=== PATIENT | female | born 2000 | race Caucasian/White ===

== ENCOUNTER 2022-11-11 10:24 | Outpatient (CLI) | payer OTHER, SELFPAY ==
--- NOTE | ~2022-11-11 | US_ITS ---
Pelvic ultrasound. Clinical History: Pelvic pain Technique: Realtime transabdominal and transvaginal scanning of the pelvis was performed. Color flow Doppler and Doppler spectral analysis were performed. Findings: The uterus is anteverted. The endometrial stripe has a thickness of 2 mm. No focal mass is identified. Small amount of fluid present in the cervical canal. The right ovary measures 2.0 x 1.3 x 1.7 cm. No significant right ovarian or adnexal mass is seen. The left ovary measures 1.8 x 1.1 x 1.1 cm. No significant left ovarian or adnexal mass is seen. Vascular flow present in both ovaries on Doppler spectral analysis. There is no evidence of free fluid in the cul de sac. Impression: No significant abnormality identified. Reviewed, dictated and finalized at [facility]. BLASTER SUPERVISOR Impression: No significant abnormality identified.
== END 2022-11-11 10:25 | disposition home or self-care (01) ==
PROVIDERS: PCP Internal Medicine; Visit Provider Student in an Organized Health Care Education/Training Program
DX: R10.2 Pelvic and perineal pain (principal)
CPT/HCPCS: 76830; 76856

== ENCOUNTER 2022-12-31 09:28 | Outpatient (CLI) | payer OTHER, SELFPAY ==
--- NOTE | 2022-12-31 09:37 | ECG_ITS ---
Measurements Intervals [place] Rate: 75 P: 40 ND: 130 QRS: 69 QRSD: 99 T: 31 QT: 364 QTc: 409 Interpretive Statements SINUS RHYTHM INCOMPLETE RIGHT BUNDLE BRANCH BLOCK BASELINE ARTIFACT- I, II, III, AVR, AVL, AVF, V1-V6 BORDERLINE ECG NO PREVIOUS ECG AVAILABLE FOR COMPARISON Electronically Signed On 12-31-2022 10:10:03 CDT by Lalo Rojas D.O.
== END 2022-12-31 09:29 | disposition home or self-care (01) ==
LOC: ANHSURGERY 09:33
PROVIDERS: PCP Internal Medicine; Visit Provider Obstetrics & Gynecology
DX: R10.2 Pelvic and perineal pain (principal); E78.5 Hyperlipidemia, unspecified; Z01.818 Encounter for other preprocedural examination; I45.10 Unspecified right bundle-branch block
CPT/HCPCS: 36415; 86850; 86900; 86901; 93005

== ENCOUNTER 2023-01-01 02:14 | Day surgery (SDC) | payer OTHER, SELFPAY ==
[2022-12-28 11:59] VITALS: BMI 28.3
--- NOTE | 2022-12-28 12:04 | PC.NURSE ---
Report to the Outpatient Waiting Room, entrance under the green pavilion located off [facility], at time 1:30 on date 01/01/23. Planned Procedure Time: 3:30. Time changes happen often and if your time is changed the preop area will call you the afternoon before. - You and your visitor will be asked to self-screen and do not enter if you have any COVID symptoms. - Only one visitor is requested with a max of two and NO children visitors are allowed at this time. - The patient visitor may be requested to leave or wait in car when not with patient due to distancing restrictions. - A mask is optional within the hospital at this time. Patients may have clear liquids (water, carbonated beverages, clear teas, apple juice) until 3 hours prior to surgery (12:30) with a maximum of 20 ounces. - No food from midnight until time of surgery Take the following medications with a SIP of water the morning of surgery: BUPROPION, PAIN PILL IF NEEDED DO NOT STOP ANY OF YOUR OTHER PRESCRIPTION MEDICATIONS PRIOR TO SURGERY EXCEPT THE FOLLOWING Medications to discontinue per physician: VITAMINS/SUPPLEMENTS Date to take last dose: 12/28/22 Please no make-up, nail ukrainian, hairspray, perfume, deodorant, or body powder the day of surgery. No jewelry (including any body piercings) or valuables the day of surgery, leave them at home. Please take a shower or bath the night before, or the morning of, surgery with an antibacterial soap. Wear comfortable, loose fitting clothing. - Jewelry must be removed prior to entering the operating room. Rings and piercings that are not removed may be cut off. - The hospital will not accept responsibility for valuables. - Please leave all valuables, including medications, at home the day of surgery. If you are going home after surgery, a licensed hazmat tanker driver must drive you home. - NO public transportation without another adult if you receive anesthesia. - We recommend that an adult stay with you for 24 hours following discharge. - We also recommend that you do not drive, make important decision, drink alcoholic beverages, or take any drugs that were not prescribed by your health care provider for at least 24 hours after your discharge time. Follow any additional instructions given to you from your surgeon. If you or anyone in your household have experienced Covid symptoms in the past week, please notify your surgeon or the nurse liaison at the phone number below for possible testing. Telephone instructions given to COLLIN SHAFFER and asked if any additional questions and then verbalized understanding. Patient advised to call surgeon office or pre surgery nurse liaison [phone] if any additional questions.
--- NOTE | 2022-12-30 16:33 | PM.IMHP ---
H&P: HPI History of Present Illness Date/Time: 12/30/22 16:33 Chief Complaint: Pelvic pain and irregular heavy bleeding Narrative: A 22-year-old 0 female complaining of severe pelvic pain dyspareunia and bleeding for more than last 2 months. She has tried control pills patches has had no luck. The pain appears to be worse on the right left. She is monogamous and but had negative and negative STD testing. Light of these findings she will undergo laparoscopy and hysteroscopy. Risks and benefits reviewed exclusive , aspiration pneumonia, bleeding, transfusion perforation injury to bowel, bladder, ureters, or other internal organs with the need for open laparotomy. She received the ACOG handout entitled laparoscopy, hysteroscopy, dilatation curettage respectively. She had all questions answered. 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[employer] Gender identity (if verbalized by the patient): Female Sexual Orientation (if Verbalized by the Patient): Straight or Heterosexual Spiritual care concerns: No Meds Home Medications and Allergies Home Medications Medication Instructions Recorded Confirmed Type ergocalciferol (vitamin D2) 1,250 1,250 mcg PO WEEKLY 01/16/22 12/28/22 History mcg (50,000 unit) capsule esomeprazole magnesium 20 mg 20 mg PO DAILY 01/16/22 12/28/22 History capsule,delayed release ubrogepant 50 mg tablet (Ubrelvy) 50 mg PO ONCE 01/16/22 12/28/22 History bupropion HCl 150 mg 24 hr tablet, 300 mg PO QAM 11/18/22 12/28/22 History extended release buspirone 5 mg tablet 5 mg PO HS 11/18/22 12/28/22 History hydrocodone 5 mg-acetaminophen 325 1 tablet PO Q8H PRN Pain 12/28/22 12/28/22 History mg tablet norgestimate 0.25 mg-ethinyl 1 tablet PO DAILY 12/28/22 12/28/22 History estradiol 35 mcg tablet (Whitney) rosuvastatin 40 mg tablet 80 mg PO DAILY 12/28/22 12/28/22 History viloxazine 100 mg capsule,extended 100 mg PO DAILY 12/28/22 12/28/22 History release 24 hr (Qelbree) Allergies Allergy/AdvReac Type Severity Reaction Status Date / Time adhesive tape Allergy Intermediate Rash Verified 12/28/22 11:54 Exam Const: General: cooperative, healthy appearing, comfortable, well groomed and average body habitus Orientation/consciousness: oriented to person, oriented to place and oriented to time HENMT: Head: normal to inspection Resp: Effort & Inspection: normal respiratory effort Cardio: Rate: regular rate Rhythm: regular rhythm Heart sounds: S1 normal heart sound present and S2 normal heart sound present GI: Inspection: normal to inspection : External Female Exam: normal external appearance Speculum Exam - Vagina: normal appearance of the vagina Speculum Exam - Cervix: normal appearance of the cervix Bimanual exam- vagina & uterus: uterine size normal and Uterine tenderness Bimanual Exam- Adnexa, other: tender bilaterally Assessment and Plan Assessment and plan (1) Pelvic pain: Code(s): R10.2 - Pelvic and perineal pain Status: Acute (2) Irregular menses: Code(s): N92.6 - Irregular menstruation, unspecified Status:
[2023-01-01] VITALS (10 sets, daily range): BP systolic 84–124; BP diastolic 59–79; PULSE 59–118; RESP 12–20; TEMP 36.1–36.3; O2SAT 96–100
--- NOTE | 2023-01-01 05:28 | WPDHPUPDATE1 ---
History and Physical Update Update Date/Time: 01/01/23 05:28 History and Physical has been reviewed, including an updated exam of the patient. There are NO changes in the patient's condition. Risks, benefits, and alternatives have been discussed and questions answered. Patient agrees to proceed with procedure.
[2023-01-01] MEDS: ACETAMINOPHEN 500 MG TABLET 1000 MG PO (14:10)
[2023-01-01] MEDS: LACTATED RINGERS 1,000 ML 30 ML IV CONT (14:20)
[2023-01-01] MEDS: KETOROLAC 15 MG/ML VIAL (*BKC) IV PUSH (14:25)
--- NOTE | 2023-01-01 14:26 | WPDANESEPPF ---
Anes - Initial Pre Proc Eval Procedure: Operation Date: 01/01/23 15:30 Proposed Procedures p Diagnostic Laparoscopy, - Indra Gale MD s Hysteroscopy Dilation and Curettage - Indra Gale MD Date/Time: 01/01/23 14:26 Surgeon: Indra Gale MD Pre Op Diagnosis: pelvic pain, irregular bleeding Patient Data Age: 22 Gender: F Height: 1.55 m Weight: 68.1 kg Allergies Allergy/AdvReac Type Severity Reaction Status Date / Time adhesive tape Allergy Intermediate Rash Verified 01/01/23 13:58 Home Medications Medication Instructions Recorded Confirmed Type ergocalciferol (vitamin D2) 1,250 1,250 mcg PO WEEKLY 01/16/22 01/01/23 History mcg (50,000 unit) capsule esomeprazole magnesium 20 mg 20 mg PO DAILY 01/16/22 01/01/23 History capsule,delayed release ubrogepant 50 mg tablet (Ubrelvy) 50 mg PO ONCE 01/16/22 01/01/23 History bupropion HCl 150 mg 24 hr tablet, 300 mg PO QAM 11/18/22 01/01/23 History extended release buspirone 5 mg tablet 5 mg PO HS 11/18/22 01/01/23 History hydrocodone 5 mg-acetaminophen 325 1 tablet PO Q8H PRN Pain 12/28/22 01/01/23 History mg tablet norgestimate 0.25 mg-ethinyl 1 tablet PO DAILY 12/28/22 01/01/23 History estradiol 35 mcg tablet (Whitney) rosuvastatin 40 mg tablet 80 mg PO DAILY 12/28/22 01/01/23 History viloxazine 100 mg capsule,extended 100 mg PO DAILY 12/28/22 01/01/23 History release 24 hr (Qelbree) hydrocodone 5 mg-acetaminophen 325 1 tablet PO Q4H PRN pain #20 tabs 01/01/23 Rx mg tablet norgestimate 0.25 mg-ethinyl 1 tablet PO DAILY 01/01/23 01/01/23 History estradiol 35 mcg tablet (Whitney) Patient hx anesthesia problems: none Family hx anesthesia problems: none Results Review: All pre-operative results and documents have been reviewed as part of the pre-operative evaluation. 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 Gender identity (if verbalized by the patient): Female Sexual Orientation (if Verbalized by the Patient): Straight or Heterosexual Spiritual care concerns: No Anes - Eval Final PreProcedure Day of Procedure 01/01/23 14:26 Patient weight: overweight Heart: regular rate and rhythm Lungs: clear to auscultation Airway: Mallampati scale class II Neurological: alert and oriented Last oral intake: >/= 8 hours ASA classification: II Emergent: no Anesthetic plan: proceed Anesthesia type and monitoring: general ETT and standard monitoring Results Review: All pre-operative results and documents have been reviewed as part of the pre-operative evaluation. Informed Consent: The patient's anesthetic plan and its attendant risks and benefits were discussed with the patient/family/POA. Questions were solicited and answers provided to the satisfaction of the patient/family/POA.
--- NOTE | 2023-01-01 15:38 | P.OP_ITS ---
Procedure Note - Detailed Date of Procedure 01/01/23 Pre-op Diagnosis pelvic pain, irregular bleeding Post-op Diagnosis Other (Endometriosis) Procedure Performed laparoscopic destruction of endometriosis / hysteroscopy / dilatation curettage Surgeon Indra Gale MD Anesthesia General Indications [age]-year-old female with pelvic pain and bleeding Findings a laparoscopy small amounts of endometriosis were seen along the right and left uterosacral ligament. Normal-appearing ovaries tubes were seen. Normal- appearing uterus seen. Normal-appearing gallbladder and liver edge Description of Procedure patient was prepped draped in the normal sterile fashion placed in dorsal lithotomy position. Under an excellent general trach anesthesia weighted speculum placed posterior fornix vagina. Anterior lip of the cervix grasped with a single-tooth tenaculum. The Lord's cannula inserted the cervix and attached to the single-tooth to be used later for uterine manipulation. After emptying the bladder clear urine weighted speculum was removed. Gloves were changed. An infraumbilical incision made in the Veress needle passed in the abdomen. Abdomen filled with CO2 gas [id number]. The 5mm trocar advanced in the abdomen and the optic scope in no injury seen. Patient placed in Trendelenburg and a suprapubic incision made. The 5mm trocar advanced under direct visualization assuring no injury. A 10cc of serosanguineous fluid was seen in the cul-de-sac and this was suction remove small areas of powder burn endometriosis were seen along the left and right uterosacral ligaments. Photo documentation was undertaken and these were then cauterized at 35 w per 2nd with total desiccation. Irrigation undertaken to clear. The remainder the pelvis appeared within normal limits and photo documentation undertaken. The lower site removed. The gas removed from the abdomen. The upper site removed. The incisions closed with 4 Monocryl and glue. Attention was turned to the hysteroscopic portion. The uterus sounded to 7cm. Serial dilatation with fragmented dilators performed followed by passage of the 5mm via the hysteroscope. Normal saline was used as visualizing medium. Each fallopian tube os could be seen there was an atrophic appearance to the endometrium. Node definitive abnormality seen the low the instruments were withdrawn the uterus was scraped over the entire 360? until good grating sound was heard. The instruments were withdrawn the patient went to recovery in satisfactory condition. All sponge, needle, instrument counts were correct. There were no immediate complications noted Estimated Blood Loss 5 Drains No Packing No Pathology Yes Complications No immediate complications Condition Stable Disposition PACU
[2023-01-01] MEDS: fentaNYL CITRATE INJ (*CRX) 100 MCG/2 ML VIAL 25 MCG IV PUSH ×6 (15:55→16:20)
[2023-01-01] MEDS: ONDANSETRON INJ 4 MG/2 ML VIAL IV PUSH (16:15)
[2023-01-01] MEDS: SCOPOLAMINE 1.5 MG PATCH TRANSDERM (16:19)
[2023-01-01] MEDS: MIDAZOLAM HCL (*CRX) 2 MG/2 ML VIAL 1 MG IV PUSH (16:40)
--- NOTE | 2023-01-01 16:40 | SUR.PHASEI ---
1630: PT ANXIOUS.STATES DIDN'T TAKE MEDS FOR ADHD AND ANXIETY TODAY. BECOMING RESTLESS AND ASKING FOR FAMILY AND A PERSONAL BLANKET AND HAND STONE SHE USES TO MANAGE PANIC ATTACKS. MEDICATED. COMFORTED. FAMILY UPDATED. COMFORT ITEMS AND GLASSES GIVEN TO PT.
[2023-01-01] MEDS: oxyCODONE HCL (*CRX) 5 MG TAB IR PO (17:20)
== END 2023-01-01 18:10 | disposition home or self-care (01) ==
PROVIDERS: PCP Internal Medicine; Visit Provider Obstetrics & Gynecology
PROC: (CPT 49320; principal; 2023-01-01 15:30)
PROC: 0U5B8ZZ Destruction of Endometrium, Via Natural or Artificial Opening Endoscopic (ICD-10-PCS; CPT 58563; 2023-01-01 15:30)
DX: N80.3C3 Endometriosis of bilateral uterosacral ligament(s), unspecified depth (principal); R10.2 Pelvic and perineal pain; N92.6 Irregular menstruation, unspecified; N94.10 Unspecified dyspareunia; E78.5 Hyperlipidemia, unspecified; F41.9 Anxiety disorder, unspecified; F32.A Depression, unspecified; E53.8 Deficiency of other specified B group vitamins; E55.9 Vitamin D deficiency, unspecified
CPT/HCPCS: 58558; 58662; 36415; 86850; 86900; 86901; 88305; 93005; A9270; J1100; J1885; J2250; J2405; J2704; J2710; J3010; J7120

== ENCOUNTER 2023-06-15 04:01 | Emergency (ER) | payer OTHER, SELFPAY ==
[2023-06-15 04:03] VITALS: BP 120/72; PULSE 91; RESP 14; TEMP 36.6; O2SAT 100
== END 2023-06-15 04:05 | disposition left against medical advice (07) ==
LOC: ANHED 05:31
PROVIDERS: PCP Internal Medicine
DX: R13.10 Dysphagia, unspecified (principal)
CPT/HCPCS: 99199

== ENCOUNTER 2023-11-04 09:29 | Emergency (ER) | payer MEDICAID, SELFPAY ==
[2023-11-04 09:40] VITALS: BP 136/70; PULSE 96; RESP 15; TEMP 36.4; O2SAT 98
[2023-11-04 10:29] LABS: Basophils Percent Auto 0.3 % (0.2-1.2); Eosinophils Absolute Auto 0.2 K/mm3 (0-0.3); Eosinophils Percent Auto 1.9 % (0-4.4); Hematocrit 39.1 % (37.0-47.0); Hemoglobin 12.9 g/dL (12.0-15.0); Immature Granulocyte Absolute 0.05 K/mm3 (0.00-0.031); Immature Granulocyte Percent A 0.5 % (0-0.5); Lymphocytes Absolute Auto 1.59 K/mm3 (0.9-3.2); Lymphocytes Percent Auto 17.4 % (18.3-44.2); Mean Corpuscular Hemoglobin 30.1 pg (26-34); Mean Corpuscular Volume 91.4 fl (80-100); Mean Platelet Volume 9.8 fl (7.4-10.4); Monocytes Absolute Auto 0.4 K/mm3 (0.1-0.6); Monocytes Percent Auto 4.4 % (2.6-8.5); Neutrophils Absolute Auto 6.9 K/mm3 (1.3-6.7); Neutrophils Percent Auto 75.5 % (45.5-73.1); Platelet Count Result 314 k/mm3 (150-375); Red Blood Count 4.28 M/mm3 (4.2-5.4); Red Cell Distribution Width 13.8 % (11.5-14.5); White Blood Count 9.1 K/mm3 (4.5-10.0)
[2023-11-04 10:45] VITALS: BP 102/69; PULSE 94; RESP 17; TEMP 36.6; O2SAT 98
[2023-11-04] MEDS: ACETAMINOPHEN 500 MG TABLET 1000 MG PO (10:46)
[2023-11-04] MEDS: LACTATED RINGERS 1,000 ML 999 ML IV CONT (10:51)
[2023-11-04] MEDS: METOCLOPRAMIDE HCL INJ 10 MG/2 ML VIAL IV PUSH (10:52)
[2023-11-04] MEDS: FAMOTIDINE 20 MG/2 ML VIAL IV PUSH (10:52)
[2023-11-04 11:21] LABS: Appearance Urine Clear (Clear); Bilirubin Urine Negative (Negative); Blood Urine Negative (Negative); Color Urine Yellow (Yellow); Glucose Urine UA Negative (Negative); Ketones Urine Negative (Negative); Leukocyte Esterase Ur 1+ LEU/UL (Negative); Nitrate Urine Negative (Negative); Protein Urine Negative (Negative); Urobilinogen Urine 0.2 mg/dL (<2.0)
[2023-11-04 11:22] LABS: Add Urine Microscopic? YES
--- NOTE | 2023-11-04 11:22 | ED.FALL ---
HPI - Fall General Chief Complaint: Fall Stated Complaint: FALL, OB WANTS BLOOD WORK Time Seen by Provider: 11/04/23 09:43 History of Present Illness HPI Narrative: Patient with history of endometriosis and inconsistent. Presents here after she had a positive test at home 2 days ago. Plan was to follow-up with her OBGYN today, however she slipped and fell and landed on her left side/ back, with her backpack on. She caught her OBs office we told her to go to the emergency room. She has no vaginal bleeding, she has some discomfort to the left lower back, but no abdominal pain. Over the last few days she has been having a lot of nausea and vomiting. Related Data Home Medications Medication Instructions Recorded Confirmed ergocalciferol (vitamin D2) 1,250 1,250 mcg PO WEEKLY 01/16/22 01/01/23 mcg (50,000 unit) capsule esomeprazole magnesium 20 mg 20 mg PO DAILY 01/16/22 01/01/23 capsule,delayed release ubrogepant 50 mg tablet (Ubrelvy) 50 mg PO ONCE 01/16/22 01/01/23 bupropion HCl 150 mg 24 hr tablet, 300 mg PO QAM 11/18/22 01/01/23 extended release buspirone 5 mg tablet 5 mg PO HS 11/18/22 01/01/23 hydrocodone 5 mg-acetaminophen 325 1 tablet PO Q8H PRN Pain 12/28/22 01/01/23 mg tablet norgestimate 0.25 mg-ethinyl 1 tablet PO DAILY 12/28/22 01/01/23 estradiol 35 mcg tablet (Whitney) rosuvastatin 40 mg tablet 80 mg PO DAILY 12/28/22 01/01/23 viloxazine 100 mg capsule,extended 100 mg PO DAILY 12/28/22 01/01/23 release 24 hr (Qelbree) norgestimate 0.25 mg-ethinyl 1 tablet PO DAILY 01/01/23 01/01/23 estradiol 35 mcg tablet (Whitney) Allergies Allergy/AdvReac Type Severity Reaction Status Date / Time adhesive tape Allergy Intermediate Rash Verified 11/04/23 09:44 Review of Systems Review of Systems: All systems reviewed & are unremarkable except as noted in HPI and below PMFSH Past Medical History Medical History Anxiety Depression Hyperlipemia Tonsillectomy planned Vaginal discharge Vitamin B12 deficiency Vitamin D deficiency Surgical History Surgical History Hx of tonsillectomy [place] teeth extracted Family History Family History Mother Breast cancer Grandparent Hypertension Social History Social History Smoking status: Never smoker Alcohol intake: current Drinks per week: 5 Substance use: never Substance use type: does not use Living arrangements: with family Occupation/Education: occupation 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 EYES: EOMI, conjunctiva normal ENT: Hearing grossly intact LUNGS: Nonlabored breathing. HEART: [Regular rate and rhythm] ABD: [Soft], [nontender to palpation] EXT: Normal range of motion SKIN: [No rashes or lesions.] NEURO: [Alert and oriented x 3. No gross focal sensory or strength deficits.] PSYCH: Normal affect Course Vital Signs Vital signs: Vital Signs Temperature 97.6 F 11/04/23 09:40 Pulse Rate 96 11/04/23 09:40 Respiratory Rate 15 11/04/23 09:40 Blood Pressure 136/70 11/04/23 09:40 Pulse Oximetry 98 11/04/23 09:40 Oxygen Delivery Room Air 11/04/23 09:40 Temperature 97.6 F 11/04/23 09:40 Pulse Rate 96 11/04/23 09:40 Respiratory Rate 15 11/04/23 09:40 Blood Pressure 136/70 11/04/23 09:40 Pulse Oximetry 98 11/04/23 09:40 Oxygen Delivery Room Air 11/04/23 09:40 VIVIANA Brooks MD
[2023-11-04 11:29] LABS: RBC Urine 0-2 /hpf (0-2)
[2023-11-04 11:30] LABS: Bacteria Urine None Seen /hpf; Squamous Epithelial Cell Urine Rare /hpf (Few)
== END 2023-11-04 11:32 | disposition home or self-care (01) ==
PROVIDERS: Emergency Provider Emergency Medicine; PCP Internal Medicine
DX: O9A.211 Injury, poisoning and certain other consequences of external causes complicating pregnancy, first trimester (principal); S39.92XA Unspecified injury of lower back, initial encounter; O21.9 Vomiting of pregnancy, unspecified; O99.281 Endocrine, nutritional and metabolic diseases complicating pregnancy, first trimester; E78.5 Hyperlipidemia, unspecified; E53.8 Deficiency of other specified B group vitamins; E55.9 Vitamin D deficiency, unspecified; O99.341 Other mental disorders complicating pregnancy, first trimester; F41.9 Anxiety disorder, unspecified; F32.A Depression, unspecified; Z3A.00 Weeks of gestation of pregnancy not specified; W01.0XXA Fall on same level from slipping, tripping and stumbling without subsequent striking against object, initial encounter
CPT/HCPCS: 36415; 81001; 84702; 85025; 85461; 86850; 86900; 86901; 87086; 96361; 96374; 96375; 99284; A9270; J2765; J7120

== ENCOUNTER 2023-12-09 11:53 | Observation (INO) | payer OTHER, SELFPAY ==
--- NOTE | ~2023-12-09 | US_ITS ---
EXAMINATION: US renal BI DATE: 12/09/2023 18:03 INDICATION: Right abdominal pain. Right flank pain. TECHNIQUE: Multiple ultrasound grayscale images of the kidneys were obtained. COMPARISON: CT abdomen and pelvis 09/06/2019 FINDINGS: The right kidney measures 9.7 x 5.9 x 5.7 cm. The left kidney measures 9.0 x 5.4 x 5.0 cm. The kidney s demonstrate normal parenchymal echogenicity. There is mild right hydronephrosis. The bladder is not well distended. Both uterine jets are seen in the bladder. There is an intrauterine gestation in aurelio lauren presentation. IMPRESSION: 1. Mild right hydronephrosis. Reviewed, dictated and finalized at location E. GHT ELEVATOR ERECTOR
--- NOTE | ~2023-12-09 | US_ITS ---
EXAMINATION: US right upper quadrant DATE: 12/09/2023 19:40 INDICATION: Right upper quadrant abdominal pain. TECHNIQUE: Multiple grayscale and Doppler ultrasound images of the abdomen were obtained. COMPARISON: CT abdomen and pelvis 09/06/2019 FINDINGS: The visualized portion of the head of the pancreas is normal. The liver is normal without f ocal lesion. There is normal flow in main portal vein. The gallbladder is contracted. No gallstones. There was a positive sonographic Sykes sign. The common duct is normal and measures 4 mm. There is m ild right hydronephrosis. IMPRESSION: 1. Contracted gallbladder. No etiology for the positive sonographic Sykes sign. 2. Mild right hydronephrosis. Reviewed, dictated and finalized at location E. ITY CONTROL SPECIALIST IMPRESSION: 1. Contracted gallbladder. No etiology for the positive sonographic Sykes sign . 2. Mild right hydronephrosis.
--- NOTE | 2023-12-09 11:53 | OBADM ---
This patient, Liberty Alford, admitted to the OB room OB Post 113 for observation. Patient/family oriented to hospital policies and general routines including ID bracelet, bed and alarms, visiting hours, pain management, procedures, bathroom and other care routines, personal items, smoking policy, room service/diet, and visiting hours. Patient/Family are encouraged to report perceived risks to care and to ask questions if they do not understand what they are told or what they should do.
--- NOTE | 2023-12-09 12:00 | PC.NURSE ---
Orders received prior to admission. Pt coming from office.
--- NOTE | 2023-12-09 12:10 | PM.OBTRLD ---
OB - Triage/Final Diagnosis Visit Information Date of evaluation: 12/09/23 Reason for evaluation: decreased movement and other (Dehydration) Comments/Additional reasons for admission: I have assessed the risk for this patient, Liberty Alford, and determined that she would benefit from observation care.
[2023-12-09 12:22] VITALS: BP 103/56; PULSE 75
[2023-12-09 12:33] LABS: Basophils Percent Auto 0.4 % (0.2-1.2); Eosinophils Absolute Auto 0.2 K/mm3 (0-0.3); Eosinophils Percent Auto 1.9 % (0-4.4); Hematocrit 33.6 % (37.0-47.0); Hemoglobin 10.9 g/dL (12.0-15.0); Immature Granulocyte Absolute 0.07 K/mm3 (0.00-0.031); Immature Granulocyte Percent A 0.7 % (0-0.5); Lymphocytes Absolute Auto 2.24 K/mm3 (0.9-3.2); Lymphocytes Percent Auto 21.3 % (18.3-44.2); Mean Corpuscular HGB Conc 32.4 g/dl (32-36); Mean Corpuscular Hemoglobin 30.6 pg (26-34); Mean Corpuscular Volume 94.4 fl (80-100); Mean Platelet Volume 9.7 fl (7.4-10.4); Monocytes Absolute Auto 0.6 K/mm3 (0.1-0.6); Monocytes Percent Auto 5.9 % (2.6-8.5); Neutrophils Absolute Auto 7.4 K/mm3 (1.3-6.7); Neutrophils Percent Auto 69.8 % (45.5-73.1); Platelet Count Result 308 k/mm3 (150-375); Red Blood Count 3.56 M/mm3 (4.2-5.4); White Blood Count 10.5 K/mm3 (4.5-10.0)
[2023-12-09] MEDS: DEXTROSE 5%/LACTATED RINGERS 1,000 ML 999 ML IV CONT (12:34)
[2023-12-09] MEDS: ONDANSETRON INJ 4 MG/2 ML VIAL IV PUSH ×2 (12:35→14:26)
[2023-12-09 12:37] VITALS: BMI 32.5
[2023-12-09 12:43] LABS: Alanine Aminotransferase 25 U/L (6-35); Albumin Level 3.5 g/dL (3.5-5.1); Alkaline Phosphatase 81 U/L (38-126); Anion Gap 5 mmol/L (8-16); Aspartate Amino Transferase 28 U/L (14-36); Bilirubin,Total 0.3 mg/dL (0.2-1.3); Blood Urea Nitrogen 7 mg/dL (7-17); Calcium 8.7 mg/dL (8.4-10.2); Carbon Dioxide 22 mmol/L (22-30); Chloride 108 mmol/L (98-107); Estimated CRCL calculation 118 ml/min; Estimated Glomerular Filt Rate > 60; Glucose 76 mg/dL (65-110); Potassium 3.8 mmol/L (3.4-5.0); Sodium 135 mmol/L (137-145)
[2023-12-09] MEDS: FAMOTIDINE 20 MG/2 ML VIAL IV PUSH (14:26)
--- NOTE | 2023-12-09 14:30 | PC.NURSE ---
Called Dr. Stephane Gale with pt update. Informed that pt was able to eat dry cereal and drink a sprite without vomiting. Pt states that she has abdominal pain now, and some nausea. Orders received.
[2023-12-09 15:24] LABS: Amylase 104 U/L (30-110); Lipase 55 U/L (23-300)
[2023-12-09] MEDS: PROMETHAZINE HCL 25 MG/ML AMPUL 12.5 MG IV PUSH ×2 (15:26→17:39)
[2023-12-09 15:45] VITALS: TEMP 36.8
[2023-12-09] MEDS: HYDROcodone/acetaminophen (*CRX) 10-325 MG TABLET 1 TAB PO (16:37)
--- NOTE | 2023-12-09 17:25 | PC.NURSE ---
Called Dr. Stephane Gale. Pt now complaining of worsening pain. CVA tenderness noted. Orders received.
[2023-12-09] MEDS: DEXTROSE 5%/LACTATED RINGERS 1,000 ML 150 ML IV CONT (17:39)
[2023-12-09 18:41] LABS: Appearance Urine Clear (Clear); Bacteria Urine None Seen /hpf; Bilirubin Urine Negative (Negative); Blood Urine Negative (Negative); Color Urine Yellow (Yellow); Glucose Urine UA Negative (Negative); Ketones Urine Negative (Negative); Leukocyte Esterase Ur Trace LEU/UL (NEGATIVE); Nitrate Urine Negative (Negative); Non Pathogenic Casts 0-2; Protein Urine Negative (Negative); RBC Urine 0-2 /hpf (0-2); Specific Grav Ur 1.014 (1.001-1.035); Squamous Epithelial Cell Urine Occasional /hpf (Few); Urobilinogen Urine 0.2 mg/dL (<2.0); WBC Urine 0-5 /hpf (0-3)
[2023-12-09 18:44] LABS: Add Urine Microscopic? YES
--- NOTE | 2023-12-09 20:04 | PC.NURSE ---
[address] Stephane Gale at this time. Reported all lab work and reports. orders given to discharge this patient at this time. Patient is able to keep down crackers and peanut butter and a sprite.
== END 2023-12-09 20:44 | disposition home or self-care (01) ==
PROVIDERS: Admitting Provider Obstetrics & Gynecology; PCP Internal Medicine; Visit Provider Obstetrics & Gynecology
DX: O36.8120 Decreased fetal movements, second trimester, not applicable or unspecified (principal); O99.282 Endocrine, nutritional and metabolic diseases complicating pregnancy, second trimester; E86.0 Dehydration; O99.891 Other specified diseases and conditions complicating pregnancy; N13.30 Unspecified hydronephrosis; O99.612 Diseases of the digestive system complicating pregnancy, second trimester; K82.0 Obstruction of gallbladder; Z3A.24 24 weeks gestation of pregnancy
CPT/HCPCS: 36415; 76705; 76775; 80053; 81001; 82150; 83690; 85025; 87086; 87088; 96374; 96375; 96376; A9270; G0378; G0379; J2405; J2550; J7121

== ENCOUNTER 2023-12-10 13:28 | Observation (INO) | payer OTHER, SELFPAY ==
--- NOTE | 2023-12-10 13:28 | OBADM ---
This patient, Liberty Alford, admitted to the OB room OB Post 116 for observation. Patient/family oriented to hospital policies and general routines including ID bracelet, bed and alarms, visiting hours, pain management, procedures, bathroom and other care routines, personal items, smoking policy, room service/diet, and visiting hours. Patient/Family are encouraged to report perceived risks to care and to ask questions if they do not understand what they are told or what they should do.
[2023-12-10 13:46] VITALS: BP 99/55; PULSE 89
[2023-12-10 14:00] VITALS: BP 103/61; PULSE 86
[2023-12-10 14:15] VITALS: BP 103/59; PULSE 78
--- NOTE | 2023-12-10 14:15 | PC.NURSE ---
Called Dr. Stephane Gale with pt admission. Pt complaining of increased abdominal pain since her discharge yesterday. Pt also stating that she is still nauseous and unable to keep anything down, decreased movement, and leaking fluid. Tracing appropriate for gestational age. ROM plus negative. Orders received.
[2023-12-10 14:46] VITALS: BP 100/56; PULSE 78
[2023-12-10] MEDS: PROMETHAZINE HCL 25 MG/ML AMPUL 12.5 MG IV PUSH (14:59)
[2023-12-10] MEDS: DEXTROSE 5%/LACTATED RINGERS 1,000 ML 150 ML IV CONT ×2 (15:00→15:39)
[2023-12-10] MEDS: MEPERIDINE HCL INJ (*CRX) 50 MG/ML AMPUL 25 MG IV PUSH (15:03)
[2023-12-10] MEDS: FAMOTIDINE 20 MG/2 ML VIAL IV PUSH (15:08)
[2023-12-10 16:09] VITALS: BP 111/60; PULSE 94
[2023-12-10 16:20] VITALS: BMI 32.5
--- NOTE | 2023-12-10 18:14 | PC.NURSE ---
Talked to Dr. Stephane Gale at this time. Reported on maternal and status. Patient states that her pain went from a 7 to a 4 and she is still nauseous but it is better then earlier. Discharge orders given at this time
--- NOTE | 2023-12-14 07:10 | PM.OBTRLD ---
OB - Triage/Final Diagnosis Visit Information Reason for evaluation: threatened labor Comments/Additional reasons for admission: I have assessed the risk for this patient, Liberty Alford, and determined that she would benefit from observation care.
== END 2023-12-10 18:29 | disposition home or self-care (01) ==
PROVIDERS: Admitting Provider Obstetrics & Gynecology; PCP Internal Medicine; Visit Provider Obstetrics & Gynecology
DX: O47.02 False labor before 37 completed weeks of gestation, second trimester (principal); Z3A.24 24 weeks gestation of pregnancy
CPT/HCPCS: 59025; 84112; 96361; 96374; 96375; G0378; G0379; J2175; J2550; J7121

== ENCOUNTER 2024-01-01 14:30 | Observation (INO) | payer OTHER, SELFPAY ==
[2024-01-01 15:00] VITALS: BP 102/60; PULSE 104; BMI 32.5
[2024-01-01 15:15] VITALS: BP 108/71; PULSE 94
[2024-01-01 15:27] LABS: Appearance Urine Cloudy (Clear); Bacteria Urine 2+ /hpf; Bilirubin Urine Negative (Negative); Blood Urine 3+ (Negative); Color Urine Yellow (Yellow); Glucose Urine UA Negative (Negative); Ketones Urine Negative (Negative); Leukocyte Esterase Ur 2+ LEU/UL (Negative); Nitrate Urine Negative (Negative); Non Pathogenic Casts 0-2; Protein Urine Trace mg/dL (Negative); Specific Grav Ur 1.022 (1.001-1.035); Squamous Epithelial Cell Urine Moderate /hpf (Few); Urobilinogen Urine 0.2 mg/dL (<2.0); WBC Urine 51-100 /hpf (0-3); pH Urine 5.5 (5.0-9.0)
[2024-01-01 15:28] LABS: Add Urine Microscopic? YES
[2024-01-01 15:30] VITALS: BP 103/66; PULSE 86; TEMP 36.6
[2024-01-01 15:45] VITALS: BP 105/66; PULSE 80
[2024-01-01 16:00] VITALS: BP 105/70; PULSE 74
--- NOTE | 2024-01-07 11:52 | PM.OBTRLD ---
OB - Triage/Final Diagnosis Visit Information Reason for evaluation: other ( vaginal spotting) Comments/Additional reasons for admission: I have assessed the risk for this patient, Liberty Alford, and determined that she would benefit from observation care. Evaluation Laboratory results: Laboratory Tests 01/01/24 15:10 Urine Color Yellow Urine Appearance Cloudy H Urine pH 5.5 Ur Specific [place] 1.022 Urine Protein Trace Urine Glucose (UA) Negative Urine Ketones Negative Ur Blood (Man) 3+ H Urine Nitrate Negative Urine Bilirubin Negative Urine Urobilinogen 0.2 Leukocyte Esterase Rfl 2+ H Urine RBC 3-5 H Urine WBC 51-100 H Ur Squamous Epith Cells Moderate Urine Bacteria 2+ H Urine Casts 0-2
== END 2024-01-01 16:55 | disposition home or self-care (01) ==
PROVIDERS: Admitting Provider Obstetrics & Gynecology Gynecology; PCP Internal Medicine; Visit Provider Obstetrics & Gynecology
DX: O26.853 Spotting complicating pregnancy, third trimester (principal); Z3A.28 28 weeks gestation of pregnancy
CPT/HCPCS: 81001; 87086; G0378; G0379

== ENCOUNTER 2024-02-12 13:46 | Observation (INO) | payer OTHER, SELFPAY ==
[2024-02-12] VITALS (22 sets, daily range): BP systolic 99–123; BP diastolic 53–79; PULSE 81–119; RESP 16; TEMP 36.5; O2SAT 100; BMI 35.9
[2024-02-12] MEDS: CALCIUM CARBONATE (TUMS) 500 MG (200 MG ELEMENTAL) PO (14:20)
--- NOTE | 2024-02-12 14:30 | OBADM ---
This patient, Liberty Alford, admitted to the OB room 116 for observation. Patient/family oriented to hospital policies and general routines including ID bracelet, bed and alarms, visiting hours, pain management, procedures, bathroom and other care routines, personal items, smoking policy, room service/diet, and visiting hours. Patient/Family are encouraged to report perceived risks to care and to ask questions if they do not understand what they are told or what they should do.
[2024-02-12 14:32] LABS: Appearance Urine Cloudy (Clear); Bacteria Urine 2+ /hpf; Bilirubin Urine Negative (Negative); Blood Urine Negative (Negative); Color Urine Yellow (Yellow); Glucose Urine UA Negative (Negative); Ketones Urine Trace mg/dL (Negative); Leukocyte Esterase Ur 1+ LEU/UL (Negative); Need Manual Microscopic Reviewed; Nitrate Urine Negative (Negative); Non Pathogenic Casts 0-2; Protein Urine Negative (Negative); Specific Grav Ur 1.027 (1.001-1.035); Squamous Epithelial Cell Urine Few /hpf (Few); WBC Urine 21-50 /hpf (0-3); pH Urine 5.5 (5.0-9.0)
[2024-02-12 14:33] LABS: Add Urine Microscopic? YES
[2024-02-12] MEDS: SODIUM CHLORIDE 0.9% IV 1,000 ML 999 ML IV CONT (15:19)
[2024-02-12] MEDS: ONDANSETRON INJ 4 MG/2 ML VIAL IV PUSH (15:20)
[2024-02-12] MEDS: FAMOTIDINE 20 MG/2 ML VIAL IV PUSH (15:21)
[2024-02-12] MEDS: TERBUTALINE SULFATE 1 MG/ML VIAL 0.25 MG SUB-Q (16:35)
--- NOTE | 2024-02-12 19:00 | PM.OBTRLD ---
OB - Triage/Final Diagnosis Visit Information Date of evaluation: 02/12/24 Reason for evaluation: threatened labor Comments/Additional reasons for admission: I have assessed the risk for this patient, Liberty Alford, and determined that she would benefit from observation care. Evaluation Laboratory results: Laboratory Tests 02/12/24 14:13 Urine Color Yellow Urine Appearance Cloudy H Urine pH 5.5 Ur Specific [place] 1.027 Urine Protein Negative Urine Glucose (UA) Negative Urine Ketones Trace H Ur Blood (Man) Negative Urine Nitrate Negative Urine Bilirubin Negative Urine Urobilinogen 1.0 Add Ur Microanalysis Reviewed Leukocyte Esterase Rfl 1+ H Urine RBC 6-10 H Urine WBC 21-50 H Ur Squamous Epith Cells Few Urine Bacteria 2+ H Urine Casts 0-2 Vital signs: Vital Signs - 24 hr 02/12/24 14:27 02/12/24 14:14 02/12/24 14:30 Temperature 97.7 F Pulse Rate 110 H 93 Respiratory Rate 16 Blood Pressure 108/72 109/67 Pulse Oximetry Oxygen Delivery Room Air 02/12/24 14:45 02/12/24 15:00 02/12/24 16:00 Temperature Pulse Rate 103 H 91 81 Respiratory Rate Blood Pressure 117/79 108/56 L 105/70 Pulse Oximetry Oxygen Delivery 02/12/24 16:34 02/12/24 17:00 02/12/24 17:24 Temperature Pulse Rate 86 87 Respiratory Rate Blood Pressure 106/67 99/53 L Pulse Oximetry 100 Oxygen Delivery 02/12/24 17:29 02/12/24 17:34 02/12/24 17:39 Temperature Pulse Rate Respiratory Rate Blood Pressure Pulse Oximetry 100 100 100 Oxygen Delivery 02/12/24 17:44 02/12/24 17:49 02/12/24 17:54 Temperature Pulse Rate Respiratory Rate Blood Pressure Pulse Oximetry 100 100 100 Oxygen Delivery 02/12/24 17:59 02/12/24 18:04 02/12/24 18:09 Temperature Pulse Rate Respiratory Rate Blood Pressure Pulse Oximetry 100 100 100 Oxygen Delivery 02/12/24 18:13 02/12/24 18:14 02/12/24 18:19 Temperature Pulse Rate 112 H Respiratory Rate Blood Pressure 123/67 Pulse Oximetry 100 100 Oxygen Delivery 02/12/24 18:24 02/12/24 18:29 02/12/24 18:29 Temperature Pulse Rate Respiratory Rate Blood Pressure Pulse Oximetry 100 100 100 Oxygen Delivery
== END 2024-02-12 18:40 | disposition home or self-care (01) ==
PROVIDERS: Admitting Provider Obstetrics & Gynecology; PCP Internal Medicine; Visit Provider Obstetrics & Gynecology
DX: O47.03 False labor before 37 completed weeks of gestation, third trimester (principal); Z3A.34 34 weeks gestation of pregnancy
CPT/HCPCS: 81001; 87077; 87086; 87088; 87181; 96361; 96365; 96372; 96375; A9270; G0378; G0379; J0696; J2405; J3105; J7030

== ENCOUNTER 2024-02-13 18:51 | Observation (INO) | payer OTHER, SELFPAY ==
[2024-02-13] VITALS (34 sets, daily range): BP systolic 117; BP diastolic 73; PULSE 85–126; O2SAT 97–100; BMI 36.2
[2024-02-13] MEDS: NIFEdipine 10 MG CAPSULE PO (20:34)
== END 2024-02-13 23:05 ==
PROVIDERS: Admitting Provider Obstetrics & Gynecology; PCP Internal Medicine; Visit Provider Obstetrics & Gynecology
DX: O47.03 False labor before 37 completed weeks of gestation, third trimester (principal); Z3A.34 34 weeks gestation of pregnancy
CPT/HCPCS: A9270; G0378; G0379

== ENCOUNTER 2024-02-14 14:21 | Observation (INO) | payer OTHER, SELFPAY ==
[2024-02-14 14:41] VITALS: BP 113/64; PULSE 111
[2024-02-14 14:45] VITALS: BP 99/58; PULSE 119
[2024-02-14 15:00] VITALS: BP 86/59; PULSE 107
[2024-02-14 15:29] VITALS: BP 103/63; PULSE 100
[2024-02-14 16:00] VITALS: BP 91/48; PULSE 84
--- NOTE | 2024-02-14 17:03 | PC.NURSE ---
Lab reported they are unable to locate urine specimen.
--- NOTE | 2024-02-16 06:04 | P.PNOB_ITS ---
OB - Triage/Final Diagnosis Visit Information Reason for evaluation: threatened labor Comments/Additional reasons for admission: I have assessed the risk for this patient, Liberty Alford, and determined that she would benefit from observation care. Evaluation Laboratory results: Laboratory Tests 02/14/24 14:56 Urine Color Cancelled Urine Appearance Cancelled Urine pH Cancelled Ur Specific [place] Cancelled Urine Protein Cancelled Urine Glucose (UA) Cancelled Urine Ketones Cancelled Ur Blood (Man) Cancelled Urine Nitrate Cancelled Urine Bilirubin Cancelled Urine Urobilinogen Cancelled Add Ur Microanalysis Cancelled Leukocyte Esterase Rfl Cancelled Urine RBC Cancelled Urine WBC Cancelled Urine WBC Clumps Cancelled Ur Squamous Epith Cells Cancelled Ur Transition Epith Cell Cancelled Ur Renal Epithelial Cell Cancelled [place] Biurate Crystals Cancelled Calcium Carbonate Cryst Cancelled Calcium Phosphate Cryst Cancelled Calcium Oxalate Crystal Cancelled Leucine Crystals Cancelled Cystine Crystals Cancelled Uric Acid Crystals Cancelled Triple Phos Crystals Cancelled Sulfonamide Crystals Cancelled Cholesterol Crystals Cancelled [place] Crystals Cancelled Tyrosine Crystals Cancelled Hippuric Acid Crystals Cancelled Bilirubin Crystals Cancelled Other Crystals Cancelled Amorphous Sediment Cancelled Other Sediment Cancelled Urine Bacteria Cancelled Urine Casts Cancelled Cellular Casts Cancelled Epithelial Casts Cancelled Fatty Casts Cancelled Hyaline Casts Cancelled Granular Casts Cancelled Waxy Casts Cancelled Broad Casts Cancelled RBC Casts Cancelled WBC Casts Cancelled Urine Starch Cancelled Urine Mucus Cancelled Urine Trichomonas Cancelled Urine Yeast (Budding) Cancelled Ur Oval Fat Bodies Cancelled Sperm Presence Cancelled
== END 2024-02-14 18:16 | disposition home or self-care (01) ==
PROVIDERS: Admitting Provider Obstetrics & Gynecology; PCP Internal Medicine; Visit Provider Obstetrics & Gynecology
DX: O47.03 False labor before 37 completed weeks of gestation, third trimester (principal); Z3A.34 34 weeks gestation of pregnancy
CPT/HCPCS: 96365; G0378; G0379; J0696

== ENCOUNTER 2024-02-18 19:53 | Observation (INO) | payer OTHER, SELFPAY ==
[2024-02-18 20:56] LABS: Appearance Urine Clear (Clear); Bacteria Urine None Seen /hpf; Bilirubin Urine Negative (Negative); Blood Urine Negative (Negative); Color Urine Yellow (Yellow); Glucose Urine UA Negative (Negative); Ketones Urine Trace mg/dL (Negative); Leukocyte Esterase Ur 1+ LEU/UL (Negative); Need Manual Microscopic Reviewed; Nitrate Urine Negative (Negative); Non Pathogenic Casts 0-2; Protein Urine Trace mg/dL (Negative); RBC Urine 0-2 /hpf (0-2); Specific Grav Ur 1.023 (1.001-1.035); Squamous Epithelial Cell Urine Occasional /hpf (Few); pH Urine 6.5 (5.0-9.0)
[2024-02-18 20:57] LABS: Add Urine Microscopic? YES
[2024-02-18 21:01] VITALS: BP 114/58; PULSE 95
[2024-02-18 21:15] VITALS: BP 107/57; PULSE 94
[2024-02-18 21:30] VITALS: BMI 34.0
--- NOTE | 2024-02-18 21:30 | OBADM ---
This patient, Liberty Alford, admitted to the OB room OB Post 115 for observation. Patient/family oriented to hospital policies and general routines including ID bracelet, bed and alarms, visiting hours, pain management, procedures, bathroom and other care routines, personal items, smoking policy, room service/diet, and visiting hours. Patient/Family are encouraged to report perceived risks to care and to ask questions if they do not understand what they are told or what they should do.
--- NOTE | 2024-02-28 11:54 | P.PNOB_ITS ---
OB - Triage/Final Diagnosis Visit Information Comments/Additional reasons for admission: I have assessed the risk for this patient, Liberty Toddubbs, and determined that she would benefit from observation care. Evaluation Laboratory results: Laboratory Tests 02/18/24 20:41 Urine Color Yellow Urine Appearance Clear Urine pH 6.5 Ur Specific [place] 1.023 Urine Protein Trace Urine Glucose (UA) Negative Urine Ketones Trace H Ur Blood (Man) Negative Urine Nitrate Negative Urine Bilirubin Negative Urine Urobilinogen 1.0 Add Ur Microanalysis Reviewed Leukocyte Esterase Rfl 1+ H Urine RBC 0-2 Urine WBC 6-10 H Ur Squamous Epith Cells Occasional Urine Bacteria None seen Urine Casts 0-2 Final Diagnosis (1) Spotting affecting : Code(s): O26.859 - Spotting complicating , unspecified trimester Status: Acute
== END 2024-02-18 21:46 | disposition home or self-care (01) ==
PROVIDERS: Admitting Provider Obstetrics & Gynecology; PCP Internal Medicine; Visit Provider Obstetrics & Gynecology
DX: O26.853 Spotting complicating pregnancy, third trimester (principal); Z3A.34 34 weeks gestation of pregnancy
CPT/HCPCS: 81001; 87086; G0378; G0379

== ENCOUNTER 2024-02-28 14:55 | Observation (INO) | payer OTHER, SELFPAY ==
--- NOTE | 2024-02-28 14:55 | OBADM ---
This patient, Liberty Alford, admitted to the OB room Labor/Delivery/Recovery 107 for observation. Patient/family oriented to hospital policies and general routines including ID bracelet, bed and alarms, visiting hours, pain management, procedures, bathroom and other care routines, personal items, smoking policy, room service/diet, and visiting hours. Patient/Family are encouraged to report perceived risks to care and to ask questions if they do not understand what they are told or what they should do.
[2024-02-28 15:18] VITALS: TEMP 36.4
[2024-02-28 15:20] VITALS: BMI 36.0
[2024-02-28 15:31] VITALS: BP 117/65; PULSE 120
[2024-02-28 15:50] VITALS: BP 128/77; PULSE 111
[2024-02-28 16:00] VITALS: BP 109/62; PULSE 102
[2024-02-28 16:15] VITALS: BP 125/88; PULSE 73
[2024-02-28 16:17] VITALS: BP 115/69; PULSE 98
--- NOTE | 2024-03-21 12:18 | PM.OBTRLD ---
OB - Triage/Final Diagnosis Visit Information Comments/Additional reasons for admission: I have assessed the risk for this patient, Liberty Paez Rocío, and determined that she would benefit from observation care. Final Diagnosis (1) False labor: Code(s): O47.9 - False labor, unspecified Status: Acute
== END 2024-02-28 16:45 ==
PROVIDERS: Admitting Provider Obstetrics & Gynecology; PCP Internal Medicine; Visit Provider Obstetrics & Gynecology
DX: O47.9 False labor, unspecified (principal)
CPT/HCPCS: G0378; G0379

== ENCOUNTER 2024-02-28 20:39 | Observation (INO) | payer OTHER, SELFPAY ==
[2024-02-28] VITALS (7 sets, daily range): BP systolic 125; BP diastolic 60; PULSE 92–118; O2SAT 98–100
--- NOTE | 2024-02-28 21:49 | OBADM ---
This patient, Liberty Alford, admitted to the OB room Labor/Delivery/Recovery 104 for observation. Patient/family oriented to hospital policies and general routines including ID bracelet, bed and alarms, visiting hours, pain management, procedures, bathroom and other care routines, personal items, smoking policy, room service/diet, and visiting hours. Patient/Family are encouraged to report perceived risks to care and to ask questions if they do not understand what they are told or what they should do.
== END 2024-02-28 22:10 | disposition home or self-care (01) ==
PROVIDERS: Admitting Provider Obstetrics & Gynecology; PCP Internal Medicine; Visit Provider Obstetrics & Gynecology
DX: O47.9 False labor, unspecified (principal)
CPT/HCPCS: G0378; G0379

== ENCOUNTER 2024-03-01 04:50 | Observation (INO) | payer OTHER, SELFPAY ==
--- NOTE | 2024-03-01 06:53 | PM.OBTRLD ---
OB - Triage/Final Diagnosis Visit Information Date of evaluation: 03/01/24 Reason for evaluation: threatened labor Comments/Additional reasons for admission: I have assessed the risk for this patient, Liberty Alford, and determined that she would benefit from observation care.
--- NOTE | 2024-03-01 07:08 | PC.NURSE ---
0640- Dr. Stephane Gale on unit, reviewed tracing and update given. Orders received to discharge patient.
== END 2024-03-01 07:08 | disposition home or self-care (01) ==
PROVIDERS: Admitting Provider Obstetrics & Gynecology; PCP Internal Medicine; Visit Provider Obstetrics & Gynecology
DX: O47.03 False labor before 37 completed weeks of gestation, third trimester (principal); Z3A.36 36 weeks gestation of pregnancy
CPT/HCPCS: 84112; G0378; G0379

== ENCOUNTER 2024-03-03 10:40 | Outpatient (CLI) | payer OTHER, SELFPAY ==
--- NOTE | 2024-03-03 11:52 | PC.NURSE ---
Called Dr. Stephane Gale with pt status. Pt admitted with complaints of leaking fluid. ROM plus negative. SVE /. Pt did not want to stay for a recheck. Reactive tracing. Irregular contractions. February D/C home.
--- NOTE | 2024-03-03 12:14 | PM.OBTRLD ---
OB - Triage/Final Diagnosis Visit Information Date of evaluation: 03/03/24 Reason for evaluation: threatened labor Comments/Additional reasons for admission: I have assessed the risk for this patient, Liberty Alford, and determined that she would benefit from observation care.
== END 2024-03-03 12:00 | disposition home or self-care (01) ==
LOC: ANHOBOP 12:00 → ANHLDR 12:01
PROVIDERS: PCP Internal Medicine; Visit Provider Obstetrics & Gynecology
DX: O41.8X90 Other specified disorders of amniotic fluid and membranes, unspecified trimester, not applicable or unspecified (principal); Z3A.00 Weeks of gestation of pregnancy not specified
CPT/HCPCS: 59025; 84112; 99199

== ENCOUNTER 2024-03-05 07:09 | Observation (INO) | payer OTHER, SELFPAY ==
[2024-03-05 08:02] VITALS: TEMP 36.6
--- NOTE | 2024-03-05 08:25 | OBADM ---
This patient, Liberty Alford, admitted to the OB room Labor/Delivery/Recovery 103 for observation. Patient/family oriented to hospital policies and general routines including ID bracelet, bed and alarms, visiting hours, pain management, procedures, bathroom and other care routines, personal items, smoking policy, room service/diet, and visiting hours. Patient/Family are encouraged to report perceived risks to care and to ask questions if they do not understand what they are told or what they should do.
--- NOTE | 2024-03-05 08:54 | PC.NURSE ---
0808--Pt prefers to go home due to no cervical change. Dr. Wooten updated. DC orders given.
== END 2024-03-05 08:36 | disposition home or self-care (01) ==
PROVIDERS: Admitting Provider Obstetrics & Gynecology; PCP Internal Medicine; Visit Provider Obstetrics & Gynecology
DX: O47.1 False labor at or after 37 completed weeks of gestation (principal); Z3A.37 37 weeks gestation of pregnancy
CPT/HCPCS: G0378; G0379

== ENCOUNTER 2024-03-20 05:55 | Inpatient (IN) | payer OTHER, SELFPAY ==
[2024-03-20] VITALS (155 sets, daily range): BP systolic 71–138; BP diastolic 41–98; PULSE 61–179; RESP 18; TEMP 36.1–37.8; O2SAT 68–100; BMI 36.2
--- NOTE | 2024-03-20 06:05 | P.HP_ITS ---
H&P: HPI History of Present Illness Date/Time: 03/20/24 06:05 Chief Complaint: Term Narrative: 23-year-old 1 para 0 last menstrual period gives an EDC of 03/25/2024 presents at 39 weeks gestation for induction of labor. She had a very difficult has been in multiple times. She is treated for chlamydia and a negative test of cure. She has had hyperemesis labor symptoms. 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 Gender identity (if verbalized by the patient): Female Sexual Orientation (if Verbalized by the Patient): Straight or Heterosexual Spiritual care concerns: No Meds Home Medications and Allergies Home Medications Medication Instructions Recorded Confirmed Type PNV 153-FA 400 mcg-om3 35 mg-dha 2 tablet PO DAILY 02/12/24 02/29/24 History 25 mg-epa 5 mg-fish oil chew tablet ( Gummies) calcium carbonate (Tums) 200 mg PO QID 02/12/24 02/29/24 History ferrous sulfate 325 mg (65 mg 325 mg PO DAILY 02/12/24 02/29/24 History iron) tablet ampicillin 500 mg capsule 500 mg PO TID 02/29/24 02/29/24 History Allergies Allergy/AdvReac Type Severity Reaction Status Date / Time adhesive tape Allergy Intermediate Rash Verified 11/04/23 09:44 nifedipine Allergy Rash Verified 02/29/24 14:40 Exam Const: General: cooperative, healthy appearing and comfortable Nutritional Appearance: overweight Orientation/consciousness: oriented to person, oriented to place and oriented to time Resp: Effort & Inspection: normal respiratory effort Cardio: Rate: regular rate Rhythm: regular rhythm Heart sounds: S1 normal heart sound present and S2 normal heart sound present GI: Inspection: normal to inspection ( Uterus soft) : External Female Exam: normal external appearance Speculum Exam - Vagina: normal appearance of the vagina Speculum Exam - Cervix: normal appearance of the cervix ( cervix 2/50/3. heart tones reassuring) Assessment and Plan Assessment and plan (1) Term : Code(s): Z34.90 - Encounter for supervision of normal , unspecified, unspecified trimester Status: Acute Plan medical induction of labor. Spontaneous vaginal inspected she is in the epidural candidate
--- NOTE | 2024-03-20 06:37 | LDADM ---
This patient, Liberty Alford, was admitted to Labor/Delivery/Recovery 107 on 03/20/24 at 05:55. Plans for labor, pain management and were discussed with patient. Patient/family oriented to hospital policies and general routines including ID bracelet, bed and alarms, visiting hours, pain management, procedures, bathroom and other care routines, personal items, smoking policy, room service/diet and guest tray routines, security routines, and visiting hours. Patient/Family are encouraged to report perceived risks to care and to ask questions if they do not understand what they are told or what they should do. See OBIX for further documentation.
[2024-03-20 06:48] LABS: Basophils Absolute Auto 0.1 K/mm3 (0.0-0.1); Basophils Percent Auto 0.4 % (0.2-1.2); Eosinophils Absolute Auto 0.2 K/mm3 (0-0.3); Eosinophils Percent Auto 1.3 % (0-4.4); Hematocrit 30.5 % (37.0-47.0); Hemoglobin 9.8 g/dL (12.0-15.0); Immature Granulocyte Absolute 0.18 K/mm3 (0.00-0.031); Immature Granulocyte Percent A 1.3 % (0-0.5); Lymphocytes Absolute Auto 2.83 K/mm3 (0.9-3.2); Lymphocytes Percent Auto 19.8 % (18.3-44.2); Mean Corpuscular HGB Conc 32.1 g/dl (32-36); Mean Corpuscular Hemoglobin 27.7 pg (26-34); Mean Corpuscular Volume 86.2 fl (80-100); Mean Platelet Volume 10.6 fl (7.4-10.4); Monocytes Absolute Auto 1.1 K/mm3 (0.1-0.6); Monocytes Percent Auto 7.8 % (2.6-8.5); Neutrophils Absolute Auto 9.9 K/mm3 (1.3-6.7); Neutrophils Percent Auto 69.4 % (45.5-73.1); Platelet Count Result 346 k/mm3 (150-375); Red Blood Count 3.54 M/mm3 (4.2-5.4); Red Cell Distribution Width 13.7 % (11.5-14.5); White Blood Count 14.3 K/mm3 (4.5-10.0)
[2024-03-20] MEDS: LACTATED RINGERS 1,000 ML 125 ML IV CONT ×2 (06:53→08:47)
[2024-03-20] MEDS: OXYTOCIN 30 UNITS/NS 500 ML 30 UNITS/500 ML BAG 6 UNITS IV CONT (06:53)
--- NOTE | 2024-03-20 07:18 | WPDANESEPP ---
Anes - Eval Pre Procedure Procedure: labor epidural Date/Time: 03/20/24 07:18 Surgeon: dexter Preop Diagnosis: pain during labor Pre Op Diagnosis: IOL Patient Data Age: 23 Gender: F Height: 1.55 m Weight: 87 kg Last Vital Signs Temp 36.1 C L 03/20/24 06:13 Pulse 99 03/20/24 07:16 BP 105/71 03/20/24 07:16 O2 Del Method Room Air 03/20/24 06:35 Allergies Allergy/AdvReac Type Severity Reaction Status Date / Time adhesive tape Allergy Intermediate Rash Verified 03/20/24 06:33 nifedipine Allergy Rash Verified 03/20/24 06:33 Home Medications Medication Instructions Recorded Confirmed Type PNV 153-FA 400 mcg-om3 35 mg-dha 2 tablet PO DAILY 02/12/24 03/20/24 History 25 mg-epa 5 mg-fish oil chew tablet ( Gummies) calcium carbonate (Tums) 200 mg PO QID 02/12/24 03/20/24 History ferrous sulfate 325 mg (65 mg 325 mg PO DAILY 02/12/24 03/20/24 History iron) tablet Laboratory Tests 03/20/24 06:11 WBC 14.3 H K/mm3 (4.5-10.0) RBC 3.54 L M/mm3 (4.2-5.4) Hgb 9.8 L g/dL (12.0-15.0) Hct 30.5 L % (37.0-47.0) MCV 86.2 fl (80-100) MCH 27.7 pg (26-34) MCHC 32.1 g/dl (32-36) RDW 13.7 % (11.5-14.5) Plt Count 346 k/mm3 (150-375) MPV 10.6 H fl (7.4-10.4) Immature Gran % (Auto) 1.3 H % (0-0.5) Neut % (Auto) 69.4 % (45.5-73.1) Lymph % (Auto) 19.8 % (18.3-44.2) [place] % (Auto) 7.8 % (2.6-8.5) Eos % (Auto) 1.3 % (0-4.4) Baso % (Auto) 0.4 % (0.2-1.2) Lymph # (Auto) 2.83 K/mm3 (0.9-3.2) [place] # (Auto) 1.1 H K/mm3 (0.1-0.6) Eos # (Auto) 0.2 K/mm3 (0-0.3) Baso # (Auto) 0.1 K/mm3 (0.0-0.1) Abs Immat Gran (auto) 0.18 H K/mm3 (0.00-0.031) Absolute Neuts (auto) 9.9 H K/mm3 (1.3-6.7) Absolute Nucleated RBC 0.000 K/mm3 (0.0-0.012) Nucleated RBC % 0.0 % (0.0-0.2) RPR Pending HIV 1&2 Ab/P24 Ag 4thGn Pending Blood Type Pending Antibody Screen Pending Patient hx anesthesia problems: none Family hx anesthesia problems: none Results Review: All pre-operative results and documents have been reviewed as part of the pre-operative evaluation. [facility] Past Medical History Medical History Anxiety Depression Hyperlipemia Tonsillectomy planned Vaginal discharge Vitamin B12 deficiency Vitamin D deficiency Surgical History Surgical History Hx of tonsillectomy [place] teeth extracted Family History Family History Mother Breast cancer Grandparent Hypertension Breast cancer Social History Social History Smoking status: Never smoker Alcohol intake: current Drinks per week: 5 Substance use: never Substance use type: does not use Do You Feel Safe in your Home?: Yes Lack of Transportation: No Lack of Food: Never True Current Housing: I Have Housing Concerned About Future Housing: No Difficulty Paying Gas/Electric Bills: No Difficulty Paying for Meds: No Currently Unemployed: No Education: Trade/Vocational Certificate Difficulty w/ Childcare or Family Care: No Living arrangements: with family Occupation/Education: occupation 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
[2024-03-20 07:39] LABS: HIV 1/2 Ab P24 Ag Result Negative (Negative)
[2024-03-20] MEDS: SODIUM CHLORIDE 0.9% IV 300 ML 600 ML I-UTERINE (10:08)
[2024-03-20] MEDS: LORATADINE 10 MG TABLET PO (10:19)
[2024-03-20] MEDS: SODIUM CHLORIDE 0.9% IV 1,000 ML 150 ML I-UTERINE (10:39)
--- NOTE | 2024-03-20 11:34 | PM.OBPNLAB ---
Pain Control Date/time seen: 03/20/24 11:34 Pain control: tolerating well and epidural Pelvic Exam Dilation (cm): 6 station: -2 Amniotic membrane status: Leaking Comments: amnioinfusion going
--- NOTE | 2024-03-20 13:07 | PM.OBPNLAB ---
Pain Control Date/time seen: 03/20/24 13:07 Pain control: tolerating well and epidural Pelvic Exam Dilation (cm): 10 Effacement (%): 100 station: 0 Amniotic membrane status: Leaking
[2024-03-20] MEDS: AMPICILLIN 2 GM/NS 100 ML 2 GM/100 ML BAG IVPB (13:46)
--- NOTE | 2024-03-20 14:16 | PM.OBPRVD ---
OB - Vaginal Delivery Note Procedure Delivery date: 03/20/24 Events: Elective Induction of Labor Induction method: AROM Delivery monitor: External FHT and Internal Uterine Episiotomy description: None Laceration Description: None Quantitative Blood Loss (ml): 61 Anesthesia type: Epidural Disposition: Floor Baby Date of : 03/20/24 Time of : 14:06 Weeks of gestation at delivery: 39 gender: Male Weight (pounds): 8 Weight (ounces): 8 presentation: vertex position: Right Occiput Anterior Placenta delivery description: Spontaneous Cord Vessel Description: 3 Vessels score one minute: 8 score five minutes: 9
--- NOTE | 2024-03-20 14:18 | PM.DS ---
DS: Admitting Diagnosis Discharge Date 03/21/2024 Admitting Diagnosis Term DS: Discharge Diagnosis Discharge Diagnosis (1) Term : Code(s): Z34.90 - Encounter for supervision of normal , unspecified, unspecified trimester Status: Acute DS: Summary Hospital Course Reason for hospitalization: patient was admitted admitted on 03/20/2024 for induction of labor and underwent spontaneous vaginal delivery over epidural anesthesia. Hospital Course: Paste the hospital course unremarkable. She remained afebrile. She was up, voiding without difficulty, eating regular diet, ambulating, generally without complaints. Time Spent with Patient Time attestation: Total time spent providing and/or coordinating discharge services: Exam Const: General: cooperative, healthy appearing and comfortable Nutritional Appearance: average body habitus Orientation/consciousness: oriented to person, oriented to place and oriented to time HENMT: Head: normal to inspection Resp: Effort & Inspection: normal respiratory effort Cardio: Rate: regular rate Rhythm: regular rhythm Heart sounds: S1 normal heart sound present and S2 normal heart sound present GI: Inspection: normal to inspection DS: Data Data Completed and Pending Labs on day of discharge: Labs from last 24 hours 03/20/24 06:11 WBC 14.3 H RBC 3.54 L Hgb 9.8 L Hct 30.5 L MCV 86.2 MCH 27.7 MCHC 32.1 RDW 13.7 Plt Count 346 MPV 10.6 H Immature Gran % (Auto) 1.3 H Neut % (Auto) 69.4 Lymph % (Auto) 19.8 [place] % (Auto) 7.8 Eos % (Auto) 1.3 Baso % (Auto) 0.4 Lymph # (Auto) 2.83 [place] # (Auto) 1.1 H Eos # (Auto) 0.2 Baso # (Auto) 0.1 Abs Immat Gran (auto) 0.18 H Absolute Neuts (auto) 9.9 H Absolute Nucleated RBC 0.000 Nucleated RBC % 0.0 RPR Pending HIV 1&2 Ab/P24 Ag 4thGn Negative Blood Type B Positive Antibody Screen Negative Discharge Plan Discharge Attending physician on discharge: Indra Brandon Discharging Clinician: Indra Brandon Patient Disposition: Home, Self-Care Activity: may shower and no straining Diet: heart healthy Wound Care Instructions: follow printed instructions Discharge Instructions: Education: Mom and Baby Guide Given to: Mother Follow-Up: Call your delivering provider's office for an appointment to be seen in: 6 Weeks BREAST CARE: * Wear a snug supportive bra. * For engorgement discomfort: Breast Feeding: * Apply warm moist washcloths * Express milk as needed to relieve engorgement * Wear loose clothing Bottle Feeding: * May apply ice packs * For sore nipples: * Identify correct latch-on * Apply warm moist washcloths before and after nursing * Air dry nipples after nursing * May apply Lansinoh cream to nipples EPISIOTOMY/PERINEAL CARE: * Until bleeding stops, use your mariel bottle after urinating * Change your pad frequently throughout the day * You may take sitz baths several times a day (fill your bathtub with warm water and soak for 20 minutes.) Do NOT bathe in the water * No tub baths until seen by your physician - You may shower ACTIVITY: * Rest as much as possible. * Do not exercise or lift anything heavier than your baby (such as laundry or other children.) * Avoid stairs or driving as much as possible. * Do not put anything into the vagina. No douching, tampons, or sexual activity until seen by physician. NOTIFY PHYSICIAN IF YOU HAVE ANY QUESTIONS OR IF ANY OF THE FOLLOWING SYMPTOMS OCCUR: * If your episiotomy or incision becomes red, swollen, or more painful than what you have experienced in the hospital. * If your vaginal bleeding becomes foul smelling. * If your vaginal bleeding becomes more heavy than a period or if your bleeding changes from pink to bright red. However, you may pass an occasional walnut-sized clot once or tw
[2024-03-20 14:42] LABS: Rapid Plasma Reagin Non-Reactive (NonReactive)
[2024-03-20] MEDS: OXYTOCIN 30 UNITS/NS 500 ML 30 UNITS/500 ML BAG 125 UNITS IV CONT (14:48)
[2024-03-20] MEDS: BENZOCAINE 20% AER SPR (*SP) 56 GM CAN 1 SPRAY TOPICAL (16:23)
[2024-03-20] MEDS: WITCH HAZEL 40 PADS 1 PAD TOPICAL (16:23)
--- NOTE | 2024-03-20 17:00 | OBPPTRN ---
Patient transferred to post room #282 via wheelchair. Support person present. Oriented to unit, room, information board, rooming in, admission packet and security measures. Patient verbalizes understanding.
[2024-03-20] MEDS: IBUPROFEN 600 MG TABLET PO (20:40)
[2024-03-21] MEDS: ACETAMINOPHEN 325 MG TABLET 650 MG PO ×2 (00:50→14:02)
[2024-03-21] MEDS: diphenhydrAMINE HCl CAP 25 MG CAPSULE PO (04:50)
[2024-03-21 05:30] VITALS: BP 110/68; PULSE 92; RESP 18; TEMP 36.9; O2SAT 99
--- NOTE | 2024-03-21 06:22 | P.PNOB_ITS ---
OB - PN: Subj Subjective Date/time seen: 03/21/24 06:22 Patient comments: no complaints and pain well controlled baby status: doing well OB - PN: Obj Data Labs 03/20/24 06:11 Labs: Laboratory Results - last 24 hr 03/20/24 06:11 WBC 14.3 H RBC 3.54 L Hgb 9.8 L Hct 30.5 L MCV 86.2 MCH 27.7 MCHC 32.1 RDW 13.7 Plt Count 346 MPV 10.6 H Immature Gran % (Auto) 1.3 H Neut % (Auto) 69.4 Lymph % (Auto) 19.8 [place] % (Auto) 7.8 Eos % (Auto) 1.3 Baso % (Auto) 0.4 Lymph # (Auto) 2.83 [place] # (Auto) 1.1 H Eos # (Auto) 0.2 Baso # (Auto) 0.1 Abs Immat Gran (auto) 0.18 H Absolute Neuts (auto) 9.9 H Absolute Nucleated RBC 0.000 Nucleated RBC % 0.0 RPR Non-reactive HIV 1&2 Ab/P24 Ag 4thGn Negative Blood Type B Positive Antibody Screen Negative OB - PN A/P Plan day: 1 Plan: routine care Comments: will circ son after peds sees son Time Spent With Patient Time: Total time spent is greater than 50% in coordination of care (as documented) at patient's floor/unit and/or counseling patient: Time with patient: less than 15 minutes Exam Const: General: cooperative, healthy appearing and comfortable Nutritional Appearance: average body habitus Orientation/consciousness: oriented to person, oriented to place and oriented to time Resp: Effort & Inspection: normal respiratory effort Cardio: Rate: regular rate Rhythm: regular rhythm Heart sounds: S1 normal heart sound present and S2 normal heart sound present GI: Inspection: normal to inspection (fundus firm)
[2024-03-21 06:33] LABS: Hematocrit 28.5 % (37.0-47.0); Hemoglobin 8.8 g/dL (12.0-15.0)
[2024-03-21] MEDS: IBUPROFEN 600 MG TABLET PO ×2 (08:11→17:25)
[2024-03-21] MEDS: DOCUSATE SODIUM 100 MG CAPSULE PO ×2 (08:11→17:25)
[2024-03-21] MEDS: MULTIVIT/MIN/PREN/FOL AC/IRON TABLET 1 TAB PO (08:11)
[2024-03-21] MEDS: POLYSACCHARIDE IRON COMPLEX 150 MG CAPSULE PO ×2 (08:11→17:25)
[2024-03-21 08:25] VITALS: BP 108/74; PULSE 78; RESP 16; TEMP 37.4; O2SAT 99
[2024-03-21] MEDS: HYDROCORTISONE 2.5% CREAM 30 GM TUBE 1 APPLIC TOPICAL (08:55)
--- NOTE | 2024-03-21 09:06 | WPDANLDPN2 ---
Anes-Prog Note L&D Date/Time: 03/21/24 09:06 Comfortable throughout: labor and delivery Neuraxial method: epidural Epidural/Spinal procedure site: clean & non-tender Neuro status: Neuro function grossly intact. Cardiovascular status: normal Respiratory status: normal Airway patency: baseline Mental status: baseline Post-Op hydration status: normal Vital Signs: Last Vital Signs Temp 37.4 C 03/21/24 08:25 Pulse 78 03/21/24 08:25 Resp 16 03/21/24 08:25 BP 108/74 03/21/24 08:25 Pulse Ox 99 03/21/24 08:25 O2 Del Method Room Air 03/20/24 20:12 Pain score (VAS): 1 I/O: Intake & Output 03/20/24 03/21/24 03/21/24 23:59 07:59 15:59 Output Total 50 Balance -50 Post-procedural complaints: none Patient feedback: Patient satisfied with anesthetic care.
--- NOTE | 2024-03-21 11:27 | PC.NURSE ---
[id number]. Introductions were made, then consulted with patient to assess needs related to . Mother led the conversation with her?plans to feed?her and the?experience so far. Mother explained not having a lot of help with so far in her journey, and especially overnight. RN encouraged mom to call out when she did need assistance or help at any point during her stay. RN encouraged understanding of the benefits of skin to skin (demonstrating unwrapping and placing upright on her chest), stimulating with massage touch, changing positions to encourage wakefulness, how to watch for early feeding cues, responsive feeding, feeding on demand (aiming for 8-12 times in 24 hours, about every 2-3 hours), milk production, building/maintaining a milk supply, duration of feeding, signs of adequate intake/output and how to record on the feeding sheet. Mother works well with her infant with encouragement and education. Reviewed positioning and ear, shoulder, hip alignment, supporting the breast to facilitate a deep latch, asymmetrical latch (off-center), leading with the chin with a big, open, wide gape and body close to mother. Infant latched optimally to the Right breast in cross cradle position. Education given to the mother of how to visualize the suckling (with good rocking jaw motion), swallows (dropping of the lower jaw) and how to listen for drinking at the breast (the ka sound). was able to maintain latch without pain to mother protecting the nipple with optimal positioning and latching. Reviewed comfort measures of healing with a warm, wet washcloth to rinse breast, then leave open to air-dry, good handwashing when or touching the breast/nipples to prevent infection. Mother voiced understanding of skin to skin, stimulating with massage touch, responsive feedings, hand expressed colostrum, talking to to encourage if it has been 2 -2.5 hours since the start of the last , to call if infant does not latch, or if there is discomfort with . Mom asked RN to check her nipple size and help with flange fitting of her breastpump later in the day when her pump arrives. RN told the mom to call her when she had the pump and wa ready for breast pump support. Resources used for education were facilitated with the visual educational handouts & mom and baby guide. Inpatient resources provided with feeding sheet, name written on the communication board, and the mom/baby guide. Parents voiced understanding of information, demonstrated learning and will call if there is a request for assistance. Reported to the Primary RN.
== END 2024-03-21 19:32 | disposition home or self-care (01) | DRG 560 ==
LOC: ANHLDR 14:20 → ANHOB2 17:10
PROVIDERS: Admitting Provider Obstetrics & Gynecology; PCP Internal Medicine; Visit Provider Obstetrics & Gynecology
DX: O98.32 Other infections with a predominantly sexual mode of transmission complicating childbirth (principal); A56.8 Sexually transmitted chlamydial infection of other sites; Z3A.39 39 weeks gestation of pregnancy; Z37.0 Single live birth
CPT/HCPCS: 36415; 85014; 85018; 85025; 86592; 86703; 86850; 86900; 86901; A9270; G0432; J0290; J2590; J2795; J7030; J7120

== ENCOUNTER 2024-07-25 17:46 | Emergency (ER) | payer OTHER, SELFPAY ==
--- NOTE | ~2024-07-25 | XR_ITS ---
HISTORY: FALL TODAY, LATERAL PAIN SWELLING, LIMIT. ROM COMPARISON: None TECHNIQUE: 3 views of left ankle were performed FINDINGS: No acute or subacute fracture, erosion, lytic or sclerotic lesion. The ankle mortise is intact. Joint spaces are preserved and alignment is normal. Soft tissues are unremarkable without foreign body or significant calcification. Normal mineralization. IMPRESSION: Unremarkable radiographic evaluation of the left ankle, as detailed above. Reviewed, dictated and finalized at location A. IMPRESSION: Unremarkable radiographic evaluation of the left ankle, as detaile d above.
[2024-07-25 17:49] VITALS: BP 128/85; PULSE 107; RESP 20; TEMP 36.4; O2SAT 100
[2024-07-25] MEDS: ACETAMINOPHEN 500 MG TABLET 1000 MG PO (18:52)
--- NOTE | 2024-07-25 18:59 | ED.FALL ---
HPI - Fall General Chief Complaint: Fall Stated Complaint: fell down 4 stai[address]. Time Seen by Provider: 07/25/24 17:58 Source: patient Mode of arrival: wheelchair Limitations: no limitations History of Present Illness HPI Narrative: this is a 24-year-old female that presents emergency department after a fall down the steps. Reports twisting the left ankle. Reports swelling and pain in the area. Denies decreased range of motion or numbness. Related Data Home Medications Medication Instructions Recorded Confirmed PNV 153-FA 400 mcg-om3 35 mg-dha 2 tablet PO DAILY 02/12/24 03/20/24 25 mg-epa 5 mg-fish oil chew tablet ( Gummies) calcium carbonate (Tums) 200 mg PO QID 02/12/24 03/20/24 ferrous sulfate 325 mg (65 mg 325 mg PO DAILY 02/12/24 03/20/24 iron) tablet Allergies Allergy/AdvReac Type Severity Reaction Status Date / Time adhesive tape Allergy Intermediate Rash Verified 07/25/24 18:03 nifedipine Allergy Rash Verified 07/25/24 18:03 Review of Systems Review of Systems: CONSTITUTIONAL: Denies fever MUSCULOSKELETAL: Reports joint pain, and myalgia. NEUROLOGIC: Denies numbness, or weakness. All systems reviewed & are unremarkable except as noted in HPI and below PMFSH Past Medical History Medical History Anxiety Depression Hyperlipemia Tonsillectomy planned Vaginal discharge Vitamin B12 deficiency Vitamin D deficiency Surgical History Surgical History Hx of tonsillectomy [place] teeth extracted Family History Family History Mother Breast cancer Grandparent Hypertension Breast cancer Social History Social History Smoking status: Never smoker Alcohol intake: current Drinks per week: 5 Substance use: never Substance use type: does not use Do You Feel Safe in your Home?: Yes Lack of Transportation: No Lack of Food: Never True Current Housing: I Have Housing Concerned About Future Housing: No Difficulty Paying Gas/Electric Bills: No Difficulty Paying for Meds: No Currently Unemployed: No Education: Trade/Vocational Certificate Difficulty w/ Childcare or Family Care: No Living arrangements: with family Occupation/Education: occupation Additional occupation/education comments: [employer] Gender identity (if verbalized by the patient): Female Sexual Orientation (if Verbalized by the Patient): Straight or Heterosexual Spiritual care concerns: No Exam Narrative: GENERAL: Well-appearing, well-nourished, and in no acute distress. HEAD: Normocephalic, atraumatic. EYES: EOMI. EXTREMITIES: No obvious deformity. Mild swelling about the ankle. Normal DP pulse. Normal sensation. Achilles tendon is intact SKIN: Warm, dry, no rash. NEURO: No focal deficits. Alert and oriented x3. PSYCH: Normal mood and affect Course Vital Signs Vital signs: Vital Signs Temperature 97.6 F 07/25/24 17:49 Pulse Rate 107 H 07/25/24 17:49 Respiratory Rate 20 07/25/24 17:49 Blood Pressure 128/85 07/25/24 17:49 Pulse Oximetry 100 07/25/24 17:49 Temperature 97.6 F 07/25/24 17:49 Pulse Rate 107 H 07/25/24 17:49 Respiratory Rate 20 07/25/24 17:49 Blood Pressure 128/85 07/25/24 17:49 Pulse Oximetry 100 07/25/24 17:49 MDM - Fall MDM Narrative Medical decision making narrative: Patient presents to the emergency department after an injury today to the left ankle. Patient is neurovascularly intact. Left ankle x-ray without acute osseous abnormalities. Patient updated on her workup and agrees with plan of care. She is to follow up with primary provider. She was given warnings to return to the ER Differential Diagnosis Differential diagnosis: Likely other ( Ankle fracture, ankle sprain) Imagin
== END 2024-07-25 19:25 | disposition home or self-care (01) ==
PROVIDERS: Emergency Provider Physician Assistant; PCP Internal Medicine
DX: S93.402A Sprain of unspecified ligament of left ankle, initial encounter (principal); E78.5 Hyperlipidemia, unspecified; E53.8 Deficiency of other specified B group vitamins; E55.9 Vitamin D deficiency, unspecified; W10.9XXA Fall (on) (from) unspecified stairs and steps, initial encounter
CPT/HCPCS: 73610; 99283; A9270

== ENCOUNTER 2024-09-27 13:51 | Emergency (ER) | payer OTHER, SELFPAY ==
[2024-09-27 13:57] VITALS: BP 117/69; PULSE 114; RESP 16; TEMP 36.7; O2SAT 99
[2024-09-27 14:02] VITALS: PULSE 94; RESP 14; TEMP 36.7; O2SAT 99
--- NOTE | 2024-09-27 14:10 | ED.GENADULT ---
HPI - General Adult General Chief complaint: Nausea/Vomiting/Diarrhea Stated complaint: 9 wks preg, vomiting Time Seen by Provider: 09/27/24 13:54 History of Present Illness HPI narrative: 24-year-old female that is approximately [address] up with Dr. Reese. Presents to the emergency department complaining 2 days persistent nausea vomiting diarrhea. Patient states this feels more significant than her previous morning sickness. Patient reports that she did have an ultrasound last week confirming an intrauterine . Related Data Home Medications ?Medication ?Instructions ?Recorded ?Confirmed ?Last Taken ?Type PNV 153-FA 400 mcg-om3 35 mg-dha 2 tablet PO DAILY 02/12/24 03/20/24 03/19/24 History 25 mg-epa 5 mg-fish oil chew tablet ( Gummies) calcium carbonate (Tums) 200 mg PO QID 02/12/24 03/20/24 03/19/24 History ferrous sulfate 325 mg (65 mg 325 mg PO DAILY 02/12/24 03/20/24 03/19/24 History iron) tablet Allergies Allergy/AdvReac Type Severity Reaction Status Date / Time adhesive tape Allergy Intermediate Rash Verified 09/27/24 14:08 nifedipine Allergy Rash Verified 09/27/24 14:08 Review of Systems Review of Systems: All systems reviewed & are unremarkable except as noted in HPI and below PMFSH Past Medical History Medical History Anxiety Depression Hyperlipemia Tonsillectomy planned Vaginal discharge Vitamin B12 deficiency Vitamin D deficiency Surgical History Surgical History Hx of tonsillectomy [place] teeth extracted Family History Family History Mother Breast cancer Grandparent Hypertension Breast cancer Social History Social History Smoking status: Never smoker Alcohol intake: current Drinks per week: 5 Substance use: never Substance use type: does not use Do You Feel Safe in your Home?: Yes Lack of Transportation: No Lack of Food: Never True Current Housing: I Have Housing Concerned About Future Housing: No Difficulty Paying Gas/Electric Bills: No Difficulty Paying for Meds: No Currently Unemployed: No Education: Trade/Vocational Certificate Difficulty w/ Childcare or Family Care: No Living arrangements: with family Occupation/Education: occupation 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 HEAD: normocephalic, atraumatic. EYES: PERRLA/EOMI, conjunctivae clear. NOSE: Normal no drainage EARS:TMS clear with good light reflex. THROAT: Pharynx clear, no exudate. NECK: Supple. No adenopathy, no masses. RESPIRATORY: Airway patent, respirations nonlabored. Clear to auscultation bilaterally, no rales, rhonchi, wheezing. CARDIOVASCULAR: Regular rate and rhythm without murmurs rubs or gallops. ABDOMINAL: Suprapubic tenderness to palpation MUSCULOSKELETAL: Moves all extremities. Strength/ROM intact, No edema, No calf tenderness. NEURO: Alert. Cranial nerves II through XII intact. Grossly intact SKIN: Warm, dry. Normal Color Course Vital Signs Vital signs: Vital Signs Temperature 98.1 F 09/27/24 13:57 Pulse Rate 114 H 09/27/24 13:57 Respiratory Rate 16 09/27/24 13:57 Blood Pressure 117/69 09/27/24 13:57 Pulse Oximetry 99 09/27/24 13:57 Temperature 98.5 F 09/27/24 15:48 Pulse Rate 96 09/27/24 15:48 Respiratory Rate 16 09/27/24 15:48 Blood Pressure 112/71 09/27/24 15:48 Pulse Oximetry 100 09/27/24 15:48 Oxygen Delivery Room Air 09/27/24 14:02 Medical Decision Making [facility] Narrative Medical decision making narrative: 24-year-old female that is approximately 9 weeks present to the emergency department for evaluation for persistent nausea and vomiting. Patient's symptoms were controlled with IV fluids and IV Zofran. While patient was no longer having any were emesis she was still having some nausea so she was treated with additional 10 mg IV Reglan. Patient is afebrile with no leukocytosis and hemoglobin of 12.6. Patient has no significant abnormalities on her CMP UA is not concerning for infection. Patient was negative for influenza RSV and for COVID. Patient did feel improved with treatment and patient family updated the results of the workup. They were comfortable the plan to have close follow-up with OB Gyne. Patient is also being provided Zofran for nausea control Differential Diagnosis Differential Diagnosis: COVID, influenza, RSV, gastritis, hyperemesis gravidarum Vital Signs Vital Signs: Vital Signs Temperature 98.1 F 09/27/24 13:57 Pulse Rate 114 H 09/27/24 13:57 Respiratory Rate 16 09/27/24 13:57 Blood Pressure 117/69 09/27/24 13:57 Pulse Oximetry 99 09/27/24 13:57 Temperature 98.5 F 09/27/24 15:48 Pulse Rate 96 09/27/24 15:48 Respiratory Rate 16 09/27/24 15:48 Blood Pressure 112/71 09/27/24 15:48 Pulse Oximetry 100 09/27/24 15:48 Oxygen Delivery Room Air 09/27/24 14:02 Lab Data Lab results reviewed: Yes I reviewed the patient's lab results. 09/27/24 14:19 09/27/24 14:19 Labs: Lab Results 09/27/24 Range/Units 14:19 WBC 7.1 (4.5-10.0) K/mm3 RBC 4.37 (4.2-5.4) M/mm3 Hgb 12.6 D (12.0-15.0) g/dL Hct 37.5 (37.0-47.0) % MCV 85.8 (80-100) fl MCH 28.8 (26-34) pg MCHC 33.6 (32-36) g/dl RDW 14.4 (11.5-14.5) % Plt Count 297 (150-375) k/mm3 MPV 9.8 (7.4-10.4) fl Immature Gran % (Auto) 0.3 (0-0.5) % Neut % (Auto) 80.5 H (45.5-73.1) % Lymph % (Auto) 10.9 L (18.3-44.2) % Turner % (Auto) 7.4 (2.6-8.5) % Eos % (Auto) 0.6 (0-4.4) % Baso % (Auto) 0.3 (0.2-1.2) % Lymph # (Auto) 0.78 L (0.9-3.2) K/mm3 Turner # (Auto) 0.5 (0.1-0.6) K/mm3 Eos # (Auto) 0.0 (0-0.3) K/mm3 Baso # (Auto) 0.0 (0.0-0.1) K/mm3 Abs Immat Gran (auto) 0.02 (0.00-0.031) K/mm3 Absolute Neuts (auto) 5.7 (1.3-6.7) K/mm3 Absolute Nucleated RBC 0.000 (0.0-0.012) K/mm3 Nucleated RBC % 0.0 (0.0-0.2) % Sodium 131 L (137-145) mmol/L Potassium 3.4 (3.4-5.0) mmol/L Chloride 105 (98-107) mmol/L Carbon Dioxide 22 (22-30) mmol/L Anion Gap 4 (4-12) mmol/L BUN 11 (7-17) mg/dL Creatinine 0.70 (0.7-1.0) mg/dL Estim Creat Clear Calc 103 ml/min Estimated GFR > 60 (59 - ) Glucose 90 (65-110) mg/dL Calcium 8.8 (8.4-10.2) mg/dL Total Bilirubin 0.6 (0.2-1.3) mg/dL AST 25 (14-36) U/L ALT 13 (6-35) U/L Alkaline Phosphatase 88 (38-126) U/L Total Protein 7.0 (6.3-8.2) g/dL Albumin 3.9 (3.5-5.1) g/dL Urine Color Dark yellow (Yellow) Urine Appearance Cloudy H (Clear) Urine pH 5.0 (5.0-9.0) Ur Specific [place] 1.034 (1.001-1.035) Urine Protein Trace (Negative) mg/dL Urine Glucose (UA) Negative (Negative) mg/dL Urine Ketones 3+ H (Negative) mg/dL Ur Blood (Man) Negative (Negative) Urine Nitrate Negative (Negative) Urine Bilirubin Negative (Negative) Urine Urobilinogen 1.0 (<2.0) mg/dL Leukocyte Esterase Rfl Negative (Negative) KIA/UL Urine RBC 3-5 H (0-2) /hpf Urine WBC 0-5 (0-3) /hpf Ur Squamous Epith Cells Occasional (Few) /hpf Urine Bacteria None seen /hpf Urine Casts 0-2 Influenza A (RT-PCR) Negative (Negative) Influenza B (RT-PCR) Negative (Negative) RSV (RT-PCR) Negative (Negative) SARS-CoV-2 RNA (RT-PCR) Negative (Negative) Discharge Plan Discharge Clinical Impression: Nausea and vomiting Patient Disposition: Home, Self-Care Condition: Stable Instructions: Antibiotic Form, Clear Liquid Diet (ED), Acute Nausea and Vomiting (ED) Additional Instructions: Clear liquid diet for the next 1-3 days. Zofran as needed for nausea control. Advance to a bland diet as tolerated. Have close follow-up with OB Gyne. If you have any worsening symptoms then please call or return to the emergency department. Patient Language: Chinese Prescriptions: New ondansetron 4 mg tablet,disintegrating 4 mg PO Q8H PRN (Reason: nausea and vomiting) Qty: 20 0RF No Action ferrous sulfate 325 mg (65 mg iron) Tablet 325 mg PO DAILY calcium carbonate [Tums] 200 mg calcium (500 mg) Tablet,Chewable 200 mg PO QID Gummies 400 mcg-35 mg- 25 mg-5 mg Tablet,Chewable 2 tablet PO DAILY Follow-up/Referrals: Anuradha Reese MD [Primary Care Provider] - Stand Alone Forms: Work/School Release IP
[2024-09-27] MEDS: SODIUM CHLORIDE 0.9% IV 1,000 ML 999 ML IV CONT (14:15)
[2024-09-27] MEDS: ONDANSETRON INJ 4 MG/2 ML VIAL IV PUSH (14:16)
[2024-09-27 14:26] LABS: Basophils Percent Auto 0.3 % (0.2-1.2); Eosinophils Percent Auto 0.6 % (0-4.4); Hematocrit 37.5 % (37.0-47.0); Hemoglobin 12.6 g/dL (12.0-15.0); Immature Granulocyte Absolute 0.02 K/mm3 (0.00-0.031); Immature Granulocyte Percent A 0.3 % (0-0.5); Lymphocytes Absolute Auto 0.78 K/mm3 (0.9-3.2); Lymphocytes Percent Auto 10.9 % (18.3-44.2); Mean Corpuscular HGB Conc 33.6 g/dl (32-36); Mean Corpuscular Hemoglobin 28.8 pg (26-34); Mean Corpuscular Volume 85.8 fl (80-100); Mean Platelet Volume 9.8 fl (7.4-10.4); Monocytes Absolute Auto 0.5 K/mm3 (0.1-0.6); Monocytes Percent Auto 7.4 % (2.6-8.5); Neutrophils Absolute Auto 5.7 K/mm3 (1.3-6.7); Neutrophils Percent Auto 80.5 % (45.5-73.1); Platelet Count Result 297 k/mm3 (150-375); Red Blood Count 4.37 M/mm3 (4.2-5.4); Red Cell Distribution Width 14.4 % (11.5-14.5); White Blood Count 7.1 K/mm3 (4.5-10.0)
[2024-09-27 14:33] LABS: Add Urine Microscopic? YES; Appearance Urine Cloudy (Clear); Bacteria Urine None Seen /hpf; Bilirubin Urine Negative (Negative); Blood Urine Negative (Negative); Color Urine Dark Yellow (Yellow); Glucose Urine UA Negative (Negative); Ketones Urine 3+ mg/dL (Negative); Leukocyte Esterase Ur Negative LEU/UL (Negative); Nitrate Urine Negative (Negative); Non Pathogenic Casts 0-2; Protein Urine Trace mg/dL (Negative); Specific Grav Ur 1.034 (1.001-1.035); Squamous Epithelial Cell Urine Occasional /hpf (Few); WBC Urine 0-5 /hpf (0-3)
[2024-09-27 14:37] LABS: Alanine Aminotransferase 13 U/L (6-35); Albumin Level 3.9 g/dL (3.5-5.1); Alkaline Phosphatase 88 U/L (38-126); Anion Gap 4 mmol/L (4-12); Aspartate Amino Transferase 25 U/L (14-36); Bilirubin,Total 0.6 mg/dL (0.2-1.3); Blood Urea Nitrogen 11 mg/dL (7-17); Calcium 8.8 mg/dL (8.4-10.2); Carbon Dioxide 22 mmol/L (22-30); Chloride 105 mmol/L (98-107); Estimated CRCL calculation 103 ml/min; Estimated Glomerular Filt Rate > 60; Glucose 90 mg/dL (65-110); Potassium 3.4 mmol/L (3.4-5.0); Sodium 131 mmol/L (137-145)
[2024-09-27 15:03] LABS: Influenza A QL RT-PCR Negative (Negative); Influenza B QL RT-PCR Negative (Negative); RSV RNA, RT-PCR Negative (Negative); SARS-CoV-2 RNA PCR Negative (Negative)
[2024-09-27] MEDS: METOCLOPRAMIDE HCL INJ 10 MG/2 ML VIAL IV PUSH (15:42)
[2024-09-27 15:48] VITALS: BP 112/71; PULSE 96; RESP 16; TEMP 36.9; O2SAT 100
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
--- OUTSIDE RECORDS SUMMARY | 2024-10-04 10:22 | XMS_ITS | Referral Summary ---
Author Organization [facility] Address [address] [place] [address] Care Team Providers Care Career Services Assistant Name Role Phone Joellen Kemp MD Primary Care Provider [phone] Source Comments [facility],non-owned Affiliates and Associated Physician Practices is amultiple site organization consisting of ambulatory clinics and hospital sitesin [place], [place], [place]. This disclosure is being madepursuant to the Care Everywhere program and may not contain all information available regarding this patient. Last updated 18.[email or web address] Allergies No known active allergies Medications * [...] neurology follow up. REA (obstructive sleep apnea) Social History Tobacco Use Types Packs/Day Years [...] 01/30/2021 5:02 PM CDT Plan of Treatment Not on file Procedures Procedure Name Priority Date/Time Associated Diagnosis [...] GC AMPLIFIED PROBE (05/02/2018 11:55 AM CDT) Pathologist [facility] Chlamydia Amplified Probe Negative Negative 05/03/2018 11:02 AM CDT [facility] GC Amplified Probe Negative Negative 05/03/2018 11:02 AM CDT [facility] Urine URINE / Unknown Collection / Unknown 05/02/2018 11:55 AM CDT 05/02/2018 11:55 AM CDT Narrative [facility] - 05/03/2018 11:02 AM CDT Results based on detection/no detection of ribosomal RNA by amplified method. Anita Madison MD LAB - MICROBIOLOGY O RDERABLES [facility] [address] [place] [address], [facility] [phone] * HIV-1 HIV-2 ANTIBODY + HIV P24 AG PANEL (02/15/2018 10:34 AM CDT) Pathologist [facility] HIV1/2 Ab + P24 Ag Non Reactive Non Reactive 02/15/2018 12:04 PM CDT [facility] Blood BLOOD SPECIMEN / Unknown Lab Venipuncture / Unknown 02/15/2018 10:34 AM CDT 02/15/2018 10:45 AM CDT Narrative [facility] - 02/15/2018 12:04 PM CDT No Laboratory evidence of HIV infection. Yenny Stroud APRN-IT APPLICATION DEVELOPMENT MANAGER LAB - CHEMISTR Y ORDERABLES [facility] [address] [place] [address] * (ABNORMAL) HEPATITIS C ANTIBODY (02/15/2018 10:34 AM CDT) HCV Antibody Screen REACTIVE( A) Non Reactive 02/15/2018 1:35 PM CDT [facility] HCV S/C Ratio 1.58(H) 0.00 - 0.79 02/15/2018 1:35 PM CDT [facility] Blood BLOOD SPECIMEN / Unknown Lab Venipuncture / Unknown 02/15/2018 10:34 AM CDT 02/15/2018 10:45 AM CDT Narrative [facility] - 02/15/2018 1:35 PM CDT S/C ratio: ??A lyjros-xh-rdusow ratio (s/c ratio) of 0.8 - >11.00 may represent false positive results.?? Reflex testing to Hepatitis C Virus RNA Quantitative, Real- Time PCR will be performed.?? See separate report. S/C ratio: ??A evuibw-hb-ptwuka ratio (s/c ratio) of 0.8 - >11.00 may represent false positive results.?? Reflex testing to Hepatitis C Virus RNA Quantitative, Real- Time PCR will be performed.?? See separate report. Yenny SLOAN LAB - CHEMISTR Y ORDERABLES [facility] [address] [place] [address] from Last 3 Months or Most Recently Relevant to Health Maintenance Administered Medications Care Teams Career Services Assistant Relationship Specialty Start Date End Date Joellen Kemp MD [address] [place] [address] PCP - General Pediatrics 12/10/15
--- OUTSIDE RECORDS SUMMARY | 2024-10-04 10:22 | XMS_ITS | Data Portability ---
Author Organization [place] [facility] [employer], Main Office Address [address] [place] [address] Assessment No assessment recorded. Plan of Treatment Reminders Order Date Submit Date Provider Last Modified By Organization Details Last Modified Time Details Appointments None recorded. Lab vitamin D, 25-hydroxy, total, serum [address], [address] [place], [address], 3 12:09:21 lipid panel, serum 2022 023 [facility], [address] [place], [address], 3 14:25:29 CMP, serum or plasma 2022 023 [facility], [address] [place], [address], 3 14:26:10 CBC w/ auto diff 2022 023 [facility], [address] [place], [address], 3 14:16:42 TSH + free T4, serum [address], [address] [place], [address], 3 14:27:40 vitamin D, 25-hydroxy, total, serum [email or web address] [place] [address], [address] [place], [address], 4 09:12:43 C-reactive protein, quantitativ e, serum or plasma 2022 023 [facility] 6 [facility], [address] [place], [address], 4 09:13:01 ESR (erythrocyt e sedimentati on rate), blood [address] [facility], [address] [place], [address], 4 09:10:01 rf (rheumatoid factor) + anti-ccp abs, serum 2022 023 [place] [address] 6 [facility], [address] [place], [address], 4 09:14:51 JANY (antinuclea r antibodies) screen, serum 2022 023 [place] [address] [place] [address], [address] [place], [address], 4 09:14:17 lipid panel, serum [address], [address] [place], [address], 4 09:11:43 CMP, serum or plasma 2022 023 CANDICE [facility], [address] [place], [address], 3 16:58:26 CBC w/ auto diff 2022 023 [facility] [address] [place] [address], [address] [place], [address], 4 09:12:04 TSH + free T4, serum 2022 023 [email or web address] 6 [facility], [address], [place], [address], 4 09:12:22 Referral None recorded. Procedures None recorded. Surgeries None recorded. Imaging None recorded. Medication Orders Medrol (Ez) 4 mg tablets in a dose pack 2022 023 [id number], [address], [place], [place], [id number], 3 15:12:10 Zyrtec 10 mg tablet 2022 023 [facility] #[id number], [address], [place], [place], [id number], 3 15:12:09 Patient TargetsNo targets recorded. Patient InstructionsNo instructions recorded. Reason for Referral None Reported. Results Created Date Observation Date Name Description Value Unit Range Abnormal Flag Note LastModifiedBy Organization Detail LastModifiedTime 11/12/1911/12/2022 urina lysis , dipst ick Leukocytes (reference range: negative malachi/??l) Trace Not Available [facility] [address] [facility], [place], [address], 11/12/2022 15:36:48 11/12/1911/12/2022 urina lysis , dipst ick Nitrite (reference rage: negative mg/dl) negati ve Not Available [facility] [address] [facility], [place], [address], 11/12/2022 15:36:48 11/12/1911/12/2022 urina lysis , dipst ick Urobilinogen (reference range: 0.2-1 mg/dl) 0.2 Not Available [facility] [address] [place], [address], 11/12/2022 15:36:48 11/12/19 23 11/12/2022 urina lysis , dipst ick Protein (reference range: negative mg/dl) Negati ve Not Available [facility] [address] [facility] [address], [place], [address], 11/12/2022 15:36:48 11/12/19 23 11/12/2022 urina lysis , dipst ick pH (reference range: 5-7) 6.0 Not Available [facility] Internal Med [facility] [address] [facility] [address], [place], [address], 11/12/2022 15:36:48 11/12/19 23 11/12/2022 urina lysis , dipst ick Blood (reference range: negative Ricardo/??l) Large Not Available [facility] [address] [facility] [address], [place], [address], 11/12/2022 15:36:48 11/12/19 23 11/12/2022 urina lysis , dipst ick Specific [place] (reference range: 1.005-1.030) 1.030 Not Available [facility] Internal Med [facility] [address] [facility] [address], [place], [address], 11/12/2022 15:36:48 11/12/19 23 11/12/2022 urina lysis , dipst ick Ketone (reference range: negative mg/dl) Negati ve Not Available [facility] [address] [facility] [address], [place], [address], 11/12/2022 15:36:48 11/12/19 23 11/12/2022 urina lysis , dipst ick Bilirubin (reference range: negative mg/dl) Negati ve Not Available [facility] [address], [place], [address], 11/12/2022 15:36:48 11/12/19 23 11/12/2022 urina lysis , dipst ick Glucose (reference range: negative mg/dl) Negati ve Not Available [facility] [address], [place], [address], 11/12/2022 15:36:48 11/12/19 23 11/12/2022 urina lysis , dipst ick Appearance Clear Not Available [facility] Internal Med [facility] [address] [facility] [address], [place], [address], 11/12/2022 15:36:48 11/12/19 23 11/12/2022 urina lysis , dipst ick Color [place] Not Available Z[facility] Internal Med [facility] [address] [facility] [address], [place], [address], 11/12/2022 15:36:48 12/24/19 23 12/23/2022 CBC/C OMPLE TE BLD COUNT W/DIF F white blood cells 7.7 x10'3 /uL 4.2-10 .8 Not Available [facility] (Lab) [address], [place], [address], 12/23/2022 14:16:42 12/24/19 23 12/23/2022 CBC/C OMPLE TE BLD COUNT W/DIF F red blood cells 4.48 x10'6 /uL 3.80-5 .20 Not Available [facility] (Lab) [address], [place], [address], 12/23/2022 14:16:42 12/24/19 23 12/23/2022 CBC/C OMPLE TE BLD COUNT W/DIF F hemoglobin 13.4 g/dL 12.0-1 5.6 Not Available [facility] (Lab) [address] [place], [address], 12/23/2022 14:16:42 12/24/19 23 12/23/2022 CBC/C OMPLE TE BLD COUNT W/DIF F hematocrit 41.3 % 35.7-4 5.7 Not Available [facility] (Lab) [address] [place], [address], 12/23/2022 14:16:42 12/24/19 23 12/23/2022 CBC/C OMPLE TE BLD COUNT W/DIF F mean red cell volume 92.2 fL 82.0-9 9.0 Not Available [facility] (Lab) [address] [place], [address], 12/23/2022 14:16:42 12/24/19 23 12/23/2022 CBC/C OMPLE TE BLD COUNT W/DIF F mean red cell hemoglobin 29.9 pg 27.0-3 3.0 Not Available [facility] (Lab) [address] [place], [address], 12/23/2022 14:16:42 12/24/19 23 12/23/2022 CBC/C OMPLE TE BLD COUNT W/DIF F mean RBC HGB concentratio n 32.4 g/dL 31.0-3 6.0 Not Available [facility] (Lab) [address] [place], [address], 12/23/2022 14:16:42 12/24/19 23 12/23/2022 CBC/C OMPLE TE BLD COUNT W/DIF F red cell distribution width 12.6 % 11.8-1 5.5 Not Available [facility] (Lab) [address] [place], [address], 12/23/2022 14:16:42 12/24/19 23 12/23/2022 CBC/C OMPLE TE BLD COUNT W/DIF F platelets 352 x10'3 /uL 150-40 0 Not Available [facility] (Lab) [address] [place], [address], 12/23/2022 14:16:42 12/24/19 23 12/23/2022 CBC/C OMPLE TE BLD COUNT W/DIF F mean platelet volume 9.9 fL 9.0-12 .4 Not Available [facility] (Lab) [address] [place], [address], 12/23/2022 14:16:42 12/24/19 23 12/23/2022 CBC/C OMPLE TE BLD COUNT W/DIF F neutrophils 48.9 % 39.0-7 2.0 Not Available [facility] (Lab) [address] [place], [address], 12/23/2022 14:16:42 12/24/19 23 12/23/2022 CBC/C OMPLE TE BLD COUNT W/DIF F lymphocytes 40.6 % 16.0-4 7.0 Not Available [facility] (Lab) [address] [place], [address], 12/23/2022 14:16:42 12/24/19 23 12/23/2022 CBC/C OMPLE TE BLD COUNT W/DIF F monocytes 8.1 % 5.0-12 .0 Not Available [facility] (Lab) [address] [place], [address], 12/23/2022 14:16:42 12/24/19 23 12/23/2022 CBC/C OMPLE TE BLD COUNT W/DIF F eosinophils 1.8 % 1.0-7. 0 Not Available [facility] (Lab) [address] [place], [address], 12/23/2022 14:16:42 12/24/19 23 12/23/2022 CBC/C OMPLE TE BLD COUNT W/DIF F basophils 0.5 % 0.0-2. 0 Not Available [facility] (Lab) [address] [place], [address], 12/23/2022 14:16:42 12/24/19 23 12/23/2022 CBC/C OMPLE TE BLD COUNT W/DIF F immature granulocytes 0.1 % 0.00-0 .50 Not Available [facility] (Lab) [address] [place], [address], 12/23/2022 14:16:42 12/24/19 23 12/23/2022 CBC/C OMPLE TE BLD COUNT W/DIF F neutrophils, absolute count 3.75 x10'3 /uL 1.5-8. 0 Not Available [facility] (Lab) [address] [place], [address], 12/23/2022 14:16:42 12/24/19 23 12/23/2022 CBC/C OMPLE TE BLD COUNT W/DIF F lymphocytes, absolute count 3.12 x10'3 /uL 1.07-3 .43 Not Available [facility] (Lab) [address] [place], [address], 12/23/2022 14:16:42 12/24/19 23 12/23/2022 CBC/C OMPLE TE BLD COUNT W/DIF F monocytes, absolute count 0.62 x10'3 /uL 0.29-0 .99 Not Available [facility] (Lab) [address] [place], [address], 12/23/2022 14:16:42 12/24/19 23 12/23/2022 CBC/C OMPLE TE BLD COUNT W/DIF F eosinophils, absolute count 0.14 x10'3 /uL 0.02-0 .53 Not Available [facility] (Lab) [address] [place], [address], 12/23/2022 14:16:42 12/24/19 23 12/23/2022 CBC/C OMPLE TE BLD COUNT W/DIF F basophils, absolute count 0.04 x10'3 /uL 0.01-0 .08 Not Available [facility] (Lab) [address] [place], [address], 12/23/2022 14:16:42 12/24/19 23 12/23/2022 CBC/C OMPLE TE BLD COUNT W/DIF F immature granulocytes ,absolute 0.01 x10'3 /uL 0.00-0 .05 Not Available [facility] (Lab) [address] [place], [address], 12/23/2022 14:16:42 12/24/19 23 12/23/2022 CBC/C OMPLE TE BLD COUNT W/DIF F nucleated red blood cells 0.0 % -0 Not Available [facility] (Lab) [address] [place], [address], 12/23/2022 14:16:42 12/24/19 23 12/23/2022 CBC/C OMPLE TE BLD COUNT W/DIF F NRBC# 0.00 x10'3 /uL Not Available [facility] (Lab) [address] [place], [address], 12/23/2022 14:16:42 12/24/19 23 12/23/2022 LIPID PANEL cholesterol 213 mg/dL 140-19 9 high NIH CYNTHIA NSUS RECOM MENDA TION FOR GALLITO STERO L: ADULT CHILD LOW RISK: <200 <170 BORDE RLINE : <200- 239 ----- HIGH RISK: >240 >200 Not Available [facility] (Lab) [address] [place], [address], 12/23/2022 14:50:18 12/24/19 23 12/23/2022 LIPID PANEL triglyceride s 65 mg/dL 0-150 NIH CYNTHIA NSUS REPOR T RECOM MENDA TION FOR TRIGL YCERI SANDRA: ADULT CHILD LOW RISK: <150 ----- BODER LINE: 150-1 99 ----- HIGH RISK: >200 ----- Not Available [facility] (Lab) [address] [place], [address], 12/23/2022 14:50:18 12/24/19 23 12/23/2022 LIPID PANEL HDL cholesterol 120 mg/dL 40- Not Available [facility] (Lab) [address] [place], [address], 12/23/2022 14:50:18 12/24/19 23 12/23/2022 LIPID PANEL LDL cholesterol, calculated 80 mg/dL 0-130 NIH CYNTHIA NSUS REPOR T RECOM MENDA TIONS FOR LDL: ADULT CHILD LOW RISK <130 <110 (OPTI MAL LDL) <100 ----- DELLA RLINE : 130-1 59 ----- HIGH RISK: >160 >130 A TRIGL YCERI DE RESUL T >400 INVAL IDATE S THE CALCU LATIO N FOR LDL FRACT IONAT ION - THE LDL RESUL T WILL NOT BE REPOR GRAHAM. Not Available [facility] (Lab) [address] [place], [address], 12/23/2022 14:50:18 12/24/19 23 12/23/2022 COMPR EHENS EFRAIN METAB OLIC PANEL sodium 139 mmol/ L 137-14 5 Not Available [facility] (Lab) [address] [place], [address], 12/23/2022 14:26:10 12/24/19 23 12/23/2022 COMPR EHENS EFRAIN METAB OLIC PANEL potassium 4.3 mmol/ L 3.5-5. 1 Not Available [facility] (Lab) [address] [place], [address], 12/23/2022 14:26:10 12/24/19 23 12/23/2022 COMPR EHENS EFRAIN METAB OLIC PANEL chloride 105 mmol/ L 98-107 Not Available [facility] (Lab) [address] [place], [address], 12/23/2022 14:26:10 12/24/19 23 12/23/2022 COMPR EHENS EFRAIN METAB OLIC PANEL carbon dioxide 25 mmol/ L 22-30 Not Available [facility] (Lab) [address] [place], [address], 12/23/2022 14:26:10 12/24/19 23 12/23/2022 COMPR EHENS EFRAIN METAB OLIC PANEL anion gap 13.3 mmol/ L 14-22 low Not Available [facility] (Lab) [address] [place], [address], 12/23/2022 14:26:10 12/24/19 23 12/23/2022 COMPR EHENS EFRAIN METAB OLIC PANEL glucose 97 mg/dL 70-99 Not Available [facility] (Lab) [address] [place], [address], 12/23/2022 14:26:10 12/24/19 23 12/23/2022 COMPR EHENS EFRAIN METAB OLIC PANEL BUN 13 mg/dL 8-19 Not Available [facility] (Lab) [address] [place], [address], 12/23/2022 14:26:10 12/24/19 23 12/23/2022 COMPR EHENS EFRAIN METAB OLIC PANEL creatinine 0.94 mg/dL 0.66-1 .25 Not Available [facility] (Lab) [address] [place], [address], 12/23/2022 14:26:10 12/24/19 23 12/23/2022 COMPR EHENS EFRAIN METAB OLIC PANEL GFR >60 Refer ence Range : [place] ge GFR Healt hy Adult : >60 mL/mi n/1.7 3 m2 Chron ic Kidne y Disea se: 15-60 mL/mi n/1.7 3 m2 Kidne y Failu re: <15/m L/min /1.73 m2 www.n iddk. nih.g ov The MDRD study equat ion has not been valid ated in child fatoumata <18 years of age; pregn ant women ; the elder ly >85 years of age; or in some racia l or ethni c subgr oups, such as Hispa nics. Outsi de the valid ated artur eters , estim ated GFR is less accur ate, requi ring clini bill judgm ent on a case- by-ca se basis . Clini bill inter preta tion for other races and ages must be made by the clini anatoliy. The MDRD study equat ion has not been valid ated for the evalu ation of serum creat inine relat ed to nutri sonia l statu s or medic ation usage . For perso ns <18 years of age, a pedia tric GFR calcu lator is avail able on the [facility] websi te: https ://estuardo w.carlitos bessy.o rg/pr ofess ional s/kdo qi/gf r_cal culat or Not Available [facility] (Lab) [address] [place], [address], 12/23/2022 14:26:10 12/24/19 23 12/23/2022 COMPR EHENS EFRAIN METAB OLIC PANEL alkaline phosphatase 65 U/L 38-126 Not Available [facility] (Lab) [address] [place], [address], 12/23/2022 14:26:10 12/24/19 23 12/23/2022 COMPR EHENS EFRAIN METAB OLIC PANEL alanine aminotransfe rase 22 U/L 0-35 Not Available [facility] (Lab) [address] [place], [address], 12/23/2022 14:26:10 12/24/19 23 12/23/2022 COMPR EHENS EFRAIN METAB OLIC PANEL aspartate aminotransfe rase 26 U/L 15-37 Not Available [facility] (Lab) [address] [place], [address], 12/23/2022 14:26:10 12/24/19 23 12/23/2022 COMPR EHENS EFRAIN METAB OLIC PANEL bilirubin, total 0.30 mg/dL 0.20-1 .30 Not Available [facility] (Lab) [address] [place], [address], 12/23/2022 14:26:10 12/24/19 23 12/23/2022 COMPR EHENS EFRAIN METAB OLIC PANEL calcium 9.6 mg/dL 8.4-10 .2 Not Available [facility] (Lab) [address] [place], [address], 12/23/2022 14:26:10 12/24/19 23 12/23/2022 COMPR EHENS EFRAIN METAB OLIC PANEL total protein 7.5 g/dL 6.3-8. 2 Not Available [facility] (Lab) [address] [place], [address], 12/23/2022 14:26:10 12/24/19 23 12/23/2022 COMPR EHENS EFRAIN METAB OLIC PANEL albumin 4.3 g/dL 3.4-5. 0 Not Available [facility] (Lab) [address] [place], [address], 12/23/2022 14:26:10 12/24/19 23 12/23/2022 COMPR EHENS EFRAIN METAB OLIC PANEL globulin 3.2 g/dL 2.6-4. 2 Not Available [facility] (Lab) [address] [place], [address], 12/23/2022 14:26:10 12/24/19 23 12/23/2022 COMPR EHENS EFRAIN METAB OLIC PANEL A/G ratio 1.3 ratio 1.0-2. 0 Not Available [facility] (Lab) [address] [place], [address], 12/23/2022 14:26:10 12/24/19 23 12/23/2022 T4 FREE free T4 1.20 NG/dL 0.78-2 .19 Not Available [facility] (Lab) [address] [place], [address], 12/23/2022 14:30:55 12/24/19 23 12/23/2022 TSH thyroid-stim ulating hormone 1.820 uIU/m L 0.465- 4.680 Not Available [facility] (Lab) [address] [place], [address], 12/23/2022 14:41:27 12/24/19 23 12/23/2022 VITAM IN D 25-HY DROXY vd25oh 29.2 NG/mL 30-100 low Vitam in D Statu s: Defic ient: <20 ng/mL Insuf ficie nt: 20-29 ng/mL Suffi cient : 30-10 0 ng/mL Not Available [facility] (Lab) [address] [place], [address], 12/23/2022 14:48:15 02/03/20 23 02/02/2023 RAPID STREP A DNA strep A DNA, NICKI NEGATI VE negati ve Not Available [facility] (Lab) [address] [place], [address], 02/02/2023 15:58:20 02/03/20 23 02/02/2023 INFLU KETURAH A/B ANTIG EN RAPID flu A NEGATI VE negati ve Not Available [facility] (Lab) [address] [place], [address], 02/02/2023 15:58:46 02/03/20 23 02/02/2023 INFLU KETURAH A/B ANTIG EN RAPID flu B NEGATI VE negati ve THIS TEST CAN NOT DISTI NGUIS H INFLU KETURAH A VIRUS SUBTY PES. ALSO, PLEAS E NOTE THAT A NEGAT EFRAIN RESUL T DOES NOT EXCLU DE INFLU KETURAH VIRUS INFEC TION. IF MORE CONCL USIVE TESTI NG IS JAVON ED, FOLLO W-UP CONFI RMATO RY TESTI NG WITH RT-PC R IS SUGGE STED. Not Available [facility] (Lab) [address] [place], [address], 02/02/2023 15:58:46 02/03/20 23 02/02/2023 INFLU KETURAH A/B ANTIG EN RAPID valid QC POSITI VE Not Available [facility] (Lab) [address] [place], [address], 02/02/2023 15:58:46 02/03/20 23 02/02/2023 INFLU KETURAH A/B ANTIG EN RAPID lot # [id number] Not Available [facility] (Lab) [address] [place], [address], 02/02/2023 15:58:46 02/03/20 23 02/02/2023 INFLU KETURAH A/B ANTIG EN RAPID source [employer] Not Available [facility] (Lab) [address] [place], [address], 02/02/2023 15:58:46 02/03/20 23 02/02/2023 SARS- COV-2 (COVI D-19) ANTIG EN sars-cov-2 (covid-19) antigen NON-RE ACTIVE non-re active This test has been autho rized by the FDA under an Emerg ency Use Autho rizat ion (EUA) for use by autho rized labor atori es. This test is only for the detec tion of SARS- CoV-2 antig en, not for any other virus es or patho gens. Negat efrain resul ts from patie nts with sympt om onset outsi de of one to six days shoul d be treat ed as presu mptiv e. Negat efrain resul ts do not rule out SARS- CoV-2 infec tion and shoul d not be used as the sole basis of treat ment or patie nt manag ement decis ions, inclu ding infec tion contr ol decis ions. Negat efrain resul ts shoul d be consi dered in the kyleigh xt of a patie nt's recen t expos ures, histo ry and the prese nce of clini bill signs and sympt oms consi stent with COVID -19. The VITRO S Immun odiag nosti cs Produ cts SARS- CoV-2 Antig en Lette r of Autho rizat ion, along with the autho rized Fact Sheet for Healt hcare Provi ders, the autho rized Fact Sheet for Recip ients , and autho rized label ing are avail able on the FDA Websi te: https ://ww w.fda .gov/ medic al-de vices /bravo navir us-di seas -2018 -covi d-19- emerg ency- use-a uthor izati ons-m edica l-dev ices/ vitro -diag nosti cs-eu as# indiv idual -sero logic al Not Available [facility] (Lab) [address] [place], [address], 02/02/2023 17:28:54 02/03/20 23 02/02/2023 SARS- COV-2 (COVI D-19) ANTIG EN signal to cutoff ratio 0.16 0.00-0 .99 Not Available [facility] (Lab) [address] [place], [address], 02/02/2023 17:28:54 01/05/20 23 11/11/2022 US, pelvi s, compl ete No observ ation record ed. [facility] Not Available 2022 18:05:07 12/09/19 24 12/09/2023 US, renal No observ ation record ed. [email or web address] [address], [place], [address], 06/13/2024 14:03:49 03/07/12/09/2023 US, abdom en, limit ed No observ ation record ed. [email or web address], [place], [address], 06/13/2024 14:06:57 07/25/20 24 07/25/2024 imagi ng/di agnos tic resul t No observ ation record ed. [facility] [address], [place], [address], 07/25/2024 19:46:38 09/21/20 24 09/21/2024 imagi ng/di agnos tic resul t No observ ation record ed. [facility] [address] [place], [address], 09/21/2024 14:43:45 Result Notes None recorded. Problems Name Problem SNOMED Code Status Onset Date Resolution Date Notes Provider Name and Address Organization Details Recorded Time Abdominal pain 34462313 Active 2022 Not Available [facility] 3 02:29:46 Hyperlipidemi a 42907324 Active 2021 Not Available [facility] 3 02:29:46 COVID-19 424836402 Active 2021 Not Available [facility] 3 02:29:46 Liver enzymes level above reference range 757809187 Active 2022 Farhana hsieh MD [address], [facility] [address], [place], [address] , [employer] [facility] [employer] 3 13:01:38 Moderate recurrent major depression 21339466 Active 2022 Farhana hsieh MD [address], [facility] [address], [place], [address] , [employer] [facility] [employer] 3 13:02:12 Vitamin D deficiency 46404286 Active 2022 Hailee bradley, [place] [facility] [employer] 3 14:20:50 Migraine 57465851 Active 2022 Farhana hsieh MD [address], [place], [address] , [facility] [employer] [facility] 3 17:19:59 Upper respiratory infection 86879997 Active 2022 Hailee bradley [facility] [employer] [facility] 3 13:36:10 Eruption 062654957 Active 2022 Farhana hsieh MD [address], [facility] [address], [place], [address] , [facility] 3 15:09:44 Problem Notes None recorded. Procedures Surgical History Date Name Laterality Status Provider Name and Address Organization Details Recorded Time tonsillectomy completed Not Available [facility] 12/02/2022 02:27:10 extraction of wisdom tooth completed Not Available [facility] 12/02/2022 02:27:10 Imaging Results Imaging Date Name Status LastModified by Organiz ation Details LastModified Time 11/11/2022 US, pelvis, complete completed [facility] Information not available 01/04/2023 18:05:07 12/09/2023 US, renal completed [address], [address], 06/13/2024 14:03:49 12/09/2023 US, abdomen, limited completed [address], [address], 06/13/2024 14:06:57 07/25/2024 imaging/diagn ostic result active [address], [address], 07/25/2024 19:46:38 09/21/2024 imaging/diagn ostic result active [facility] [address] [place], [address], 09/21/2024 14:43:45 Procedure Notes None recorded. Medical Equipment None Reported. Allergies Allergen ID Allergen Name Allergen Category Reaction Reaction Severity Criticality Documentation Date Start Date Code Code System Note Provider Name and Address Organization Details Recorded Time 3149 adhesive environme nt,medica tion Not available Not available Not available 12/02/2022 Hector id (name brand ) adhes efrain not tape Not Available [facility] 3 02:33:18 Medications Name Sig Start Date Stop Date Status Note LastModified by Organization Details LastModified Time quetiapin e 25 mg tablet TAKE 1 TABLET BY MOUTH EVERY DAY AT BEDTIME active Not Available Not Available No t Available amoxicill in 500 mg capsule Take 1 capsule every 8 hours by oral route for 7 days. active Not Available Not Available No t Available buspirone 5 mg tablet TAKE 1 TABLET BY MOUTH EVERY DAY AT BEDTIME active Not Available Not Available No t Available doxycycli ne hyclate 100 mg capsule TAKE 1 CAPSULE BY MOUTH TWICE DAILY active Not Available Not Available No t Available azithromy martin 250 mg tablet TK 2 TS PO ON DAY 1, THEN TK 1 T PO D FOR 4 DAYS 10/20 completed Not Available Not Available Not Available hydrocodo ne 5 mg-acetam inophen 325 mg tablet TAKE 1 TABLET BY MOUTH EVERY 4 HOURS NEEDED 06/14 completed Not Available Not Available Not Available meloxicam 15 mg tablet Take HALF tab twice daily as needed only Take with food active Not Available Not Available No t Available promethaz ine 12.5 mg tablet TAKE 1 TABLET BY MOUTH EVERY 6 HOURS 1 HOURS PRIOR TO MEALS 06/14 completed Not Available Not Available Not Available ondansetr on HCl 4 mg tablet TAKE 1 TABLET BY MOUTH EVERY 8 HOURS NEEDED 06/14 completed Not Available Not Available Not Available Diflucan 150 mg tablet Take 1 tablet now active Not Available Not Available No t Available Zyrtec 10 mg tablet Take 1 tablet every day by oral route as needed for 90 days. 2022 active Not Available Not Available Not Avai lable metronida zole 500 mg tablet TAKE 1 TABLET BY MOUTH EVERY 8 HOURS FOR 7 DAYS 12/23 completed Not Available Not Available Not Available ciproflox acin 500 mg tablet TAKE 1 TABLET BY MOUTH EVERY 12 HOURS FOR 7 DAYS 12/23 completed Not Available Not Available Not Available sulfameth oxazole 800 mg-trimet hoprim 160 mg tablet 03/19 completed Not Available Not Available Not Available tramadol 50 mg tablet TAKE 1 TABLET BY MOUTH EVERY 6 HOURS NEEDED FOR PAIN 12/23 completed Not Available Not Available Not Available meloxicam 7.5 mg tablet Take 1 tablet twice a day by oral route as needed for 30 days. 03/21 completed Not Available Not Available Not Available amoxicill in 875 mg tablet TK 1 T PO BID. active Not Available Not Available No t Available famotidin e 20 mg tablet active Not Available Not Available Not Available oseltamiv ir 75 mg capsule active Not Available Not Available Not Available ergocalci ferol (vitamin D2) 1,250 mcg (50,000 unit) capsule TAKE 1 CAPSULE BY MOUTH WEEKLY active Not Available Not Available No t Available clobetaso l 0.05 % topical ointment APPLY TOPICALL Y TO THE AFFECTED AREA TWICE DAILY FOR 2 WEEKS active Not Available Not Available No t Available scopolami ne 1 mg over 3 days transderm al patch APPLY NEW PATCH BEHIND EAR EVERY 72 HOURS 06/14 completed Not Available Not Available Not Available methylpre dnisolone 4 mg tablets in a dose pack FOLLOW PACKAGE DIRECTIO NS active Not Available Not Available No t Available norethind wellington (contrace ptive) 0.35 mg tablet TAKE 1 TABLET BY MOUTH DAILY active Not Available Not Available No t Available ondansetr on 4 mg disintegr ating tablet DIS 1 T ON THE TONGUE Q 6 H PRF NAUSEA OR VOM 12/23 completed Not Available Not Available Not Available dicyclomi ne 10 mg capsule TAKE 1 CAPSULE BY MOUTH THREE TIMES DAILY 10/20 completed Not Available Not Available Not Available amoxicill in 875 mg-potass ium clavulana te 125 mg tablet TAKE 1 TABLET BY MOUTH EVERY 12 HOURS FOR 7 DAYS 06/14 completed Not Available Not Available Not Available esomepraz ole magnesium 20 mg capsule,d elayed release TAKE 1 CAPSULE BY MOUTH DAILY NEEDED 06/14 completed Not Available Not Available Not Available atomoxeti ne 25 mg capsule TAKE 1 CAPSULE BY MOUTH EVERY DAY 06/14 completed Not Available Not Available Not Available atomoxeti ne 40 mg capsule TAKE 1 CAPSULE BY MOUTH EVERY DAY active Not Available Not Available No t Available rosuvasta tin 20 mg tablet TAKE 1 TABLET BY MOUTH EVERY DAY 01/19 completed increase d to 40 mg qd Not Available Not Available Not Available rosuvasta tin 40 mg tablet Take 1 tablet(s ) every day by oral route. active Not Available Not Available No t Available bupropion HCl XL 300 mg 24 hr tablet, extended release TAKE 1 TABLET BY MOUTH EVERY DAY active Not Available Not Available No t Available bupropion HCl XL 150 mg 24 hr tablet, extended release TAKE 1 TABLET BY MOUTH EVERY DAY IN THE MORNING 11/12 completed Not Available Not Available Not Available escitalop corey 5 mg tablet TK 1 T PO QD active Not Available Not Available No t Available nitrofura ntoin monohydra te/macroc rystals 100 mg capsule TAKE 1 CAPSULE BY MOUTH EVERY 12 HOURS FOR 5 DAYS 12/23 completed Not Available Not Available Not Available vitamin E 260mg daily 2020 active Not Available Not Available Not Avai lable Xulane 150 mcg-35 mcg/24 hr transderm al patch active Not Available Not Available Not Available June Fe 24 1 mg-20 mcg (24)/75 mg (4) tablet TAKE 1 TABLET BY MOUTH DAILY 06/14 completed Not Available Not Available Not Available Trintelli x 10 mg tablet TAKE 1 TABLET BY MOUTH EVERY DAY active Not Available Not Available No t Available Whtiney 0.25 mg-35 mcg tablet TAKE 1 TABLET BY MOUTH DAILY 06/14 completed Not Available Not Available Not Available Ubrelvy 50 mg tablet active Not Available Not Available Not Available Qelbree 100 mg capsule,e xtended release TAKE 1 CAPSULE BY MOUTH EVERY DAY 06/14 completed Not Available Not Available Not Available Myfembree 40 mg-1 mg-0.5 mg tablet active Not Available Not Available Not Available Paxlovid 300 mg (150 mg x 2)-100 mg tablets in a dose pack Take 1 dose pk by oral route as directed . active Not Available Not Available No t Available Vitals Date Recorded Body mass index (BMI) Body height Oxygen saturation Oxygen saturation in Arterial blood by Pulse oximetry Heart rate Body temperature Body weight Systolic blood pressure Diastolic blood pressure Provider Name and Address Organization Details Last Updated DateTime 2 28.7 kg/m2 154.94 cm 90 % 90 % 60 /min 97.5 [degF] 57297.0 4 g 112 mm[Hg] 82 mm[Hg] Not Available [facility] 3 02:28:31 Date Recorded Body mass index (BMI) Body height Oxygen saturation Oxygen saturation in Arterial blood by Pulse oximetry Heart rate Body temperature Body weight Systolic blood pressure Diastolic blood pressure Provider Name and Address Organization Details Last Updated DateTime 2 28.7 kg/m2 154.94 cm 98 % 98 % 86 /min 96.7 [degF] 77080.0 4 g 110 mm[Hg] 74 mm[Hg] Not Available [facility] 3 02:28:31 Date Recorded Body mass index (BMI) Body height Oxygen saturation Oxygen saturation in Arterial blood by Pulse oximetry Heart rate Body temperature Body weight Systolic blood pressure Diastolic blood pressure Provider Name and Address Organization Details Last Updated DateTime 2 29.1 kg/m2 154.94 cm 97 % 97 % 98 /min 98.3 [degF] 48992.2 2 g 120 mm[Hg] 70 mm[Hg] Not Available [facility] 3 02:28:31 Date Recorded Body mass index (BMI) Body height Heart rate Body temperature Body weight Systolic blood pressure Diastolic blood pressure Provider Name and Address Organization Details Last Updated DateTime 3 29.9 kg/m2 154.94 cm 78 /min 97.7 [degF] 01345.3 9 g 100 mm[Hg] 60 mm[Hg] Not Available [facility] 3 02:28:31 Date Recorded Body height Body mass index (BMI) Body weight Heart rate Oxygen saturation Oxygen saturation in Arterial blood by Pulse oximetry Body temperature Systolic blood pressure Diastolic blood pressure Provider Name and Address Organization Details Last Updated DateTime 3 154.94 cm 29.5 kg/m2 04104.4 1 g 88 /min 99 % 99 % 97.6 [degF] 124 mm[Hg] 70 mm[Hg] Angelina Navarro MA [employer] 3 09:58:38 Date Recorded Body height Body mass index (BMI) Body weight Body temperature Heart rate Systolic blood pressure Diastolic blood pressure Provider Name and Address Organization Details Last Updated DateTime 3 154.94 cm 28.5 kg/m2 74407.4 5 g 97.8 [degF] 90 /min 110 mm[Hg] 64 mm[Hg] TIBURCIO Menchaca [employer] 14:52:52 Social History Question Answer Notes LastModified by Organizat ion Details LastModified Time Tobacco Smoking Status Never Smoker Not Available [facility] 12/02/2022 02:25:15 Do You Have An Advance Directive? No [id number] Information not available 12/02/2022 What Is Your Level Of Alcohol Consumption? None [id number] Information not available 12/02/2022 What Is Your Level Of Caffeine Consumption? Moderate [id number].[id number] Information not available 12/02/2022 How Much Tobacco Do You Chew? None [id number].[id number] Information not available 12/02/2022 In The 14 Days Before Symptom Onset, Have You Had Close Contact With A Laboratory-confir med COVID-19 While That Case Was Ill? Yes Works At [employer] But Did Have PPE [id number].[id number] Information not available 12/02/2022 In The 14 Days Before Symptom Onset, Have You Had Close Contact With A Person Who Is Under Investigation For COVID-19 While That Person Was Ill? No [id number] Information not available 12/02/2022 What Type Of Diet Are You Following? REGULAR [id number].[id number] Information not available 12/02/2022 Which Illicit Or Recreational Drugs Have You Used? None [id number].[id number] Information not available 12/02/2022 Do You Or Have You Ever Used E-cigarettes Or Vape? 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 No MIGRATION.[id number] Information not available 12/02/2022 Do You Have A Medical Power Of Radiologist Diagnostic? No MIGRATION.[id number] Information not available 12/02/2022 What Was The Date Of Your Most Recent Tobacco Screening? 06/14/2023 [email or web address] Information not available 06/14/2023 Do You Or Have You Ever Used Smokeless Tobacco? Never Used Smokeless Tobacco MIGRATION.[id number] Information not available 12/02/2022 How Much Tobacco Do You Smoke? No MIGRATION.04030 [id number] Information not available 12/02/2022 Do You Use Sunscreen Routinely? No MIGRATION.[id number] Information not available 12/02/2022 Has Tobacco Cessation Counseling Been Provided? No N/a MIGRATION.00393 [id number] Information not available 12/02/2022 Have You Recently Traveled Abroad? No MIGRATION.[id number] Information not available 12/02/2022 Do You Or Have You Ever Used Any Other Forms Of Tobacco Or Nicotine? No MIGRATION.[id number] Information not available 12/02/2022 Sex: Unknown Functional Status Question Answer Note LastModified by Organizat ion Details LastModified Time What is your exercise level? Occasional [id number] Information not available 12/02/2022 Mental Status None recorded. Family History Relationship Description Onset Age of this Age Resolved Age Notes LastModified by Organization Details LastModified Time Mother Malignant tumor of breast [id number] Not available 12/02/2022 02:27:13 Maternal Grandfather Hypertensive disorder [id number] Not available 12/02/2022 02:27:13 Maternal Grandmother Hypertensive disorder [id number].[id number] Not available 12/02/2022 02:27:13 Paternal Grandfather Hypertensive disorder [id number].[id number] Not available 12/02/2022 02:27:13 Paternal Grandmother Hypertensive disorder [id number] Not available 12/02/2022 02:27:13 Medical History Condition Response NERVE DISEASE N BLINDNESS N RHEUMATIC FEVER N KIDNEY STONES N BLADDER PROBLEMS N OTHER # 1 N POLIO N LUNG DISEASE/DISORDER N RADIATION / CHEMOTHERAPY N COPD N Other # 2 N BLOOD DISEASES N SURGERY N EAR OR HEARING PROBLEMS N MUMPS N BOWEL PROBLEMS N DEPRESSION (INCLUDING POST ) Y STROKE/TIA N ULCERS N BENIGN PROSTATIC HYPERPLASIA N MEASLES N MYOCARDIAL INFARCTION N OBESITY N GERD/NAUSEA N ANEURYSM N URINARY/BLADDER/KIDNEY PROBLEMS N INPATIENT PSYCH CARE N CORONARY ARTERY DISEASE (CAD) N ADDICTION CONCERNS N Impotence N ENDOMETRIOSIS N USE OF BLOOD THINNERS N SKIN PROBLEMS N GASTROINTESTINAL DISORDER N PERIPHERAL VASCULAR DISEASE N MUSCLE,JOINT OR BONE PROBLEMS N GASTROINTESTINAL BLEEDING N BLOOD CLOTS N ASTHMA N CATARACTS N ERECTILE DYSFUNCTION N VARICOSITIES N GI PROBLEMS N Low Testosterone N INFERTILITY N AIDS/HIV N LIVER DISEASE N MALE HYPOGONADISM N HYPERTENSION N Deficiency Y ANXIETY DISORDER N BLOOD TRANSFUSION N ANEMIA/BLOOD DISORDER N CHRONIC EAR INFECTIONS N BRONCHITIS N TUBERCULOSIS N GLAUCOMA N FOOT PROBLEM N DIVERTICULITIS N SLEEP APNEA N CHICKENPOX N INFECTIOUS DISEASE N PROSTATE N HEART ARRHYTHMIA N INSOMNIA N HIGH CHOLESTEROL / HYPERLIPIDEMIA Y EYE PROBLEMS N HYPERTHYROIDISM N NEUROLOGICAL PROBLEMS N EDEMA N CHRONIC PAIN SYNDROME N HYPOTHYROIDISM N CONSTIPATION N CAROTID BLOCKAGE N BACK / NECK PROBLEMS N ATHEROSCLEROSIS N BREAST PROBLEMS N DIALYSIS N ECZEMA N OSTEOPOROSIS N ARTHRITIS N APPENDICITIS N DIABETES, TYPE N BAD TEETH N ENT N HEARTBURN / REFLUX N AUTISM SPECTRUM DISORDER (ASD) N HEPATITIS / LIVER DISEASE N PULMONARY DISEASE N GOUT N SLEEP DISORDER N ALZHEIMER'S DISEASE N Brain Problems N DEMENTIA N HERPES N SEIZURES/EPILEPSY N HEADACHES/MIGRAINES N VASCULAR DISEASE N PACEMAKER N Blood Disorder N DIZZINESS N HEART DISEASE/HEART PROBLEMS N KIDNEY DISEASE N MULTIPLE SCLEROSIS N CANCER: SPECIFY N CARDIAC ARRHYTHMIA N ANESTHESIA COMPLICATIONS N ATRIAL FIBRILLATION N Gall Stones N PULMONARY EMBOLISM N AUTOIMMUNE DISEASE N Gynecological History Statement/Question Response Menses Monthly N Abnormal Pap N Current Control Method BCPs Age at Menarche 11 Date of LMP 11/08/2020 Breast Problems none Obstetrics History GPAL:G 0 P 0 0 0 0 Immunizations Vaccine Type Date Status Note Provider Nam e and Address Organization Details Recorded Time COVID-19, mRNA, LNP-S, PF, 3 mcg/0.2 mL dose, miller-sucrose 2 completed Not Available [facility] 12/02/2022 02:33:13 Influenza, split virus, trivalent, preservative 1 completed Not Available [facility] 12/02/2022 02:33:13 COVID-19, mRNA, LNP-S, PF, 30 mcg/0.3 mL dose 1 completed Not Available [facility] 12/02/2022 02:33:13 COVID-19, mRNA, LNP-S, PF, 30 mcg/0.3 mL dose 1 completed Not Available [facility] 12/02/2022 02:33:13 Influenza, split virus, quadrivalent, preservative 0 completed Not Available [facility] 12/02/2022 02:33:13 Past Encounters Encounter ID Performer Location Encounter Start Date Encounter Closed Date Diagnosis/Indication Diagnosis SNOMED-CT Code Diagnosis ICD10 Code [id number] [facility] Internal Med [place] [address] [place] [address], [address] [place] [address] 12/13/2020 00:00:00 12/13/2020 20:34:06 [id number] _ATHENA_M IGRATION_ DEFAULT_1 _1 , 12/16/2020 00:00:00 12/16/2020 18:25:22 [id number] [facility] Internal Med [place] [address] [place] [address] 12/23/2020 00:00:00 12/23/2020 14:18:04 [id number] [facility] General Surgery [address], [facility] [address] [place] [address] 12/24/2020 00:00:00 12/24/2020 13:26:33 [id number] [facility] Internal Med [place] [place] [address] 03/19/2021 00:00:00 03/19/2021 17:54:06 [id number] [facility] Internal Med [address] [place] [address] y , [place] [address] 04/21/2021 00:00:00 04/21/2021 17:21:43 [id number] [facility] Internal Med [facility] [address], [facility] [address] [place] [address] 08/01/2021 00:00:00 08/01/2021 11:33:40 [id number] [facility] Internal Med [place] [facility] [address] , [place] [address] 10/20/2021 00:00:00 10/20/2021 18:04:46 [id number] [facility] Internal Med [address] [place] [address] y , [place] [address] 01/19/2022 00:00:00 01/19/2022 15:40:18 [id number] [facility] Internal Med [facility] [address] , [address] [address] 05/12/2022 00:00:00 06/03/2022 11:28:12 [id number] Farhana hsieh MD [facility] Internal [facility] [address] [facility] [address] [place] [address] 12/23/2022 09:43:39 12/23/2022 10:44:00 Screening - NAD 855714638 Z13.9 Liver enzy mes level above reference range 033702954 R74.01 Abdominal pain 07311387 R10.9 Hyperlipidemia 10902353 E78.5 Moderate r ecurrent major depression 87691612 F33.1 Migraine 53294208 G43.90 9 Vitamin D deficiency 347 49878 E55.9 [id number] Farhana hsieh MD [facility] Internal [facility] [address] [place] [address] [address] 06/14/2023 14:41:32 06/14/2023 15:16:25 Screening - NAD 611201902 Z13.9 Liver enzy mes level above reference range 019694144 R74.01 Hyperlipidemia 16632151 E78.5 Moderate r ecurrent major depression 69930679 F33.1 Migraine 41964706 G43.90 9 Vitamin D deficiency 347 83938 E55.9 Eruption 950938560 R21 Health Concerns Section Related Observation LastModified by Organization Detai ls LastModified Time None Recorded Concern Status LastModified by Organization Details LastModified Time None Recorded Advance Directives Directive N: Payers Encounter Date Sequence Insurance Name Policy Number Policy Salmeron Covered Member ID Salmeron Member ID Guarantor Name 12/23/2022 1 [facility] [id number] Kumar Alford [id number] Lbierty Alford 06/14/2023 1 [employer] [id number] Kumar Alford [id number] Liberty Alford Notes Date Note Type Note Provider Name and Address Organization Details Recorded Time 12/23/2022 text/html OV 09/02/2020:He re to establish careReferred by her psychiatrist Dr De La Cruz as he had done labs and it was noted that her LFTs were elevatedPast Hx:Depression/Anxi etyReviewed social family and surgical historyShe has seen Dr De La Cruz and was given vibryd but she has had nausea with it and he was concerned about her LFTs so was referred hereHer prior PCP was her casting room helper Dr Durham denies any symptoms nowNo N/V or diarrhea, no blood in urine or stoolNo fevers or chillsNo rashesNo joint painShe is not suicidal or homicidal no ideation or attemptsHere with her mother OV 09/23/2020:Here with her mother for her one month follow upShe feels well todayEloise did do the labs and is now on chol med and vit d weekly OV 12/23/2020:Here for her routine aptShe feels Homero did do the labsShandrew was seen in the ER in the recent past for abdominal painStill has some crampy R LQ abd pain but iuus much improved and very intermittent now, associated with some nauseaNo vomitingNo blood in stool or urineNo fevers or chills, she does take the zofran as needed OV 03/19/2021:ACV:Her e with crampy lower abdominal painThis is intermittent, none at this timeShe denies any fevers or chills, some nausea no vomitingNo blood in urine or stoolNormal appetite OV 04/21/2021:Here for her routine aptShe feels Homero did do the labs OV 10/20/2021:Here for her routine aptShe c/o URI/sinus infectionNo exposure to COVID 19No fevers or chills, no SOB, no chest painNo loss of sense of smell or tasteNo abd pain OV 01/19/2022:Here for her routine aptShe is doing Homero did do the labs OV 05/12/2022:Here for her routine f/uShe feels well, she states that she did see her OB Dr Burrell, she has done the labs OV 12/23/2022:Here for her f/u apt, she is doing well today, she does now have an appt with Dr Wooten, OB, she has not yet done her labs, she states that her abd pain is better Farhana Alicia MD [address], [place], [address], [place] [facility] [employer] 12/23/2022 12:36:28 06/14/2023 text/html OV 09/02/2020:He re to establish careReferred by her psychiatrist Dr De La Cruz as he had done labs and it was noted that her LFTs were elevatedPast Hx:Depression/Anxi etyReviewed social family and surgical historyShe has seen Dr De La Cruz and was given vibryd but she has had nausea with it and he was concerned about her LFTs so was referred hereHer prior PCP was her casting room helper Dr Durham denies any symptoms nowNo N/V or diarrhea, no blood in urine or stoolNo fevers or chillsNo rashesNo joint painShe is not suicidal or homicidal no ideation or attemptsHere with her mother OV 09/23/2020:Here with her mother for her one month follow upShe feels well todayShe did do the labs and is now on chol med and vit d weeklyOV 12/23/2020:Here for her routine aptShe feels Homero did do the labsShe was seen in the ER in the recent past for abdominal painStill has some crampy R LQ abd pain but iuus much improved and very intermittent now, associated with some nauseaNo vomitingNo blood in stool or urineNo fevers or chills, she does take the zofran as neededOV 03/19/2021:ACV:Her e with crampy lower abdominal painThis is intermittent, none at this timeShe denies any fevers or chills, some nausea no vomitingNo blood in urine or stoolNormal appetiteOV 04/21/2021:Here for her routine aptShe feels Homero did do the labs OV 10/20/2021:Here for her routine aptShe c/o URI/sinus infectionNo exposure to COVID 19No fevers or chills, no SOB, no chest painNo loss of sense of smell or tasteNo abd painOV 01/19/2022:Here for her routine aptShe is doing Homero did do the labs OV 05/12/2022:Here for her routine f/uShe feels well, she states that she did see her OB Dr Burrell, she has done the labs OV 12/23/2022:Here for her f/u apt, she is doing well today, she does now have an appt with Dr Wooten, OB, she has not yet done her labs, she states that her abd pain is better OV 06/14/2023: Here for her f/u apt, she is doing well, but since last Wednesday has noted a rash, this is very itchy and located mainly on the bilateral arms and the upper leg, did have some shortness of breath but this is now resolved, she was given kenalog in the UC and this did not help much, 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 09/06/2023 12:58:44 OBGyn Episode No OBEpisode recorded.
--- OUTSIDE RECORDS SUMMARY | 2024-10-04 10:23 | XMS_ITS | Encounter Summary ---
Author Organization [facility] Address [address] [facility] [place] [address] Care Team Providers Care Travel Counselor Name Role Phone Joellen Kemp MD Primary Care Provider [phone] Reason for Visit * Reason Comments PPD SKIN TEST READ Encounter Details Date Type Department Care Team (Latest Contact Info) Description 04/04/2021 3:40 PM CDT Clinical Support [facility] AT [address] [address] Screening for tuberculosis Social History Tobacco Use Types Packs/Day Years Used Date Smoking Tobacco: Never Smokeless Tobacco: Never Alcohol Use Standard Drinks/Week Comments No 0 (1 standard drink = 0.6 oz pur e alcohol) Sex and Gender Information Value Date Recorded Sex Assigned at Not on file Gender Identity Female 02/15/2018 8:16 AM CDT Sexual Orientation Not on file COVID-19 Exposure Response Date Recorded In the last month, have you been in contact with someone who was confirmed or suspected to have Coronavirus / COVID-19? No / Unsure 04/04/2021 3:31 PM CDT documented as of this encounter Progress Notes * Cuate Luciano, BEL-SCREW MACHINE ADJUSTER AUTOMATIC - 04/04/2021 3:49 PM CDT PPD Reading Note PPD read and results entered in [employer]. Result: 0 mm induration. Interpretation: neg If test not read within 48-72 hours of initial placement, patient advised to repeat in other arm. Allergic reaction: no documented in this encounter Plan of Treatment Not on file documented as of this encounter Visit Diagnoses Diagnosis Screening for tuberculosis- Primary Screening examination for pulmonary tuberculosis documented in this encounter Care Teams Travel Counselor Relationship Specialty Start Date End Date Joellen Kemp MD [address] [facility] 2 [place] [address] PCP - General Pediatrics 12/10/15 documented as of this encounter
--- OUTSIDE RECORDS SUMMARY | 2024-10-04 10:23 | XMS_ITS | Encounter Summary ---
Author Organization [facility] Address [address] [place] [address] Care Team Providers Care Engineering Manager Electronics Name Role Phone Joellen Kemp MD Primary Care Provider [phone] Reason for Visit * Reason Onset Date Comments Question 01/12/2018 Encounter Details Date Type Department Care Team (Late st Contact Info) Description 01/12/2018 Telephone [facility] [address] [place] [address] Markell Graham Question Social History Tobacco Use Types Packs/Day Years Used Date Smoking Tobacco: Never Smokeless Tobacco: Never Alcohol Use Standard Drinks/Week Comments No 0 (1 standard drink = 0.6 oz pur e alcohol) Sex and Gender Information Value Date Recorded Sex Assigned at Not on file Gender Identity Female 02/15/2018 8:16 AM CDT Sexual Orientation Not on file documented as of this encounter Miscellaneous Notes * Telephone Encounter - Valentina Leung - 01/14/2018 8:42 AM CDT RTC to pt for scheduling as directed, pt accepts US appt in 6 weeks and denies further needs. * Telephone Encounter - Valentina Leung - 01/13/2018 8:15 AM CDT Contacted pt for scheduling as directed, lft msg for pt to contact me for scheduling. * Telephone Encounter - Anita Madison MD - 01/12/2018 2:43 PM CDT Pt has seen me at [facility]. Does need child guidance counselor ultrasound Here at [facility] in about 6 weeks. Please call mom to schedule. Anita Madison MD * Telephone Encounter - Markell Graham - 01/12/2018 2:21 PM CDT PT'S MOM CALLED IN STATING SHE WOULD LIKE TO SCHEDULE A US APPOINTMENT IN 6 WEEKS. CALLBACK# [phone] documented in this encounter Plan of Treatment Not on file documented as of this encounter Visit Diagnoses Diagnosis Right ovarian cyst- Primary Other and unspecified ovarian cyst documented in this encounter Care Teams Engineering Manager Electronics Relationship Specialty Start Date End Date Joellen Kemp MD [address] [place] [address] PCP - General Pediatrics 12/10/15 documented as of this encounter
--- OUTSIDE RECORDS SUMMARY | 2024-10-04 10:23 | XMS_ITS | Encounter Summary ---
Author Organization [facility] Address [address] [facility] [place] [address] Care Team Providers Care Registration Specialist Name Role Phone Joellen Kemp MD Primary Care Provider [phone] Reason for Visit * Radiology Services (Routine) - Closed Specialty Diagnoses / Procedures Referred By Brinda marcos Referred To Contact Obstetrics and Gynecology Diagnoses Right ovarian cyst Procedures US PELVIS W DOPPLER OVARIES US PELVIS COMPLETE Anita Madison MD [address] [place] [address] [facility] [address] [place] [address] Referral ID Status Reason Start Date Expiration Date Visits Re quested Visits Authorized [id number] Closed 01/12/2018 07/11/2018 1 1 Encounter Details Date Type Department Care Team (Latest Contact Info) Description 02/25/2018 12:37 PM CDT - 02/25/2018 11:59 PM CDT Hospital Encounter [facility] - Ultrasound [address] [place] [place] [address] Ainta Madison MD [address] [place] [address] Discharge Disposition: Home or Self Care Social History Tobacco Use Types Packs/Day Years Used Date Smoking Tobacco: Never Smokeless Tobacco: Never Alcohol Use Standard Drinks/Week Comments No 0 (1 standard drink = 0.6 oz pur e alcohol) Sex and Gender Information Value Date Recorded Sex Assigned at Not on file Gender Identity Female 02/15/2018 8:16 AM CDT Sexual Orientation Not on file documented as of this encounter Medications at Time of Discharge Medication Sig Dispensed Refills Start Date End Date lidocaine (LIDODERM) 5 % patchIndications:Abdomi nal pain, RLQ (right lower quadrant),Trigger point of abdomen Apply 1 patch to skin once daily After removing prior patch 10 patch 1 01/10/2018 08/15/2018 naproxen (NAPROSYN) 500 MG tablet Take 1 tablet by mouth 2 times daily 30 tablet 01/18/2018 05/02/2018 documented as of this encounter Plan of Treatment Not on file documented as of this encounter Procedures Procedure Name Priority Date/Time Associated Diagnosis Comments US PELVIS W DOPPLER OVARIES Routine 02/25/2018 1:01 PM CDT Right ovarian cyst documented in this encounter Results * US PELVIS W DOPPLER OVARIES (02/25/2018 1:01 PM CDT) Anatomical Region Laterality Modality Ultrasound 02/25/2018 2:20 PM CDT Impressions 02/25/2018 2:42 PM CDT 1. Normal left ovary and uterus. 2. Persistent dominant follicle within the right ovary which is anechoic and unchanged. Reading Radiologist: Leo Moise MD on 02/25/2018 at 2:42 PM Narrative 02/25/2018 2:42 PM CDT Ultrasound pelvis with Doppler of the ovaries February 25, 2018 HISTORY: Right ovarian cyst Right ovary: 3.2 x 1.99 x 2.7 cm Right ovary volume: 8.9 cc Left ovary: 2.1 x 1.4 x 2.1 cm Left ovary volume: 3.25 cc The left ovary is normal in acoustic appearance. There is no adnexal mass. A cyst is identified within the right ovary. This cyst measures 1.7 x 1.6 x 1.94 cm. Previously a pelvic ultrasound demonstrated a cyst measuring 2.2 x 1.4 x 1.5 cm . Color-flow and duplex spectral waveform analysis of both right and left ovaries demonstrates normal low-resistance arterial waveform. There is no ascites. An adult midline uterus is present. It is unremarkable in appearance. Procedure Note Leo Moise MD - 02/25/2018 Ultrasound pelvis with Doppler of the ovaries February 25, 2018 HISTORY: Right ovarian cyst Right ovary: 3.2 x 1.99 x 2.7 cm Right ovary volume: 8.9 cc Left ovary: 2.1 x 1.4 x 2.1 cm Left ovary volume: 3.25 cc The left ovary is normal in acoustic appearance. There is no adnexal mass. A cyst is identified within the right ovary. This cyst measures 1.7 x 1.6 x 1.94 cm. Previously a pelvic ultrasound demonstrated a cyst measuring 2.2 x 1.4 x 1.5 cm . Color-flow and duplex spectral waveform analysis of both right and left ovaries demonstrates normal low-resistance arterial waveform. There is no ascites. An adult midline uterus is present. It is unremarkable in appearance. IMPRESSION 1. Normal left ovary and uterus. 2. Persistent dominant follicle within the right ovary which is anechoic and unchanged. Reading Radiologist: Leo Moise MD on 02/25/2018 at 2:42 PM Anita Madison MD US ORDERABLES documented in this encounter Visit Diagnoses Diagnosis Right ovarian cyst Other and unspecified ovarian cyst documented in this encounter Care Teams Registration Specialist Relationship Specialty Start Date End Date Joellen Kemp MD [address] [address] PCP - General Pediatrics 12/10/15 documented as of this encounter
--- OUTSIDE RECORDS SUMMARY | 2024-10-04 10:23 | XMS_ITS | Encounter Summary ---
Author Organization [facility] Address [address] [facility] [place] [address] Care Team Providers Care As400 Operator Name Role Phone Joellen Kemp MD Primary Care Provider [phone] Reason for Visit * Reason Comments Refill Request Encounter Details Date Type Department Care Team (Late st Contact Info) Description 08/13/2019 Refill [facility] Pediatrics - supervisor [place] [address] [facility] [place] [address] Anita Madison MD [address] [facility] 400 [place] [address] Refill Request Social History Tobacco Use Types Packs/Day Years Used Date Smoking Tobacco: Never Smokeless Tobacco: Never Alcohol Use Standard Drinks/Week Comments No 0 (1 standard drink = 0.6 oz pur e alcohol) Sex and Gender Information Value Date Recorded Sex Assigned at Not on file Gender Identity Female 02/15/2018 8:16 AM CDT Sexual Orientation Not on file documented as of this encounter Plan of Treatment Not on file documented as of this encounter Visit Diagnoses Diagnosis Excessive, frequent and irregular menstruation Excessive or frequent menstruation Surveillance of contraceptive pill Surveillance of previously prescribed contraceptive pill Migraine without aura and without status migrainosus, not intractable Migraine without aura, without mention of intractable migraine without mention of status migrainosus Dysmenorrhea documented in this encounter Care Teams As400 Operator Relationship Specialty Start Date End Date Joellen Kemp MD [address] [facility] [address] [place] [address] PCP - General Pediatrics 12/10/15 documented as of this encounter
--- OUTSIDE RECORDS SUMMARY | 2024-10-04 10:23 | XMS_ITS | Encounter Summary ---
Author Organization [facility] Address [address] [facility] [place] [address] Care Team Providers Care Area Field Manager Name Role Phone Joellen Kemp MD Primary Care Provider [phone] Reason for Visit * Reason Comments Establish Care yearly check up Encounter Details Date Type Department Care Team (Late st Contact Info) Description 08/26/2020 1:00 PM QUALITY ASSURANCE ASSOCIATE Office Visit [facility] [address] [place] [address] Anita Madison MD [address] [facility] [address] [place] [phone] Surveillance of contraceptive pill (Primary Dx) Social History Tobacco Use Types Packs/Day Years Used Date Smoking Tobacco: Never Smokeless Tobacco: Never Alcohol Use Standard Drinks/Week Comments No 0 (1 standard drink = 0.6 oz pur e alcohol) Sex and Gender Information Value Date Recorded Sex Assigned at Not on file Gender Identity Female 02/15/2018 8:16 AM CDT Sexual Orientation Not on file documented as of this encounter Last Filed Vital Signs Vital Sign Reading Time Taken Comments Blood Pressure 120/76 08/26/2020 1:03 PM QUALITY ASSURANCE ASSOCIATE Pulse - - Temperature - - Respiratory Rate - - Oxygen Saturation - - Inhaled Oxygen Concentration - - Weight 73.1 kg (161 lb 3.2 oz) 08/26/2020 1:03 P M QUALITY ASSURANCE ASSOCIATE Height 154.9 cm (5' 1 ) 08/26/2020 1:03 PM QUALITY ASSURANCE ASSOCIATE Body Mass Index 30.46 08/26/2020 1:03 PM QUALITY ASSURANCE ASSOCIATE documented in this encounter Patient Instructions * Patient Instructions* Anita Madison MD - 08/26/2020 1:22 PM QUALITY ASSURANCE ASSOCIATE chest painting and sealing supervisor patches and place first one anytime. Then change the same day each week. Take pills until you place the first patch. Pap smears start after age 21. ITY ASSURANCE ASSOCIATE documented in this encounter Progress Notes * Anita Madison MD - 08/26/2020 1:14 PM CST 20 year old here for yearly med check. tranfer care from my [facility] perinatal coordinator clinic. Last visit there 08/14/19. Doing well on blisovi 24 for bilateral pelvic crampsing and irreg menses. Weight up 12 lbs since last year. Inquires about alternative to daily med. Interested in patch trial. Some compliance issues. Not SA since last visit. Declines STI testing today. Patient's last menstrual period was 07/24/2020. Outpatient Medications Marked as Taking for the 08/26/20 encounter (Office Visit) with Nahid Madison MD Medication Sig ??? DRYSOL 20 % solution 1 ML APPLY ON SKIN DIRECTED ??? norelgestromin-ethinyl estradiol (XULANE) 150-35 MCG/24HR patch Change patch every 7 days for 3patches, then 7 days patch-free, repeat No Known Allergies Past Medical History: Diagnosis Date ??? Migraines ??? Ovarian cyst Past Surgical History: Procedure Laterality Date ??? Tonsillectomy and Adenoidectomy age 5yrs Family History Problem Relation Name Age of Onset ??? Diabetes - Type 1 Maternal Grandmother ??? Cancer - Breast Maternal Grandmother ??? Hypertension Maternal Grandfather ??? Hypertension Paternal Grandmother ??? Cancer - Other Paternal Grandfather ??? Cancer - Breast Other great aunt ??? Cancer - Breast Maternal Aunt ??? Cancer - Breast Other 2nd cousin mom's first cousin Social History Tobacco Use ??? Smoking status: Never Smoker ??? Smokeless tobacco: Never Used Substance Use Topics ??? Alcohol use: No Alcohol/week: 0.0 standard drinks ??? Drug use: No Social History Substance and Sexual Activity Sexual Activity Not Currently ??? Partners: Male ??? 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 Allergic/Immunologic: Positive for environmental allergies. Neurological: Positive for headaches. Psychiatric/Behavioral: Positive for dysphoric mood and sleep disturbance. The patient is nervous/anxious. All other systems reviewed and are negative. O: BP 120/76 Ht 5' 1 Wt 161 lb 3.2 oz BMI 30.46 kg/m2 WDWN overweight white female in NAD Skin: No rashes or abn lesions HEENT: WNL Neck: No tmg, nodules, lad Nodes: Negative cerv, SCL, inguinal Abd: Soft, nt, nd, no masses or organomegaly Ext: No c/c/e Neuro: Grossly nonfocal Psych: Normal affect and behavior A/P: ICD-10-CM 1. Surveillance of contraceptive pill Z30.41 Discussed non-daily alternatives and pros/cons of each, patch, injection, implant, IUD, monthly or yearly vaginal ring. Patient prefers patch trial. Reviewed usage, risks, SE. Pap age 21+ Declines STI tseting today. Reports has had flu shot for school program. F/u prn or1 year. Anita Madison MD ITY ASSURANCE ASSOCIATE documented in this encounter Plan of Treatment Not on file documented as of this encounter Visit Diagnoses Diagnosis Surveillance of contraceptive pill- Primary Surveillance of previously prescribed contraceptive pill documented in this encounter Care Teams Area Field Manager Relationship Specialty Start Date End Date Joellen Kemp MD [address] [facility] [address] [place] [address] PCP - General Pediatrics 12/10/15 documented as of this encounter
--- OUTSIDE RECORDS SUMMARY | 2024-10-04 10:23 | XMS_ITS | Encounter Summary ---
Author Organization [facility] Address [address] [place] [address] Care Team Providers Care Pre K Teacher Name Role Phone Joellen Kemp MD Primary Care Provider [phone] Encounter Details Date Type Department Care Team (Latest Contact Info) Description 01/10/2018 12:12 PM CDT - 01/10/2018 11:59 PM CDT Hospital Encounter [facility] Pediatrics - Lab [address] [place] [address] [place] [address] [address] [facility] [address] [place] [address] Anita Madison MD [address] [facility] [address] [place] [address] Discharge Disposition: Home or Self [...] Sig Dispensed Refills Start Date End Date fluticasone propionate (FLONASE) 50 MCG/ACT nasal spray [place] 1 [place] into each nostril once daily 1 Bottle 1 03/06/2016 02/15/2018 lidocaine (LIDODERM) 5 % patchIndications:Abdomi nal pain, RLQ (right lower quadrant),Trigger point of abdomen Apply 1 patch to skin once daily After removing prior patch 10 patch 1 01/10/2018 08/15/2018 meloxicam (MOBIC) 15 MG tabletIndications:Abdom inal pain, RLQ (right lower quadrant),Trigger point of abdomen,Bursitis of right hip, unspecified bursa Take 1 tablet by mouth once daily 30 tablet 1 01/10/2018 02/15/2018 documented as of this encounter Plan of Treatment Not on file documented as of this encounter Procedures Procedure Name Priority Date/Time Associated Diagnosis Comments CELIAC DISEASE ANTIBODY COMBO Routine 01/10/2018 12:12 PM CDT Abdominal pain, RLQ (right lower quadrant) Adnexal cyst Trigger point of abdomen Bursitis of right hip, unspecified bursa C-REACTIVE PROTEIN Routine 01/10/2018 12 :12 PM CDT Abdominal pain, RLQ (right lower quadrant) Adnexal cyst Trigger point of abdomen Bursitis of right hip, unspecified bursa CBC W AUTO DIFFERENTIAL Routine 01/10/2018 12:12 PM CDT Abdominal pain, RLQ (right lower quadrant) Adnexal cyst Trigger point of abdomen Bursitis of right hip, unspecified bursa HCG BETA BLOOD QUANTITATIVE Routine 01/10/2018 12:12 PM CDT Abdominal pain, RLQ (right lower quadrant) Adnexal cyst documented in this encounter Results * HCG BETA BLOOD QUANTITATIVE (01/10/2018 12:12 PM CDT) hCG Quantitative <1 mIU/mL 01/11/20 18 3:[address] [facility] Blood BLOOD SPECIMEN / Unknown Lab Venipuncture / Unknown 01/10/2018 12:12 PM CDT 01/10/2018 12:[address] [facility] - 01/10/2018 3:20 PM CDT ? hCG Reference Range, mIU/mL: ? Males ? 0-2.0 ? Non Females ? 0-6.0 ? Perimenopausal Females ages 41-55* ?0-7.7 ? Postmenopausal Females age >55* ? 0-14 ? Females, Weeks after Last Menstrual Period ?0.2-1 week ? 5-50 ?1 - 2 weeks ?50-500 ?2 - 3 weeks ?100-5000 ?3 - 4 weeks ?500-10,000 ?4 - 5 weeks ?1000-50,000 ?5 - 6 weeks ?10,000-100,000 ?6 - 8 weeks ?15,000-200,000 ?2 - 3 months ? 10,000-100,000 ?Trophoblastic Disease ?>100,000 *In higher than expected hCG in females > age 40, a serum FSH >20 IU/L makes unlikely. Anita Madison MD LAB - [facility] [address] [place] [address] * CELIAC DISEASE ANTIBODY COMBO (01/10/2018 12:12 PM CDT) [facility] TTG/DGP Screen Negative Negative 01/12/2018 1:11 PM CDT [facility] ([facility]) Comment: For detection of IgA and IgG antibodies to deaminated gliadin-derived peptides (DGP) and human tissue transglutaminase (h-tTG) in human serum. ??The presence of these antibodies can be used in conjunction with clinical findings and other laboratory tests to aid in the diagnosis of IgA sufficient and IgA deficient celiac disease. Blood BLOOD SPECIMEN / Unknown Lab Venipuncture / Unknown 01/10/2018 12:12 PM CDT 01/10/2018 12:35 PM CDT Narrative [facility] ([facility]) - 01/12/2018 1:11 PM CDT Performed at: ??01 - [facility] [address] ??[id number] [address] Radio Installer: Leroy Lew MD, Phone: ??[phone] Anita Madison MD LAB - SEROLOGY ORDER STEPHANIE [facility] ([facility]) [address] [place] [address] * (ABNORMAL) CBC W DIFFERENTIAL (01/10/2018 12:12 PM CDT) [facility] WBC 9.5 4.5 - 14.5 x10E9/L 01/10/2018 12:51 PM CDT [facility] WBC Corrected x10E9/L 01/10/2018 12:51 PM CDT [facility] RBC 4.48 4.10 - 5.10 x10E12/L 01/10/2018 12:51 PM CDT [facility] Hemoglobin 13.3 12.0 - 16.0 gm/dL 01/10/2018 12:51 PM CDT [facility] Hematocrit 40.1 36.0 - 47.0 % 01/10/2018 12:51 PM CDT [facility] MCV 89.5 78.0 - 98.0 fl 01/10/2018 12:51 PM [facility] MCH 29.7 25.0 - 35.0 pg 01/10/2018 12:51 PM [facility] MCHC 33.2 31.0 - 37.0 gm/dL 01/10/2018 12:51 PM [facility] Platelet Count 372 100 - 400 x10E9/L 01/10/2018 12:51 PM [facility] RDW-CV 12.2 11.5 - 14.0 % 01/10/2018 12:51 PM [facility] MPV 10.1(H) 6.0 - 9.5 fl 01/10/2018 12:51 PM [facility] Neutrophils % 56.6 24.0 - 66.0 % 01/10/2018 12:51 PM [facility] Lymphocytes % 36.8 22.0 - 61.0 % 01/10/2018 12:51 PM [facility] Monocytes % 5.3 3.0 - 15.0 % 01/10/2018 12:51 PM [facility] Eosinophils % 0.5 0.0 - 10.0 % 01/10/2018 12:51 PM [facility] Basophils % 0.4 % 01/10/2018 12:51 PM [facility] Immature Granulocytes 0.4 % 01/10/2018 12:51 PM [facility] Neutrophil Absolute 5.36 x10E9/L 01/10/2018 12:51 PM [facility] Lymphocytes Absolute 3.49 x10E9/L 01/10/2018 12:51 PM [facility] Monocytes Absolute 0.50 x10E9/L 01/10/2018 12:51 PM [facility] Eosinophils Absolute 0.05 x10E9/L 01/10/2018 12:51 PM [facility] Basophils Absolute 0.04 x10E9/L 01/10/2018 12:51 PM [facility] Immature Granulocytes Absolute 0.04 x10E9/L 01/10/2018 12:51 PM [facility] nRBC Auto 0 /100 WBC 01/10/2018 12:51 PM [facility] Blood BLOOD SPECIMEN / Unknown Lab Venipuncture / Unknown 01/10/2018 12:12 PM CDT 01/10/2018 12:35 PM CDT Anita Madison MD LAB - HEMATOLOGY ORD ERABLES Performing Organization Address City/[facility]/ZIP Co de Phone Number [facility] [address] [place] [address] * CRP (INFLAMMATORY) (01/10/2018 12:12 PM CDT) C-Reactive Protein 0.20 <=0.50 mg/dL 01/10/2018 1:19 PM CDT [facility] Blood BLOOD SPECIMEN / Unknown Lab Venipuncture / Unknown 01/10/2018 12:12 PM CDT 01/10/2018 12:35 PM CDT Anita Madison MD LAB - CHEMISTRY CHRISTINE ARENAS Performing Organization Address City/[facility]/ZIP Co de Phone Number [facility] [address] [place] [phone] documented in this encounter Visit Diagnoses Diagnosis Abdominal pain, RLQ (right lower quadrant) Abdominal pain, right lower quadrant Adnexal cyst Other specified symptom associated with female genital organs Trigger point of abdomen Bursitis of right hip, unspecified bursa documented in this encounter Care Teams Pre K Teacher Relationship Specialty Start Date End Date Joellen Kemp MD [address] [address] PCP - General Pediatrics 12/10/15 documented as of this encounter
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
--- OUTSIDE RECORDS SUMMARY | 2024-10-04 10:23 | XMS_ITS | Encounter Summary ---
Author Organization [facility] Address [address] [facility] [place] [address] Care Team Providers Care Die Press Operator Name Role Phone Joellen Kemp MD Primary Care Provider [phone] Reason for Visit * Reason Onset Date Comments Update 08/14/2019 Encounter Details Date Type Department Care Team (Late st Contact Info) Description 08/14/2019 Telephone [facility] Pediatrics - skid road worker [address] [facility] [place] [address] Marlyn Puga RN Update Social History Tobacco Use Types Packs/Day Years [...] encounter Miscellaneous Notes * Telephone Encounter - Marlyn Puga RN - 08/14/2019 1:17 PM CST Called mom and advised regarding today's scale discrepancy. Advised that, per Liberty's growth chart,her weight is clustered with her previous weights. Advised to check home scale if Liberty has weight concerns. Mom very appreciative of call and follow up. Has made appt for continued care w/Dr. Madison at [facility] documented in this encounter Plan of Treatment Not on file documented as of this encounter Visit Diagnoses Not on filedocumented in this encounter Care Teams Die Press Operator Relationship Specialty Start Date End Date Joellen Kemp MD [address] [place] [address] PCP - General Pediatrics 12/10/15 documented as of this encounter
--- OUTSIDE RECORDS SUMMARY | 2024-10-04 10:23 | XMS_ITS | Encounter Summary ---
Author Organization [facility] Address [address] [place] [address] Care Team Providers Care Language Instructor Name Role Phone Joellen Kemp MD Primary Care Provider [phone] Encounter Details Date Type Department Care Team (Latest Contact Info) Description 05/02/2018 11:23 AM CDT - 05/02/2018 11:59 PM CDT Hospital Encounter [facility] Pediatrics - Lab [address] [place] [address] Anita Madison MD [address] [facility] [address] [place] [address] Discharge Disposition: Home or Self [...] Sig Dispensed Refills Start Date End Date Mhgo-Dkhkjjjrg-Pom-Met hyl Chadd (QDMB-WEUOJ-JIPUCIZDU EX) 4 % by Apply externally route every 24 hours 08/15/2018 lidocaine (LIDODERM) 5 % patchIndications:Abdom inal pain, RLQ (right lower quadrant),Trigger point of abdomen Apply 1 patch to skin once daily After removing prior patch 10 patch 1 01/10/2018 08/15/2018 naproxen sodium (ALEVE) 220 MG tablet Take 220 mg by mouth 2 times daily 08/15/2018 documented as of this encounter Plan of Treatment Not on file documented as of this encounter Procedures Procedure Name Priority Date/Time Associated Diagnosis Comments TSH REFLEX FREE T4 Routine 05/02/2018 11 :26 AM CDT Irregular menses Chronic daily headache C-REACTIVE PROTEIN Routine 05/02/2018 11 :26 AM CDT Irregular menses Chronic daily headache documented in this encounter Results * C-REACTIVE PROTEIN (05/02/2018 11:26 AM CDT) C-Reactive Protein 0.20 <=0.50 mg/dL 05/02/2018 12:24 PM CDT [facility] Blood BLOOD SPECIMEN / Unknown Lab Venipuncture / Unknown 05/02/2018 11:26 AM CDT 05/02/2018 11:53 AM CDT Anita Madison MD LAB - CHEMISTRY [place]INE ARENAS Performing Organization Address City/[facility]/ZIP Co de Phone Number [facility] [address] [place] [phone] * TSH REFLEX FREE T4 (05/02/2018 11:26 AM CDT) TSH 1.29 0.358 - 3.740 ulU/mL 05/02/2018 3:38 PM CDT [facility] Blood BLOOD SPECIMEN / Unknown Lab Venipuncture / Unknown 05/02/2018 11:26 AM CDT 05/02/2018 11:53 AM CDT Anita Madison MD LAB - CHEMISTRY [place] ARENAS [facility] [address] [place] [address] documented in this encounter Visit Diagnoses Diagnosis Irregular menses- Primary Irregular menstrual cycle Chronic daily headache Headache documented in this encounter Care Teams Language Instructor Relationship Specialty Start Date End Date Joellen Kemp MD [address] [facility] [address] [place] [id number] PCP - General Pediatrics 12/10/15 documented as of this encounter
--- OUTSIDE RECORDS SUMMARY | 2024-10-04 10:23 | XMS_ITS | Encounter Summary ---
Author Organization [facility] Address [address] [place] [address] Care Team Providers Care Semiconductor Testing Group Leader Name Role Phone Joellen Kemp MD Primary Care Provider [phone] Reason for Visit * Reason Comments PPD Skin Test Placement Encounter Details Date Type Department Care Team (Late st Contact Info) Description 04/02/2021 3:40 PM CDT Office Visit [facility] AT [address] [address] Provider, Miguel Lopez [place] PPD screening test (Primary Dx) Social History Tobacco Use Types [...] have Coronavirus / COVID-19? No / Unsure 04/02/2021 3:22 PM CDT documented as of this encounter Progress Notes * Casi Tariq, BEL-HAND MITER OPERATOR - 04/02/2021 3:33 PM CDT PPD Placement note Liberty Ivy [facility] for [facility] of a Tb screening (PPD) test Reason for PPD test: work She taken PPD test before: yes Verified in allergy area and with patient that they are not allergic to the products PPD is made of? Yes The TB screening questionnaire reviewed with patient has been signed and has been scanned into the medical record. The patient is alert and oriented in no acute distress. PPD placed on L FOREARM using Mantoux TB test technique Patient advised to return for reading within 48-72 hours, failure to do so will result in an invalid test. NATHALIA Barragan 04/02/2021 3:33 PM documented in this encounter Plan of Treatment Not on file documented as of this encounter Procedures Procedure Name Priority Date/Time Associated Diagnosis Comments SKIN TEST PPD - POINT OF CARE Routine 04/02/2021 3:35 PM CDT PPD screening test documented in this encounter Results * SKIN TEST PPD - POINT OF CARE (04/02/2021 3:35 PM CDT) PPD 0 [facility] Other MISCELLANEOUS SAMPLE S / Unknown 04/02/2021 3:35 PM CDT [facility] - POINT OF CARE ORDERABLES Performing Organization Address City/State/[facility] Co de Phone Number [facility] [phone] documented in this encounter Visit Diagnoses Diagnosis PPD screening test- Primary Screening examination for pulmonary tuberculosis documented in this encounter Administered Medications Administered Medications Medication Order MAR Action Action Date Dose Rate Site PPD Subdermal Given 04/02/2021 0.1 mL Left Forearm documented in this encounter Care Teams Semiconductor Testing Group Leader Relationship Specialty Start Date End Date Joellen Kemp MD [address] [place] [address] PCP - General Pediatrics 12/10/15 documented as of this encounter
--- OUTSIDE RECORDS SUMMARY | 2024-10-04 10:23 | XMS_ITS | Encounter Summary ---
Author Organization [facility] Address [address] [facility] [place] [address] Care Team Providers Care Regional Company Truck Driver Name Role Phone Joellen Kemp MD Primary Care Provider [phone] Reason for Referral * Radiology Services (Routine) - Closed Specialty Diagnoses / Procedures Referred By Contac t Referred To Contact Obstetrics and Gynecology Diagnoses Lower abdominal pain Procedures US PELVIS W DOPPLER OVARIES US PELVIS COMPLETE Anita Madison MD [address] [place] [address] Acc Gyne [address] [place] [address] Referral ID Status Reason Start Date Expiration Date Visits Re quested Visits Authorized [id number] Closed 12/24/2017 06/22/2018 1 1 Reason for Visit * Radiology Services (Routine) - Closed Specialty Diagnoses / Procedures Referred By Contac t Referred To Contact Obstetrics and Gynecology Diagnoses Lower abdominal pain Procedures US PELVIS W DOPPLER OVARIES US PELVIS COMPLETE Anita Madison MD [address] [place] [address] [address] [place] [address] Referral ID Status Reason Start Date Expiration Date Visits Re quested Visits Authorized [id number] Closed 12/24/2017 06/22/2018 1 1 Encounter Details Date Type Department Care Team (Latest Contact Info) Description 01/10/2018 8:26 AM CDT - 01/10/2018 8:51 AM CDT Hospital Encounter [facility] - Ultrasound [address] [facility] [place] [address] Anita Madison MD [address] [facility] [address] [place] [phone] Discharge Disposition: Home or Self Care Social [...] fluticasone propionate (FLONASE) 50 MCG/ACT nasal spray [place] 1 [place] into each nostril once daily 1 Bottle 1 03/06/2016 02/15/2018 documented as of this encounter Plan of Treatment Not on file documented as of this encounter Procedures Procedure Name Priority Date/Time Associated Diagnosis Comments US PELVIS W DOPPLER OVARIES Routine 01/10/2018 8:42 AM CDT Lower abdominal pain documented in this encounter Results * US PELVIS W DOPPLER OVARIES (01/10/2018 8:42 AM CDT) Anatomical Region Laterality Modality Ultrasound 01/10/2018 8:43 AM CDT Impressions 01/10/2018 9:35 AM CDT Right ovarian dominant follicle. Otherwise, normal examination of the pelvis without evidence of ovarian torsion. Dictated by Pierre Ortiz MD (medical transcription radiology). I, Irma Gomes, have personally reviewed the images and I agree with this report. Narrative 01/10/2018 9:35 AM CDT EXAMINATION: Pelvic sonogram with Doppler HISTORY: Right lower abdominal pain COMPARISON: No prior study is available for comparison. FINDINGS: Longitudinal and transverse ultrasound images were obtained transabdominally. Simultaneous real-time, pulse, and color flow Doppler images were utilized to assess the blood supply to the ovaries. The uterus measures 7.3 x 2.9 x 4.3 cm with a 6 mm endometrial stripe. The right ovary measures 3.1 x 2.3 x 2.4 cm with a volume of 9.0 mL. The left ovary measures 2.2 x 1.3 x 1.8 cm with a volume of 2.7 mL. The uterus is normal in size and appearance. Both ovaries are normal in appearance containing small follicles. ??The right ovary has an anechoic dominant follicle measuring 2.2 x 1.4 x 1.5 cm. No adnexal mass is seen. No free fluid is seen in the cul-de-sac. The urinary bladder is mildly distended. Color Doppler and spectral analysis demonstrate arterial and venous flow in each ovary. Procedure Note Irma Gomes MD - 01/10/2018 EXAMINATION: Pelvic sonogram with Doppler HISTORY: Right lower abdominal pain COMPARISON: No prior study is available for comparison. FINDINGS: Longitudinal and transverse ultrasound images were obtained transabdominally. Simultaneous real-time, pulse, and color flow Doppler images were utilized to assess the blood supply to the ovaries. The uterus measures 7.3 x 2.9 x 4.3 cm with a 6 mm endometrial stripe. The right ovary measures 3.1 x 2.3 x 2.4 cm with a volume of 9.0 mL. The left ovary measures 2.2 x 1.3 x 1.8 cm with a volume of 2.7 mL. The uterus is normal in size and appearance. Both ovaries are normal in appearance containing small follicles. The right ovary has an anechoic dominant follicle measuring 2.2 x 1.4 x 1.5 cm. No adnexal mass is seen. No free fluid is seen in the cul-de-sac. The urinary bladder is mildly distended. Color Doppler and spectral analysis demonstrate arterial and venous flow in each ovary. IMPRESSION Right ovarian dominant follicle. Otherwise, normal examination of the pelvis without evidence of ovarian torsion. Dictated by Pierre Ortiz MD (medical transcription radiology). I, Irma Gomes, have personally reviewed the images and I agree with this report. Anita Madison MD ORDERABLES documented in this encounter Visit Diagnoses Diagnosis Lower abdominal pain Abdominal pain, other specified site documented in this encounter Care Teams Regional Company Truck Driver Relationship Specialty Start Date End Date Joellen Kemp MD [address] [facility] [address] [place] [address] PCP - General Pediatrics 12/10/15 documented as of this encounter
--- OUTSIDE RECORDS SUMMARY | 2024-10-04 10:23 | XMS_ITS | Encounter Summary ---
Author Organization [facility] Address [address] [facility] [place] [address] Care Team Providers Care Drafting Supervisor Name Role Phone Joellen Kemp MD Primary Care Provider [phone] Encounter Details Date Type Department Care Team (Latest Contact Info) Description 04/02/2021 Travel Social History Tobacco Use Types Packs/Day Years [...] PM CDT documented as of this encounter Plan of Treatment Not on file documented as of this encounter Visit Diagnoses Not on filedocumented in this encounter Care Teams Drafting Supervisor Relationship Specialty Start Date End Date Joellen Kemp MD [address] [place] [address] PCP - General Pediatrics 12/10/15 documented as of this encounter
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
--- OUTSIDE RECORDS SUMMARY | 2024-10-04 10:23 | XMS_ITS | Encounter Summary ---
Author Organization [facility] Address [address] [place] [address] Care Team Providers Care Mine Motor Engineer Name Role Phone Joellen Kemp MD Primary Care Provider [phone] Reason for Visit * Reason Comments Establish Care pain on the right si de of the hip Encounter Details Date Type Department Care Team (Latest Contact Info) Description 01/18/2018 3:14 PM CDT - 01/18/2018 3:52 PM CDT Hospital Encounter [facility] Pediatrics - Orthopedics [address] [place] [address] Emmanuel Matos, DO [address] [facility] [address] [place] [address] Discharge Disposition: Home or Self Care Social [...] - Inhaled Oxygen Concentration - - Weight 65.5 kg (144 lb 6.4 oz) 01/18/2018 5:13 P M CDT Height 154.1 cm (5' 0.67 ) 01/18/2018 5:13 PM CD T Body Mass Index 27.58 01/18/2018 5:13 PM CDT Body Mass Index Percentile 92.56% 01/18/2018 5:1 3 PM CDT Growth Chart: [facility] (Girls, 2- 20 Years) documented in this encounter Discharge Instructions * Patient Instructions* Emmanuel Matos DO - 01/18/2018 3:46 PM CDT Please do not hesitate to contact me with questions. Our [facility] office can be reached at , option #2. 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 - Where & how was it treated: [facility] scan at [facility] about a moth ago and Ultrasound about a week ago at [facility]. - Pain level 6 out of 10 * Emmanuel Matos DO - 01/18/2018 3:46 PM CDT Liberty Ivy is a 17 y.o. female is here today for : Chief Complaint Patient presents with ??? Establish Care pain on the right side of the hip HPI: (OPQRSTA - 4) Accompanied by mom Liberty Ivy RRQ / hip pain x 1 mo. Plays softball. Catcher, was not wearing equipment other thanhelmet. Another player slid into her, cleat into RLQ. Was taken to ER, negative for appendicitis, but incidental cysts on ovaries. F/u [facility], Dr. Madison, last week, u/s confirmed cysts, but referred here to r/o MSK issue. meloxicam has not helped much, and still waiting for approval for lidoderm patch, given by Dr. Madison. Also in multiple dance classes, PE. Review of Systems (10 bullets): Constitutional: No fever / chills Cardiovascular: No swelling. Neurological: No numbness. No tingling. Skin: No overlying wound / rash. Current Outpatient Prescriptions Medication ??? naproxen (NAPROSYN) 500 MG tablet ??? meloxicam (MOBIC) 15 MG tablet ??? lidocaine (LIDODERM) 5 % patch ??? fluticasone propionate (FLONASE) 50 MCG/ACT nasal spray No current facility-administered medications for this encounter. Patient Active Problem List Diagnosis ??? Migraine without aura and without status migrainosus, not intractable ??? Chronic daily headache ??? REA (obstructive sleep apnea) Patient's medical history and medications reviewed and updated. OBJECTIVE (extended exam 5-7 systems): Vitals: 01/18/18 1713 Weight: 144 lb 6.4 oz (63512 g) Estimated body mass index is 27.58 kg/(m^2) as calculated from the following: Height as of this encounter: 5' 0.67 (154.1 cm). Weight as of this encounter: 144 lb 6.4 oz (20917 g). BP Readings from Last 3 Encounters: 01/10/18 106/72 01/26/16 (!) 132/88 01/14/16 100/62 Wt Readings from Last 3 Encounters: 01/18/18 144 lb 6.4 oz (06556 g) (83 %, Z= 0.95)* 01/10/18 143 lb 11.8 oz (79587 g) (82 %, Z= 0.93)* 01/26/16 153 lb 3.5 oz (97606 g) (92 %, Z= 1.41)* * Growth percentiles are based on [facility] 2-20 Years data. GENERAL: well appearing PSYCH: patient alert & oriented, mood normal, and in no acute distress. MUSCULOSKELETAL: Gait is normal. There was a negative straight leg raise bilaterally. Evaluation of the uninjured left hip noted no skin lesions and the leg is neurovascularly intact. There is no tenderness/swelling/deformity. Ligamentously stable. Painless hip range of motion. No snapping. Negative for impingement. The right lower extremity is neurovascularly intact with no active skin lesions. There is no anterior hip pain with logroll, but (+) pain RLQ and right iliac crest. There is no swelling of the iliac crest and inguinal region. There is tenderness along the iliac crest and RLQ abdominal rectus, with persistent pain wiht half-situp, which additionally is difficult to do due to pain.. Hip internal rotation is Normal but painful. Hip external rotation is Normal but painful. Anterior impingement testis negative. SKIN: warm and dry, no rashes / active skin lesions in area of concern. XRAYS: (-) separation of iliac crest growth plate. ASSESSMENT/PLAN: ICD-10-CM 1. Right hip pain M25.551 XR HIP 2+ VW RIGHT 2. Strain of abdominal muscle, initial encounter S39.011A vs contusion. (+/-) iliac crest bone contusion. switch mobic -> naproxen BID. rest. expectant management Followup: Return in about 3 weeks (around 02/08/2018) for f/u abdominal contusion. Patient Instructions Please do not hesitate to contact me with questions. Our [facility] office can be reached at , option #2. documented in this encounter Plan of Treatment Not on file documented as of this encounter Results * XR HIP 2+ VW RIGHT (01/18/2018 5:30 PM CDT) Anatomical Region Laterality Modality Pelvis, [facility] Extremity [facility] 01/19/2018 7:45 AM CDT Impressions 01/19/2018 7:46 AM CDT Normal exam. Narrative 01/19/2018 7:46 AM CDT INDICATION: Pain in right hip EXAMINATION: AP pelvis and frog-leg lateral view(s) of the right hip 01/18/2018. COMPARISON: None FINDINGS: The visualized bones, joints and soft tissues are normal for the patient's age without fracture or subluxation. No evidence of joint effusion. Procedure Note Leroy Irizarry MD - 01/19/2018 INDICATION: Pain in right hip EXAMINATION: AP pelvis and frog-leg lateral view(s) of the right hip 01/18/2018. COMPARISON: None FINDINGS: The visualized bones, joints and soft tissues are normal for the patient's age without fracture or subluxation. No evidence of joint effusion. IMPRESSION Normal exam. Benitez M Matos DO DIAGNOSTIC IMAGING O RDERABLES documented in this encounter Visit Diagnoses Diagnosis Right hip pain- Primary Pain in joint, pelvic region and thigh Strain of abdominal muscle, initial encounter Right hip pain Pain in joint, pelvic region and thigh documented in this encounter Care Teams Mine Motor Engineer Relationship Specialty Start Date End Date Joellen Kemp MD [address] [facility] [address] [place] [address] PCP - General Pediatrics 12/10/15 documented as of this encounter
--- OUTSIDE RECORDS SUMMARY | 2024-10-04 10:23 | XMS_ITS | Encounter Summary ---
Author Organization [facility] Address [address] [place] [address] Care Team Providers Care Cosmetic Consultant Name Role Phone Joellen Kemp MD Primary Care Provider [phone] Reason for Visit * Reason Comments Follow-up Annual medication ch charly, no complaints Encounter Details Date Type Department Care Team (Latest Contact Info) Description 08/14/2019 9:04 AM HAND STONER - 08/14/2019 11:59 PM HAND STONER Hospital Encounter [facility] Pediatrics - screw driver operator [address] [place] [address] Anita Madison MD [address] [facility] [address] [place] [address] Discharge Disposition: Home or Self [...] Sign Reading Time Taken Comments Blood Pressure 96/70 08/14/2019 9:24 AM HAND STONER Pulse - - Temperature - - Respiratory Rate - - Oxygen Saturation - - Inhaled Oxygen Concentration - - Weight 67.8 kg (149 lb 7.6 oz) 08/14/2019 9:24 A M HAND STONER Height 156.2 cm (5' 1.5 ) 08/14/2019 9:24 AM HAND STONER Body Mass Index 27.79 08/14/2019 9:24 AM HAND STONER Body Mass Index Percentile 91.17% 08/14/2019 9:2 4 AM HAND STONER Growth Chart: [facility] (Girls, 2- 20 Years) documented in this encounter Discharge Instructions * Patient Instructions* Anita Madison MD - 08/11/2019 10:[address] Madison's after hours exchange number is [phone] in case of emergency that cannot wait until the office opens. The calls are returned by Dr. Madison or her colleagues. If you are prescribed a medication today and your pharmacy has any issue filling the prescription, please call Cynthia at [phone], option 2. She will begin the process of approval through your insurance. Please call Cynthia even if your pharmacy tells you they will call. Dr. Madison has another office with hours on Wednesday afternoons and Tuesdays. Here is the contact information: [address], [address] [place] [address] For more information or an appointment, call [phone]. Jabari your calendar to call in May/june once you have your [facility] nursing fall schedule. Let them know you have seen me at [facility] previously so that they will schedule you. STONER documented in this encounter Medications at Time of Discharge Medication Sig Dispensed Refills Start Date End Date DRYSOL 20 % solution 1 ML APPLY ON SKIN DIRECTED 1 06/09/2019 fluticasone propionate (FLONASE) 50 MCG/ACT nasal spray ONE SPRAY IN EACH NOSTRIL ONCE DAILY 12 05/20/2019 24 1-20 MG-MCG(24) tabletIndications:Excess lizzette, frequent and irregular menstruation,Surveillanc e of contraceptive pill,Migraine without aura and without status migrainosus, not intractable,Dysmenorrhea TAKE 1 TABLET BY MOUTH EVERY DAY 28 tablet 12 08/14/2019 08/26/2020 documented as of this encounter Progress Notes * Anita Madison MD - 08/14/2019 10:14 AM CST 19 year old Here with mom for Chief Complaint Patient presents with ??? Follow-up Annual medication check, no complaints Younger BF x 3 months. Not planning SA. Doing well on [place]isovi 24. Good compliance, reg menses, no adverse SE. Headaches less frequent, few times/week instead of daily. Seem stress-related. No teeth grinding. No worse with upward gaze that she is aware of. No new med/surg/family history. O: BP 96/70 Ht 1.562 m (5' 1.5 ) Wt 67.8 kg (149 lb 7.6 oz) BMI 27.79 kg/m2 Overweight pleasant WF, nad Skin: Min acne. No hirsutism. Neck: No tmg, nodules, lad Nodes: Submand, SCL, Inguinal neg Abd: Soft, nt, nd, no masses or organomegaly Ext: No c/c/e Psych: Pleasant, normal affect speech, behavior. PV: Deferred A/P: ICD-10-CM 1. Surveillance of contraceptive pill Z30.41 No orders of the defined types were placed in this encounter. 18+ now- will transition to [facility] Visits Nurse [place] office. Declines STI testing today. Instructions/Counseling: Dr. Madison's after hours exchange number is [phone] in case of emergency that cannot wait until the office opens. The calls are returned by Dr. Madison or her colleagues. If you are prescribed a medication today and your pharmacy has any issue filling the prescription, please call Cynthia at [phone], option 2. She will begin the process of approval through your insurance. Please call Cynthia even if your pharmacy tells you they will call. Dr. Madison has another office with hours on Wednesday afternoons and Tuesdays. Here is the contact information: [address] [place] [address] For more information or an appointment, call [phone]. Jabari your calendar to call in May/june once you have your [facility] nursing fall schedule. Let them know you have seen me at [facility] previously so that they will schedule you. Anita Madison MD STONER documented in this encounter Plan of Treatment Not on file documented as of this encounter Visit Diagnoses Diagnosis Surveillance of contraceptive pill- Primary Surveillance of previously prescribed contraceptive pill documented in this encounter Care Teams Cosmetic Consultant Relationship Specialty Start Date End Date Joellen Kemp MD [address] [address] PCP - General Pediatrics 12/10/15 documented as of this encounter
--- OUTSIDE RECORDS SUMMARY | 2024-10-04 10:23 | XMS_ITS | Encounter Summary ---
Author Organization [facility] Address [address] [place] [address] Care Team Providers Care Business Development Recruiter Name Role Phone Joellen Kemp MD Primary Care Provider [phone] Reason for Visit * Reason Comments Follow-up right hip, knee, and stomach Encounter Details Date Type Department Care Team (Latest Contact Info) Description 06/14/2018 3:39 PM CDT - 06/14/2018 11:59 PM CDT Hospital Encounter [facility] Pediatrics - Orthopedics [address] [place] [address] Emmanuel Matos, DO [address] [facility] [address] [place] [address] Discharge Disposition: Home or Self Care Social [...] - Inhaled Oxygen Concentration - - Weight 66 kg (145 lb 8.1 oz) 06/14/2018 3:44 PM CDT Height 155.4 cm (5' 1.18 ) 06/14/2018 3:44 PM CD T Body Mass Index 27.33 06/14/2018 3:44 PM CDT Body Mass Index Percentile 91.58% 06/14/2018 3:4 4 PM CDT Growth Chart: [facility] (Girls, 2- 20 Years) documented in this encounter Discharge Instructions * Patient Instructions* Emmanuel Matos DO - 06/14/2018 3:59 PM CDT Please do not hesitate to contact me with questions. [facility] office can be reached at , option #2. documented in this encounter Medications at Time of Discharge Medication Sig Dispensed Refills Start Date End Date amoxicillin-clavulanat e (AUGMENTIN) 875-125 MG tablet Take 125 mg by mouth 2 times daily 06/01/2018 08/15/2018 Cabt-Tgozvctjj-Jwi-Met hyl Chadd (XVGM-BARGO-WUXZECAJO EX) 4 % by Apply externally route every 24 hours 08/15/2018 lidocaine (LIDODERM) 5 % patchIndications:Abdom inal pain, RLQ (right lower quadrant),Trigger point of abdomen Apply 1 patch to skin once daily After removing prior patch 10 patch 1 01/10/2018 08/15/2018 naproxen (NAPROSYN) 500 MG tablet Take 1 tablet by mouth 2 times daily 30 tablet 05/03/2018 02/06/2019 naproxen sodium (ALEVE) 220 MG tablet Take 220 mg by mouth 2 times daily 08/15/2018 norethindone-ethinyl estradiol-FE (BLISOVI 24 FE) 1-20 MG-MCG(24) tabletIndications:Dysm enorrhea Take 1 tablet by mouth once daily for 90 days Reasons: Pain During Periods 1 packet 3 05/05/2018 08/03/2018 documented as of this encounter Progress Notes * Emmanuel Matos DO - 06/14/2018 3:59 PM CDT Liberty Ivy is a 17 y.o. female is here today for : Chief Complaint Patient presents with ??? Follow-up right hip, knee, and stomach HPI: (OPQRSTA - 4) Liberty Ivy is accompanied by her mom. Liberty Ivy is here for f/u of right abdominal wall and hip flexor strain from cleat to RLQ while playing catcher in softball 12/2017. She improved with PT since last visit, but feels she has plateaued, her pain was 4-5/10, until yesterday, when she tried dance class again for first time - [employer]. Pain is now 6-7/10. She is frustrated this is taking so long. Review of Systems (10 bullets): Constitutional: No fever / chills Cardiovascular: No swelling. Neurological: No numbness. No tingling. Skin: No overlying wound / rash. Current Outpatient Prescriptions Medication ??? amoxicillin-clavulanate (AUGMENTIN) 875-125 MG tablet ??? norethindone-ethinyl estradiol-FE (BLISOVI 24 FE) 1-20 MG-MCG(24) tablet ??? naproxen (NAPROSYN) 500 MG tablet ??? Ycqs-Axspdiyfp-Aun-Methyl Chadd (OPNK-IFYQH-BVAQZPQCZ EX) ??? naproxen sodium (ALEVE) 220 MG tablet [...] updated. OBJECTIVE (extended exam 5-7 systems): Vitals: 06/14/18 1544 Weight: 145 lb 8.1 oz (95353 g) Estimated body mass index is 27.33 kg/(m^2) as calculated from the following: Height as of this encounter: 5' 1.18 (155.4 cm). Weight as of this encounter: 145 lb 8.1 oz (76508 g). BP Readings from Last 3 Encounters: 05/02/18 98/60 01/10/18 106/72 01/26/16 (!) 132/88 Wt Readings from Last 3 Encounters: 06/14/18 145 lb 8.1 oz (63890 g) (83 %, Z= 0.95)* 05/02/18 139 lb 15.9 oz (02493 g) (78 %, Z= 0.78)* 03/29/18 143 lb 4.8 oz (95933 g) (82 %, Z= 0.90)* * Growth percentiles are based on [facility] 2-20 Years data. GENERAL: well appearing PSYCH: patient alert & oriented, mood normal, and in no acute distress. MUSCULOSKELETAL: Minimal TTP of RLQ abdominal wall, glute tendons insertions, and trochanter. SKIN: warm and dry, no rashes / active skin lesions in area of concern. ASSESSMENT/PLAN: ICD-10-CM 1. Strain of muscle, fascia and tendon of abdomen, subsequent encounter S39.011D 2. Strain of flexor muscle of right hip, subsequent encounter S76.011D 3. Tendinopathy of gluteal region M67.959 4. Trochanteric bursitis of right hip M70.61 Discussed based on my exams she is much much better than when I first saw her. We discussed discontinuing PT since plateaued, with some cross training on running/ biking to build stamina as she restarts dance. We also discussed that yoga may also be helpful. Followup: Return if symptoms worsen or fail to improve. Patient Instructions Please do not hesitate to contact me with questions. Our [facility] office can be reached at , option #2. * Varsha Angeles RN - 06/14/2018 3:51 PM CDT - How has the pt tolerated tx: does not feel relieved by physical therapy - Any new concerns: not feeling any better - Pain level 3 out of 10. documented in this encounter Plan of Treatment Not on file documented as of this encounter Visit Diagnoses Diagnosis Strain of muscle, fascia and tendon of abdomen, subsequent encounter- Primary Strain of flexor muscle of right hip, subsequent encounter Tendinopathy of gluteal region Enthesopathy of hip region Trochanteric bursitis of right hip Enthesopathy of hip region documented in this encounter Care Teams Business Development Recruiter Relationship Specialty Start Date End Date Joellen Kemp MD [address] [facility] [address] [place] [address] PCP - General Pediatrics 12/10/15 documented as of this encounter
--- OUTSIDE RECORDS SUMMARY | 2024-10-04 10:23 | XMS_ITS | Encounter Summary ---
Author Organization [facility] Address [address] [facility] [place] [address] Care Team Providers Care Mobile Practice Lead Name Role Phone Joellen Kemp MD Primary Care Provider [phone] Encounter Details Date Type Department Care Team (Latest Contact Info) Description 04/04/2021 Travel Social History Tobacco Use Types Packs/Day [...] on filedocumented in this encounter Care Teams Mobile Practice Lead Relationship Specialty Start Date End Date Joellen Kemp MD [address] [facility] [address] [place] [address] PCP - General Pediatrics 12/10/15 documented as of this encounter
--- OUTSIDE RECORDS SUMMARY | 2024-10-04 10:23 | XMS_ITS | Encounter Summary ---
Author Organization [facility] Address [address] [place] [address] Care Team Providers Care Lithopone Mill Worker Name Role Phone Joellen Kemp MD Primary Care Provider [phone] Reason for Visit * Reason Comments Medication Check Here for eval of med ication, migraines are helped w/meds. Periods are regulated, abd pain persists but is tolerated Encounter Details Date Type Department Care Team (Latest Contact Info) Description 08/15/2018 10:38 AM FIBERGLASS AUTOBODY REPAIRER - 08/15/2018 11:59 PM FIBERGLASS AUTOBODY REPAIRER Hospital Encounter [facility] Pediatrics - tennis net maker [address] [place] [place] [address] Anita Madison MD [address] [facility] [address] [place] [address] Discharge Disposition: Home or Self [...] Sign Reading Time Taken Comments Blood Pressure 100/66 08/15/2018 11:00 AM FIBERGLASS AUTOBODY REPAIRER Pulse - - Temperature - - Respiratory Rate - - Oxygen Saturation - - Inhaled Oxygen Concentration - - Weight 64.9 kg (143 lb 1.3 oz) 08/15/20 18 11:00 AM FIBERGLASS AUTOBODY REPAIRER Height 154.9 cm (5' 1 ) 08/15/2018 11:0 0 AM FIBERGLASS AUTOBODY REPAIRER Body Mass Index 27.03 08/15/2018 11:00 AM FIBERGLASS AUTOBODY REPAIRER Body Mass Index Percentile 90.69% 08/15 11:00 AM FIBERGLASS AUTOBODY REPAIRER Growth Chart: [facility] (Girls, 2- 20 Years) documented in this encounter Discharge Instructions * Patient Instructions* Anita Madison MD - 08/15/2018 11:27 AM FIBERGLASS AUTOBODY REPAIRER Continue same pill. I've refilled for one year. Call if issues or problems. Next visit due 1 year. RGLASS AUTOBODY REPAIRER documented in this encounter Medications at Time of Discharge Medication Sig Dispensed Refills Start Date End Date naproxen (NAPROSYN) 500 MG tablet Take 1 tablet by mouth 2 times daily 30 tablet 05/03/2018 02/06/2019 norethindone-ethinyl estradiol-FE (BLISOVI 24 FE) 1-20 MG-MCG(24) tabletIndications:Excessi ve, frequent and irregular menstruation,Surveillance of contraceptive pill,Migraine without aura and without status migrainosus, not intractable,Dysmenorrhea Take 1 tablet by mouth once daily 28 tablet 12 08/15/2018 08/13/2019 documented as of this encounter Progress Notes * Anita Madison MD - 08/15/2018 11:20 AM CST 18 y.o. 1 m.o. here for 3 month pill check. Started blisovi fe .03/02 here by phone early May for irreg menses, bilateral lower abd/pelvic pain. Good compliance. No adverse SE. Menses regular. Menstrual cramps improved, migraines may be improved some too. Current Outpatient Prescriptions Medication Sig ??? norethindrone-ethinyl estradiol (LOESTRIN .03/02) 1.5-30 MG-MCG tablet Take 1 tablet by mouth once daily ??? naproxen (NAPROSYN) 500 MG tablet Take 1 tablet by mouth 2 times daily No current facility-administered medications for this encounter. O: BP 100/66 Ht 1.549 m (5' 1 ) Wt 64.9 kg (143 lb 1.3 oz) BMI 27.03 kg/m2 Well-appearing WF, nad. Skin: clear Abd: Soft, nt, nd AP: ICD-10-CM 1. Excessive, frequent and irregular menstruation N92.1 2. Surveillance of contraceptive pill Z30.41 3. Migraine without aura and without status migrainosus, not intractable G43.009 4. Dysmenorrhea N94.6 Orders Placed This Encounter ??? norethindone-ethinyl estradiol-FE (BLISOVI 24 FE) 1-20 MG-MCG(24) tablet Sig: Take 1 tablet by mouth once daily Dispense: 28 tablet Refill: 12 Instructions/Counseling: Continue same pill. I've refilled for one year. Call if issues or problems. Next visit due 1 year. Anita Madison MD RGLASS AUTOBODY REPAIRER documented in this encounter Plan of Treatment Not on file documented as of this encounter Visit Diagnoses Diagnosis Excessive, frequent and irregular menstruation- Primary Excessive or frequent menstruation Surveillance of contraceptive pill Surveillance of previously prescribed contraceptive pill Migraine without aura and without status migrainosus, not intractable Migraine without aura, without mention of intractable migraine without mention of status migrainosus Dysmenorrhea documented in this encounter Care Teams Lithopone Mill Worker Relationship Specialty Start Date End Date Joellen Kemp MD [address] [address] PCP - General Pediatrics 12/10/15 documented as of this encounter
--- OUTSIDE RECORDS SUMMARY | 2024-10-04 10:23 | XMS_ITS | Encounter Summary ---
Author Organization [facility] Address [address] [place] [address] Care Team Providers Care Architecture Department Chair Name Role Phone Joellen Kemp MD Primary Care Provider [phone] Reason for Visit * Reason Comments Follow-up Encounter Details Date Type Department Care Team (Latest Contact Info) Description 05/03/2018 3:21 PM CDT - 05/03/2018 11:59 PM CDT Hospital Encounter [facility] Pediatrics - Orthopedics [address] [place] [place] [address] Emmanuel Matos DO [address] [facility] [address] [place] [address] Discharge Disposition: Home or Self Care Social [...] on file documented as of this encounter Discharge Instructions * Patient Instructions* Emmanuel Matos DO - 05/03/2018 4:28 PM CDT Please do not hesitate to contact me with questions. Our [facility] office can be reached at , option #2. documented in this encounter Medications at Time of Discharge Medication Sig Dispensed Refills Start Date End Date Ufav-Ybdaupqqy-Wli-Met hyl Chadd (LIKE-UZKPC-WUNAABVDC EX) 4 % by Apply externally route [...] Progress Notes * Emmanuel Matos DO - 05/03/2018 4:33 PM CDT Liberty Ivy is a 17 y.o. female is here today for : Chief Complaint Patient presents with ??? Follow-up HPI: (OPQRSTA - 4) Liberty Ivy is accompanied by her mom. She is here for f/u of right abdominal wall and hip flexor strain from cleat to RLQ while playing catcher in softball 12/2017. She is about 60% improved with PT, and continues to make improvements. Needs another script for PT. She has been having some right sided Low back/ gluteal and right hip pain as well. Her mom thinks in some relation to compensation from abdominal strain. She is doing a lot of strengthening exercises as well. 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 Review of Systems (10 bullets): Constitutional: No fever / chills Cardiovascular: No swelling. Neurological: No numbness. No tingling. Skin: No overlying wound / rash. Current Outpatient Prescriptions Medication ??? naproxen (NAPROSYN) 500 MG tablet ??? Lgeo-Nzlyiecdn-Vnl-Methyl Chadd (BCKN-DOIQZ-VUKVOTOGK EX) ??? naproxen sodium (ALEVE) 220 MG [...] and updated. OBJECTIVE (extended exam 5-7 systems): There were no vitals filed for this visit. Estimated body mass index is 26.02 kg/(m^2) as calculated from the following: Height as of 05/02/18: 5' 1.5 (156.2 cm). Weight as of 05/02/18: 139 lb 15.9 oz (44574 g). BP Readings from Last 3 Encounters: 05/02/18 98/60 01/10/18 106/72 01/26/16 (!) 132/88 Wt Readings from Last 3 Encounters: 05/02/18 139 lb 15.9 oz (27879 g) (78 %, Z= 0.78)* 03/29/18 143 lb 4.8 oz (06678 g) (82 %, Z= 0.90)* 02/22/18 141 lb 8.6 oz (56951 g) (80 %, Z= 0.85)* * Growth percentiles are based on [facility] 2-20 Years data. GENERAL: well appearing PSYCH: patient alert & oriented, mood normal, and in no acute distress. MUSCULOSKELETAL: The right lower extremity is neurovascularly intact with no active skin lesions. There is decreasedTTP of abdominal rectus/ Obliques into iliac crest / ASIS. (+) TTP of glute medius origin iliac crest and glute medius insertion trochanter, with pain on resisted external rotation. (+) trochanter TTP. DAVIDA's negative. SKIN: warm and dry, no rashes / active skin lesions in area of concern. ASSESSMENT/PLAN: ICD-10-CM 1. Strain of muscle, fascia and tendon of abdomen, subsequent encounter S39.011D AMB REFERRAL TO PHYSICAL THERAPY 2. Strain of flexor muscle of right hip, subsequent encounter S76.011D AMB REFERRAL TO PHYSICAL THERAPY 3. Tendinopathy of gluteal region M67.959 AMB REFERRAL TO PHYSICAL THERAPY 4. Trochanteric bursitis of right hip M70.61 AMB REFERRAL TO PHYSICAL THERAPY Repeat NSAID burst x 2 weeks. Continue PT for abdominal strain. Add PT for glute tendonopathy likely due to overuse due to compensation. Followup: Return in about 6 weeks (around 06/14/2018) for f/u abdominal strain. Patient Instructions Please [...] region documented in this encounter Care Teams Architecture Department Chair Relationship Specialty Start Date End Date Joellen Kemp MD [address] [address] PCP - General Pediatrics 12/10/15 documented as of this encounter
--- OUTSIDE RECORDS SUMMARY | 2024-10-04 10:23 | XMS_ITS | Encounter Summary ---
Author Organization [facility] Address [address] [facility] [place] [address] Care Team Providers Care Sheet Metal Work Furnace Installer Name Role Phone Joellen Kemp MD Primary Care Provider Reason for Visit * Reason Comments PPD Skin Test Placement Encounter Details Date Type Department Care Team (Late st Contact Info) Description 07/03/2019 6:00 PM CDT Office Visit [facility] AT [address] [address] Provider, [facility] PPD screening test (Primary Dx) Social History [...] on file documented as of this encounter Progress Notes * Gisella Boyd - 07/06/2019 2:45 PM CDT Negative ppd read * Lauren Pierce APRN-CNP - 07/03/2019 5:57 PM CDT PPD Placement note Liberty Ivy, 18 year old female is here today for placement of PPD test Reason for PPD test: school Pt taken PPD test before: yes Verified in allergy area and with patient that they are not allergic to the products PPD is made of(Phenol or Tween). Yes Is patient taking any oral or IV steroid medication now or have they taken it in the last month? no Has the patient ever received the BCG vaccine?: no Has the patient been in recent contact with anyone known or suspected of having active TB disease?:no Date of exposure (if applicable): na Name of person they were exposed to (if applicable): na Patient's Country of origin?: [place] O: Alert and oriented in NAD. P: PPD placed on 07/03/2019. Patient advised to return for reading within 48-72 hours. documented in this encounter Plan of Treatment Not on file documented as of this encounter Procedures Procedure Name Priority Date/Time Associated Diagnosis Comments SKIN TEST PPD - POINT OF CARE Routine 07/06/2019 PPD screening test documented in this encounter Results * (ABNORMAL) SKIN TEST PPD - POINT OF CARE (07/06/2019) PPD 0mm(Negati ve) Comment:negative ppd read Other MISCELLANEOUS SAMPLE S / Unknown 07/06/2019 [facility] - POINT OF PR RE ORDERABLES documented in this encounter Visit Diagnoses Diagnosis PPD screening test- Primary Screening examination for pulmonary tuberculosis documented in this encounter Administered Medications Administered Medications Medication Order MAR Action Action Date Dose Rate Site PPD Intradermal Given 07/03/2019 0.1 mL Left Forearm documented in this encounter Care Teams Sheet Metal Work Furnace Installer Relationship Specialty Start Date End Date Joellen Kemp MD [address] [facility] [address] [place] [address] PCP - General Pediatrics 12/10/15 documented as of this encounter
--- OUTSIDE RECORDS SUMMARY | 2024-10-04 10:23 | XMS_ITS | Encounter Summary ---
Author Organization [facility] Address [address] [place] [address] Care Team Providers Care Visual Manager Name Role Phone Joellen Kemp MD Primary Care Provider [phone] Encounter Details Date Type Department Care Team (Latest Contact Info) Description 01/18/2018 5:27 PM CDT - 01/18/2018 11:59 PM CDT Hospital Encounter [facility] Pediatrics - Radiology [address] [place] [address] Discharge Disposition: Home or Self Care Social [...] fluticasone propionate (FLONASE) 50 MCG/ACT nasal spray Aledo 1 Aledo into each nostril once daily 1 Bottle [...] once daily 30 tablet 1 01/10/2018 02/15/2018 naproxen (NAPROSYN) 500 MG tablet Take 1 tablet by mouth 2 times daily 30 tablet 01/18/2018 05/02/2018 documented as of this encounter Plan of Treatment Not on file documented as of this encounter Procedures Procedure Name Priority Date/Time Associated Diagnosis Comments XR HIP RIGHT 2VW OR MORE Routine 01/18/2018 5:30 PM CDT Right hip pain documented in this encounter Results * XR HIP 2+ VW RIGHT (01/18/2018 5:30 PM CDT) Anatomical Region Laterality Modality Pelvis, Lower Extremity Radiogra phic Imaging 01/19/2018 7:45 AM CDT Impressions 01/19/2018 [...] this encounter Visit Diagnoses Diagnosis Right hip pain Pain in joint, pelvic region and thigh documented in this encounter Care Teams Visual Manager Relationship Specialty Start Date End Date Joellen Kemp MD [address] [place] [address] PCP - General Pediatrics 12/10/15 documented as of this encounter
--- OUTSIDE RECORDS SUMMARY | 2024-10-04 10:23 | XMS_ITS | Encounter Summary ---
Author Organization [facility] Address [address] [facility] [place] [address] Care Team Providers Care Science Interpreter Name Role Phone Joellen Kemp MD Primary Care Provider [phone] Reason for Visit * Reason Comments Refill Request Encounter Details Date Type Department Care Team (Late st Contact Info) Description 02/05/2019 Refill [facility] Pediatrics - data control assistant [address] [facility] [place] [address] Anita Madison MD [address] [facility] [address] [place] [address] Refill Request Social History Tobacco [...] Telephone Encounter - Marlyn Puga RN - 02/06/2019 2:51 PM CDT Called mom due to receipt of refill request for Mobic. Mom reports Liberty has not needed mobic or naproxyn for some time and she recently requested refill for ocp but no other meds. Liberty is doing well without pain. RN notified pharmacy of same * Telephone Encounter - Anita Madison MD - 02/06/2019 12:40 PM CDT Mobic ordered by me 01/2018. Seen 08/2018 and pills refilled. Currently med list has naprosyn listed. Should not take mobic and naprosyn both as both NSAIDS. Call patient to find out if she is taking naprosyn or not. If she wants Mobic filled should not take naprosyn on those days. Let me know- Anita Madison MD * Telephone Encounter - Keily Jacobs RN - 02/06/2019 9:10 AM CDT Refill request for Meloxicam. [place] [facility] Pending OV: none Pt sees Dr. Madison @ . Will fw to provider to approve/deny. documented in this encounter Plan of Treatment Not on file documented as of this encounter Visit Diagnoses Not on filedocumented in this encounter Care Teams Science Interpreter Relationship Specialty Start Date End Date Joellen Kemp MD [address] [place] [address] PCP - General Pediatrics 12/10/15 documented as of this encounter
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
--- OUTSIDE RECORDS SUMMARY | 2024-10-04 10:23 | XMS_ITS | Patient Health Summary ---
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 1.005 - 1.030 01/10/2018 11:42 AM [facility] Blood UA Negative Negative 01/10/2018 11:42 AM [facility] pH UA 5.0 5.0 - 8.0 pH 01/10/2018 11:42 AM [facility] Protein UA Negative Negative 01/10/2018 11:42 AM [facility] Urobilinogen UA Negative Negative mg/dL 01/10/2018 11:42 AM [facility] Nitrite UA Negative Negative 01/10/2018 11:42 AM [facility] Leukocyte UA Negative Negative 01/10/2018 11:42 AM [facility] RBC UA None Seen 0-5, None Seen # /hpf 01/10/2018 11:42 AM [facility] WBC UA 0-5 0-5, None Seen # /hpf 01/10/2018 11:42 AM CDT [facility] Bacteria UA None Seen None Seen 01/10/2018 11:42 AM CDT [facility] Squamous Epithelial Cells 0-2 None Seen, 0-2, 3-5 /hpf 01/10/2018 11:42 AM CDT [facility] Reflex Status Culture not indicated 01/10/2018 11:42 AM CDT [facility] Urine URINE SPECIMEN OBTAINED BY CLEAN CATCH PROCEDURE / Unknown Collection / Unknown 01/10/2018 11:03 AM CDT 01/10/2018 11:19 AM CDT Narrative [facility] - 01/10/2018 11:42 AM CDT Anita Madison MD LAB - URINALYSIS ORD ERABLES Performing Organization Address City/State/[facility] Co de Phone Number [facility] [address] [place] [address] * MRI BRAIN NON CONTRAST (03/20/2016 10:54 AM CDT) Anatomical Region Laterality Modality Head Magnetic Resonan ce 03/20/2016 11:1 2 AM CDT Impressions 03/20/2016 11:55 AM CDT 1. Normal examination of the brain and [place] without findings to explain the patient's symptoms. Dictated by KENJI BARRIENTOS on 03/20/2016 11:40 AM I, Lea Enamorado, have personally reviewed the images and I agree with this report. Narrative 03/20/2016 11:55 AM CDT EXAMINATION: 1. Magnetic resonance imaging (MRI) of the brain without contrast 2. Magnetic resonance angiography (MRA) of the head without contrast HISTORY: Chronic headaches with new left-sided facial numbness and blurry vision. TECHNIQUE: MRI of the brain was performed without contrast according to standard protocol. MRA of the winyas-uh-Dkhybo was performed using a vipg-yg-wibhgc technique without contrast. The sequences are distorted by magnetic susceptibility from the patient's braces, but are diagnostic. FINDINGS: No prior study is available for comparison. Brain: No evidence of acute or chronic hemorrhage is identified. No evidence of acute cerebral infarction is seen. The ventricles are of normal size, shape, and morphology. No mass effect or midline shift is seen. The corpus callosum and sella appear normal. The posterior fossa, brainstem, and craniocervical junction appear normal. The visualized portions of the orbits and paranasal sinuses are obscured. The mastoids appear normal. Normal flow voids are demonstrated in the carotid arteries and basilar artery. The calvarium and visualized cervical spine appear normal. Angiographic findings: The clinoid segments of the distal internal carotid arteries are obscured by magnetic susceptibility. The distal internal carotid arteries otherwise appear normal. The anterior and middle cerebral arteries appear normal. The distal vertebral arteries appear normal. The basilar artery and posterior cerebral arteries appear normal. No aneurysms or intracranial stenoses are identified. Procedure Note Lea Enamorado MD - 03/20/2016 EXAMINATION: 1. Magnetic resonance imaging (MRI) of the brain without contrast 2. Magnetic resonance angiography (MRA) of the head without contrast HISTORY: Chronic headaches with new left-sided facial numbness and blurry vision. TECHNIQUE: MRI of the brain was performed without contrast according to standard protocol. MRA of the qrgbbx-ti-Rmnpfi was performed using a anwg-tu-bxgsct technique without contrast. The sequences are distorted by magnetic susceptibility from the patient's braces, but are diagnostic. FINDINGS: No prior study is available for comparison. Brain: No evidence of acute or chronic hemorrhage is identified. No evidence of acute cerebral infarction is seen. The ventricles are of normal size, shape, and morphology. No mass effect or midline shift is seen. The corpus callosum and sella appear normal. The posterior fossa, brainstem, and craniocervical junction appear normal. The visualized portions of the orbits and paranasal sinuses are obscured. The mastoids appear normal. Normal flow voids are demonstrated in the carotid arteries and basilar artery. The calvarium and visualized cervical spine appear normal. Angiographic findings: The clinoid segments of the distal internal carotid arteries are obscured by magnetic susceptibility. The distal internal carotid arteries otherwise appear normal. The anterior and middle cerebral arteries appear normal. The distal vertebral arteries appear normal. The basilar artery and posterior cerebral arteries appear normal. No aneurysms or intracranial stenoses are identified. IMPRESSION 1. Normal examination of the brain and [place] without findings to explain the patient's symptoms. Dictated by KENJI BARRIENTOS on 03/20/2016 11:40 AM Lea Macedo, have personally reviewed the images and I agree with this report. Ritesh Thakkar MD MR ORDERABLES * MRA ANGIO HEAD NON CONTRAST (03/20/2016 10:54 AM CDT) Anatomical Region Laterality Modality Head Magnetic Resonan ce 03/20/2016 11:1 2 AM CDT Impressions 03/20/2016 11:55 AM CDT 1. Normal examination of the brain and [place] without findings to explain the patient's symptoms. Dictated by KENJI BARRIENTOS on 03/20/2016 11:40 AM Lea Macedo, have personally reviewed the images and I agree with this report. Narrative 03/20/2016 11:55 AM CDT EXAMINATION: 1. Magnetic resonance imaging (MRI) of the brain without contrast 2. Magnetic resonance angiography (MRA) of the head without contrast HISTORY: Chronic headaches with new left-sided facial numbness and blurry vision. TECHNIQUE: MRI of the brain was performed without contrast according to standard protocol. MRA of the efmzxh-zr-Xaoxxs was performed using a llud-mw-crcxlk technique without contrast. The sequences are distorted by magnetic susceptibility from the patient's braces, but are diagnostic. FINDINGS: No prior study is available for comparison. Brain: No evidence of acute or chronic hemorrhage is identified. No evidence of acute cerebral infarction is seen. The ventricles are of normal size, shape, and morphology. No mass effect or midline shift is seen. The corpus callosum and sella appear normal. The posterior fossa, brainstem, and craniocervical junction appear normal. The visualized portions of the orbits and paranasal sinuses are obscured. The mastoids appear normal. Normal flow voids are demonstrated in the carotid arteries and basilar artery. The calvarium and visualized cervical spine appear normal. Angiographic findings: The clinoid segments of the distal internal carotid arteries are obscured by magnetic susceptibility. The distal internal carotid arteries otherwise appear normal. The anterior and middle cerebral arteries appear normal. The distal vertebral arteries appear normal. The basilar artery and posterior cerebral arteries appear normal. No aneurysms or intracranial stenoses are identified. Procedure Note Lea Enamorado MD - 03/20/2016 EXAMINATION: 1. Magnetic resonance imaging (MRI) of the brain without contrast 2. Magnetic resonance angiography (MRA) of the head without contrast HISTORY: Chronic headaches with new left-sided facial numbness and blurry vision. TECHNIQUE: MRI of the brain was performed without contrast according to standard protocol. MRA of the ioztcz-ad-Jswyds was performed using a vkgr-bt-hmpkfy technique without contrast. The sequences are distorted by magnetic susceptibility from the patient's braces, but are diagnostic. FINDINGS: No prior study is available for comparison. Brain: No evidence of acute or chronic hemorrhage is identified. No evidence of acute cerebral infarction is seen. The ventricles are of normal size, shape, and morphology. No mass effect or midline shift is seen. The corpus callosum and sella appear normal. The posterior fossa, brainstem, and craniocervical junction appear normal. The visualized portions of the orbits and paranasal sinuses are obscured. The mastoids appear normal. Normal flow voids are demonstrated in the carotid arteries and basilar artery. The calvarium and visualized cervical spine appear normal. Angiographic findings: The clinoid segments of the distal internal carotid arteries are obscured by magnetic susceptibility. The distal internal carotid arteries otherwise appear normal. The anterior and middle cerebral arteries appear normal. The distal vertebral arteries appear normal. The basilar artery and posterior cerebral arteries appear normal. No aneurysms or intracranial stenoses are identified. IMPRESSION 1. Normal examination of the brain and [place] without findings to explain the patient's symptoms. Dictated by KENJI BARRIENTOS on 03/20/2016 11:40 AM I, Lea Enamorado, have personally reviewed the images and I agree with this report. Ritesh Thakkar MD MR ORDERABLES * PEDIATRIC DIAGNOSTIC POLYSOMNOGRAM (02/11/2016) Linked Results See Linked Results [facility] 02/11/2016 Musa Cabezas MD SLEEP CENTER ORDER [facility] * CT HEAD NON CONTRAST (12/16/2015 3:18 PM CDT) Anatomical Region Laterality Modality Head Computed Tomogra phy 12/16/2015 3:25 PM CDT Impressions 12/16/2015 4:19 PM CDT [address] No CT findings to explain the patient's symptoms. Dictated by Titi Lyon on 12/16/2015 3:45 PM I, Sourav Cheung, have personally reviewed the images and I agree with this report. Narrative 12/16/2015 4:19 PM CDT EXAMINATION: Computed tomography (CT) of the head without contrast HISTORY: New onset of headaches. TECHNIQUE: CT of the head was performed without contrast according to standard protocol. DOSE: CTDIvol: 35.20 mGy, DLP: 602.74 mGy-cm The reported CTDIvol (mGy) and DLP (mGy-cm) values are generated from scan acquisition factors based on a 32 cm body phantom or 16 cm head phantom and may underestimate or overestimate the actual patient dose based on patient size and other factors. FINDINGS: No prior study is available for comparison. No acute intra- or extra-axial fluid collections are identified. The ventricles are of normal size, shape, and morphology. The basilar cisterns are patent. No mass effect or midline shift is seen. The osorio-white matter differentiation is normal. The visualized portions of the orbits, paranasal sinuses, and mastoids appear normal. No acute fracture is identified. Closure of the sagittal suture is incidentally noted. Procedure Note Sourav Cheung MD - 12/16/2015 EXAMINATION: Computed tomography (CT) of the head without contrast HISTORY: New onset of headaches. TECHNIQUE: CT of the head was performed without contrast according to standard protocol. DOSE: CTDIvol: 35.20 mGy, DLP: 602.74 mGy-cm The reported CTDIvol (mGy) and DLP (mGy-cm) values are generated from scan acquisition factors based on a 32 cm body phantom or 16 cm head phantom and may underestimate or overestimate the actual patient dose based on patient size and other factors. FINDINGS: No prior study is available for comparison. No acute intra- or extra-axial fluid collections are identified. The ventricles are of normal size, shape, and morphology. The basilar cisterns are patent. No mass effect or midline shift is seen. The osorio-white matter differentiation is normal. The visualized portions of the orbits, paranasal sinuses, and mastoids appear normal. No acute fracture is identified. Closure of the sagittal suture is incidentally noted. IMPRESSION 1. No CT findings to explain the patient's symptoms. Dictated by Titi Lyon on 12/16/2015 3:45 PM I, Sourav Cheung, have personally reviewed the images and I agree with this report. Joellen Kemp MD CT ORDERABLES * GROSS EXAM PATHOLOGY (06/22/2005 9:20 AM CDT) Result CASE NUMBER [id number] [facility] PATH REPORT Comment: ORDERING PHYSICIAN ??CESILIA GRAJEDA SPECIMEN TYPE ?Tonsils CLINICAL HISTORY ? The patient is a 4-year-old girl with chronic tonsillitis. GROSS DESCRIPTION ? The specimen, labeled with the patient's name and tonsils, is received fresh for gross examination only and consists of two egg-shaped, pink- hairston tonsils measuring 2.3 x 1.2 x 1.2 cm and 2.4 x 1.5 x 0.8 cm, weighing approximately 7 grams combined. ??On cut surface the tonsils have a cerebriform, yellow-hairston appearance. ??No sections are taken. (CC/pg) GROSS DIAGNOSIS ? GROSS DIAGNOSIS ??TONSILS. This case has been personally reviewed and interpreted by the attending (teaching) pathologist. Lip And Gate Builder ? KHUSHBU COOPER PATHOLOGIST ?Siva Wood M.D. ELECTRONICALLY ROGER Siva Wood MISCELLANEOUS SAMPLES / Unknown 06/22/2005 9:20 AM CDT 06/22/2005 10:55 AM CDT Historical Provider LAB - PATHOLOGY/C YTOLOGY ORDERABLES [facility] PATH REPORT Care Teams Crm Functional Analyst Relationship Specialty Start Date End Date Joellen Kemp MD [address] [facility] [address] [place] [id number] PCP - General Pediatrics 12/10/15
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
--- OUTSIDE RECORDS SUMMARY | 2024-10-04 10:23 | XMS_ITS | Encounter Summary ---
Author Organization [facility] Health Address [address] [place] [address] Care Team Providers Care Manager Unit Name Role Phone Joellen Kemp MD Primary Care Provider [phone] Reason for Visit * Reason Comments Pain Abdominal Pt presents to the E D with c/o n/v/d x1 month, pt was seen at [facility] x1 month ago and was discharged with tramadol, vitamin D, dicylcomine, ondansetron, pt states she has tried these medications and is still vomiting Encounter Details Date Type Department Care Team (Late st Contact Info) Description 01/30/2021 11:11 PM CDT - 01/31/2021 3:44 AM CDT Emergency [facility] EMERGENCY DEPARTMENT [address] [place] [id number] Flank pain Discharge Disposition: Home or Self Care Social [...] Mass Index 30.23 01/30/2021 5:02 PM CDT documented in this encounter Discharge Instructions * Discharge Instructions* Gwen Heath PA-C - 01/31/2021 2:58 AM CDT Your labs today suggest a complicated UTI. You were given fluids and pain medication and you're being discharged with a prescription for Bactrim. Take this for 10 days and follow up with your family doctor. Continue taking the Zofran and tramadol. Return to the ER if you have worsening pain, trouble urinating, worsening or uncontrolled vomiting, or fever not controlled with over the counter medication. * Attachments The following attachments cannot be sent through Care Everywhere. * Urinary Tract Infection in Women (Discharge Care) (Kazakh) documented in this encounter Medications at Time of Discharge Medication Sig Dispensed Refills Start Date End Date DRYSOL 20 % solution 1 ML APPLY ON SKIN DIRECTED 1 06/09/2019 fluticasone propionate (FLONASE) 50 MCG/ACT nasal spray ONE SPRAY IN EACH NOSTRIL ONCE DAILY 12 05/20/2019 norelgestromin-ethinyl estradiol (XULANE) 150-35 MCG/24HR patch Change patch every 7 days for 3 patches, then 7 days patch-free, repeat 3 patch 12 08/26/2020 sulfamethoxazole-trimet hoprim (BACTRIM DS; SEPTRA DS) 800-160 MG tablet Take 1 (one) tablet by mouth 2 times daily for 10 days 20 tablet 01/31/2021 02/10/2021 documented as of this encounter ED Notes * Gwen Heath PA-C - 01/31/2021 1:39 AM CDT Liberty Ivy [id number] [facility] EMERGENCY DEPARTMENT History Chief Complaint Patient presents with ??? Pain Abdominal Pt presents to the ED with c/o n/v/d x1 month, pt was seen at [facility] x1 month ago and was discharged with tramadol, vitamin D, dicylcomine, ondansetron, pt states she has tried these medications and is still vomiting Liberty Ivy is a 20 yo female PMH PCOS, hyperlipidemia, and chronic migraines presenting with urinary frequency and worsening abdominal pain for the past 2-3 days. The abdominal pain is primarily inthe right flank with some radiation to the right groin. Has a history of abdominal pain for which she's been seen by broadband installer and GI, and has had several CT scans and ultrasounds. GI said she has a fatty liver and broadband installer said she could have had a ruptured cyst. Endorses subjective fever with nausea and several episodes of NBNB vomiting. Was prescribed Zofran, dicyclomine, tramadol, and omeprazole with minimal relief. Presents today because [facility] has more specialists. Denies recent illness, headache, chest pain, SOB or difficulty breathing, numbness or tingling. Past Medical History: Diagnosis Date ??? Migraines [...] 2nd cousin mom's first cousin Social History Socioeconomic History ??? Marital status: Single Spouse name: Not on file ??? Number of children: Not on file ??? Years of education: Not on file ??? Highest education level: Not on file Occupational History ??? Not on file Tobacco Use ??? Smoking status: Never Smoker ??? Smokeless tobacco: Never Used Substance and Sexual Activity ??? Alcohol use: No Alcohol/week: 0.0 standard drinks ??? Drug use: No ??? Sexual activity: Not Currently Partners: Male control/protection: Condom Other Topics Concern ??? 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 Difficulty of Paying Living Expenses: Food Insecurity: ??? Worried About Running Out of Food in the Last Year: ??? Ran Out of Food in the Last Year: Transportation Needs: ??? Lack of Transportation (Medical): ??? Lack of Transportation (Non-Medical): Physical Activity: ??? Days of Exercise per Week: ??? Minutes of Exercise per Session: Stress: ??? Feeling of Stress : Social Connections: ??? Frequency of Communication with Friends and Family: ??? Frequency of Social Gatherings with Friends and Family: ??? Attends Confucianism Services: ??? Active Member of Clubs or Organizations: ??? Attends Club or Organization Meetings: ??? Marital Status: Intimate Partner Violence: ??? Fear of Current or Ex-Partner: ??? Emotionally Abused: ??? Physically Abused: ??? Sexually Abused: Review of Systems Review of Systems Constitutional: Negative. HENT: Negative. Eyes: Negative. Respiratory: Negative. Cardiovascular: Negative. Gastrointestinal: Positive for abdominal pain, nausea and vomiting. Negative for blood in stool, constipation and diarrhea. Genitourinary: Positive for flank pain and frequency. Negative for dysuria and hematuria. Musculoskeletal: Positive for back pain. Skin: Negative. Neurological: Positive for headaches. Negative for seizures and loss of consciousness. Endo/Heme/Allergies: Negative. Psychiatric/Behavioral: Negative. All other systems reviewed and are negative. Physical Exam BP 122/78 Pulse 91 Temp 99.9 ??F (37.7 ??C) Resp 20 Ht 1.549 m (5' 1 ) Wt 72.6 kg (160 lb) LMP 12/26/2020 SpO2 99% BMI 30.23 kg/m?? Physical Exam Vitals and nursing note reviewed. Constitutional: General: She is awake. She is not in acute distress. Appearance: Normal appearance. She is well-developed, well-groomed and normal weight. She is ill-appearing. She is not toxic-appearing or diaphoretic. HENT: Head: Normocephalic and atraumatic. Right Ear: External ear normal. Left Ear: External ear normal. Nose: Nose normal. Mouth/Throat: Mouth: Mucous membranes are moist. Pharynx: Oropharynx is clear. Eyes: Extraocular Movements: Extraocular movements intact. Conjunctiva/sclera: Conjunctivae normal. Cardiovascular: Rate and Rhythm: Normal rate and regular rhythm. Pulses: Normal pulses. Heart sounds: Normal heart sounds. Pulmonary: Effort: Pulmonary effort is normal. No respiratory distress. Breath sounds: Normal breath sounds. No wheezing. Chest: Chest wall: No tenderness. Abdominal: General: Abdomen is flat. Bowel sounds are normal. Palpations: Abdomen is soft. Tenderness: There is abdominal tenderness in the right upper quadrant and right lower quadrant. There is right CVA tenderness and left CVA tenderness. There is no guarding. Positive signs include Sykes's sign. Negative signs include Rovsing's sign and McBurney's sign. Musculoskeletal: General: No swelling or tenderness. Normal range of motion. Cervical back: Normal range of motion and neck supple. No tenderness. Right lower leg: No edema. Left lower leg: No edema. Skin: General: Skin is warm and dry. Capillary Refill: Capillary refill takes less than 2 seconds. Neurological: Mental Status: She is alert and oriented to person, place, and time. Psychiatric: Mood and Affect: Mood normal. Mood is not anxious or depressed. Behavior: Behavior normal. Behavior is cooperative. Medications Current Outpatient Medications Medication Sig Dispense Refill ??? DRYSOL 20 % solution 1 ML APPLY ON SKIN DIRECTED 1 ??? fluticasone propionate (FLONASE) 50 MCG/ACT nasal spray ONE SPRAY IN EACH NOSTRIL ONCE DAILY 12 ??? norelgestromin-ethinyl estradiol (XULANE) 150-35 MCG/24HR patch Change patch every 7 days for 3patches, then 7 days patch-free, repeat 3 patch 12 Procedures Procedures Lab/SPO2 Interpretation Hospital Encounter on 01/30/21 CBC W AUTO DIFFERENTIAL Result Value Ref Range WBC 10.9 (H) 3.5 - 10.5 10??3/uL RBC 4.74 3.90 - 5.00 10??6/uL Hemoglobin 13.6 12.0 - 15.5 g/dL Hematocrit 42.1 35.0 - 45.0 % MCV 88.8 81.0 - 97.0 fL MCH 28.7 28.0 - 34.0 pg MCHC 32.3 32.0 - 36.0 g/dL Platelet Count 320 150 - 400 10??3/uL RDW-SD 43.3 36.0 - 50.0 fL RDW-CV 13.2 11.2 - 14.8 % MPV 9.7 9.3 - 12.8 fL nRBC Absolute 0.00 0 10??3/uL nRBC Auto 0.0 0 /100 WBC Neutrophils % 63.5 35.0 - 70.0 % Lymphocytes % 26.6 19.7 - 55.1 % Monocytes % 8.7 3.0 - 15.0 % Eosinophils % 0.6 0.0 - 6.0 % Basophil % 0.4 0.0 - 1.5 % Neutrophils Absolute 6.9 1.6 - 7.0 10??3/uL Lymphocyte Absolute 2.9 0.8 - 2.9 10??3/uL Monocytes Absolute 0.95 (H) 0.14 - 0.66 10??3/uL Eosinophils Absolute 0.06 0.00 - 0.45 10??3/uL Basophils Absolute 0.04 0.00 - 0.06 10??3/uL Immature Granulocytes % 0.2 0.0 - 1.0 % COMPREHENSIVE METABOLIC PANEL Result Value Ref Range BUN 9 7 - 26 mg/dL Creatinine 0.9 0.6 - 1.2 mg/dL Sodium 143 136 - 145 mmol/L Potassium 3.8 3.5 - 4.5 mmol/L Chloride 107 98 - 107 mmol/L CO2 23 22 - 29 mmol/L Glucose 98 70 - 115 mg/dL Calcium 9.1 8.4 - 10.2 mg/dL Protein Total 7.9 6.0 - 8.3 g/dL Albumin 3.9 3.4 - 5.0 g/dL Bilirubin Total 0.5 0.2 - 1.2 mg/dL Alkaline Phosphatase 63 40 - 150 Units/L ALT 22 0 - 55 Units/L AST 19 5 - 34 Units/L Anion Gap 17 8 - 18 BUN/Creatinine Ratio 10 7 - 23 Osmolality Calculated 295 270 - 300 mOsm/kg Albumin/Globulin Ratio 1.0 (L) 1.1 - 2.3 eGFR >60 >60 mL/min/1.73 m2 HCG URINE QUALITATIVE Result Value Ref Range Test Urine Negative Negative LIPASE BLOOD Result Value Ref Range Lipase 17 8 - 78 Units/L URINALYSIS W/MICROSCOPIC NO CULTURE Specimen: Urine Clean Catch Result Value Ref Range Color UA Yellow Straw, Yellow, Colorless Clarity UA Cloudy (Abnormal) Clear, Slt Cloudy Specific [place] UA 1.012 1.005 - 1.030 pH UA 5.0 5.0 - 8.0 pH Protein UA 2+ (Abnormal) Negative mg/dL Glucose UA Negative Negative mg/dL Ketone UA Negative Negative mg/dL Bilirubin UA Negative Negative mg/dL Blood UA 2+ (Abnormal) Negative Nitrite UA Positive (Abnormal) Negative Leukocyte Esterase 3+ (Abnormal) Negative Urobilinogen UA Negative Negative mg/dL RBC UA 51-100 (Abnormal) None Seen, 0-2, 3-5 /HPF WBC UA >100 (Abnormal) None Seen, 0-5 /HPF WBC Clumps Few (Abnormal) None /HPF Bacteria UA 2+ (Abnormal) None, Trace /HPF Squamous Epithelial Cells UA 3-5 (Abnormal) None Seen, 0-2 /HPF Mucus UA 1+ None, 1+ /LPF CT ABDOMEN PELVIS W CONTRAST (Results Pending) Progress Notes DDx: Kidney stone vs. UTI vs. Ovarian cyst vs. Cholecystitis vs. Appendicitis vs. Muscle strain vs.Other 2345: Pt examined and able to ask questions about treatment course at this time. -Will get labs. -IV fluids and droperidol. -Reassess. 0120: Notable labs: WBC 10.9 UA cloudy Protein UA 2+ Blood UA 2+ Nitrite UA POSITIVE Leuk esterase 3+ RBC UA 51-100 WBC UA >100 -CT abdomen pelvis w contrast. -Reassess. 0225: CT abdomen pelvis: Circumferential thickening of the bladder wall with bilateral urothelial enhancement in the ureters, right greater than left. There is no evidence of hydronephrosis. This may represent an ascending urinary tract infection, please correlate clinically with urinalysis. -Morphine for pain. -Reassess. 0245: Pt states she feels better and wants to go home. Endorses some nausea but pain has improved. -Will discharge home and encourage to continue taking Zofran and tramadol. -Will Rx Bactrim. Patient is medically stable for discharge at this time. ?? I have given the patient instructions regarding his diagnosis, expectations, follow up, and return precautions. I explained to the patient that emergent conditions may arise and to return to the ER for new, worsening, or any persistent conditions. I've explained the importance of following up with PCP as instructed. The patient verbalized understanding of the discharge instructions. ED Course Clinical Impressions as of Feb 01 248 Flank pain Medical Decision Making I have reviewed the: Previous Chart, Nursing Notes, Vitals. I have interpreted the following results: Labs, CT Scans. Orders Placed This Encounter ??? CT ABDOMEN PELVIS W CONTRAST ??? CBC W AUTO DIFFERENTIAL ??? COMPREHENSIVE METABOLIC PANEL ??? HCG URINE QUALITATIVE ??? LIPASE BLOOD ??? URINALYSIS W/MICROSCOPIC NO CULTURE ??? AND Linked Order Group ??? 0.9% NaCl injection 3 mL ??? 0.9% NaCl injection 1-10 mL ??? 0.9% NaCl IV Bolus ??? droperidol (Inapsine) injection 0.625 mg ??? iopamidol (Isovue 370) 76 % contrast ??? morphine injection 2 mg * Jazlyn Alvarado MD - 01/31/2021 12:04 AM CDT ED Attending Note Interval History: Liberty Ivy is a 20 year old female with a PMHx of migraines and PCOS is presenting to the ED c/o abdominal pain and vomiting for the past couple months. Reports worsening right flank pain that radiates to the front in the last couple days. Endorses diarrhea and weakness from dehydration. Notes she had one episode of hematemesis while in the waiting room. Endorses increased frequency but denies dysuria. States she has been had multiple ED visits for the pain with imaging done. She notes imaging has been mostly unremarkable but was told she had a fatty liver. Reports she has a hx of heavy menstrual periods. No other complaints or modifying factors at this time. Past Medical History: Diagnosis Date Migraines Ovarian cyst Past Surgical History: Procedure Laterality Date Tonsillectomy and Adenoidectomy age 5yrs Social History Socioeconomic History Marital status: Single Spouse name: Not on file Number of children: Not on file Years of education: Not on file Highest education level: Not on file Occupational History Not on file Tobacco Use Smoking status: Never Smoker Smokeless tobacco: Never Used Substance and Sexual Activity Alcohol use: No Alcohol/week: 0.0 standard drinks Drug use: No Sexual activity: Not Currently Partners: Male control/protection: Condom Other Topics Concern Special Diet Not Asked Social History Narrative 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, [employer], 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, not SA Social Determinants of Health Financial Resource Strain: Difficulty of Paying Living Expenses: Food Insecurity: Worried About Running Out of Food in the Last Year: Ran Out of Food in the Last Year: Transportation Needs: Lack of Transportation (Medical): Lack of Transportation (Non-Medical): Physical Activity: Days of Exercise per Week: Minutes of Exercise per Session: Stress: Feeling of Stress : Social Connections: Frequency of Communication with Friends and Family: Frequency of Social Gatherings with Friends and Family: Attends Confucianism Services: Active Member of Clubs or Organizations: Attends Club or Organization Meetings: Marital Status: Intimate Partner Violence: Fear of Current or Ex-Partner: Emotionally Abused: Physically Abused: Sexually Abused: Review of Systems: (+) positive All systems negative except as marked. Constitutional: Negative for fever HENT: Negative for sore throat. Eyes: Negative for visual changes Respiratory: Negative for SOB, cough Cardiovascular: Negative for chest pain, palpitations Gastrointestinal: +abdominal pain, +diarrhea, +nausea, +vomiting +hematemesis Genitourinary: Negative for difficulty urinating, hematuria, dysuria. +increased frequency Musculoskeletal: Negative for neck pain, back pain, myalgia Skin: Negative for rash, itching Neurological: Negative for CONTRERAS, dizziness, numbness, tingling. +weakness Psychiatric: Negative for SI, hallucinations, anxiety Vitals: 01/30/21 1702 01/30/21 1951 01/31/21 0109 BP: 117/74 122/78 Pulse: 104 91 Resp: 20 20 Temp: 97.5 ??F (36.4 ??C) 98.6 ??F (37 ??C) 99.9 ??F (37.7 ??C) SpO2: 97% 99% Weight: 72.6 kg (160 lb) Height: 1.549 m (5' 1 ) Exam: Constitutional: well developed, well nourished, moderate distress, appears uncomfortable, tearful HENT: normocephalic, atraumatic, moist oral mucosa, conjunctiva normal Eyes: PERRL, no drainage Neck: supple, normal ROM Cardiovascular: regular rate and rhythm, no murmur Respiratory: clear to auscultation bilaterally, no wheezes, no respiratory distress Abdomen: soft, non-distended, positive sykes, negative Mcburney's, bilateral CVA tenderness Musculoskeletal: no edema or deformities Skin: warm, dry, no lesions Neurological: awake, alert&Ox4, moving all extremities, no focal motor/sensation deficits. Psychiatric: mood and affect normal MDM: Problem List: 1) Abdominal pain 2) Vomiting Differential diagnosis to evaluate in the emergent setting: cholecystitis vs UTI vs torsion vs ovarian cyst vs gastritis vs appendicitis vs pyelonephritis vs other Workup: See lab testing and radiography ordered Treatment plan: Symptom control Workup with labs, UA and lipase CT abd/pelvis IV fluids Reassess Results: Labs Reviewed CBC W AUTO DIFFERENTIAL - Abnormal; Notable for the following components: Result Value WBC 10.9 (*) Monocytes Absolute 0.95 (*) All other components within normal limits COMPREHENSIVE METABOLIC PANEL - Abnormal; Notable for the following components: Albumin/Globulin Ratio 1.0 (*) All other components within normal limits URINALYSIS W/MICROSCOPIC NO CULTURE - Abnormal; Notable for the following components: Clarity UA Cloudy (*) Protein UA 2+ (*) Blood UA 2+ (*) Nitrite UA Positive (*) Leukocyte Esterase 3+ (*) RBC UA 51-100 (*) WBC UA >100 (*) WBC Clumps Few (*) Bacteria UA 2+ (*) Squamous Epithelial Cells UA 3-5 (*) All other components within normal limits Narrative: HCG URINE QUALITATIVE - Normal LIPASE BLOOD - Normal CT ABDOMEN PELVIS W CONTRAST (Results Pending) ED course: The patient's Oxygen Saturation Monitor was interpreted by me. The reading was 99%. The patient wason RA at the time of the reading. This is interpreted as normal. 2:00 AM: CT abd/pelvis shows circumferential thickening of the bladder wall with bilateral urothelial enhancement in the ureters, right greater than left. There is no evidence of hydronephrosis. Thismay represent an ascending urinary tract infection. 3:03 AM: Upon reassessment, patient states she is feeling better and would like to go home. Will discharge with Bactrim for 10 days and encourage her to continue taking Tramadol and Zofran. Will instruct her to follow up with PCP in 3 days. 3:10 AM: I have reviewed her diagnostic findings and she has had an opportunity to ask me any questions she has about care, diagnosis and discharge plan. Patient is comfortable with the discharge plan. She will follow up as directed and will return to the ER if her condition worsens or she developsother urgent concerns. Consult No Procedure done at this time No Ultrasound done at this time No CRITICAL CARE IN THE ED No Orders and Medicine administered during this encounter: Orders Placed This Encounter CT ABDOMEN PELVIS W CONTRAST CBC W AUTO DIFFERENTIAL COMPREHENSIVE METABOLIC PANEL HCG URINE QUALITATIVE LIPASE BLOOD URINALYSIS W/MICROSCOPIC NO CULTURE AND Linked Order Group 0.9% NaCl injection 3 mL 0.9% NaCl injection 1-10 mL 0.9% NaCl IV Bolus droperidol (Inapsine) injection 0.625 mg iopamidol (Isovue 370) 76 % contrast morphine injection 2 mg sulfamethoxazole-trimethoprim (BACTRIM DS; SEPTRA DS) 800-160 MG tablet Medications 0.9% NaCl injection 3 mL (has no administration in time range) And 0.9% NaCl injection 1-10 mL (has no administration in time range) iopamidol (Isovue 370) 76 % contrast (100 mL Intravenous $ Given - Contrast 01/31/21 0143) 0.9% NaCl IV Bolus (1,000 mL Intravenous $ New Bag 01/31/21 0103) droperidol (Inapsine) injection 0.625 mg (0.625 mg Intravenous $ Given 01/31/21 0108) morphine injection 2 mg (2 mg Intravenous $ Given 01/31/21 0232) Clinical Impression: 1. Flank pain Scripts: Disposition: Discharge Follow-up: Follow-up Information Joellen Kemp MD In 3 days. Specialty: Pediatrics Why: If symptoms worsen Contact information: [address] [facility] [address] By signing my name below, I, Valentino Forman, attest that this documentation has been prepared under the direction and in the presence of Dr. Alvarado. Signed: Linda Ragsdale. I, Dr. Alvarado, personally performed the services described in this documentation. All medical record entries made by the scribe were at my direction and in my presence. I have reviewed the chart and agree that the record reflects my personal performance and is accurate and complete. Signed: Dr. Alvarado. 02/01/2021. 7:37 AM. documented in this encounter Plan of Treatment Not on file documented as of this encounter Procedures Procedure Name Priority Date/Time Associated Diagnosis Comments CT ABDOMEN PELVIS W CONTRAST STAT 01/31/2021 1:51 AM CDT Flank pain CBC W AUTO DIFFERENTIAL STAT 01/31/2021 12:59 AM CDT COMPREHENSIVE METABOLIC PANEL STAT 01/31/2021 12:59 AM CDT LIPASE BLOOD STAT 01/31/2021 12:59 AM CDT URINALYSIS W/MICROSCOPIC NO CULTURE STAT 01/31/2021 12:45 AM CDT HCG URINE QUALITATIVE STAT 01/31/2021 12:45 AM CDT documented in this encounter Results * CT ABDOMEN PELVIS W CONTRAST (01/31/2021 [...] . Gwen Heath PA-C CT ORDERABLES * LIPASE BLOOD (01/31/2021 12:59 AM CDT) Lipase 17 8 - 78 Units/L 01/31/2021 1:26 AM [facility] Blood BLOOD SPECIMEN / Unknown Venipuncture / Unknown 01/31/2021 12:59 AM CDT 01/31/2021 1:05 AM CDT Gwen Heath PA-C LAB - CHEMISTRY OR DERABLES Performing Organization Address [facility] Co de Phone Number [address] [address], [facility] [phone] * (ABNORMAL) COMPREHENSIVE METABOLIC PANEL (01/31/2021 12:59 AM CDT) Pathologist [facility] BUN 9 7 - 26 mg/dL 01/31/2021 1:30 AM [facility] Creatinine 0.9 0.6 - 1.2 mg/dL 01/31/2021 1:30 AM [facility] Sodium 143 136 - 145 mmol/L 01/31/2021 1:30 AM [facility] Potassium 3.8 3.5 - 4.5 mmol/L 01/31/2021 1:30 AM [facility] Chloride 107 98 - 107 mmol/L 01/31/2021 1:30 AM [facility] CO2 23 22 - 29 mmol/L 01/31/2021 1:30 AM [facility] Glucose 98 70 - 115 mg/dL 01/31/2021 1:30 AM [facility] Calcium 9.1 8.4 - 10.2 mg/dL 01/31/2021 1:30 AM [facility] Protein Total 7.9 6.0 - 8.3 g/dL 01/31/2021 1:30 AM [facility] Albumin 3.9 3.4 - 5.0 g/dL 01/31/2021 1:30 AM [facility] Bilirubin Total 0.5 0.2 - 1.2 mg/dL 01/31/2021 1:30 AM [facility] Alkaline Phosphatase 63 40 - 150 Units/L 01/31/2021 1:30 AM [facility] ALT 22 0 - 55 Units/L 01/31/2021 1:30 AM [facility] AST 19 5 - 34 Units/L 01/31/2021 1:30 AM [facility] Anion Gap 17 8 - 18 01/31/2021 1:30 AM [facility] BUN/Creatinine Ratio 10 7 - 23 01/31/2021 1:30 AM [facility] Osmolality Calculated 295 270 - 300 mOsm/kg 01/31/2021 1:30 AM [facility] Albumin/Globulin Ratio 1.0(L) 1.1 - 2.3 01/31/2021 1:30 AM [facility] eGFR >60 >60 mL/min/1.7 3 m2 01/31/2021 1:30 AM [facility] Blood BLOOD SPECIMEN / Unknown Venipuncture / Unknown 01/31/2021 12:59 AM CDT 01/31/2021 1:05 AM T Garrett Paulino MD LAB - CHEMISTRY [facility] Organization Address City/State/[facility] Co de Phone Number [facility] [address] [place] [phone], [facility] [phone] * (ABNORMAL) CBC W AUTO DIFFERENTIAL (01/31/2021 12:59 AM CDT) WBC 10.9(H) 3.5 - 10.5 10? 3 /uL 01/31/2021 1:11 AM [facility] RBC 4.74 3.90 - 5.00 10? 6 /uL 01/31/2021 1:11 AM [facility] Hemoglobin 13.6 12.0 - 15.5 g/dL 01/31/2021 1:11 AM [facility] Hematocrit 42.1 35.0 - 45.0 % 01/31/2021 1:11 AM [facility] MCV 88.8 81.0 - 97.0 fL 01/31/2021 1:11 AM [facility] MCH 28.7 28.0 - 34.0 pg 01/31/2021 1:11 AM [facility] MCHC 32.3 32.0 - 36.0 g/dL 01/31/2021 1:11 AM [facility] Platelet Count 320 150 - 400 10? 3 /uL 01/31/2021 1:11 AM [facility] RDW-SD 43.3 36.0 - 50.0 fL 01/31/2021 1:11 AM [facility] RDW-CV 13.2 11.2 - 14.8 % 01/31/2021 1:11 AM [facility] MPV 9.7 9.3 - 12.8 fL 01/31/2021 1:11 AM [facility] nRBC Absolute 0.00 0 10? 3 /uL 01/31/2021 1:11 AM [facility] nRBC Auto 0.0 0 /100 WBC 01/31/2021 1:11 AM [facility] Neutrophils % 63.5 35.0 - 70.0 % 01/31/2021 1:11 AM [facility] Lymphocytes % 26.6 19.7 - 55.1 % 01/31/2021 1:11 AM [facility] Monocytes % 8.7 3.0 - 15.0 % 01/31/2021 1:11 AM [facility] Eosinophils % 0.6 0.0 - 6.0 % 01/31/2021 1:11 AM [facility] Basophil % 0.4 0.0 - 1.5 % 01/31/2021 1:11 AM [facility] Neutrophils Absolute 6.9 1.6 - 7.0 10? 3 /uL 01/31/2021 1:11 AM [facility] Lymphocyte Absolute 2.9 0.8 - 2.9 10? 3 /uL 01/31/2021 1:11 AM [facility] Monocytes Absolute 0.95(H) 0.14 - 0.66 10? 3 /uL 01/31/2021 1:11 AM T [facility] Eosinophils Absolute 0.06 0.00 - 0.45 10? 3 /uL 01/31/2021 1:11 AM [facility] Basophils Absolute 0.04 0.00 - 0.06 10? 3 /uL 01/31/2021 1:11 AM [facility] Immature Granulocytes % 0.2 0.0 - 1.0 % 01/31/2021 1:11 AM [facility] Blood BLOOD SPECIMEN / Unknown Venipuncture / Unknown 01/31/2021 12:59 AM CDT 01/31/2021 1:05 AM T Garrett Paulino MD LAB - HEMATOLOGY ORD ERABLES [facility] [address] [place] [address], [facility] [phone] * (ABNORMAL) URINALYSIS W/MICROSCOPIC NO CULTURE (01/31/2021 12:45 AM CDT) Color UA Yellow Straw, Yellow, Colorless 01/31/2021 1:07 AM [facility] Clarity UA Cloudy(A) Clear, Slt Cloudy 01/31/2021 1:07 AM [facility] Specific [place] UA 1.012 1.005 - 1.030 01/31/2021 1:07 AM [facility] pH UA 5.0 5.0 - 8.0 pH 01/31/2021 1:07 AM [facility] Protein UA 2+(A) Negative mg/dL 01/31/2021 1:07 AM [facility] Glucose UA Negative Negative mg/dL 01/31/2021 1:07 AM [facility] Ketone UA Negative Negative mg/dL 01/31/2021 1:07 AM [facility] Bilirubin UA Negative Negative mg/dL 01/31/2021 1:07 AM [facility] Blood UA 2+(A) Negative 01/31/2021 1:07 AM [facility] Nitrite UA Positive(A) Negative 01/31/2021 1:07 AM [facility] Leukocyte Esterase 3+(A) Negative 01/31/2021 1:07 AM T [facility] Urobilinogen UA Negative Negative mg/dL 01/31/2021 1:07 AM [facility] RBC UA 51-100(A) None Seen, 0-2, 3-5 /HPF 01/31/2021 1:07 AM T [facility] WBC UA >100(A) None Seen, 0-5 /HPF 01/31/2021 1:07 AM [facility] WBC Clumps Few(A) None /HPF 01/31/2021 1:07 AM T [facility] Bacteria UA 2+(A) None, Trace /HPF 01/31/2021 1:07 AM [facility] Squamous Epithelial Cells UA 3-5(A) None Seen, 0-2 /HPF 01/31/2021 1:07 AM [facility] Mucus UA 1+ None, 1+ /LPF 01/31/2021 1:07 AM [facility] Urine URINE SPECIMEN OBTAINED BY CLEAN CATCH PROCEDURE / Unknown Collection / Unknown 01/31/2021 12:45 AM CDT 01/31/2021 12:48 AM CDT Narrative [facility] - 01/31/2021 1:07 AM CDT Gwen Heath PA-C LAB - URINALYSIS O RDERABLES Performing Organization Address City/[facility]/ZIP Co de Phone Number [address] [address], [facility] [phone] * HCG URINE QUALITATIVE (01/31/2021 12:45 AM CDT) Test Urine Negative Negative 01/31/2021 1:01 AM CDT [facility] Urine URINE / Unknown Collection / Unknown 01/31/2021 12:45 AM CDT 01/31/2021 12:48 AM CDT Garrett Paulino MD LAB - URINALYSIS ORD ERABLES [address] [place] [address], [facility] [phone] documented in this encounter Visit Diagnoses Diagnosis Flank pain Abdominal pain, unspecified site documented in this encounter Administered Medications Inactive Administered Medications - up to 3 most recent administrations Medication Order MAR Action Action Date Dose Rate Site 0.9% NaCl injection 1-10 mL 1-10 mL, Intracatheter, PRN, Other, peripheral line flush, Starting on Wed01/30/21 at 1737, Until Wed01/31/21 at 0445, Flush peripheral IV catheter with 1-10 mL of normal saline before and after medications and prn to clear blood from the line or to verify patency. 0.9% NaCl injection 3 mL 3 mL, Intracatheter, EVERY 8 HOURS, First dose on Wed01/30/21 at 2200, Until Discontinued, Flush peripheral IV catheter with 3 mL of normal saline every 8 hours. 0.9% NaCl IV Bolus 1,000 mL, at 1,935.48 mL/hr, Administer over 31 Minutes, NOW, 1 dose, On Wed01/31/21 at 0015 $ New Bag/Syringe 01/31/2021 1:03 AM CDT 1,000 mL 1935.48 mL/hr droperidol (Inapsine) injection 0.625 mg 0.625 mg, Intravenous, NOW, 1 dose, On Wed01/31/21 at 0015 $ Given 01/31/2021 1:08 AM CDT 0.625 mg iopamidol (Isovue 370) 76 % contrast Intravenous, CONTRAST ONCE, Starting on Wed01/31/21 at 0142, Until Wed01/31/21 at 0445 $ Given - Contrast 01/31/2021 1:43 AM CDT 100 mL morphine injection 2 mg 2 mg, Intravenous, ONCE, 1 dose, On Wed01/31/21 at 0230 $ Given 01/31/2021 2:32 AM CDT 2 mg documented in this encounter Active and Recently Administered Medications Times are shown in CDT. Scheduled Medication Order 01/29/2021 01/30/2021 01/31/2021 0.9% NaCl injection 3 mL(Linked Group 1) 3 mL, Intracatheter, EVERY 8 HOURS, First dose on Wed01/30/21 at 2200, Until Discontinued, Flush peripheral IV catheter with 3 mL of normal saline every 8 hours. 2200 (Due) 0.9% NaCl IV Bolus (COMPLETED) 1,000 mL, at 1,935.48 mL/hr, Administer over 31 Minutes, NOW, 1 dose, On Wed01/31/21 at 0015 0103 ($ New Bag/Syri nge - Provider: Reji Sheffield RN)0134 (Due: Stopped - Provider: Reji Sheffield RN) droperidol (Inapsine) injection 0.625 mg (COMPLETED) 0.625 mg, Intravenous, NOW, 1 dose, On Wed01/31/21 at 0015 0108 ($ Given - Prov ider: Reji Sheffield RN) iopamidol (Isovue 370) 76 % contrast Intravenous, CONTRAST ONCE, Starting on Wed01/31/21 at 0142, Until Wed01/31/21 at 0445 0143 ($ Given - Cont rast - Provider: Jazlyn Amador, RT(R)CT) morphine injection 2 mg (COMPLETED) 2 mg, Intravenous, ONCE, 1 dose, On Wed01/31/21 at 0230 0232 ($ Given - Prov ider: Reji Sheffield RN) PRN Medication Order 01/29/2021 01/30/2021 01/31/2021 0.9% NaCl injection 1-10 mL(Linked Group 1) 1-10 mL, Intracatheter, PRN, Other, peripheral line flush, Starting on Wed01/30/21 at 1737, Until Wed01/31/21 at 0445, Flush peripheral IV catheter with 1-10 mL of normal saline before and after medications and prn to clear blood from the line or to verify patency. Linked Groups Order Group 1: SALINE LOCK, INSERT AND MAINTAIN (CANCELED) Routine, CONTINUOUS, Starting on Wed01/30/21 at 1745, Until Specified, New collection And 0.9% NaCl injection 3 mLJump to med 3 mL, Intracatheter, EVERY 8 HOURS, First dose on Wed01/30/21 at 2200, Until Discontinued, Flush peripheral IV catheter with 3 mL of normal saline every 8 hours. And 0.9% NaCl injection 1-10 mLJump to med 1-10 mL, Intracatheter, PRN, Other, peripheral line flush, Starting on 01/30/21 at 1737, Until Wed01/31/21 at 0445, Flush peripheral IV catheter with 1-10 mL of normal saline before and after medications and prn to clear blood from the line or to verify patency. documented in this encounter Care Teams Manager Unit Relationship Specialty Start Date End Date Joellen Kemp MD [id number] [facility] [address] [place] [address] PCP - General Pediatrics 12/10/15 documented as of this encounter
--- OUTSIDE RECORDS SUMMARY | 2024-10-04 10:24 | XMS_ITS | Encounter Summary ---
Author Organization [facility] Address [address] [facility] [facility] [place] [address] Care Team Providers Care Felt Cutting Machine Operator Name Role Phone Joellen Kemp MD Primary Care Provider [phone] Reason for Visit * Reason Onset Date Comments Pain Abdominal 12/21/2017 Encounter Details Date Type Department Care Team (Late st Contact Info) Description 12/21/2017 Telephone [facility] Pediatrics - poultry veterinarian [address] [facility] [place] [address] Marlyn Puga, RN Pain Abdominal Social History Tobacco Use Types Packs/Day Years Used Date Smoking Tobacco: Never Alcohol Use Standard Drinks/Week Comments No 0 (1 standard drink = 0.6 oz pur e alcohol) Sex and Gender Information Value Date Recorded Sex Assigned at Not on file Gender Identity Female 02/15/2018 8:16 AM CDT Sexual Orientation Not on file documented as of this encounter Miscellaneous Notes * Telephone Encounter - Marlyn Puga RN - 12/21/2017 12:08 PM CDT Call received from Cynthia Ivy, child's mother on advice of Dr. Suazo's office. Child began w/RLQ pain onset 12/19/17 and was seen at [facility] for possible appendicitis. CT w/contrast was performed and was advised to contact PMD. Called office and advised to make appt w/pediatric gynecology as problem might be ovarian cyst or other concerns. No u/s or additional labs noted. NKDA, meds up to date in chart. No previous hx of abd pain or cramping w/period. LMP 2 weeks ago. Small amt of spotting on Wednesday. Received treatment info from 12/19 visit at [facility] visit. CT report impression was no acute abdominal abnormality but did see a 2cm left corpus luteal cyst and a 1.9cm right ovarian cyst with a small amount of free fluid in the pelvis and a small mesenteric lymph node in the right mid abdomen measuring 1.2 cm at the greatest dimension, likely reactive. WBC 11.6 Hgb 12.0 Hct 36.5 Platelet 352 Sodium 145 Potassium 3.7 Chlorides 105 Bicarb 22 BUN 10 Creatinine 0.8 Glucose 96 Called mom and advised RN will check w/Dr. Madison regarding need for u/s on day of appointment or any additional laboratory studies. Mom very appreciative of information and will call w/questions or concerns. Appt made for 01/10/18 documented in this encounter Plan of Treatment Not on file documented as of this encounter Visit Diagnoses Not on filedocumented in this encounter Care Teams Felt Cutting Machine Operator Relationship Specialty Start Date End Date Joellen Kemp MD [id number] [address] PCP - General Pediatrics 12/10/15 documented as of this encounter
--- OUTSIDE RECORDS SUMMARY | 2024-10-04 10:24 | XMS_ITS | Encounter Summary ---
Author Organization [facility] Address [address] [facility] [place] [place] [address] Care Team Providers Care Solar Energy Systems Engineer Name Role Phone Joellen Kemp MD Primary Care Provider [phone] Reason for Visit * Reason Comments Ovarian Cyst Here for evaluation of ovarian cyst, U/s of pelvis complete before appt. RLQ pain consistent Encounter Details Date Type Department Care Team (Latest Contact Info) Description 01/10/2018 8:52 AM CDT - 01/10/2018 12:11 PM CDT Hospital Encounter [facility] Pediatrics - dinkey operator [address] [facility] [place] [address] [place] [address] [facility] [address] [place] [address] Anita Madison MD [address] [facility] [address] [place] [address] Discharge Disposition: Home or Self [...] Sign Reading Time Taken Comments Blood Pressure 106/72 01/10/2018 9:47 AM CDT Pulse - - Temperature - - Respiratory Rate - - Oxygen Saturation - - Inhaled Oxygen Concentration - - Weight 65.2 kg (143 lb 11.8 oz) 01/10/2018 9:47 AM CDT Height 155.6 cm (5' 1.25 ) 01/10/2018 9:47 AM CD T Body Mass Index 26.94 01/10/2018 9:47 AM CDT Body Mass Index Percentile 91.29% 01/10/2018 9:4 7 AM CDT Growth Chart: [facility] (Girls, 2- 20 Years) documented in this encounter Discharge Instructions * Patient Instructions* Anita Madison MD - 01/10/2018 10:32 AM CDT We will contact you with the lab results and schedule you for a follow up ultrasound in 6 weeks at the [facility] Hot Metal Mixer Operator Helper office you were seen at in 2013 [phone]) [address], [address] I've ordered the lidocaine patches to try (likely won't be covered on insurance so you'll have to pay out of pocket) and we will try Mobic15 mg tab once daily instead of the Motrin. OK to apply heating pad and/or ice if helpful. Avoid any sports or dance until after seen and evaluated by orthopedics about possible hip bursitisvs hip abductor tendonitis or other ortho issue. You do have a trigger point of the abdominal wall in the right lower quadrant. You do have an cyst that is consistent with an ovulation-related follicle of the right ovary. We will be following this up with the additional ultrasound to confirm. documented in this encounter Medications at Time of Discharge Medication Sig Dispensed Refills Start Date End Date fluticasone propionate (FLONASE) 50 MCG/ACT nasal spray [employer] 1 [employer] into each nostril once daily 1 Bottle [...] Progress Notes * Anita Madison MD - 01/10/2018 9:58 AM CDT 17 y.o. 6 m.o. here with mother Cynthia Ivy for Chief Complaint Patient presents with ??? Ovarian Cyst Here for evaluation of ovarian cyst, U/s of pelvis complete before appt. RLQ pain consistent Previously seen by me at [facility] office 2013 for dysmenorrhea and lower abdominal cramping. U/Sin office that day with normal uterus and left ovary, right ovary with irregularly shaped simple cyst 4.3 x 2.4 x 2.2 cm Child began w/RLQ pain onset 12/17/17 and was seen 12/19/17 at [facility] for possible appendicitis. 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 Also reported mild nausea and some VB and some stress. No urinary symptoms or vomiting, constipation, diarrhea. Pain worse with movement. LMP 2 weeks prior. Not SA. CT w/contrast was performed and was advised to contact PMD. Called office and advised to make appt w/pediatric gynecology as problem might be ovarian cyst or other concerns. No u/s or additional labs noted. Reviewed ER records 12/19/17 [facility] ?? Received treatment info from 12/19 visit at [facility] visit. CT report impression was no acute abdominal abnormality but did see a 2cm left corpus luteal cyst and a 1.9cm right ovarian cyst with a small amount of free fluid in the pelvis and a small mesenteric lymph node in the right mid abdomen measuring 1.2 cm at the greatest dimension, likely reactive. ?? WBC 11.6 Hgb 12.0 Hct 36.5 Platelet 352 ?? Sodium 145 Potassium 3.7 Chlorides 105 Bicarb 22 BUN 10 Creatinine 0.8 Glucose 96 Alb 4.1 AST 16 ALT 24 Alk phos 63 Lipase 71 UA neg except tr leuk esterase Since ER pain waxes and wanes. 5 some days. Today 7. Worst was 9 our of 10. Heat helps some. Ice no. Taking alternating Motrin and Tylenol. 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 Attending school. Confirmed never SA. Kelsey U/S today 01/10/18: Results for orders placed during the hospital encounter of 01/10/18 US PELVIS W DOPPLER OVARIES Narrative EXAMINATION: Pelvic sonogram with Doppler HISTORY: Right [...] arterial and venous flow in each ovary. Impression Right ovarian dominant follicle. Otherwise, normal examination of the pelvis without evidence of ovarian torsion. Dictated by Pierre Ortiz MD (cardiac cath lab radiology technologist). I, Irma Gomes, have personally reviewed the images and I agree with this report. WDWN well-appearing WF, nad. Ambulates normally. Does use elbows and grab behind thighs to sit fromsupine position on table after exam. No CVAT. Mildly tender right SI joint. Moderate right hip bursa tenderness. Left fine. Abd: Nondistended, generally nontender. Trigger point palpable RLQ just above inguinal canal in mid-axillary line. Reproduces pain. +Carnett test. No inguinal lad. No skin changes, ecchymoses or hernia noted. A/P: Abdominal pain, RLQ (right lower quadrant) - Plan: CRP (INFLAMMATORY), CBC W DIFFERENTIAL, CELIAC DISEASE ANTIBODY COMBO, HCG BETA BLOOD QUANTITATIVE, meloxicam (MOBIC) 15 MG tablet, lidocaine (LIDODERM) 5 % patch, CHLAMYDIA + GC AMPLIFIED PROBE, URINALYSIS W/MICROSCOPIC REFLEX TO CULTURE, CHLAMYDIA + GC AMPLIFIED PROBE, URINALYSIS W/MICROSCOPIC REFLEX TO CULTURE, CANCELED: URINALYSIS W/MICROSCOPIC REFLEX TO CULTURE, CANCELED: CHLAMYDIA + GC AMPLIFIED PROBE, CANCELED: CHLAMYDIA + GC AMPLIFIED PROBE, CANCELED: CHLAMYDIA + GC AMPLIFIED PROBE, CANCELED: URINALYSIS W/MICROSCOPIC REFLEX TO CULTURE, CANCELED: URINALYSIS W/MICROSCOPIC REFLEX TO CULTURE Adnexal cyst - Plan: CRP (INFLAMMATORY), CBC W DIFFERENTIAL, CELIAC DISEASE ANTIBODY COMBO, HCG BETA BLOOD QUANTITATIVE, CHLAMYDIA + GC AMPLIFIED PROBE, URINALYSIS W/MICROSCOPIC REFLEX TO CULTURE, CHLAMYDIA + GC AMPLIFIED PROBE, URINALYSIS W/MICROSCOPIC REFLEX TO CULTURE, CANCELED: URINALYSIS W/MICROSCOPIC REFLEX TO CULTURE, CANCELED: CHLAMYDIA + GC AMPLIFIED PROBE, CANCELED: CHLAMYDIA + GC AMPLIFIED PROBE, CANCELED: CHLAMYDIA + GC AMPLIFIED PROBE, CANCELED: URINALYSIS W/MICROSCOPIC REFLEX TO CULTURE, CANCELED: URINALYSIS W/MICROSCOPIC REFLEX TO CULTURE Trigger point of abdomen - Plan: CRP (INFLAMMATORY), CBC W DIFFERENTIAL, CELIAC DISEASE ANTIBODY COMBO, meloxicam (MOBIC) 15 MG tablet, lidocaine (LIDODERM) 5 % patch Bursitis of right hip, unspecified bursa - Plan: CRP (INFLAMMATORY), CBC W DIFFERENTIAL, CELIAC DISEASE ANTIBODY COMBO, meloxicam (MOBIC) 15 MG tablet Instructions: We will contact you with the lab results and schedule you for a follow up ultrasound in 6 weeks at the [facility] Hot Metal Mixer Operator Helper office you were seen at in 2013 [phone]) [address] [facility] [address] I've ordered the lidocaine patches to try (likely won't be covered on insurance so you'll have to pay out of pocket) and we will try Mobic15 mg tab once daily instead of the Motrin. OK to apply heating pad and/or ice if helpful. Avoid any sports or dance until after seen and evaluated by orthopedics about possible hip bursitisvs hip abductor tendonitis or other ortho issue. You do have a trigger point of the abdominal wall in the right lower quadrant. You do have an cyst that is consistent with an ovulation-related follicle of the right ovary. We will be following this up with the additional ultrasound to confirm. Anita Madison MD documented in this encounter Plan of Treatment Not on file documented as of this encounter Procedures Procedure Name Priority Date/Time Associated Diagnosis Comments LAB RESULTS ORDER 01/11/2018 4:5 9 PM CDT URINALYSIS W/MICROSCOPIC REFLEX TO CULTURE Routine 01/10/2018 11:03 AM CDT Abdominal pain, RLQ (right lower quadrant) Adnexal cyst CHLAMYDIA + GC AMPLIFIED PROBE Routine 01/10/2018 11:03 AM CDT Abdominal pain, RLQ (right lower quadrant) Adnexal cyst documented in this encounter Results * LAB RESULTS ORDER (01/11/2018 4:59 PM CDT) Narrative 01/11/2018 4:59 PM CDT Ordered by an unspecified provider. Scanned Document LAB - THERAPEUTIC DR [place]INA MONITORING ORDERABLES * HCG BETA BLOOD QUANTITATIVE (01/10/2018 12:12 PM CDT) hCG Quantitative <1 mIU/mL 01/11/20 18 3:20 PM CDT [facility] Blood BLOOD SPECIMEN / Unknown Lab Venipuncture / Unknown 01/10/2018 12:12 PM CDT 01/10/2018 12:35 PM CDT Narrative [facility] - 01/10/2018 3:20 PM CDT ? [...] Madison MD LAB - CHEMISTRY [place] [employer] [facility] [address] [place] [address] * CELIAC DISEASE ANTIBODY COMBO (01/10/2018 12:12 PM CDT) TTG/DGP Screen Negative Negative 01/12/2018 1:11 PM CDT [facility] ([facility]) Comment: For detection of IgA and IgG [...] CDT 01/10/2018 12:35 PM CDT Narrative [facility] ([facility]) - 01/12/2018 1:11 PM CDT Performed at: ??01 - [facility] ??[id number] Java Websphere Developer: Leroy Lew MD, Phone: ??[phone] Anita Madison MD LAB - SEROLOGY ORDER STEPHANIE [facility] ([facility]) [address] [place] [address] * (ABNORMAL) CBC W DIFFERENTIAL (01/10/2018 12:12 PM CDT) WBC 9.5 4.5 - 14.5 x10E9/L 01/10/2018 12:51 PM CDT [facility] WBC Corrected x10E9/L 01/10/2018 12:51 PM CDT [facility] RBC 4.48 4.10 - 5.10 x10E12/L 01/10/2018 12:51 PM CDT [facility] Hemoglobin 13.3 12.0 - 16.0 gm/dL 01/10/2018 12:51 PM CDT [facility] Hematocrit 40.1 36.0 - 47.0 % 01/10/2018 12:51 PM CDT [facility] MCV 89.5 78.0 - 98.0 fl 01/10/2018 12:51 PM CDT [facility] MCH 29.7 25.0 - 35.0 pg 01/10/2018 12:51 PM CDT [facility] MCHC 33.2 31.0 - 37.0 gm/dL 01/10/2018 12:51 PM CDT [facility] Platelet Count 372 100 - 400 x10E9/L 01/10/2018 12:51 PM CDT [facility] RDW-CV 12.2 11.5 - 14.0 % 01/10/2018 12:51 PM CDT [facility] MPV 10.1(H) 6.0 - 9.5 fl 01/10/2018 12:51 PM CDT [facility] Neutrophils % 56.6 24.0 - 66.0 % 01/10/2018 12:51 PM CDT [facility] Lymphocytes % 36.8 22.0 - 61.0 % 01/10/2018 12:51 PM CDT [facility] Monocytes % 5.3 3.0 - 15.0 % 01/10/2018 12:51 PM CDT [facility] Eosinophils % 0.5 0.0 - 10.0 % 01/10/2018 12:51 PM CDT [facility] Basophils % 0.4 % 01/10/2018 12:51 PM CDT [facility] Immature Granulocytes 0.4 % 01/10/2018 12:51 PM CDT [facility] Neutrophil Absolute 5.36 x10E9/L 01/10/2018 12:51 PM CDT [facility] Lymphocytes Absolute 3.49 x10E9/L 01/10/2018 12:51 PM CDT [facility] Monocytes Absolute 0.50 x10E9/L 01/10/2018 12:51 PM CDT [facility] Eosinophils Absolute 0.05 x10E9/L 01/10/2018 12:51 PM CDT [facility] Basophils Absolute 0.04 x10E9/L 01/10/2018 12:51 PM CDT [facility] Immature Granulocytes Absolute 0.04 x10E9/L 01/10/2018 12:51 PM CDT [facility] nRBC Auto 0 /100 WBC 01/10/2018 12:51 PM CDT [facility] Blood BLOOD SPECIMEN / Unknown Lab Venipuncture / Unknown 01/10/2018 12:12 PM CDT 01/10/2018 12:35 PM CDT Anita Madison MD LAB - HEMATOLOGY ORD ERABLES [facility] [address] [place] [address] * CRP (INFLAMMATORY) (01/10/2018 12:12 PM CDT) C-Reactive Protein 0.20 <=0.50 mg/dL 01/10/2018 1:19 PM [facility] Blood BLOOD SPECIMEN / Unknown Lab Venipuncture / Unknown 01/10/2018 12:12 PM CDT 01/10/2018 12:35 PM T Anita Madison MD LAB - CHEMISTRY [place] [facility] Organization Address City/State/[facility] Co de Phone Number [facility] [place] [address] * URINALYSIS W/MICROSCOPIC REFLEX TO CULTURE (01/10/2018 11:03 AM CDT) Color UA Straw Straw, Yellow 01/10/2018 11:42 AM [facility] Clarity UA Clear Clear 01/10/2018 11:42 AM [facility] Glucose UA Negative Negative 01/10/2018 11:42 AM [facility] Bilirubin UA Negative Negative 01/10/2018 11:42 AM [facility] Ketone UA Negative Negative 01/10/2018 11:42 AM [facility] Specific [place] UA 1.008 1.005 - 1.030 01/10/2018 11:42 AM [facility] Blood UA Negative Negative 01/10/2018 11:42 AM [facility] pH UA 5.0 5.0 - 8.0 pH 01/10/2018 11:42 AM [facility] Protein UA Negative Negative 01/10/2018 11:42 AM [facility] Urobilinogen UA Negative Negative mg/dL 01/10/2018 11:42 AM [facility] Nitrite UA Negative Negative 01/10/2018 11:42 AM [facility] Leukocyte UA Negative Negative 01/10/2018 11:42 AM [facility] RBC UA None Seen 0-5, None Seen # /hpf 01/10/2018 11:42 AM [facility] WBC UA 0-5 0-5, None Seen # /hpf 01/10/2018 11:42 AM [facility] Bacteria UA None Seen None Seen 01/10/2018 11:42 AM [facility] Squamous Epithelial Cells 0-2 None Seen, 0-2, 3-5 /hpf 01/10/2018 11:42 AM [facility] Reflex Status Culture not indicated 01/10/2018 11:42 AM CDT [facility] Urine URINE SPECIMEN OBTAINED BY CLEAN CATCH PROCEDURE / Unknown Collection / Unknown 01/10/2018 11:03 AM CDT 01/10/2018 11:19 AM CDT Narrative [facility] - 01/10/2018 11:42 AM CDT Anita Madison MD LAB - URINALYSIS ORD ERABLES Performing Organization Address City/[facility]/ZIP Co de Phone Number [facility] [address] [place] [address] * CHLAMYDIA + GC AMPLIFIED PROBE (01/10/2018 11:03 AM CDT) Chlamydia Amplified Probe Negative Negative 01/11/2018 7:54 AM CDT [facility] GC Amplified Probe Negative Negative 01/11/2018 7:54 AM CDT [facility] Urine URINE / Unknown Collection / Unknown 01/10/2018 11:03 AM CDT 01/10/2018 11:20 AM CDT Narrative [facility] - 01/11/2018 7:54 AM CDT This test was developed and its performance characteristics determined by the [facility], [facility]. Female urine specimens tested by the [facility] have not been cleared or approved by [...] - MICROBIOLOGY O RDERABLES Performing Organization Address City/[facility]/ZIP Co de Phone Number [facility] [address] [place] [address], [facility] [phone] documented in this encounter Visit Diagnoses Diagnosis Abdominal pain, RLQ (right lower quadrant)- Primary Abdominal pain, right lower quadrant Adnexal cyst Other specified symptom associated with female genital organs Trigger point of abdomen Bursitis of right hip, unspecified bursa documented in this encounter Care Teams Solar Energy Systems Engineer Relationship Specialty Start Date End Date Joellen Kemp MD [address] [facility] [place] [address] PCP - General Pediatrics 12/10/15 documented as of this encounter
--- OUTSIDE RECORDS SUMMARY | 2024-10-04 10:24 | XMS_ITS | Encounter Summary ---
Author Organization [facility] Address [address] [place] [address] Care Team Providers Care V Belt Finisher Name Role Phone Unavailable Primary Care Provider Unavailabl e Encounter Details Date Type Department Care Team (Late st Contact Info) Description 06/22/2005 Orders Only [facility] - Laboratory [address] [facility] [place] [address] ProviderTi MD Social History Tobacco Use Types Packs/Day Years Used Date Smoking Tobacco: Never Assessed Sex and Gender Information Value Date Recorded Sex Assigned at Not on file Gender Identity Female 02/15/2018 8:16 AM CDT Sexual Orientation Not on file documented as of this encounter Plan of Treatment Not on file documented as of this encounter Procedures Procedure Name Priority Date/Time Associated Diagnosis Comments GROSS EXAM PATHOLOGY ARMANDO 06/22/2005 9:20 AM CDT documented in this encounter Results * GROSS EXAM PATHOLOGY (06/22/2005 9:20 AM CDT) Result CASE NUMBER [id number] [facility] PATH REPORT Comment: ORDERING PHYSICIAN ??CESILIA [...] and interpreted by the attending (teaching) pathologist. Entry Level Staff Accountant ? KHUSHBU COOPER PATHOLOGIST ?Siva Wood M.D. ELECTRONICALLY ROGER Siva Wood MISCELLANEOUS SAMPLES / Unknown 06/22/2005 9:20 AM CDT 06/22/2005 10:55 AM CDT Historical Provider LAB - PATHOLOGY/C YTOLOGY ORDERABLES [facility] LAB PATH REPORT documented in this encounter Visit Diagnoses Not on filedocumented in this encounter
--- OUTSIDE RECORDS SUMMARY | 2024-10-04 10:24 | XMS_ITS | Encounter Summary ---
Author Organization [facility] Address [address] [facility] [address] Care Team Providers Care Lard Mixer Name Role Phone Joellen Kemp MD Primary Care Provider [phone] Reason for Referral * Radiology Services (Routine) - Closed Specialty Diagnoses / Procedures Referred By Brinda marcos Referred To Contact Diagnoses Cluster headache, not intractable, unspecified chronicity pattern Facial numbness Procedures MRI BRAIN NON CONTRAST Ritesh Thakkar MD [address] [place] [phone] [address] Referral ID Status Reason Start Date Expiration Date Visits Re quested Visits Authorized [id number] Closed 03/18/2016 05/17/2016 1 1 Reason for Visit * Radiology Services (Routine) - Closed Specialty Diagnoses / Procedures Referred By Brinda marcos Referred To Contact Diagnoses Cluster headache, not intractable, unspecified chronicity pattern Facial numbness Procedures MRI BRAIN NON CONTRAST Ritesh Thakkar MD [address] [place] [phone] [address] Referral ID Status Reason Start Date Expiration Date Visits Re quested Visits Authorized [id number] Closed 03/18/2016 05/17/2016 1 1 Encounter Details Date Type Department Care Team (Latest Contact Info) Description 03/20/2016 9:35 AM CDT - 03/20/2016 11:59 PM CDT Hospital Encounter [facility] Sandra Cole - MRI [address] [facility] [place] [address] Ritesh Thakkar MD [address] [place] [phone] Discharge Disposition: Home or Self Care Social [...] fluticasone propionate (FLONASE) 50 MCG/ACT nasal spray [place] 1 [place] into each nostril once daily 1 Bottle 1 03/06/2016 02/15/2018 ibuprofen (MOTRIN) 600 MG tablet Take 600 mg by mouth 01/29/2014 018 ibuprofen (MOTRIN) 800 MG tablet Take 800 mg by mouth every 6 hours as needed for Pain 01/10/2018 topiramate (TOPAMAX) 25 MG tabletIndications:Migra ine Take 2 Tabs by mouth at bedtime Reasons: Migraine Headache 60 Tab 2 03/17/2016 01/10/2018 ZOLMitriptan (ZOMIG) 2.5 MG tablet Take 1 Tab by mouth once as needed for Migraine (Max 2 tablets per 24 hours, 4 tablets per week.) 6 Tab 0 03/27/2016 01/10/2018 documented as of this encounter Plan of Treatment Not on file documented as of this encounter Procedures Procedure Name Priority Date/Time Associated Diagnosis Comments MRI BRAIN WO CONTRAST Routine 03/20/2016 10:54 AM CDT Cluster headache, not intractable, unspecified chronicity pattern Facial numbness documented in this encounter Results * MRI BRAIN NON CONTRAST (03/20/2016 10:54 AM CDT) Anatomical Region Laterality Modality Head Magnetic Resonan ce 03/20/2016 11:1 2 AM CDT Impressions 03/20/2016 11:55 AM CDT 1. Normal examination of the brain and [place] without findings to explain the [...] according to standard protocol. MRA of the dvsobh-ef-Fngfgo was performed using a gios-tk-eclryd technique without contrast. The sequences are distorted [...] according to standard protocol. MRA of the ubaqdu-va-Aqwaal was performed using a cmyi-id-uyaoau technique without contrast. The sequences are distorted [...] 1. Normal examination of the brain and [place] without findings to explain the patient's symptoms. Dictated by KENJI BARRIENTOS on 03/20/2016 11:40 AM I, Lea Enamorado, have personally reviewed the images and I agree with this report. Ritesh Thakkar MD MR ORDERABLES documented in this encounter Visit Diagnoses Diagnosis Cluster headache, not intractable, unspecified chronicity pattern Facial numbness Disturbance of skin sensation documented in this encounter Care Teams Lard Mixer Relationship Specialty Start Date End Date Joellen Kemp MD [address] [facility] [address] [place] [address] PCP - General Pediatrics 12/10/15 documented as of this encounter
--- OUTSIDE RECORDS SUMMARY | 2024-10-04 10:24 | XMS_ITS | Encounter Summary ---
Author Organization [facility] Address [address] [place] [address] Care Team Providers Care Quality Control Inspector Heading Name Role Phone Joellen Kemp MD Primary Care Provider [phone] Reason for Referral * Sleep (Routine) - Closed Specialty Diagnoses / Procedures Referred By Brinda marcos Referred To Contact Sleep Center Diagnoses Restlessness Procedures PEDIATRIC DIAGNOSTIC POLYSOMNOGRAM [id number] Musa Cabezas MD [address] [place] [address] Dept [id number] [place] [address] Referral ID Status Reason Start Date Expiration Date Visits Re quested Visits Authorized [id number] Closed 02/11/2016 05/10/2016 1 1 Reason for Visit * Reason Onset Date Comments Medication Issue 01/17/2016 Headache 01/17/2016 Encounter Details Date Type Department Care Team (Late st Contact Info) Description 01/17/2016 Telephone [facility] Pediatrics - Neurology [address] [place] [address] Musa Cabezas MD [address] [place] [address] Dept [id number] [place] [id number] Medication Issue; Headache Social History Tobacco Use Types Packs/Day Years Used Date Smoking Tobacco: Never Alcohol Use Standard Drinks/Week Comments Not Asked 0 (1 standard drink = 0.6 oz pur e alcohol) Sex and Gender Information Value Date Recorded Sex Assigned at Not on file Gender Identity Female 02/15/2018 8:16 AM CDT Sexual Orientation Not on file documented as of this encounter Miscellaneous Notes * Telephone Encounter - Kenya Russo RN - 02/05/2016 2:43 PM CDT Follow up with sleep results and no other recommendations at this time. Continue Topamax. * Telephone Encounter - Kenya Russo RN - 01/27/2016 9:35 AM CDT I called mother to obtain update and she states that headaches have worsened and she was brought tot ER yesterday for pain level 9. Migraine cocktail was given and it helped a great deal, but the headache returned today. She is rating her headache today as a 7. Mother will resume Topamax as directed. She will give 1/2 tablet nightly for 5 days, then increase to full tablet. Mom uses Melatonin already, she iniated a week ago. She is using 1mg nightly. Mom will check the bottle and give 3mg. Mom states she is very restless and agrees that sleep study may be helpful. Transferred to sleep to schedule. * Telephone Encounter - Kenya Russo RN - 01/24/2016 11:31 AM CDT I will re-forward to Dr. Cabezas. * Telephone Encounter - Gabriela Romo - 01/24/2016 10:36 AM CDT Mom states that Liberty's headaches arent any better and are lasting all day now. She isnt sleeping well at night d/t the headaches. She is complaining of being sound sensitive as well as light sensitive . Mom states she is also having some dizziness. * Telephone Encounter - eKnya Russo RN - 01/21/2016 1:36 PM CDT I called mother to obtain a follow up. She states she stopped the medication on Wednesday. She is still having headache, only slight improvement. She does not feel that it is getting any worse, but not better. She wonders if she could have a sinus infection because she is slightly congested. Using Ibuprofen as needed, but not effective. Having difficulty sleeping. + photosensitivity, + phonosensitivity and migraine is predominately left sided. Should she resume Topamax? Mom is getting appointment with PMD scheduled today. * Telephone Encounter - Kenya Russo RN - 01/17/2016 2:18 PM CDT I called mother and advised that Dr. Cabez[place] and his note is not available to me. She was prescribed Topamax for chronic headaches. She feels that the headaches have worsened since starting the Topamax. She is using Ibuprofen during the day, but is not effective. Mom would liketo know if she can stop the medication since it is obviously is not getting better. Mom states she was on a medication prior to this, but it was not causing additional pain. Discussed with Dr Roland and suggested she hold the dose thought the weekend. I have suggested that if headache continues or worsenes, she needs to take Liberty to the ER for an evaluation. We will follow up on Wednesday or Wednesday of next week for an update. No other medication at this time. Wt Readings from Last 3 Encounters: 01/14/16 68.6 kg (151 lb 3.8 oz) (91 %*, Z = 1.36) * Growth percentiles are based on [facility] 2-20 Years data. * Telephone Encounter - Tad Ferrara - 01/17/2016 1:08 PM CDT I spoke with mom advised that Liberty is experiencing waking up more frequently, the pain level is way worse than it was before she started taking the Topomax, started 01/14/16. Mom would like to know if medicine can be changed and what should she do for relief. documented in this encounter Plan of Treatment Not on file documented as of this encounter Results * PEDIATRIC DIAGNOSTIC POLYSOMNOGRAM (02/11/2016) Linked Results See Linked Results SLEEP CENTER 02/11/2016 Musa Cabezas MD SLEEP CENTER ORDER [facility] documented in this encounter Visit Diagnoses Diagnosis Restlessness- Primary Other signs and symptoms involving emotional state documented in this encounter Care Teams Quality Control Inspector Heading Relationship Specialty Start Date End Date Joellen Kemp MD [address] [facility] [address] [place] [address] PCP - General Pediatrics 12/10/15 documented as of this encounter
--- OUTSIDE RECORDS SUMMARY | 2024-10-04 10:24 | XMS_ITS | Encounter Summary ---
Author Organization [facility] Address [address] [place] [address] Care Team Providers Care Tail Ripper Name Role Phone Joellen Kemp MD Primary Care Provider [phone] Reason for Visit * Reason Comments Pain Head TO ER for headaches [address] negative[address] Followed by Dr[address] Cabezas. Dizzy today. No emesis. Light sensitivity. Encounter Details Date Type Department Care Team (Late st Contact Info) Description 01/26/2016 4:03 PM CDT - 01/26/2016 8:15 PM CDT Emergency ER at [address] [address] Patel Workman MD [address] [place] [phone] Migraine without aura and with status migrainosus, not intractable Discharge Disposition: Home or Self Care Social [...] Sign Reading Time Taken Comments Blood Pressure 132/88 01/26/2016 4:08 PM CDT Pulse 84 01/26/2016 8:09 PM CDT Temperature 36.1 ??C (97 ??F) 01/26/2016 8:09 PM CDT Respiratory Rate 16 01/26/2016 8:09 PM CDT Oxygen Saturation - - Inhaled Oxygen Concentration - - Weight 69.5 kg (153 lb 3.5 oz) 01/26/2016 4:08 P M CDT Height - - Body Mass Index - - documented in this encounter Discharge Instructions * Discharge Instructions* Patel Workman MD - 01/26/2016 7:57 PM CDT Images from the original note were not included. Migraine Headache WHAT YOU SHOULD KNOW: A migraine is a severe headache. The pain can be so severe that it interferes with your daily activities. A migraine can last a few hours up to several days. The exact cause of migraines is not known. It may be caused by changes in your body chemicals and extra sensitive nerves in your brain. INSTRUCTIONS: Medicines: Take medicine as soon as you feel a migraine begin. ?? Pain medicine: You may need medicine to take away or decrease pain. You may need a doctor's order for this medicine. Do not wait until the pain is severe before you take your medicine. ?? Migraine medicines: These are used to help prevent a migraine or stop it once it starts. ?? Antinausea medicine: This medicine may be given to calm your stomach and to help prevent vomiting. They can also help relieve pain. ?? Take your medicine as directed. Call your healthcare provider if you think your medicine is not helping or if you have side effects. Tell him if you are allergic to any medicine. Keep a list of the medicines, vitamins, and herbs you take. Include the amounts, and when and why you take them. Bring the list or the pill bottles to follow-up visits. Carry your medicine list with you in case of an emergency. Manage your symptoms: ?? Rest: Rest in a dark, quiet room. This will help decrease your pain. ?? Ice: Ice helps decrease pain. Use an ice pack or put crushed ice in a plastic bag. Cover the icepack with a towel and place it on your head where it hurts for 15 to 20 minutes every hour. ?? Heat: Heat helps decrease pain and muscle spasms. Use a small towel dampened with warm water or a heating pad, or sit in a warm bath. Apply heat on the area for 20 to 30 minutes every 2 hours. Youmay alternate heat and ice. Keep a headache diary: Write down when your migraines start and stop. Include your symptoms and what you were doing when a migraine began. Record what you ate or drank for 24 hours before the migraine started. Describe the pain and where it hurts. Keep track of what you did to treat your migraine and whether it worked. Follow up with your primary healthcare provider or neurologist as directed: Bring your headache diary with you when you see your primary healthcare provider. Write down your questions so you rememberto ask them during your visits. Prevent another migraine: ?? Do not smoke: If you smoke, it is never too late to quit. Tobacco smoke can trigger a migraine. It can also cause heart disease, lung disease, cancer, and other health problems. Quitting smoking will improve your health and the health of those around you. If you smoke, ask for information about how to stop. ?? Do not drink alcohol: Alcohol can trigger a migraine. It can also interfere with the medicines used to treat your migraine. ?? Get regular exercise: Exercise may help prevent migraines. Talk to your primary healthcare provider about the best exercise plan for you. ?? Manage stress: Stress may trigger a migraine. Learn new ways to relax, such as deep breathing. ?? Stick to a sleep schedule: Go to bed and get up at the same time each day. ?? Eat regular meals: Include healthy foods such as include fruit, vegetables, whole-grain breads, low-fat dairy products, beans, lean meat, and fish. Avoid trigger foods like chocolate, hard cheese,and red wine. Foods that contain gluten, nitrates, MSG, or artificial sweeteners may also trigger migraines. Caffeine, which is often used to treat migraines, can also trigger them. Contact your primary healthcare provider or neurologist if: ?? You have a fever. ?? Your migraines interfere with your daily activities. ?? Your medicines or treatments stop working. ?? You have questions about your condition or care. Return to the emergency department if: ?? You have a headache that seems different or much worse than your usual migraine headache. ?? You have a severe headache with a fever or a stiff neck. ?? You have new problems with speech, vision, balance, or movement. ?? You feel like you are going to faint, you become confused, or you have a seizure. ?? 2015 [employer]. Information is for End User's use only and may not be sold, redistributed or otherwise used for commercial purposes. All illustrations and images included in CareNotes?? are the copyrighted property of [employer]. or [employer]. The above information is an day care aide only. It is not intended as medical advice for individual conditions or treatments. Talk to your doctor, nurse or pharmacist before following any medical regimen to see if it is safe and effective for you. Migraine Headache A migraine headache is an intense, throbbing pain on one or both sides of your head. A migraine canlast for 30 minutes to several hours. CAUSES The exact cause of a migraine headache is not always known. However, a migraine may be caused when nerves in the brain become irritated and release chemicals that cause inflammation. This causes pain. SYMPTOMS ?? Pain on one or both sides of your head. ?? Pulsating or throbbing pain. ?? Severe pain that prevents daily activities. ?? Pain that is aggravated by any physical activity. ?? Nausea, vomiting, or both. ?? Dizziness. ?? Pain with exposure to bright lights, loud noises, or activity. ?? General sensitivity to bright lights, loud noises, or smells. Before you get a migraine, you may get warning signs that a migraine is coming (aura). An aura may include: ?? Seeing flashing lights. ?? Seeing bright spots, halos, or zig-zag lines. ?? Having tunnel vision or blurred vision. ?? Having feelings of numbness or tingling. ?? Having trouble talking. ?? Having muscle weakness. MIGRAINE TRIGGERS ?? Alcohol. ?? Smoking. ?? Stress. ?? Menstruation. ?? Aged cheeses. ?? Foods or drinks that contain nitrates, glutamate, aspartame, or tyramine. ?? Lack of sleep. ?? Chocolate. ?? Caffeine. ?? Hunger. ?? Physical exertion. ?? Fatigue. ?? Medicines used to treat chest pain (nitroglycerine), control pills, estrogen, and some blood pressure medicines. DIAGNOSIS A migraine headache is often diagnosed based on: ?? Symptoms. ?? Physical examination. ?? A CT scan or MRI of your head. TREATMENT Medicines may be given for pain and nausea. Medicines can also be given to help prevent recurrent migraines. HOME CARE INSTRUCTIONS ?? Only take pfze-gmz-mrwrtck or prescription medicines for pain or discomfort as directed by your caregiver. The use of long-term narcotics is not recommended. ?? Lie down in a dark, quiet room when you have a migraine. ?? Keep a journal to find out what may trigger your migraine headaches. For example, write down: ?? What you eat and drink. ?? How much sleep you get. ?? Any change to your diet or medicines. ?? Limit alcohol consumption. ?? Quit smoking if you smoke. ?? Get 7 to 9 hours of sleep, or as recommended by your caregiver. ?? Limit stress. ?? Keep lights dim if bright lights bother you and make your migraines worse. SEEK IMMEDIATE MEDICAL CARE IF: ?? Your migraine becomes severe. ?? You have a fever. ?? You have a stiff neck. ?? You have vision loss. ?? You have muscular weakness or loss of muscle control. ?? You start losing your balance or have trouble walking. ?? You feel faint or pass out. ?? You have severe symptoms that are different from your first symptoms. MAKE SURE YOU: ?? Understand these instructions. ?? Will watch your condition. ?? Will get help right away if you are not doing well or get worse. Document Released: 09/20/2006 Document Revised: 12/12/2012 Document Reviewed: 09/09/2012 ExitCare?? Patient Information ??2013 [employer]. documented in this encounter Medications at Time of Discharge Medication Sig Dispensed Refills Start Date End Date ibuprofen (MOTRIN) 600 MG tablet Take 600 mg by mouth 01/29/2014 018 ibuprofen (MOTRIN) 800 MG tablet Take 800 mg by mouth every 6 hours as needed for Pain 01/10/2018 topiramate (TOPAMAX) 25 MG tabletIndications:Migrai ne 1 tab by mouth at bedtime Reasons: Migraine Headache 30 Tab 4 01/14/2016 03/17/2016 documented as of this encounter ED Notes * Kirk Garcia RN - 01/26/2016 8:12 PM CDT Discharge instructions reviewed with mom. Reviewed reasons to seek follow up care and reasons to return to the ER. Opportunity for questions. Mom verbalized understanding of discharge plan. Pt awake and alert with NAD. Pt ambulated out of ED with mom at side. * Kirk Garcia RN - 01/26/2016 5:07 PM CDT Report received from BRENDA Henriquez. Resumed care of pt. * Patel Workman MD - 01/26/2016 4:49 PM CDT EMERGENCY DEPARTMENT 01/26/2016 Dear Doctor, We had the pleasure of caring for your patient, Liberty Ivy in our emergency department on 01/26/2016. A note from the provider(s) who cared for your patient is attached. Should you wish to access any laboratory results, please call . Should you wish to access any radiology results, please call , option 3. In addition, you can access patient information 24 hours a day, from any computer, through [employer], the online version of our electronic medical record. If you would like to use this service, please call Angeline Blackwood, Connectivity Coordinator, at . We appreciate the opportunity to care for your patients. If you would like additional information, please call the emergency department directly at . Sincerely, Patel Workman MD Division of Emergency Medicine [facility], [place] [facility] [place] DESIGNATED EMERGENCY DEPARTMENT Provider contact with the patient: 01/26/2016 16:49 Liberty Ivy [id number] [facility] EMERGENCY DEPARTMENT History Chief Complaint Patient presents with ??? Pain Head TO ER for headaches [address] negative[address] Followed by Dr[address] Cabezas. Dizzy today. No emesis. Light sensitivity. HPI 15 yo female with intermitant CONTRERAS's for about 5 months, recently getting worse was seen by Neurology/Dr Cabezas (01/17) and started on topamax but it seem like the CONTRERAS's were getting worse now here for evaluation. No fever or cough. CT scan of her head was also performed and read as normal No trauma orfalls [facility] neg for migraines No past medical history on file. No past surgical history on file. History Social History ??? Marital Status: Single Spouse Name: N/A Number of Children: N/A ??? Years of Education: N/A Occupational History ??? Not on file. Social History Main Topics ??? Smoking status: Never Smoker ??? Smokeless tobacco: Not on file ??? Alcohol Use: No ??? Drug Use: No ??? Sexual Activity: Not on file Other Topics Concern ??? Not on file Social History Narrative Medications Current Outpatient Prescriptions Medication Sig Dispense Refill ??? ibuprofen (MOTRIN) 800 MG tablet Take 800 mg by mouth every 6 hours as needed for Pain ??? topiramate (TOPAMAX) 25 MG tablet 1 tab by mouth at bedtime Reasons: Migraine Headache 30 Tab 4 Review of Systems Review of Systems Eyes: Positive for photophobia. Respiratory: Negative for cough. Cardiovascular: Negative for chest pain. Gastrointestinal: Positive for nausea. Negative for vomiting and constipation. Neurological: Positive for dizziness, light-headedness and headaches. Negative for tremors, seizures, syncope, speech difficulty, weakness and numbness. All other systems reviewed and are negative. BP 132/88 mmHg Pulse 82 Temp(Src) 98.2 ??F Resp 16 Wt 69.5 kg (153 lb 3.5 oz) Physical Exam Gen: Awake, alert, in no acute distress CV: Regular rate and rhythm, no murmurs appreciated, cap refill < 2 sec, 2+ radial pulse Chest: Clear to auscultation bilaterally, good aeration, no rales, rhonchi, wheezes, or retractions Abd: soft, non-tender, non-distended, normoactive bowel sounds Physical Exam IV NS bolus IV benadryl, compazine and toradol per migraine CPG @1820 PS=6 will repeat compazine per migraine CPG - PS=1 Procedures Procedures ECG Interpretation ECG Interpretation Lab/SPO2 Interpretation Progress Notes VSS Alert awake Taking po well Reassessment - improved PS after 2 rounds of migraine cpg ED Course Home on aleve Regular sleep, awake Stay hydrated, regular meals F/u Neurology prn Medical Decision Making Clinical Impression Migraine headaches w/exacerbation Final diagnoses: None * Florence Holley RN - 01/26/2016 4:25 PM CDT Introduced self to patient and mother. Pt awake/alert, quiet on stretcher. Awaiting MD assessment. documented in this encounter Plan of Treatment Not on file documented as of this encounter Visit Diagnoses Diagnosis Migraine without aura and with status migrainosus, not intractable Migraine without aura, without mention of intractable migraine with status migrainosus documented in this encounter Administered Medications Inactive Administered Medications - up to 3 most recent administrations Medication Order MAR Action Action Date Dose Rate Site 0.9 % nacl IV BOLUS 800 mL 800 mL, Intravenous, ONCE, 1 dose, On 01/26/16 at 1715 $ Given 01/26/2016 5:30 PM CDT 800 mL diphenhydrAMINE (BENADRYL) injection 25 mg 25 mg, Intravenous, NOW, 1 dose, On 01/26/16 at 1700, Max intravenous rate = 25 mg/min $ Given 01/26/2016 5:30 PM CDT 25 mg ketorolac (TORADOL) injection 15 mg 15 mg, Intravenous, NOW, 1 dose, On 01/26/16 at 1700 $ Given 01/26/2016 5:34 PM CDT 15 mg prochlorperazine (COMPAZINE) injection 10 mg 10 mg, Intravenous, NOW, 1 dose, On 01/26/16 at 1700, Max intravenous rate = 5 mg/min $ Given 01/26/2016 5:37 PM CDT 10 mg prochlorperazine (COMPAZINE) injection 10 mg 10 mg, Intravenous, NOW, 1 dose, On 01/26/16 at 1830, Max intravenous rate = 5 mg/min $ Given 01/26/2016 7:13 PM CDT 10 mg documented in this encounter Active and Recently Administered Medications Times are shown in CDT. Scheduled Medication Order 01/24/2016 01/25/2016 01/26/2016 0.9 % nacl IV BOLUS 800 mL (COMPLETED) 800 mL, Intravenous, ONCE, 1 dose, On 01/26/16 at 1715 1730 ($ Given - Prov ider: Kirk Garcia RN) diphenhydrAMINE (BENADRYL) injection 25 mg (COMPLETED) 25 mg, Intravenous, NOW, 1 dose, On 01/26/16 at 1700, Max intravenous rate = 25 mg/min 1730 ($ Given - Prov ider: Kirk Garcia RN) ketorolac (TORADOL) injection 15 mg (COMPLETED) 15 mg, Intravenous, NOW, 1 dose, On 01/26/16 at 1700 1734 ($ Given - Prov ider: Kirk Garcia RN) prochlorperazine (COMPAZINE) injection 10 mg (COMPLETED) 10 mg, Intravenous, NOW, 1 dose, On 01/26/16 at 1700, Max intravenous rate = 5 mg/min 1737 ($ Given - Prov ider: Kirk Garcia RN)1739 (Rx Stopped - Provider: Kirk Garcia RN) prochlorperazine (COMPAZINE) injection 10 mg (COMPLETED) 10 mg, Intravenous, NOW, 1 dose, On 01/26/16 at 1830, Max intravenous rate = 5 mg/min 1913 ($ Given - Prov ider: Kirk Garcia RN)1915 (Due: Rx Stopped - Provider: Kirk Garcia RN) documented in this encounter Care Teams Tail Ripper Relationship Specialty Start Date End Date Joellen Kemp MD [address] [facility] [address] [place] [address] PCP - General Pediatrics 12/10/15 documented as of this encounter
--- OUTSIDE RECORDS SUMMARY | 2024-10-04 10:24 | XMS_ITS | Encounter Summary ---
Author Organization [facility] Address [address] [facility] [place] [address] Care Team Providers Care Gospel Worker Name Role Phone Joellen Kemp MD Primary Care Provider [phone] Reason for Referral * Radiology Services (Routine) - Closed Specialty Diagnoses / Procedures Referred By Brinda marcos Referred To Contact Diagnoses Cluster headache, not intractable, unspecified chronicity pattern Facial numbness Procedures MRA ANGIO HEAD NON CONTRAST Ritesh Thakkar MD [address] [place] [id number] [address] Referral ID Status Reason Start Date Expiration Date Visits Re quested Visits Authorized [id number] Closed 03/18/2016 05/17/2016 1 1 Reason for Visit * Radiology Services (Routine) - Closed Specialty Diagnoses / Procedures Referred By Brinda marcos Referred To Contact Diagnoses Cluster headache, not intractable, unspecified chronicity pattern Facial numbness Procedures MRA ANGIO HEAD NON CONTRAST Ritesh Thakkar MD [address] [place] [phone] [address] Referral ID Status Reason Start Date Expiration Date Visits Re quested Visits Authorized [id number] Closed 03/18/2016 05/17/2016 1 1 Encounter Details Date Type Department Care Team (Latest Contact Info) Description 03/20/2016 9:35 AM CDT - 03/20/2016 11:59 PM CDT Hospital Encounter [facility] Cole - MRI [address] [facility], [place] [address] Ritesh Thakkar MD [address] [place] [phone] Discharge Disposition: Home or Self Care [...] fluticasone propionate (FLONASE) 50 MCG/ACT nasal spray [place] 1 [place] into each nostril once daily 1 Bottle [...] Name Priority Date/Time Associated Diagnosis Comments MRI ANGIO BRAIN ARTERIAL WO CONT Routine 03/20/2016 10:54 AM CDT Cluster headache, not intractable, unspecified chronicity pattern Facial numbness documented in this encounter Results * MRA ANGIO HEAD NON CONTRAST (03/20/2016 10:54 AM CDT) Anatomical Region Laterality Modality Head Magnetic Resonan ce 03/20/2016 11:1 2 AM CDT Impressions 03/20/2016 11:55 AM CDT 1. Normal examination of the brain and united [place] without findings to explain the [...] according to standard protocol. MRA of the cwiciq-vx-Bvfotb was performed using a rsxp-be-exxyvb technique without contrast. The sequences are distorted [...] according to standard protocol. MRA of the kzpynh-yj-Ereyvf was performed using a ibbf-zz-hyqndo technique without contrast. The sequences are distorted [...] 1. Normal examination of the brain and united [place] without findings to explain the patient's symptoms. Dictated by KENJI BARRIENTOS on 03/20/2016 11:40 AM I, Lea Enamorado, have personally reviewed the images and I agree with this report. Ritesh Thakkar MD MR ORDERABLES documented in this encounter Visit Diagnoses Diagnosis Cluster headache, not intractable, unspecified chronicity pattern Facial numbness Disturbance of skin sensation documented in this encounter Care Teams Gospel Worker Relationship Specialty Start Date End Date Joellen Kemp MD [address] [address] PCP - General Pediatrics 12/10/15 documented as of this encounter
--- OUTSIDE RECORDS SUMMARY | 2024-10-04 10:24 | XMS_ITS | Encounter Summary ---
Author Organization [facility] Address [address] [place] [address] Care Team Providers Care Front Line Leader Name Role Phone Joellen Kemp MD Primary Care Provider [phone] Reason for Referral * Radiology Services (Routine) - Closed Specialty Diagnoses / Procedures Referred By Brinda marcos Referred To Contact Diagnoses New onset of headaches Procedures CT HEAD NON CONTRAST Joellen Kemp MD [address] [place] [address] Referral ID Status Reason Start Date Expiration Date Visits Re quested Visits Authorized [id number] Closed 12/16/2015 06/13/2016 1 1 Reason for Visit * Radiology Services (Routine) - Closed Specialty Diagnoses / Procedures Referred By Brinda marcos Referred To Contact CT Scan Procedures NV CT SCAN,HEAD/BRAIN,W/O CONTRAST Joellen Schaefer MD [address] [place] [address] Scan [address] [place] [address]. [place] [address] Referral ID Status Reason Start Date Expiration Date Visits Re quested Visits Authorized [id number] Closed 12/06/2015 02/04/2016 1 1 Encounter Details Date Type Department Care Team (Latest Contact Info) Description 12/16/2015 3:03 PM CDT - 12/16/2015 11:59 PM CDT Hospital Encounter [facility] - CT Scan [address] [place] [address] Discharge Disposition: Home or Self Care Social [...] Take 600 mg by mouth 01/29/2014 018 documented as of this encounter Plan of Treatment Not on file documented as of this encounter Procedures Procedure Name Priority Date/Time Associated Diagnosis Comments CT HEAD WO CONTRAST Routine 12/16/2015 3 :18 PM CDT New onset of headaches documented in this encounter Results * CT HEAD NON CONTRAST (12/16/2015 3:18 [...] this report. Joellen Kemp MD CT ORDERABLES documented in this encounter Visit Diagnoses Diagnosis New onset of headaches Headache documented in this encounter Care Teams Front Line Leader Relationship Specialty Start Date End Date Joellen Kemp MD [address] [place] [address] PCP - General Pediatrics 12/10/15 documented as of this encounter
--- OUTSIDE RECORDS SUMMARY | 2024-10-04 10:24 | XMS_ITS | Encounter Summary ---
Author Organization [facility] Address [address] [facility] [place] [address] Care Team Providers Care Electronic Device Repairer Name Role Phone Joellen Kemp MD Primary Care Provider [phone] Reason for Referral * Sleep (Routine) - Closed Specialty Diagnoses / Procedures Referred By Brinda marcos Referred To Contact Sleep Center Diagnoses Restlessness Procedures PEDIATRIC DIAGNOSTIC POLYSOMNOGRAM [address] Musa Cabezas MD [address] [place], [place] [id number] [place] [address] Referral ID Status Reason Start Date Expiration Date Visits Re quested Visits Authorized [id number] Closed 02/11/2016 05/10/2016 1 1 Reason for Visit * Sleep (Routine) - Closed Specialty Diagnoses / Procedures Referred By Brinda marcos Referred To Contact Sleep Center Diagnoses Restlessness Procedures PEDIATRIC DIAGNOSTIC POLYSOMNOGRAM [address] Musa Cabezas MD [address] [place] [address] Dept [id number] [place] [address] Referral ID Status Reason Start Date Expiration Date Visits Re quested Visits Authorized [id number] Closed 02/11/2016 05/10/2016 1 1 Encounter Details Date Type Department Care Team (Latest Contact Info) Description 02/11/2016 8:00 PM CDT - 02/11/2016 11:59 PM CDT Hospital Encounter [facility] Pediatrics - Sleep Services [address] [place] [address] Musa Cabezas MD [address] [place] [address] Dept [id number] [place] [address] Discharge Disposition: Home or Self Care Social [...] 01/14/2016 03/17/2016 documented as of this encounter Plan of Treatment Not on file documented as of this encounter Procedures Procedure Name Priority Date/Time Associated Diagnosis Comments PEDIATRIC DIAGNOSTIC POLYSOMNOGRAM Routine 02/11/2016 Restlessness documented in this encounter Results * PEDIATRIC DIAGNOSTIC POLYSOMNOGRAM (02/11/2016) Linked Results See Linked Results SLEEP CENTER 02/11/2016 Musa Cabezas MD SLEEP CENTER ORDER [facility] documented in this encounter Visit Diagnoses Diagnosis REA (obstructive sleep apnea)- Primary Obstructive sleep apnea (adult) (pediatric) Restlessness Other signs and symptoms involving emotional state documented in this encounter Care Teams Electronic Device Repairer Relationship Specialty Start Date End Date Joellen Kemp MD [address] [place] [address] PCP - General Pediatrics 12/10/15 documented as of this encounter
--- OUTSIDE RECORDS SUMMARY | 2024-10-04 10:24 | XMS_ITS | Encounter Summary ---
Author Organization [facility] Address [address] [facility] [place] [address] Care Team Providers Care Guide Excursion Name Role Phone Joellen Kemp MD Primary Care Provider [phone] Reason for Visit * Reason Comments Headache headahces started 4- 5 months ago, c/o headaches almost everyday Encounter Details Date Type Department Care Team (Latest Contact Info) Description 01/14/2016 2:45 PM CDT - 01/14/2016 11:59 PM CDT Hospital Encounter [facility] Pediatrics - Neurology [address] [facility] [place] [address] Musa Duggan MD [address] [place] [address] Dept [id number] [place] [address] Discharge Disposition: Home or Self Care Social [...] Sign Reading Time Taken Comments Blood Pressure 100/62 01/14/2016 2:53 PM CDT Pulse - - Temperature - - Respiratory Rate - - Oxygen Saturation - - Inhaled Oxygen Concentration - - Weight 68.6 kg (151 lb 3.8 oz) 01/14/2016 2:53 P M CDT Height 155.8 cm (5' 1.34 ) 01/14/2016 2:53 PM CD T Body Mass Index 28.26 01/14/2016 2:53 PM CDT Body Mass Index Percentile 95.39% 01/14/2016 2:5 3 PM CDT Growth Chart: [facility] (Girls, 2- 20 Years) documented in this encounter Medications at Time [...] 01/14/2016 03/17/2016 documented as of this encounter Progress Notes * Musa Duggan MD - 01/26/2016 11:34 PM CDT [address] [address] DEPARTMENT OF NEUROLOGY NAME: LIBERTY IVY : 2000 UNIT #: [id number] CSN #: [id number] DATE SEEN: 01/14/[address] Kemp: I saw Liberty Ivy in consultation in Neurology Clinic at the [facility] on January 13. She is a 15-year-old young lady with a history of headaches that began about 5 months ago and now have converted to a daily headache. Initially, they were more left-sided headache and they would occur intermittently few times a week.They changed to a daily headache about 2 months ago and they intensified in character. They are nowbilateral and they may occur upon awakening or within an hour of getting up from bed in the morning. They are typically between 5 and 8 in intensity and described as a pounding headache with sensitivity to light. She is not typically sensitive to sound and has only rarely had vomiting. She does complain of some dizziness and unsteadiness with the headache but does not describe true vertigo. She does have difficulty concentrating and has missed a few days of school once or twice according to the family since 2 months ago. She finds it hard even to play softball when she enjoys this activity in the afternoons and evenings. Typically, the headache will last several hours and it often returns later in the day if she getsany improvement. She does not have any visual scotomata or specific warning. Characteristically, she takes ibuprofen 600 mg q.8 hours but does not use the medicine regularly or excessively. Liberty has not had this kind of headache before 5 months ago. She is generally described as a high achieving student and is in the 8th grade at [employer] where she has straight A record. The patient's family history is negative for migraine or significant headache disorder. There is nohistory of disturbances of consciousness or seizures in the family either. The patient did have some laboratory investigations routinely obtained. However, urinalysis or electrolytes were not available to me at today's visit. Her review of systems is remarkable for a feeling of the dry sensation and thirstiness frequently, so I obtained those studies. The patient has had a previous CT brain scan [facility], which[facility] unremarkable. There was no contrast administered during this study but no specific concerns were identified. The patient does have some difficulty on review of systems with sleep. She tends to have problems falling asleep at night sometimes, snores during sleep and then during the daytime she feels drowsy. She says her head hurts at night, so it is hard for her to fall asleep and her mother feels this hasresulted in irritability. Very frequently she comes home from school and takes a nap at this time. The patient has had a previous tonsillectomy. She has had no recent infections or significant illnesses. I reviewed her developmental history which was quite benign. She generally is a very social young lady and does not have any known psychiatric disturbance. As you know, you attempted to treat her with 10 mg of amitriptyline at nighttime for 1 week but it did not help and at that point she stopped the medicine spontaneously. The patient had braces placed on her teeth a year and a half ago but it does not seem to impact theoccurrence of these headaches. Psychologically, the patient does see a counselor as she had a friend from the family, whom she wasclose to, who committed suicide in the last year. The patient's blood pressure was age appropriate at 100/62 and cardiac exam revealed a regular sinus rhythm with normal heart tones. No murmurs and no bruits in the neck. Her weight is at about the 91st percentile and her height at about the 25th percentile. She did not appear grossly obese and herbody mass index was at 28.26 at the 95th percentile, indicating only mild overweight status. The patient had a thumb injury recently when she avulsed her nail traumatically. She was in a wrap old for her thumb at the time of our visit. Otherwise, she had no deformities or asymmetries in the limbs. No organomegaly and appears Aubrey stage IV. On mental status exam, Liberty was alert, oriented, and fluent in speech and did not appear significantly depressed. She was oriented x3. Patient's cranial nerves demonstrated full eye movements, normal pupillary responses to light and accommodation. Full visual wallace to confrontation. Normal ocular motility without nystagmus. Normal facial symmetry. Normal tongue and palate movements. She did not have enlarged tonsils. The patient's motor power and tone were normal without drift. Deep tendon reflexes were equal throughout and her gait and tandem walk were normal. IMPRESSION: Chronic daily headache transformed from migraine without aura. RECOMMENDATIONS: I began a trial of topiramate as the patient is modestly overweight in an attempt to control her pain. We suggested using naproxen sodium on a p.r.n. basis judiciously to avoid any withdrawal type headaches. I also obtained laboratory studies of UA and electrolytes to assure that she does not have any signs of diabetes mellitus or insipidus. I suggested a return visit here in the [facility] neurologically in about 5 months' time. I also suggested use of melatonin at bedtime and emphasized the importance of regular sleep hygiene with a regular bedtime hour and not letting the patient excessively sleep late on weekends. Further questions can be directed to me at the Department of Neurolog y, [facility]. Dictated By: MUSA DUGGAN MD FRANCINE/Hammad JOB ID: [id number] cc: Joellen Kemp M.D. DEPARTMENT OF NEUROLOGY * Musa Duggan MD - 01/14/2016 3:36 PM CDT Images from the original note were not included. See dictated note to PMD. tjg documented in this encounter Plan of Treatment Not on file documented as of this encounter Visit Diagnoses Diagnosis Migraine without aura and without status migrainosus, not intractable- Primary Migraine without aura, without mention of intractable migraine without mention of status migrainosus Chronic daily headache Headache documented in this encounter Care Teams Guide Excursion Relationship Specialty Start Date End Date Joellen Kemp MD [address] [address] PCP - General Pediatrics 12/10/15 documented as of this encounter
--- OUTSIDE RECORDS SUMMARY | 2024-10-04 10:24 | XMS_ITS | Encounter Summary ---
Author Organization [facility] Address [address] [facility] [place] [address] Care Team Providers Care Picked Edge Sewing Machine Operator Name Role Phone Joellen Kemp MD Primary Care Provider [phone] Reason for Visit * Reason Onset Date Comments Results 03/05/2016 Encounter Details Date Type Department Care Team (Late st Contact Info) Description 03/05/2016 Refill [facility] Pediatrics - Neurology [address] [place] [address] Musa Cabezas MD [address] [place] [address] Dept [id number] [place] [address] Results Social History Tobacco Use Types Packs/Day Years [...] encounter Miscellaneous Notes * Telephone Encounter - Awilda Barahona RN - 03/06/2016 9:02 AM CDT Spoke with mother and discussed 's recommendations. Mother states that Liberty always seems to have come congestion in her nose and face, sleeps poorly and then migraines. I explained to mother that likely they can all be related and the poor sleep can definitely be related to the mild sleepapnea. Discussed that wants to start her on flonase 1 spray to each nostril. Mother verbalized an understanding. Verified the pharmacy with mother. Mother states she has no further questions at this time. Mother will call in a few weeks to give an update on how she is doing on the flonase. * Telephone Encounter - Kenya Russo RN - 03/05/2016 5:[address] Cabezas has reviewed the sleep study results and mild sleep apnea is noted. If she is symptomatic, can try Flonase. Tried to call mother to obtain update. Rx pended for Flonase, 1 spray to each nostril daily, per verbal order Dr. Cabezas. documented in this encounter Plan of Treatment Not on file documented as of this encounter Visit Diagnoses Not on filedocumented in this encounter Care Teams Picked Edge Sewing Machine Operator Relationship Specialty Start Date End Date Joellen Kemp MD [facility] [place] [address] PCP - General Pediatrics 12/10/15 documented as of this encounter
--- OUTSIDE RECORDS SUMMARY | 2024-10-04 10:24 | XMS_ITS | Encounter Summary ---
Author Organization [facility] Address [address] [place] [address] Care Team Providers Care Pearl Peller Name Role Phone Joellen Kemp MD Primary Care Provider Reason for Referral * Radiology Services (Routine) - Closed Specialty Diagnoses / Procedures Referred By Brinda marcos Referred To Contact Diagnoses Cluster headache, not intractable, unspecified chronicity pattern Facial numbness Procedures MRI BRAIN NON CONTRAST Ritesh Thakkar MD [address] [place] [phone] [address] Referral ID Status Reason Start Date Expiration Date Visits Re quested Visits Authorized [id number] Closed 03/18/2016 05/17/2016 1 1 * Radiology Services (Routine) - Closed Specialty Diagnoses / Procedures Referred By Brinda marcos Referred To Contact Diagnoses Cluster headache, not intractable, unspecified chronicity pattern Facial numbness Procedures MRA ANGIO HEAD NON CONTRAST Ritesh Thakkar MD [address] [place] [phone] [address] Referral ID Status Reason Start Date Expiration Date Visits Re quested Visits Authorized [id number] Closed 03/18/2016 05/17/2016 1 1 Reason for Visit * Reason Onset Date Comments Concerns 03/13/2016 Results 03/13/2016 Encounter Details Date Type Department Care Team (Late st Contact Info) Description 03/13/2016 Refill [facility] Pediatrics - Neurology [address] [place] [address] Musa Cabezas MD [address] [place] [address] Dept [id number] [place] [phone] Concerns; Results Social History Tobacco Use Types Packs/Day [...] Telephone Encounter - Kenya Russo RN - 03/27/2016 5:32 PM CDT Discussed plan with mother and she is agreeable. Verbalizes understanding and able to return demonstrate. She will call back to update in 2 weeks. * Telephone Encounter - Kenya Russo RN - 03/27/2016 10:31 AM CDT Discussed with Dr. Cabezas and he recommends that we try using Zomig 2.5mg tablet as needed. Max 2 tablets/24 hours and max 4 tabs/week. Rx to [email or web address]. * Telephone Encounter - Kenya Russo RN - 03/27/2016 9:35 AM CDT I spoke with mother and the pain is more unilateral, on the left side. But, not in the same location as her facial pain. One area is in the back of the head, left side and the other area is more frontal. * Telephone Encounter - Kenya Russo RN - 03/26/2016 12:42 PM CDT I called mother and since increasing to Topamax 2 tabs per night (a week ago) she is still having the migraine pretty badly. Mom is giving Excedrin Migraine in the AM and it does help, but it is very brief in nature. Uses Aleve on occasion, but not helpful. Anything else indicated for acute pain. Rates as 8-9 on scale of 1-10 daily. Sometimes it goes to 4or 5, but very rarely. Mom is agreeable to continue Topamax for a few more week to see if any improvement. Anything for acute pain. * Telephone Encounter - Oksana Lamas RN - 03/20/2016 4:04 PM CDT topamax receipt confirmed by mother. * Telephone Encounter - Awilda Barahona RN - 03/20/2016 2:41 PM CDT Attempted to contact mother. Left a voicemail. Awaiting a return phone call. * Telephone Encounter - Ritesh Thakkar MD - 03/20/2016 1:32 PM CDT MRi brain normal. Topiramate 50 mg qhs * Telephone Encounter - Awilda Barahona RN - 03/20/2016 1:30 PM CDT MRI/MRA completed. Will forward results to . IMPRESSION ? 1. Normal examination of the brain and iqugmiut of [place] without findings to explain the patient's symptoms. * Telephone Encounter - Kenya Russo RN - 03/17/2016 2:57 PM CDT MRI/MRA scheduled for 03/20/16. Can call Wednesday for results. * Telephone Encounter - Kenya Russo RN - 03/17/2016 1:58 PM CDT Updated Rx re-forwarded to Dr. Thakkar. * Telephone Encounter - Kenya Russo RN - 03/17/2016 12:15 PM CDT I called and spoke with mother. She is agreeable to plan. Orders placed for MRI and MRA brain. Rx to pharmacy for increased Topamax dose. Mother verbalizes understating and no other questions atthis time. Transferred to imaging to schedule. Rx pended. * Telephone Encounter - Ritesh Thakkar MD - 03/17/2016 12:02 PM CDT Her symptoms of left sided face numbness and blurry vision are more consistent with a migraine aura. Will need MRi brain and MRA brain still since they are new and never reported before. Will increase the dose of topiramate to 50 mg qhs And can then be seen in clinic to discuss results * Telephone Encounter - Kenya Russo RN - 03/13/2016 3:34 PM CDT Mother called and left message that she is having some tingling on the left side of her face and causes blurry vision in the left eye. Per mother, it lasts about 5 minutes and happens several times aday over the past week. She just mentioned to mother today. Mom states she continues to have daily migraines and continues the Topamax and Flonase. Per mother, her sleep schedule has not improved. She is not using the melatonin because Liberty feelsthat it triggers the migraine. She noticed that her head hurt more once she took that. Topamax 25mg nighty. She seems to be tolerating well, but no change in the pain. Mom would like to know if an MRI is indicated or if she needs to be seen back in clinic. documented in this encounter Plan of Treatment Not on file documented as of this encounter Results * MRI BRAIN NON CONTRAST (03/20/2016 10:54 AM CDT) Anatomical Region Laterality Modality Head Magnetic Resonan ce 03/20/2016 11:1 2 AM CDT Impressions 03/20/2016 11:55 AM CDT 1. Normal examination of the brain and iqugmiut of Abbott without findings to explain the [...] according to standard protocol. MRA of the cygurq-wy-Puvozw was performed using a sjde-cg-ybxjzn technique without contrast. The sequences are distorted [...] according to standard protocol. MRA of the isyxxp-cy-Wvdzfd was performed using a uzpi-rh-isxfzl technique without contrast. The sequences are distorted [...] 1. Normal examination of the brain and iqugmiut of Abbott without findings to explain the [...] 1. Normal examination of the brain and iqugmiut of Abbott without findings to explain the [...] according to standard protocol. MRA of the foxtfs-gv-Ztcdhz was performed using a epzy-fv-lxemat technique without contrast. The sequences are distorted [...] according to standard protocol. MRA of the yedavc-ib-Mbhmcg was performed using a rhzi-om-tpnhxm technique without contrast. The sequences are distorted [...] 1. Normal examination of the brain and iqugmiut of Abbott without findings to explain the patient's symptoms. Dictated by KENJI BARRIENTOS on 03/20/2016 11:40 AM I, Lea Enamorado, have personally reviewed the images and I agree with this report. Ritesh Thakkar MD MR ORDERABLES documented in this encounter Visit Diagnoses Diagnosis Cluster headache, not intractable, unspecified chronicity pattern- Primary Facial numbness Disturbance of skin sensation Cluster headache, not intractable, unspecified chronicity pattern Facial numbness Disturbance of skin sensation Cluster headache, not intractable, unspecified chronicity pattern Facial numbness Disturbance of skin sensation documented in this encounter Care Teams Pearl Peller Relationship Specialty Start Date End Date Joellen Kemp MD [id number] [address] PCP - General Pediatrics 12/10/15 documented as of this encounter
--- OUTSIDE RECORDS SUMMARY | 2024-10-04 10:25 | XMS_ITS | Clinical Summary ---
Author Organization [facility] Address [facility] [facility] [place] [address] [place] [address] Care Team Providers Care Rig Site Engineer Name Role Phone Farhana Alicia MD Primary Care Provider Allergies Active Allergy Reactions Criticality Noted Date Comments Tape Rash Low 12/16/2020 Medications traMADol (ULTRAM) 50 MG tabletIndication s:Acute Pain < 3 Day Supply Take 1 tablet (50 mg total) by mouth every 6 (six) hours as needed for Pain. Indications : Acute Pain < 3 Day Supply 12 tablet 12/16/2020 Active traMADol (ULTRAM) 50 MG tabletIndication s:Acute Pain < 3 Day Supply Take 1 tablet (50 mg total) by mouth every 6 (six) hours as needed for Pain. Indications : Acute Pain < 3 Day Supply 12 tablet 11/11/2022 Active Social History Tobacco Use Types Packs/Day Years Used Date Smoking Tobacco: Never Smokeless Tobacco: Never Tobacco Cessation:Counseling Given: Not Answered Alcohol Use Standard Drinks/Week Comments Yes 8.3 (1 standard drink = 0.6 oz p ure alcohol) AUDIT-C Answer Date Recorded Q1: How often do you have a drink containing alc ohol? Never 12/16/2020 Average Number of Drinks Not on file 021 Frequency of Binge Drinking Not on file 12/02 Comments No Sex and Gender Information Value Date Recorded Sex Assigned at Not on file Legal Sex Female 6:49 PM CDT Gender Identity Not on file Sexual Orientation Not on file Last Filed Vital Signs Vital Sign Reading Time Taken Comments Blood Pressure 127/76 11/11/2022 7:28 PM [employer]ES [employer]MENT [employer]AD Pulse 64 11/11/2022 7:28 PM [employer]AD Temperature 36.6 ??C (97.8 ??F) 11/11/2022 7:28 PM CS T Respiratory Rate 18 11/11/2022 7:28 PM [employer]ES [employer]NABLEMENT LEAD Oxygen Saturation 100% 11/11/2022 7:28 PM SALES [employer]NABLEMENT LEAD Inhaled Oxygen Concentration - - Weight 73.5 kg (162 lb) 11/11/2022 7:30 PM SALES [employer]NABLEMENT LEAD Height 154.9 cm (5' 1 ) 11/11/2022 7:30 PM SALES ENABLEMENT LEAD Body Mass Index 30.61 11/11/2022 7:30 PM SALES [employer]NABLEMENT LEAD Plan of Treatment Health Maintenance Due Date Last Done Comments Cervical Cancer Screening Pap Smear (Age 21 to 29) Every 3 Years 2001 Cervical Cancer Screening 2001 Annual Physical 2004 DTaP, Tdap and Td Vaccines (6 - Tdap) 2012 01/14/2007, 01/11/2003, 01/20/2002, Additional history exists Hepatitis C 2019 Hepatitis B Vaccines (1 of 3 - 19+ 3-dose series) 2020 COVID-19 Vaccine ( season) 2024 Influenza Adult (#1) 2024 08/02/2020 HPV Vaccines Completed 09/14/2013, 05/04, 03/03/2013 Meningococcal Vaccine Aged Out No surjit john paul eligible based on patient's age to complete this topic Pneumococcal Vaccine: Pediatrics (0 to 5 Years) and At-Risk Patients (6 to 64 Years) Aged Out No longer eligible based on patient's age to complete this topic RSV Immunizations Under 20 Months Aged Out No longer eligible based on patient's age to complete this topic Insurance [facility] Care Teams Rig Site Engineer Relationship Specialty Start Date End Date Farhana Alicia MD [facility] [place] [id number] PCP - General INTERNAL MEDICINE 12/16/20
--- OUTSIDE RECORDS SUMMARY | 2024-10-04 10:25 | XMS_ITS | Encounter Summary ---
Author Organization [facility] Address [facility] [facility]. [place], [place] [id number] [place] [address] Care Team Providers Care Squeezer Operator Name Role Phone Farhana Alicia MD Primary Care Provider Encounter Details Date Type Department Care Team (Latest Contact Info) Description 11/11/2022 Travel Social History Tobacco Use Types Packs/Day Years Used Date Smoking Tobacco: Never Smokeless Tobacco: Never Alcohol Use Standard Drinks/Week Comments Yes 8.3 [...] on file Sexual Orientation Not on file COVID-19 Exposure Response Date Recorded In the last 10 days, have yo u been in contact with someone who was confirmed or suspected to have Coronavirus/COVID-19? No / Unsure 11/11/2022 7:21 PM RN TRANSPLANT documented as of this encounter Plan of Treatment Not on file documented as of this encounter Visit Diagnoses Not on filedocumented in this encounter Care Teams Squeezer Operator Relationship Specialty Start Date End Date Farhana Alicia MD [address] [place] [address] [place] [phone] PCP - General INTERNAL MEDICINE 12/16/20 documented as of this encounter
--- OUTSIDE RECORDS SUMMARY | 2024-10-04 10:25 | XMS_ITS | Encounter Summary ---
Author Organization [facility] Address [facility] [place] [address] [place] [address] Care Team Providers Care As400 Consultant Name Role Phone Farhana Morales MD Primary Care Provider Reason for Referral * Imaging (Emergency) - Closed Specialty Diagnoses / Procedures Referred By Contac t Referred To Contact RADIOLOGY Procedures CT ABD+PEL W CON Anai Funez PA [address] [place] [address] Phone: tel: fax: Referral ID Status Reason Start Date Expiration Date Visits Re quested Visits Authorized [id number] Closed 12/16/2020 01/16/2022 1 1 Reason for Visit * Reason Comments Abdominal Pain Encounter Details Date Type Department Care Team (Late st Contact Info) Description 12/16/2020 7:38 PM CDT - 12/17/2020 12:16 AM CDT Emergency [facility] Emergency Room [place], [place] [id number] Anai Funez PA [address] [place], [place] [id number] Abdominal Pain Discharge Disposition: Home or Self Care (Routine Discharge) Social History Tobacco Use Types Packs/Day Years Used Date Smoking Tobacco: Never Smokeless Tobacco: Never Alcohol Use Standard Drinks/Week Comments Never 0 (1 standard drink = 0.6 oz pur e alcohol) AUDIT-C Answer Date Recorded Q1: How [...] have Coronavirus / COVID-19? No / Unsure 12/16/2020 7:08 PM CDT documented as of this encounter Last Filed Vital Signs Vital Sign Reading Time Taken Comments Blood Pressure 111/64 12/17/2020 12:00 AM CDT Pulse 75 12/17/2020 12:00 AM CDT Temperature 36.6 ??C (97.9 ??F) 12/16/2020 7:11 PM CD T Respiratory Rate 18 12/17/2020 12:00 AM CDT Oxygen Saturation 99% 12/17/2020 12:00 AM CDT Inhaled Oxygen Concentration - - Weight 75.4 kg (166 lb 3.6 oz) 12/16/2020 7:11 P M CDT Height 154.9 cm (5' 1 ) 12/16/2020 7:11 PM CDT Body Mass Index 31.41 12/16/2020 7:11 PM CDT documented in this encounter Discharge Instructions * Discharge Instructions* ENDER Jackson - 12/16/2020 11:53 PM CDT Take pain medicine as needed Do not drink alcohol or drive with medication. Return to the ER if symptoms worsen. Follow up with doctor if symptoms persist. * Attachments The following attachments cannot be sent through Care Everywhere. * Severe Abdominal Pain Discharge Instructions, Adult (Azerbaijani) documented in this encounter Medications at Time of Discharge traMADol (ULTRAM) 50 MG tabletIndications :Acute Pain < 3 Day Supply Take 1 tablet (50 mg total) by mouth every 6 (six) hours as needed for Pain. Indications: Acute Pain < 3 Day Supply 12 tablet 12/16/2020 documented as of this encounter ED Notes * ENDER Jackson - 12/16/2020 11:39 PM CDT [place], [place] EMERGENCY DEPARTMENT ENCOUNTER HISTORICAL INFORMATION Primary Care Doctor: FARHANA MORALES MD Patient information was obtained primarily from the patient, nursing notes History/Exam limitations: None Provider at Bedside Date/Time Event User Comments 12/16/201947 Provider at Bedside Assessing Patient ANAI FUNEZ CHIEF COMPLAINT Abdominal Pain HPI Liberty Ivy is a 20-year-old female who presents RLQ ab pain. Pt states she developed right flank and RLQ ab pain late last week and was seen at another facility and had CT and was told she had ruptured ovarian cyst. Pt states pain continues and she saw her director mission today who diagreed with dx and was concerned pt has appendicitis. Pt denies fever. No abnormal vaginal discharge (had normal pelvic exam with gyne today). +nausea, no vomiting. PAST MEDICAL HISTORY Past Medical History: Diagnosis Date ??? PCOS (polycystic ovarian syndrome) Negative unless otherwise noted SURGICAL HISTORY History reviewed. No pertinent surgical history. Negative unless otherwise noted CURRENT MEDICATIONS Current Facility-Administered Medications: ??? ketorolac (TORADOL) injection 15 mg, 15 mg, Intravenous, Once, ENDER Jackson No current outpatient medications on file. ALLERGIES Allergies Allergen Reactions ??? Adhesive [Tape] Rash FAMILY HISTORY No family history on file. Negative unless otherwise noted SOCIAL HISTORY Social History Socioeconomic History ??? Marital status: Single Spouse name: Not on file ??? Number of children: Not on file ??? Years of education: Not on file ??? Highest education level: Not on file Occupational History ??? Not on file Social Needs ??? Financial resource strain: Not on file ??? Food insecurity Worry: Not on file Inability: Not on file ??? Transportation needs Medical: Not on file Non-medical: Not on file Tobacco Use ??? Smoking status: Never Smoker ??? Smokeless tobacco: Never Used Substance and Sexual Activity ??? Alcohol use: Never Frequency: Never ??? Drug use: Never ??? Sexual activity: Not on file Lifestyle ??? Physical activity Days per week: Not on file Minutes per session: Not on file ??? Stress: Not on file Relationships ??? Social connections Talks on phone: Not on file Gets together: Not on file Attends catholic service: Not on file Active member of club or organization: Not on file Attends meetings of clubs or organizations: Not on file Relationship status: Not on file ??? Intimate partner violence Fear of current or ex partner: Not on file Emotionally abused: Not on file Physically abused: Not on file Forced sexual activity: Not on file Other Topics Concern ??? Not on file Social History Narrative ??? Not on file Negative unless otherwise noted REVIEW OF SYSTEMS Review of Systems Constitutional: Negative for fever. Respiratory: Negative for shortness of breath. Gastrointestinal: Positive for abdominal pain and nausea. Negative for vomiting. Genitourinary: Negative for vaginal bleeding. All other systems reviewed and negative PHYSICAL EXAM VITAL SIGNS: Filed Vitals: 12/16/20 1911 12/16/20 2227 BP: 136/75 120/78 Pulse: 100 86 Resp: 16 18 Temp: 97.9 ??F (36.6 ??C) TempSrc: Temporal SpO2: 99% 100% Weight: 75.4 kg (166 lb 3.6 oz) Height: 5' 1 (1.549 m) Constitutional: Well developed, Well nourished, No acute distress, Non-toxic appearance. HENT: Normocephalic, Atraumatic, Bilateral external ears normal, Oropharynx moist, No oral exudates, Nose normal. Eyes: PERRL, EOMI, Conjunctiva normal, No discharge. Neck- Normal range of motion, No tenderness, Supple, No stridor. Respiratory: Normal breath sounds, No respiratory distress. Cardiovascular: Normal heart rate, Normal rhythm, no chest wall tenderness GI: Bowel sounds normal, Soft, moderate RLQ ttp, No masses, No pulsatile masses. Musculoskeletal: Intact distal pulses, No edema, No tenderness, No cyanosis, No clubbing. Good range of motion in all major joints. No tenderness to palpation or major deformities noted. Back- No tenderness. Integument: Warm, Dry, No erythema, No rash. Lymphatic: No lymphadenopathy noted. Neurologic: Alert & oriented x 3, Normal motor function, Normal sensory function, No focal deficits noted. Psychiatric: Affect normal, Judgment normal, Mood normal. Pulse Oximetry Interpretation Saturation: 99% Oxygen Delivery: room air Interpretation: normal Pertinent Labs: Results for orders placed or performed during the hospital encounter of 12/16/20 CBC W/DIFF AUTOMATED Result Value Ref Range WBC 6.4 4.5 - 13.0 x10'3/uL RBC 4.23 4.20 - 5.40 x10'6/uL HGB 12.4 12.0 - 16.0 G/DL HCT 37.7 (L) 38.0 - 48.0 % MCV 89.1 80.0 - 94.0 FL MCH 29.3 27.0 - 31.0 PG MCHC 32.9 32.0 - 36.0 G/DL RDW 13.3 11.5 - 14.5 % PLT 231 130 - 400 x10'3/uL MPV 9.6 9.3 - 12.2 FL DIFFERENTIAL TYPE MANUAL DIFFERENTIAL SEG NEUTROPHILS 33 % LYMPHOCYTES 59 % MONOCYTES 7 % BASOPHILS 1 % ABS. NEUTROPHIL COUNT 2.11 1.80 - 8.00 x10'3/uL ABS.LYMPHOCYTES CALCULATED 3.78 1.20 - 5.20 x10'3/uL ABS. MONOCYTES CALCULATED 0.45 0.24 - 0.86 x10'3/uL ABS. BASOPHIL CALCULATED 0.06 0.01 - 0.08 x10'3/uL RBC MORPHOLOGY RBC MORPHOLOGY APPEARS NORMAL. SLIDE REVIEWED. PLT EST. ADEQUATE PATHOLOGIST COMMENT PATHOLOGIST REVIEW TO FOLLOW. COMPREHENSIVE METABOLIC PANEL Result Value Ref Range GLUCOSE 106 (H) 70 - 99 MG/DL BUN 11 7 - 18 MG/DL CREATININE S/P/B 0.80 0.55 - 1.02 MG/DL SODIUM 139 136 - 145 MMOL/L POTASSIUM 3.6 3.5 - 5.1 MMOL/L CHLORIDE S/P/B 108 100 - 108 MMOL/L CO2 26.8 21 - 32 MMOL/L CALCIUM 8.7 8.5 - 10.1 MG/DL BILIRUBIN TOTAL S/P/B 0.2 0.2 - 1.1 MG/DL TOTAL PROTEIN S/P/B 7.2 6.4 - 8.2 G/DL ALBUMIN S/P/B 3.2 (L) 3.4 - 5.0 G/DL AST 31 15 - 37 U/L ALT 56 (H) 14 - 55 U/L ALKALINE PHOSPHATASE S/P/B 66 50 - 136 U/L ANION GAP 4.2 (L) 5 - 15 MMOL/L BUN CREATININE RATIO 13.7 6 - 26 A/G RATIO 0.8 (L) 1.0 - 2.0 RATIO eGFR Non-Afr. Amer. >90 >90 ML/MIN/1.73 M2 eGFR Afr. Amer. >90 >90 ML/MIN/1.73 M2 URINALYSIS WI REFLEX TO CULTURE Specimen: URINE, CLEAN CATCH Result Value Ref Range Specimen Type URINE CLEAN CATCH COLOR (U) LIGHT YELLOW TRANSPARENCY CLEAR Specific Meacham (U) 1.025 1.001 - 1.030 U PH 5.5 5.0 - 9.0 LEUKOCYTE ESTERASE 25 (A) NEGATIVE NITRITES NEGATIVE NEGATIVE PROTEIN (U) NEGATIVE <30 MG/DL URINE GLUCOSE NORMAL NORMAL MG/DL U KETONES NEGATIVE NEGATIVE MG/DL UROBILINOGEN NORMAL NORMAL MG/DL BILIRUBIN (U) NEGATIVE NEGATIVE MG/DL BLOOD NEGATIVE NEGATIVE CULTURE & SENSITIVITY INDICATED? SPECIMEN SETUP FOR CULTURE MUCUS RARE /LPF WBC/HPF 1 <6 /HPF RBC/HPF 1 <6 /HPF SQUAMOUS EPITHELIALS RARE /HPF POCT urine Result Value Ref Range URINE HCG TEST NEGATIVE NEGATIVE Internal Control performed as Expected? VALID VALID RADIOLOGY CT ABD+PEL W CON Final Result by User, [email or web address] (12/16 2141) Examination: CT ABD+PEL W CON Clinical history: Right lower quadrant pain Comparison: None DATE/TIME: 12/16/2020 9:10 PM Technique: Multiplanar images of the abdomen and pelvis were obtained following the uneventful intravenous administration of 100 mL Isovue 370. A dose lowering technique was used for this procedure, which may include, but is not limited to, dose reduction technique, automated exposure control, the use of iterative reconstruction, and ALARA (As Low As Reasonably Achievable) / Image Gently techniques. Findings: Liver is negative. Spleen is negative. Gallbladder is negative. Bile ducts are negative. Pancreas is negative. Adrenal glands are negative. Kidneys are negative. No hydronephrosis. Bladder is unremarkable. Tiny right ovarian cyst or follicle measuring 1.4 cm. Ovaries and uterus otherwise unremarkable. Abdominal aorta is normal caliber. No intra-abdominal lymphadenopathy. No free intraperitoneal air. There is a trace amount free pelvic fluid, nonspecific and possibly physiologic. Appendix not clearly visualized but there is no evidence of appendicitis. No focal intra-abdominal inflammatory change. No intra-abdominal fluid collection/abscess. No bowel obstruction or bowel wall thickening. Stomach and duodenum appear unremarkable. No acute osseous abnormality. IMPRESSION: 1. No acute abnormality identified to explain the patient's acute symptoms. 2. Trace free pelvic fluid. Referred By: Interpreted By: Edmund Blackman MD, 12/16/2020 9:35 PM MEDS GIVEN IN ER: Medications ketorolac (TORADOL) injection 15 mg (has no administration in time range) iopamidol (ISOVUE-370) 76 % injection 100 mL (100 mLs Intravenous Given 12/16/202128) ED COURSE & MEDICAL DECISION MAKING Pertinent Labs & Imaging studies reviewed. (See chart for details) NOTE: Pt was cared for in the middle of an unusual surge in the emergency department census directly related to the SARS/COVID19 pandemic. As such time indices may be inaccurate. Pt presents with continued RLQ ab pain with moderate ttp on palpation, otherwise resting comfortably. bloodwork is wnl with no leukocytosis and CT of ab does not show anything acute other than small ovarian cyst and mild free fluid. Appendix is not visualized but evidence of appendicitis but with now two neg CTs and no fever or leukocytosis after 3+ days of symptoms my suspicion is low. ? Disposition Discussion: I have discussed today's findings with the patient and provided information regarding the likely diagnosis. The patient has been given information regarding their treatment, follow up and concerning symptoms for which they should seek urgent or emergent attention. I have expressed the the importance of seeking attention should there be any new, or worsening symptoms or persistence of their condition. The patient is stable at discharge and has verbalized understanding of these instructions. DATE: 12/16/2020 11:39 PM PATIENT: Liberty Ivy Discharge Clinical Impressions: Abdominal pain Discharge Condition: stable Discharge Disposition: Patient discharge to home with ultram I spent time answering the patient's questions. Discharge instructions using teach back, understanding assessed and validated. Please refer to the exit designer/writer discharge instructions for details surrounding the discharge plan. I did reiterate with the patient that if an urgent need for immediate follow up comes up, not to hesitate to return to the ED. 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 States she got a CT scan on Wednesday and was told that she had a cyst burst . States her OB told her today she should come to the ED because she did not see a cyst and was concerned with her appendix. documented in this encounter Plan of Treatment Not on file documented as of this encounter Procedures Procedure Name Priority Date/Time Associated Diagnosis Comments CT ABD+PEL W CON STAT 12/16/2020 9:29 PM CDT PATHOLOGY SLIDE CONSULT STAT 12/16/2020 8:24 PM CDT COMPREHENSIVE METABOLIC PANEL STAT 12/16/2020 8:24 PM CDT CBC W/DIFF AUTOMATED STAT 12/16/2020 8:24 PM CDT POCT URINE (BACK OFFICE) STAT 12/16/2020 8:07 PM CDT URINE BACTERIA CULTURE Routine 8:00 PM CDT URINALYSIS WI REFLEX TO CULTURE STAT 12/16/2020 7:54 PM CDT documented in this encounter Results * CT ABD+PEL W CON (12/16/2020 9:29 PM CDT) Anatomical Region Laterality Modality Abdomen Computed Tomogra phy 12/16/2020 9:35 PM CDT Impressions 12/16/2020 9:41 PM CDT IMPRESSION: 1. ??No acute abnormality identified to explain the patient's acute symptoms. 2. ??Trace free pelvic fluid. Referred By: ?? Interpreted By: Edmund Blackman MD, 12/16/2020 9:35 PM Narrative 12/16/2020 9:41 PM CDT Examination: CT ABD+PEL W CON Clinical history: Right lower quadrant pain Comparison: None DATE/TIME: 12/16/2020 9:10 PM Technique: Multiplanar images of the abdomen and pelvis were obtained following the uneventful intravenous administration of 100 mL Isovue 370. A dose lowering technique was used for this procedure, which may include, but is not limited to, dose reduction technique, automated exposure control, the use of iterative reconstruction, and ALARA (As Low As Reasonably Achievable) / Image Gently techniques. Findings: Liver is negative. ??Spleen is negative. ??Gallbladder is negative. ??Bile ducts are negative. ??Pancreas is negative. Adrenal glands are negative. ??Kidneys are negative. ??No hydronephrosis. ??Bladder is unremarkable. ??Tiny right ovarian cyst or follicle measuring 1.4 cm. ??Ovaries and uterus otherwise unremarkable. ??Abdominal aorta is normal caliber. No intra-abdominal lymphadenopathy. ??No free intraperitoneal air. ??There is a trace amount free pelvic fluid, nonspecific and possibly physiologic. ??Appendix not clearly visualized but there is no evidence of appendicitis. ??No focal intra-abdominal inflammatory change. ??No intra-abdominal fluid collection/abscess. ??No bowel obstruction or bowel wall thickening. ??Stomach and duodenum appear unremarkable. ??No acute osseous abnormality. Procedure Note Edmund Blackman MD - 12/16/2020 Examination: CT ABD+PEL W CON Clinical history: Right lower quadrant pain Comparison: None DATE/TIME: 12/16/2020 9:10 PM Technique: Multiplanar images of the abdomen and pelvis were obtainedfollowing the uneventful intravenous administration of 100 mL Isovue 370.A dose lowering technique was used for this procedure, which may include,but is not limited to, dose reduction technique, automated exposurecontrol, the use of iterative reconstruction, and ALARA (As Low AsReasonably Achievable) / Image Gently techniques. Findings: Liver is negative. Spleen is negative. Gallbladder isnegative. Bile ducts are negative. Pancreas is negative. Adrenal glands are negative. Kidneys are negative. No hydronephrosis.Bladder is unremarkable. Tiny right ovarian cyst or follicle measuring1.4 cm. Ovaries and uterus otherwise unremarkable. Abdominal aorta isnormal caliber. No intra-abdominal lymphadenopathy. No free intraperitoneal air. Thereis a trace amount free pelvic fluid, nonspecific and possibly physiologic.Appendix not clearly visualized but there is no evidence of appendicitis.No focal intra-abdominal inflammatory change. No intra-abdominal fluidcollection/abscess. No bowel obstruction or bowel wall thickening.Stomach and duodenum appear unremarkable. No acute osseous abnormality. IMPRESSION: 1. No acute abnormality identified to explain the patient's acutesymptoms. 2. Trace free pelvic fluid. Referred By: Interpreted By: Edmund Blackman MD, 12/16/2020 9:[address] Final Resu lt * PATHOLOGY SLIDE CONSULT (12/16/2020 8:24 PM CDT) CBC PATHOLOGIST COMMENT PATHOLOGIST REVIEW ADDED TO REPORT 12/17/2020 3:16 PM CDT [facility] Comment: [id number] [id number] ATYPICAL LYMPHOCYTES, FAVOR REACTIVE REVIEWED BY PAM AZAR M.D., PATHOLOGIST. 12/16/2020 8:24 PM CDT Anai HANDLEY PATHOLOGY/CYTOLOGY ORDERAB LES Final Result [facility] [address] [place] [address], [place] [phone] * (ABNORMAL) COMPREHENSIVE METABOLIC PANEL (12/16/2020 8:24 PM CDT) [facility] GLUCOSE 106(H) 70 - 99 MG/DL 12/16/2020 8:57 PM CDT [facility] BUN 11 7 - 18 MG/DL 12/16/2020 8:57 PM CDT [facility] CREATININE S/P/B 0.80 0.55 - 1.02 MG/DL 12/16/2020 8:57 PM CDT [facility] SODIUM S/P/B 139 136 - 145 MMOL/L 12/16/2020 8:57 PM CDT [facility] POTASSIUM S/P/B 3.6 3.5 - 5.1 MMOL/L 12/16/2020 8:57 PM CDT [facility] CHLORIDE S/P/B 108 100 - 108 MMOL/L 12/16/2020 8:57 PM CDT [facility] CO2 26.8 21 - 32 MMOL/L 12/16/2020 8:57 PM CDT [facility] CALCIUM S/P/B 8.7 8.5 - 10.1 MG/DL 12/16/2020 8:57 PM CDT [facility] BILIRUBIN TOTAL S/P/B 0.2 0.2 - 1.1 MG/DL 12/16/2020 8:57 PM CDT [facility] Comment: THIS ASSAY IS NOT RECOMMENDED FOR PATIENTS UNDERGOING TREATMENT WITH ELTROMBOPAG DUE TO THE POTENTIAL FOR FALSELY ELEVATED RESULTS. TOTAL PROTEIN S/P/B 7.2 6.4 - 8.2 G/DL 12/16/2020 8:57 PM CDT [facility] ALBUMIN S/P/B 3.2(L) 3.4 - 5.0 G/DL 12/16/2020 8:57 PM CDT [facility] AST 31 15 - 37 U/L 12/16/2020 8:57 PM CDT [facility] ALT 56(H) 14 - 55 U/L 12/16/2020 8:57 PM CDT [facility] ALKALINE PHOSPHATASE S/P/B 66 50 - 136 U/L 12/16/2020 8:57 PM CDT [facility] ANION GAP 4.2(L) 5 - 15 MMOL/L 12/16/2020 8:57 PM CDT [facility] BUN CREATININE RATIO 13.7 6 - 26 12/16/2020 8:57 PM CDT [facility] A/G RATIO 0.8(L) 1.0 - 2.0 RATIO 12/16/2020 8:57 PM CDT [facility] EGFR NON-AFR. AMER. >90 >90 ML/MIN/1.7 3 M2 12/16/2020 8:57 PM CDT [facility] EGFR AFR. AMER. >90 >90 ML/MIN/1.7 3 M2 12/16/2020 8:57 PM CDT [facility] Comment: NOTE: eGFR is not calculated for patients <18 years of age. This is an estimated GFR (CKD EPI) and should not be used for calculating drug doses. 12/16/2020 8:24 PM CDT us Anai HANDLEY [facility] Final Resu lt [facility] [address] [place] [address], [place] [phone] * (ABNORMAL) CBC W/DIFF AUTOMATED (12/16/2020 8:24 PM CDT) WBC 6.4 4.5 - 13.0 x10'3/uL 12/16/2020 8:37 PM CDT [facility] RBC 4.23 4.20 - 5.40 x10'6/uL 12/16/2020 8:37 PM CDT [facility] HGB 12.4 12.0 - 16.0 G/DL 12/16/2020 8:37 PM CDT [facility] HCT 37.7(L) 38.0 - 48.0 % 12/16/2020 8:37 PM CDT [facility] MCV 89.1 80.0 - 94.0 FL 12/16/2020 8:37 PM CDT [facility] MCH 29.3 27.0 - 31.0 PG 12/16/2020 8:37 PM CDT [facility] MCHC 32.9 32.0 - 36.0 G/DL 12/16/2020 8:37 PM CDT [facility] RDW 13.3 11.5 - 14.5 % 12/16/2020 8:37 PM CDT [facility] PLT 231 130 - 400 x10'3/uL 12/16/2020 8:37 PM CDT [facility] MPV 9.6 9.3 - 12.2 FL 12/16/2020 8:37 PM CDT [facility] DIFFERENTIAL TYPE MANUAL DIFFERENTIAL 12/16/2020 9:07 PM CDT [facility] SEG NEUTROPHILS 33 % 9:07 PM CDT [facility] LYMPHOCYTES 59 % 12/16/2020 9:07 PM CDT [facility] MONOCYTES 7 % 12/16/2020 9:07 PM CDT [facility] BASOPHILS 1 % 12/16/2020 9:07 PM CDT [facility] ABS. NEUTROPHILS CALCULATED 2.11 1.80 - 8.00 x10'3/uL 12/16/2020 9:07 PM CDT [facility] ABS.LYMPHOCYTES CALCULATED 3.78 1.20 - 5.20 x10'3/uL 12/16/2020 9:07 PM CDT [facility] ABS. MONOCYTES CALCULATED 0.45 0.24 - 0.86 x10'3/uL 12/16/2020 9:07 PM CDT [facility] ABS. BASOPHIL CALCULATED 0.06 0.01 - 0.08 x10'3/uL 12/16/2020 9:07 PM CDT [facility] RBC MORPHOLOGY RBC MORPHOLOGY APPEARS NORMAL. SLIDE REVIEWED. 12/16/2020 9:07 PM CDT [facility] PLT EST. ADEQUATE 12/16/2020 9:07 PM CDT [facility] PATHOLOGIST COMMENT PATHOLOGIST REVIEW TO FOLLOW. 12/16/2020 9:07 PM CDT [facility] 12/16/2020 8:24 PM CDT [facility] Final Resu lt [facility] [address] [place] [id number], * POCT urine (12/16/2020 8:07 PM CDT) URINE HCG TEST NEGATIVE NEGATIVE Internal Control performed as Expected? VALID VALID Anai HANDLEY POINT OF CARE TEST ORDERAB LES Final Result * CULTURE URINE (12/16/2020 8:00 PM CDT) SPEC DESCRIPTION URINE CLEAN CATCH 12/16/2020 8:21 PM CDT [facility] SPECIAL REQUESTS NO SPECIAL REQUEST 12/16/2020 8:21 PM CDT [facility] CULTURE RESULT POLYMICROBIAL GROWTH CONSISTENT WITH NORMAL GENITAL MARILOU. ?? SUSCEPTIBILITIES NOT ROUTINELY PERFORMED. 12/18/2020 8:16 AM CDT [facility] URINE SPECIMEN OBTAINED BY CLEAN CATCH PROCEDURE / Unknown 12/16/2020 8:00 PM CDT 12/16/2020 8:20 PM CDT us Anai HANDLEY MICROBIOLOGY - GENERAL ORD ERABLES Final Result [facility] [address] [place] [address], * (ABNORMAL) URINALYSIS WI REFLEX TO CULTURE (12/16/2020 7:54 PM CDT) SPECIMEN TYPE URINE CLEAN CATCH 12/16/2020 7:54 PM CDT [facility] COLOR (U) LIGHT YELLOW 12/16/2020 8:20 PM CDT [facility] TRANSPARENCY CLEAR 12/16/2020 8:20 PM CDT [facility] SPECIFIC GRAVITY (U) 1.025 1.001 - 1.030 12/16/2020 8:20 PM CDT [facility] U PH 5.5 5.0 - 9.0 12/16/2020 8:20 PM CDT [facility] LEUKOCYTES (U) 25(A) NEGATIVE 12/16/2020 8:20 PM CDT [facility] NITRITES NEGATIVE NEGATIVE 12/16/2020 8:20 PM CDT [facility] PROTEIN (U) NEGATIVE <30 MG/DL 12/16/2020 8:20 PM CDT [facility] URINE GLUCOSE NORMAL NORMAL MG/DL 12/16/2020 8:20 PM CDT [facility] KETONES MG/DL (U) NEGATIVE NEGATIVE MG/DL 12/16/2020 8:20 PM CDT [facility] UROBILINOGEN NORMAL NORMAL MG/DL 12/16/2020 8:20 PM CDT [facility] BILIRUBIN (U) NEGATIVE NEGATIVE MG/DL 12/16/2020 8:20 PM CDT [facility] BLOOD (U) NEGATIVE NEGATIVE 12/16/2020 8:20 PM CDT [facility] CULTURE & SENSITIVITY INDICATED? SPECIMEN SETUP FOR CULTURE 12/16/2020 8:20 PM CDT [facility] MUCUS RARE /LPF 12/16/2020 8:20 PM CDT [facility] WBC/HPF 1 <6 /HPF 12/16/2020 8:20 PM CDT [facility] RBC/HPF 1 <6 /HPF 12/16/2020 8:20 PM CDT [facility] SQUAMOUS EPITHELIALS RARE /HPF 12/16/2020 8:20 PM CDT [facility] URINE SPECIMEN OBTAINED BY CLEAN CATCH PROCEDURE / Unknown 12/16/2020 7:54 PM CDT us Anai HANDLEY URINE ORDERABLES Final Res ult [facility] [address] [place] [address], [place] [phone] documented in this encounter Visit Diagnoses Diagnosis Abdominal pain- Primary Abdominal pain, unspecified site documented in this encounter Administered Medications Inactive Administered Medications - up to 3 most recent administrations Medication Order MAR Action Action Date Dose Rate Site iopamidol (ISOVUE-370) 76 % injection 100 mL 100 mL, Intravenous, IMG once as needed, Contrast, 1 dose, Starting on Wed12/16/20 at 2128, Until Wed12/16/20 at 2128 Given 12/16/2020 9:29 PM CDT 100 mLs Ri ght Arm ketorolac (TORADOL) injection 15 mg 15 mg, Intravenous, Once, 1 dose, On Wed12/16/20 at 2345, For IV administration, give over 15 seconds. Given 12/16/2020 11:44 PM CDT 15 mg documented in this encounter Active and Recently Administered Medications Due to Daylight Saving Time, this section may contain times in both SKIP LOCATOR and CDT. Scheduled Medication Order 12/15/2020 12/16/2020 12/17/2020 ketorolac (TORADOL) injection 15 mg (COMPLETED) 15 mg, Intravenous, Once, 1 dose, On Wed12/16/20 at 2345, For IV administration, give over 15 seconds. 2344 (Given - Provider: Angel Arguello RN) PRN Medication Order 12/15/2020 12/16/2020 12/17/2020 iopamidol (ISOVUE-370) 76 % injection 100 mL (COMPLETED) 100 mL, Intravenous, IMG once as needed, Contrast, 1 dose, Starting on Wed12/16/20 at 2128, Until Wed12/16/20 at 2128 2128 (Given - Provider: Nader Durbin RTR) documented in this encounter Care Teams As400 Consultant Relationship Specialty Start Date End Date Farhana Morales MD [address] [place] [id number] PCP - General INTERNAL MEDICINE 12/16/20 documented as of this encounter
--- OUTSIDE RECORDS SUMMARY | 2024-10-04 10:25 | XMS_ITS | Encounter Summary ---
Author Organization [facility] - [facility] Address [facility]. [place], [place] [id number] [place] [id number] Care Team Providers Care Bridge Construction Inspector Name Role Phone Farhana Alicia MD Primary Care Provider Encounter Details Date Type Department Care Team (Latest Contact Info) Description 12/16/2020 Travel Social History Tobacco Use Types Packs/Day [...] on filedocumented in this encounter Care Teams Bridge Construction Inspector Relationship Specialty Start Date End Date Farhana Alicia MD [facility] [place] [phone] PCP - General INTERNAL MEDICINE 12/16/20 documented as of this encounter
--- OUTSIDE RECORDS SUMMARY | 2024-10-04 10:25 | XMS_ITS | Encounter Summary ---
Author Organization [facility] Address [facility] [place] [address] [place] [address] Care Team Providers Care Dental Tech Name Role Phone Farhana Alicia MD Primary Care Provider Reason for Referral * Imaging (Emergency) - Closed Specialty Diagnoses / Procedures Referred By Contac t Referred To Contact RADIOLOGY Procedures CT ABD+PEL W IV CON ONLY Carl Shirley PA [address] [place] [address] Phone: tel: fax: Referral ID Status Reason Start Date Expiration Date Visits Re quested Visits Authorized [id number] Closed 11/11/2022 11/11/2023 1 1 NISTRATIVE OFFICE CLERK Reason for Visit * Reason Comments Abdominal Pain Encounter Details Date Type Department Care Team (Late st Contact Info) Description 11/11/2022 8:24 PM ADMINISTRATIVE OFFICE CLERK - 11/11/2022 11:51 PM ADMINISTRATIVE OFFICE CLERK Emergency [facility] [place] [address] Debbie Oliver PA [address] [address] Abdominal Pain Discharge Disposition: Home or Self [...] Coronavirus/COVID-19? No / Unsure 11/11/2022 7:21 PM ADMINISTRATIVE OFFICE CLERK documented as of this encounter Last Filed Vital Signs Vital Sign Reading Time Taken Comments Blood Pressure 127/76 11/11/2022 7:28 PM ADMINISTRATIVE OFFICE CLERK Pulse 64 11/11/2022 7:28 PM ADMINISTRATIVE OFFICE CLERK Temperature 36.6 ??C (97.8 ??F) 11/11/2022 7:28 PM CS T Respiratory Rate 18 11/11/2022 7:28 PM ADMINISTRATIVE OFFICE CLERK Oxygen Saturation 100% 11/11/2022 7:28 PM ADMINISTRATIVE OFFICE CLERK Inhaled Oxygen Concentration - - Weight 73.5 kg (162 lb) 11/11/2022 7:30 PM ADMINISTRATIVE OFFICE CLERK Height 154.9 cm (5' 1 ) 11/11/2022 7:30 PM ADMINISTRATIVE OFFICE CLERK Body Mass Index 30.61 11/11/2022 7:30 PM ADMINISTRATIVE OFFICE CLERK documented in this encounter Discharge Instructions * Discharge Instructions* ENDER Smith - 11/11/2022 11:43 PM ADMINISTRATIVE OFFICE CLERK Thank you for giving us the opportunity to care for you today. If at any point you are becoming more ill, please call your doctor or return here. You are always welcome back. Our practice is committed to providing you the very best in healthcare. We want to hear from you! Please fill out the survey you get from us. Your feedback is anonymous & helps us improve the patient experience for you and others in the community we serve. - BI Scott, CATHIE - Emergency Medicine Provider ADDITIONAL DISCHARGE INSTRUCTIONS: --Emergency Departments (ED) provide medical screening exams and initial stabilizing treatment of emergency medical conditions. Medicine is an inexact science and many conditions cannot be diagnosed or completely treated during a single ED visit. Your treating healthcare provider(s) today feel yourcondition has been stabilized so further care as an outpatient is reasonable. Emergency care does not substitute for complete, ongoing, or follow-up care by your primary care physician or apartment leasing consultant.Please mention to your follow-up physician that you were in the emergency department and request that they review your labs and/or imaging to ensure all findings are followed up on. --Your medication list was reviewed prior to treatment, and at discharge, by the treating provider for the purpose of this outpatient visit only. Please review this entire medication list with your pharmacist, primary care physician, and specialist(s). It is your responsibility to share any new medication instructions you received this visit with your doctor(s). Although no medicine is without risk, your healthcare provider today feels reasonable decisions were made concerning starting new medications and stopping or changing the dosages of your usual medications until you receive follow-up care. Take medications only as directed. Many medications can cause drowsiness, especially those for pain, anxiety, muscle spasms, nausea, and allergies. DO NOT drive, drink alcohol, operate power machinery, or participate in potentially dangerous activities if taking medicines that make you tired. Chronic pain is best managed by pain specialists or primary care physicians, so narcotic refills are not routinely dispensed in the ED. DO NOT take multiple medications containing acetaminophen (Tylenol), such as many narcotic drug combinations and rdnq-myg-ohegyey cold medicines. NISTRATIVE OFFICE CLERK * Attachments The following attachments cannot be sent through Care Everywhere. * Mesenteric Lymphadenitis Discharge Instructions (Spanish) * Heavy Periods (Spanish) documented in this encounter Medications at Time of Discharge traMADol (ULTRAM) 50 MG tabletIndications:Ac tangirnaq Pain < 3 Day Supply Take 1 tablet (50 mg total) by mouth every 6 (six) hours as needed for Pain. Indications: Acute Pain < 3 Day Supply 12 tablet 11/11/2022 traMADol (ULTRAM) 50 MG tabletIndications:Ac tangirnaq Pain < 3 Day Supply Take 1 tablet (50 mg total) by mouth every 6 (six) hours as needed for Pain. Indications: Acute Pain < 3 Day Supply 12 tablet 12/16/2020 ondansetron (ZOFRAN-ODT) 4 MG disintegrating tablet Take 1 tablet (4 mg total) by mouth every 8 (eight) hours as needed. 20 tablet 11/11/2022 3 documented as of this encounter ED Notes * ENDER Smith - 11/11/2022 9:37 PM CST [place], [place] EMERGENCY DEPARTMENT ENCOUNTER HISTORICAL INFORMATION Primary Care Doctor: FARHANA ALICIA MD Patient information was obtained primarily from the patient, nursing notes. History/Exam limitations: None Provider at Bedside Date/Time Event User Comments 11/11/221927 Provider at Bedside Assessing Patient CARL SHIRLEY -- CHIEF COMPLAINT Abdominal Pain Chief Complaint Patient presents with ??? Abdominal Pain HPI Liberty Alford is a 22-year-old female who presents with right sided lower abdominal pain as well as vaginal bleeding for the past 2-3 weeks. Patient states that she went to her SURGICAL NURSE PRACTITIONER office in [place] today and had an ultrasound completed which was reportedly normal. She states that they hadput in an order for labs to evaluate why she was having the persistent bleeding. She was advised tocome to the emergency department for further evaluation of her symptoms. She notes some nausea but no vomiting. States that the pain that she has been having comes and goes. Denies any urinary symptoms. Denies any prior abdominal surgery PAST MEDICAL HISTORY Past Medical History: Diagnosis Date ??? PCOS (polycystic ovarian syndrome) SURGICAL HISTORY History reviewed. No pertinent surgical history. CURRENT MEDICATIONS No current facility-administered medications for this encounter. Current Outpatient Medications: ??? ondansetron (ZOFRAN-ODT) 4 MG disintegrating tablet, Take 1 tablet (4 mg total) by mouth every 8 (eight) hours as needed., Disp: 20 tablet, Rfl: 0 ??? traMADol (ULTRAM) 50 MG tablet, Take 1 tablet (50 mg total) by mouth every 6 (six) hours as needed for Pain. Indications: Acute Pain < 3 Day Supply, Disp: 12 tablet, Rfl: 0 ??? traMADol (ULTRAM) 50 MG tablet, Take 1 tablet (50 mg total) by mouth every 6 (six) hours as needed for Pain. Indications: Acute Pain < 3 Day Supply, Disp: 12 tablet, Rfl: 0 ALLERGIES Allergies Allergen Reactions ??? Adhesive [Tape] Rash FAMILY HISTORY No family history on file. SOCIAL HISTORY Social History Socioeconomic History ??? Marital status: Single Tobacco Use ??? Smoking status: Never ??? Smokeless tobacco: Never Vaping Use ??? Vaping Use: Never used Substance and Sexual Activity ??? Alcohol use: Yes Alcohol/week: 8.3 standard drinks Types: 5 Shots of liquor per week ??? Drug use: Never REVIEW OF SYSTEMS Constitutional: Denies fever, chills, weight loss or weakness. Skin: Denies rash. HEENT: Denies sore throat or ear pain. Respiratory: Denies cough or shortness of breath. Cardiovascular: Denies chest pain, palpitations or swelling. GI: +Abdominal pain. Denies vomiting, or diarrhea. : +Vaginal bleeding. Denies dysuria, urinary frequency. Musculoskeletal: Denies back pain. Neurologic: Denies headache, focal weakness or sensory changes. Psychiatric: Denies depression, suicidal ideation or homicidal ideation. See HPI for further details. All systems negative except as marked. Physical Exam VITAL SIGNS: Filed Vitals: 11/11/22 1928 11/11/22 1930 BP: 127/76 Pulse: 64 Resp: 18 Temp: 97.8 ??F (36.6 ??C) TempSrc: Temporal SpO2: 100% Weight: 72.9 kg (160 lb 11.5 oz) 73.5 kg (162 lb) Height: 5' 1 (1.549 m) 5' 1 (1.549 m) Constitutional: Well developed, No acute distress, Non-toxic appearance. Integument: Warm, Dry, No erythema, No rash. HEENT: Normocephalic, Atraumatic, Conjunctiva normal Neck/Back- Normal range of motion, No gross abnormality Respiratory: Normal breath sounds, No respiratory distress. Cardiovascular: Normal heart rate, Normal rhythm GI: Soft, RLQ tenderness to palpation without guarding or rebound. Musculoskeletal: Good ROM, no deformities noted Neurologic: Alert & oriented x 3, No focal deficits noted. Psychiatric: Affect normal, Judgment normal, Mood normal. EKG (interpreted by ED provider) No results found for this visit on 11/11/22. LABORATORY Results for orders placed or performed during the hospital encounter of 11/11/22 CBC W/DIFF AUTOMATED Result Value Ref Range WBC 8.4 4.5 - 11.0 x10'3/uL RBC 4.65 4.20 - 5.40 x10'6/uL HGB 13.9 12.0 - 16.0 G/DL HCT 43.0 38.0 - 48.0 % MCV 92.5 81.0 - 99.0 FL MCH 29.9 27.0 - 31.0 PG MCHC 32.3 32.0 - 36.0 G/DL RDW 12.5 11.5 - 14.5 % PLT 327 130 - 400 x10'3/uL MPV 9.7 9.3 - 12.2 FL DIFFERENTIAL TYPE AUTOMATED DIFFERENTIAL NEUTROPHILS 46.6 % LYMPHOCYTES 44.1 % MONOCYTES 5.7 % EOSINOPHILS 2.9 % BASOPHILS 0.5 % IMMATURE GRANS 0.2 % ABS. NEUTROPHILS TOTAL 3.92 1.80 - 7.70 x10'3/uL ABS. LYMPHOCYTES 3.71 1.00 - 4.80 x10'3/uL ABS. MONOCYTES 0.48 0.24 - 0.86 x10'3/uL ABS. EOSINOPHILS 0.24 0.04 - 0.36 x10'3/uL ABS. BASOPHILS 0.04 0.01 - 0.08 x10'3/uL ABS. IMMATURE GRANULOCYTES 0.02 0.00 - 0.49 x10'3/uL COMPREHENSIVE METABOLIC PANEL Result Value Ref Range GLUCOSE 100 (H) 70 - 99 MG/DL BUN 16 7 - 18 MG/DL CREATININE S/P/B 0.96 0.55 - 1.02 MG/DL SODIUM 139 136 - 145 MMOL/L POTASSIUM 3.8 3.5 - 5.1 MMOL/L CHLORIDE S/P/B 108 100 - 108 MMOL/L CO2 27.7 21 - 32 MMOL/L CALCIUM 9.4 8.5 - 10.1 MG/DL BILIRUBIN TOTAL S/P/B 0.2 0.2 - 1.2 MG/DL TOTAL PROTEIN S/P/B 7.3 6.4 - 8.2 G/DL ALBUMIN S/P/B 3.5 3.4 - 5.0 G/DL AST 15 15 - 37 U/L ALT 25 14 - 55 U/L ALKALINE PHOSPHATASE S/P/B 65 50 - 136 U/L ANION GAP 3.3 (L) 5 - 15 MMOL/L BUN CREATININE RATIO 16.8 6 - 26 A/G RATIO 0.9 (L) 1.0 - 2.0 RATIO GFR ESTIMATE 86 (L) >90 ML/MIN/1.73 M2 LIPASE Result Value Ref Range LIPASE 126 73 - 393 UNITS/L URINALYSIS Result Value Ref Range Specimen Type URINE CLEAN CATCH COLOR (U) LIGHT YELLOW TRANSPARENCY CLEAR SPECIFIC GRAVITY (U) 1.023 1.001 - 1.030 U PH 5.5 5.0 - 9.0 LEUKOCYTES (U) 250 (A) NEGATIVE NITRITES NEGATIVE NEGATIVE PROTEIN (U) NEGATIVE <30 MG/DL URINE GLUCOSE NORMAL NORMAL MG/DL KETONES (U) NEGATIVE NEGATIVE MG/DL UROBILINOGEN NORMAL NORMAL MG/DL BILIRUBIN (U) NEGATIVE NEGATIVE MG/DL BLOOD 2+ (A) NEGATIVE CULTURE & SENSITIVITY INDICATED? SPECIMEN SETUP FOR CULTURE MUCUS RARE /LPF WBC/HPF 5 <6 /HPF RBC/HPF 4 <6 /HPF SQUAMOUS EPITHELIALS RARE /HPF POCT urine Result Value Ref Range URINE HCG TEST NEGATIVE NEGATIVE Internal Control: VALID VALID RADIOLOGY CT ABD+PEL W IV CON ONLY Final Result by User, [id number] (11/11 2316) INDICATION: Right lower quadrant abdominal pain COMPARISON: CT, 16 Dec 2020 TECHNIQUE: CT images of the abdomen and pelvis were obtained following the administration of IV contrast. A dose lowering technique was used for this procedure, which may include, but is not limited to, dose reduction technique, automated exposure control, the use of iterative reconstruction, and ALARA (As Low As Reasonably Achievable) / Image Gently techniques. FINDINGS: Limited visualization of the lower thorax reveals no acute abnormality. Normal size liver. No focal hepatic lesion. Gallbladder is decompressed postprandial state. Main portal vein, splenic vein, SMV, SMA enhance. No retroperitoneal lymphadenopathy. No evidence of bowel obstruction or inflammation. Appendix is not well visualized. No pericecal inflammation. No abnormal fluid collection in the abdomen. A few prominent pericecal mesenteric lymph nodes. Normal size spleen. Adrenal glands within normal limits. Pancreas within normal limits. Kidneys enhance symmetrically. No hydronephrosis or hydroureter. Bladder wall is unremarkable for degree of distention. Uterus within normal limits. Dominant follicle in right ovary. No acute osseous abnormality. IMPRESSION: 1. Nonvisualization of the appendix. No pericecal inflammation or abnormal fluid collection to suggest acute appendicitis. 2. A few prominent pericecal mesenteric lymph nodes are nonspecific and could be physiologic, though can also be seen in processes such as mesenteric adenitis. 3. Dominant follicle right ovary. Referred By: Interpreted By: Casper Fragoso MD, 11/11/2022 11:01 PM PROCEDURES Procedures MDM ED Course as of 11/11/22 [id number] 11, [id number] CT: IMPRESSION: 1. Nonvisualization of the appendix. No pericecal inflammation or abnormal fluid collection to suggest acute appendicitis. 2. A few prominent pericecal mesenteric lymph nodes are nonspecific and could be physiologic, though can also be seen in processes such as mesenteric adenitis. 3. Dominant follicle right ovary. [HS] 2341 Advised pt of findings of CT scan which suggest possible mesenteric adenitis which could be causing pts RLQ pain. Advised on likely viral origin and symptomatic treatment. Will dc home with zofran and medication for pain. Advised to keep follow up with AIRCRAFT MAINTENANCE MANAGER for further evaluation of prolonged vaginal bleeding. H&H stable. [HS] ED Course User Index [HS] ENDER Smith I have discussed today's findings with the [...] and has verbalized understanding of these instructions. Impression/Disposition SNOMED CT(R) 1. Mesenteric adenitis MESENTERIC LYMPHADENITIS 2. Menorrhagia MENORRHAGIA Disposition: Discharge Medications iopamidol (ISOVUE-370) 76 % injection 100 mL (100 mLs Intravenous Given 11/11/22 0576) Current Discharge Medication List START taking these medications Details ondansetron (ZOFRAN-ODT) 4 MG disintegrating tablet Take 1 tablet (4 mg total) by mouth every 8 (eight) hours as needed. Qty: 20 tablet, Refills: 0 Class: Eprescribe Pharmacy: [id number] - [place], [place] - [address] AT [facility] (Ph #: [phone]) !! traMADol (ULTRAM) 50 MG tablet Take 1 tablet (50 mg total) by mouth every 6 (six) hours as needed for Pain. Indications: Acute Pain < 3 Day Supply Qty: 12 tablet, Refills: 0 Class: Eprescribe Pharmacy: [facility] #[id number] [address] AT [facility] (Ph #: [phone]) Associated Diagnoses: Mesenteric adenitis; Menorrhagia !! - Potential duplicate medications found. Please discuss with provider. ENDER SMITH PA 11/11/22 2344 Cosigned by Narendra Khan MD,PHD at 11/12/2022 1:42 AM ADMINISTRATIVE OFFICE CLERK NISTRATIVE OFFICE CLERK NISTRATIVE OFFICE CLERK * ENDER Medeiros - 11/11/2022 7:34 PM CST [place], [place] EMERGENCY DEPARTMENT ENCOUNTER Medical Screening Examination 11/11/22 7:34 PM Chief Complaint : Abdominal Pain HPI : Liberty Alford is a 22-year-old female who presents for evaluation of worsening abdominal pain over the past day. Reports vaginal bleeding for 2 weeks. Associated with nausea. Vital Signs: Filed Vitals: 11/11/22 1928 11/11/22 1930 BP: 127/76 Pulse: 64 Resp: 18 Temp: 97.8 ??F (36.6 ??C) TempSrc: Temporal SpO2: 100% Weight: 72.9 kg (160 lb 11.5 oz) 73.5 kg (162 lb) Height: 5' 1 (1.549 m) 5' 1 (1.549 m) Physical exam: A brief physical exam was completed to facilitate/expedite patient care. Edmondson findings include: No acute distress noted. Plan: Labs & Imaging was ordered to facilitate patient care. ENDER Medeiros 11/11/221933 Cosigned by Perez Collins MD at 11/11/2022 8:29 PM ADMINISTRATIVE OFFICE CLERK NISTRATIVE OFFICE CLERK NISTRATIVE OFFICE CLERK * Anahi Hastings RN - 11/11/2022 7:28 PM CST Patient to ED. Patient c/o abd pain, vaginal bleeding x3 weeks. States she saw her OB, had an US done and OB said US was normal. Also c/o dizziness, states she had a fever last night 99.8, and nausea. States she called her PCP and was told to come to ED to look for bowel obstruction or appendicitis. NISTRATIVE OFFICE CLERK documented in this encounter Plan of Treatment Not on file documented as of this encounter Procedures Procedure Name Priority Date/Time Associated Diagnosis Comments CT ABD+PEL W CON STAT 11/11/2022 10:4 4 PM ADMINISTRATIVE OFFICE CLERK POCT URINE (BACK OFFICE) STAT 11/11/2022 9:42 PM ADMINISTRATIVE OFFICE CLERK HC URINALYSIS AUTO W/O MICRO STAT 11/11/2022 8:37 PM ADMINISTRATIVE OFFICE CLERK URINE BACTERIA CULTURE Routine 8:36 PM ADMINISTRATIVE OFFICE CLERK COMPREHENSIVE METABOLIC PANEL STAT 11/11/2022 8:36 PM ADMINISTRATIVE OFFICE CLERK CBC W/DIFF AUTOMATED STAT 11/11/2022 8:36 PM ADMINISTRATIVE OFFICE CLERK LIPASE STAT 11/11/2022 8:36 PM ADMINISTRATIVE OFFICE CLERK documented in this encounter Results * CT ABD+PEL W IV CON ONLY (11/11/2022 10:44 PM ADMINISTRATIVE OFFICE CLERK) Anatomical Region Laterality Modality Abdomen Computed Tomogra phy 11/11/2022 11:0 1 PM ADMINISTRATIVE OFFICE CLERK Impressions 11/11/2022 11:16 PM ADMINISTRATIVE OFFICE CLERK IMPRESSION: 1. ??Nonvisualization of the appendix. No pericecal inflammation or abnormal fluid collection to suggest acute appendicitis. 2. ??A few prominent pericecal mesenteric lymph nodes are nonspecific and could be physiologic, though can also be seen in processes such as mesenteric adenitis. 3. ??Dominant follicle right ovary. Referred By: ?? Interpreted By: Casper Fragoso MD, 11/11/2022 11:01 PM Narrative 11/11/2022 11:16 PM ADMINISTRATIVE OFFICE CLERK INDICATION: Right lower quadrant abdominal pain COMPARISON: CT, 16 Dec 2020 TECHNIQUE: CT images of the abdomen and pelvis were obtained following the administration of IV contrast. A dose lowering technique was used for this procedure, which may include, but is not limited to, dose reduction technique, automated exposure control, the use of iterative reconstruction, and ALARA (As Low As Reasonably Achievable) / Image Gently techniques. FINDINGS: Limited visualization of the lower thorax reveals no acute abnormality. Normal size liver. No focal hepatic lesion. Gallbladder is decompressed postprandial state. Main portal vein, splenic vein, SMV, SMA enhance. No retroperitoneal lymphadenopathy. No evidence of bowel obstruction or inflammation. Appendix is not well visualized. No pericecal inflammation. No abnormal fluid collection in the abdomen. A few prominent pericecal mesenteric lymph nodes. Normal size spleen. Adrenal glands within normal limits. Pancreas within normal limits. Kidneys enhance symmetrically. No hydronephrosis or hydroureter. Bladder wall is unremarkable for degree of distention. Uterus within normal limits. Dominant follicle in right ovary. No acute osseous abnormality. Procedure Note Casper Fragoso MD - 11/11/2022 INDICATION: Right lower quadrant abdominal pain COMPARISON: CT, 16 Dec 2020 TECHNIQUE: CT images of the abdomen and pelvis were obtained following theadministration of IV contrast. A dose lowering technique was used for thisprocedure, which may include, but is not limited to, dose reductiontechnique, automated exposure control, the use of iterativereconstruction, and ALARA (As Low As Reasonably Achievable) / Image Gentlytechniques. FINDINGS: Limited visualization of the lower thorax reveals no acute abnormality. Normal size liver. No focal hepatic lesion. Gallbladder is decompressedpostprandial state. Main portal vein, splenic vein, SMV, SMA enhance. Noretroperitoneal lymphadenopathy. No evidence of bowel obstruction or inflammation. Appendix is not wellvisualized. No pericecal inflammation. No abnormal fluid collection in theabdomen. A few prominent pericecal mesenteric lymph nodes. Normal size spleen. Adrenal glands within normal limits. Pancreas withinnormal limits. Kidneys enhance symmetrically. No hydronephrosis or hydroureter. Bladder wall is unremarkable for degree of distention. Uterus withinnormal limits. Dominant follicle in right ovary. No acute osseous abnormality. IMPRESSION: 1. Nonvisualization of the appendix. No pericecal inflammation orabnormal fluid collection to suggest acute appendicitis. 2. A few prominent pericecal mesenteric lymph nodes are nonspecific andcould be physiologic, though can also be seen in processes such asmesenteric adenitis. 3. Dominant follicle right ovary. Referred By: Interpreted By: Casper Fragoso MD, 11/11/2022 11:[address] Final Resul t * POCT urine (11/11/2022 9:42 PM ADMINISTRATIVE OFFICE CLERK) URINE HCG TEST NEGATIVE NEGATIVE Internal Control: VALID VALID Carl HANDLEY POINT OF CARE TEST ORDERABL ES Final Result * (ABNORMAL) URINALYSIS (11/11/2022 8:37 PM ADMINISTRATIVE OFFICE CLERK) SPECIMEN TYPE URINE CLEAN CATCH 11/11/2022 8:38 PM ADMINISTRATIVE OFFICE CLERK [facility] COLOR (U) LIGHT YELLOW 11/11/2022 8:52 PM ADMINISTRATIVE OFFICE CLERK [facility] TRANSPARENCY CLEAR 11/11/2022 8:52 PM ADMINISTRATIVE OFFICE CLERK [facility] SPECIFIC GRAVITY (U) 1.023 1.001 - 1.030 11/11/2022 8:[address] [facility] U PH 5.5 5.0 - 9.0 11/11/2022 8:[address] [facility] LEUKOCYTES (U) 250(A) NEGATIVE 11/11/2022 8:[address] [facility] NITRITES NEGATIVE NEGATIVE 11/11/2022 8:[address] [facility] PROTEIN (U) NEGATIVE <30 MG/DL 11/11/2022 8:[address] [facility] URINE GLUCOSE NORMAL NORMAL MG/DL 11/11/2022 8:[address] [facility] KETONES MG/DL (U) NEGATIVE NEGATIVE MG/DL 11/11/2022 8:[address] [facility] UROBILINOGEN NORMAL NORMAL MG/DL 11/11/2022 8:[address] [facility] BILIRUBIN (U) NEGATIVE NEGATIVE MG/DL 11/11/2022 8:[address] [facility] BLOOD (U) 2+(A) NEGATIVE 11/11/2022 8:[address] [facility] CULTURE & SENSITIVITY INDICATED? SPECIMEN SETUP FOR CULTURE 11/11/2022 8:[address] [facility] MUCUS RARE /LPF 11/11/2022 8:[address] [facility] WBC/HPF 5 <6 /HPF 11/11/2022 8:[address] [facility] RBC/HPF 4 <6 /HPF 11/11/2022 8:[address] [facility] SQUAMOUS EPITHELIALS RARE /HPF 11/11/2022 8:[address] [facility] URINE SPECIMEN OBTAINED BY CLEAN CATCH PROCEDURE / Unknown 11/11/2022 8:37 PM ADMINISTRATIVE OFFICE CLERK us Carl HANDLEY URINE ORDERABLES Final Resu lt [facility] [address] [place] [address], [place] [phone] * CULTURE URINE (11/11/2022 8:36 PM ADMINISTRATIVE OFFICE CLERK) SPEC DESCRIPTION URINE CLEAN CATCH 11/11/2022 8:53 PM ADMINISTRATIVE OFFICE CLERK [facility] SPECIAL REQUESTS NO SPECIAL REQUEST 11/11/2022 8:53 PM ADMINISTRATIVE OFFICE CLERK [facility] CULTURE RESULT POLYMICROBIAL GROWTH CONSISTENT WITH NORMAL GENITAL MARILOU. ?? SUSCEPTIBILITIES NOT ROUTINELY PERFORMED. 11/13/2022 8:29 AM ADMINISTRATIVE OFFICE CLERK [facility] URINE SPECIMEN OBTAINED BY CLEAN CATCH PROCEDURE / Unknown 11/11/2022 8:36 PM ADMINISTRATIVE OFFICE CLERK 11/11/2022 8:52 PM ADMINISTRATIVE OFFICE CLERK us Carl HANDLEY MICROBIOLOGY - GENERAL ORDE RABLES Final Result Performing Organization Address [facility] Co de Phone Number [facility] [address] [place] [address], [place] [phone] * LIPASE (11/11/2022 8:36 PM ADMINISTRATIVE OFFICE CLERK) LIPASE 126 73 - 393 UNITS/L 11/11/2022 9:29 PM ADMINISTRATIVE OFFICE CLERK [facility] 11/11/2022 8:36 PM ADMINISTRATIVE OFFICE CLERK us [facility] Final Resul t Performing Organization Address City/[facility]/ZIP Co de Phone Number [facility] [address] [place] [id number], [place] [phone] * (ABNORMAL) COMPREHENSIVE METABOLIC PANEL (11/11/2022 8:36 PM ADMINISTRATIVE OFFICE CLERK) [facility] GLUCOSE 100(H) 70 - 99 MG/DL 11/11/2022 9:[address] [facility] BUN 16 7 - 18 MG/DL 11/11/2022 9:[address] [facility] CREATININE S/P/B 0.96 0.55 - 1.02 MG/DL 11/11/2022 9:[address] [facility] SODIUM S/P/B 139 136 - 145 MMOL/L 11/11/2022 9:[address] [facility] POTASSIUM S/P/B 3.8 3.5 - 5.1 MMOL/L 11/11/2022 9:[address] [facility] CHLORIDE S/P/B 108 100 - 108 MMOL/L 11/11/2022 9:[address] [facility] CO2 27.7 21 - 32 MMOL/L 11/11/2022 9:[address] [facility] CALCIUM S/P/B 9.4 8.5 - 10.1 MG/DL 11/11/2022 9:[address] [facility] BILIRUBIN TOTAL S/P/B 0.2 0.2 - 1.2 MG/DL 11/11/2022 9:[address] [facility] Comment: THIS ASSAY IS NOT RECOMMENDED FOR PATIENTS UNDERGOING TREATMENT WITH ELTROMBOPAG DUE TO THE POTENTIAL FOR FALSELY ELEVATED RESULTS. TOTAL PROTEIN S/P/B 7.3 6.4 - 8.2 G/DL 11/11/2022 9:[address] [facility] ALBUMIN S/P/B 3.5 3.4 - 5.0 G/DL 11/11/2022 9:[address] [facility] AST 15 15 - 37 U/L 11/11/2022 9:[address] [facility] ALT 25 14 - 55 U/L 11/11/2022 9:[address] [facility] ALKALINE PHOSPHATASE S/P/B 65 50 - 136 U/L 11/11/2022 9:[address] [facility] ANION GAP 3.3(L) 5 - 15 MMOL/L 11/11/2022 9:[address] [facility] BUN CREATININE RATIO 16.8 6 - 26 11/11/2022 9:[address] [facility] A/G RATIO 0.9(L) 1.0 - 2.0 RATIO 11/11/2022 9:[address] [facility] GFR ESTIMATE 86(L) >90 ML/MIN/1.7 3 M2 11/11/2022 9:[address] [facility] Comment: NOTE: eGFR is not calculated for patients <18 years of age. This is an estimated GFR calculation using the new CKD EPI creatinine equation without race and so does not require a correction factor for race. This estimated GFR should not be used for calculating drug doses. 11/11/2022 8:36 PM ADMINISTRATIVE OFFICE CLERK us [facility] Final Resul t [facility] [address] [place] [address], * CBC W/DIFF AUTOMATED (11/11/2022 8:36 PM ADMINISTRATIVE OFFICE CLERK) WBC 8.4 4.5 - 11.0 x10'3/uL 11/11/2022 9:[address] [facility] RBC 4.65 4.20 - 5.40 x10'6/uL 11/11/2022 9:03 PM ADMINISTRATIVE OFFICE CLERK [facility] HGB 13.9 12.0 - 16.0 G/DL 11/11/2022 9:[address] [facility] HCT 43.0 38.0 - 48.0 % 11/11/2022 9:[address] [facility] MCV 92.5 81.0 - 99.0 FL 11/11/2022 9:[address] [facility] MCH 29.9 27.0 - 31.0 PG 11/11/2022 9:[address] [facility] MCHC 32.3 32.0 - 36.0 G/DL 11/11/2022 9:[address] [facility] RDW 12.5 11.5 - 14.5 % 11/11/2022 9:[address] [facility] PLT 327 130 - 400 x10'3/uL 11/11/2022 9:[address] [facility] MPV 9.7 9.3 - 12.2 FL 11/11/2022 9:[address] [facility] DIFFERENTIAL TYPE AUTOMATED DIFFERENTIAL 11/11/2022 9:[address] [facility] NEUTROPHILS % 46.6 % 11/11/2022 9:[address] [facility] LYMPHOCYTES % 44.1 % 11/11/2022 9:[address] [facility] MONOCYTES % 5.7 % 11/11/2022 9:[address] [facility] EOSINOPHILS 2.9 % 11/11/2022 9:[address] [facility] BASOPHILS 0.5 % 11/11/2022 9:[address] [facility] IMMATURE GRANS % 0.2 % 11/11/19 9:[address] [facility] ABS. NEUTROPHILS TOTAL 3.92 1.80 - 7.70 x10'3/uL 11/11/2022 9:03 PM ADMINISTRATIVE OFFICE CLERK [facility] ABS. LYMPHOCYTES 3.71 1.00 - 4.80 x10'3/uL 11/11/2022 9:03 PM ADMINISTRATIVE OFFICE CLERK [facility] ABS. MONOCYTES 0.48 0.24 - 0.86 x10'3/uL 11/11/2022 9:03 PM ADMINISTRATIVE OFFICE CLERK [facility] ABS. EOSINOPHILS 0.24 0.04 - 0.36 x10'3/uL 11/11/2022 9:03 PM ADMINISTRATIVE OFFICE CLERK [facility] ABS. BASOPHILS 0.04 0.01 - 0.08 x10'3/uL 11/11/2022 9:03 PM ADMINISTRATIVE OFFICE CLERK [facility] ABS. IMMATURE GRANULOCYTES 0.02 0.00 - 0.49 x10'3/uL 11/11/2022 9:03 PM ADMINISTRATIVE OFFICE CLERK [facility] 11/11/2022 8:36 PM ADMINISTRATIVE OFFICE CLERK us [facility] Final Resul t [facility] [address] [place] [address], documented in this encounter Visit Diagnoses Diagnosis Mesenteric adenitis- Primary Nonspecific mesenteric lymphadenitis Menorrhagia Excessive or frequent menstruation documented in this encounter Administered Medications Inactive Administered Medications - up to 3 most recent administrations Medication Order MAR Action Action Date Dose Rate Site iopamidol (ISOVUE-370) 76 % injection 100 mL 100 mL, Intravenous, IMG once as needed, Contrast, 1 dose, Starting on Wed11/11/22 at 2245, Until Wed11/11/22 at 2245 Given 11/11/2022 10:45 PM ADMINISTRATIVE OFFICE CLERK 100 mLs Righ t Arm documented in this encounter Active and Recently Administered Medications Times are shown in ADMINISTRATIVE OFFICE CLERK. PRN Medication Order 11/09/2022 11/10/2022 11/11/2022 iopamidol (ISOVUE-370) 76 % injection 100 mL (COMPLETED) 100 mL, Intravenous, IMG once as needed, Contrast, 1 dose, Starting on Wed11/11/22 at 2245, Until Wed11/11/22 at 2245 2245 (Given - Provid er: Angelina Ambriz, RTR) documented in this encounter Care Teams Dental Tech Relationship Specialty Start Date End Date Farhana Alicia MD [facility] [place] [address] PCP - General INTERNAL MEDICINE 12/16/20 documented as of this encounter
--- OUTSIDE RECORDS SUMMARY | 2024-10-04 10:26 | XMS_ITS | Encounter Summary ---
Author Organization [employer] [facility] Care Team Providers Care Signal Tower Director Name Role Phone Provider, Unknown Primary Care Provider Unavaila ble Encounter Details Date Type Department Care Team (Latest Contact Info) Description 06/12/2023 Travel Social History Tobacco Use Types Packs/Day Years Used Date Smoking Tobacco: Never Smokeless Tobacco: Never Comments Unknown Sex and Gender Information Value Date Recorded Sex Assigned at Not on file Legal Sex Female 4:41 PM CDT Gender Identity Not on file Sexual Orientation Not on file COVID-19 Exposure Response Date Recorded In the last 10 days, have yo u been in contact with someone who was confirmed or suspected to have Coronavirus/COVID-19? No / Unsure 06/12/2023 4:44 PM CDT documented as of this encounter Plan of Treatment Not on file documented as of this encounter Visit Diagnoses Not on filedocumented in this encounter Care Teams Signal Tower Director Relationship Specialty Start Date End Date Provider, Unknown UNKNOWN PCP - General 06/12/23 documented as of this encounter
--- OUTSIDE RECORDS SUMMARY | 2024-10-04 10:26 | XMS_ITS | Encounter Summary ---
Author Organization [facility] Address [address] [place] [address] Phone Care Team Providers Care Billing Representative Name Role Phone Provider, Unknown Primary Care Provider Unavaila ble Reason for Visit * Reason Comments Hives Encounter Details Date Type Department Care Team (Latest Contact Info) Description 06/12/2023 4:45 PM CDT Urgent Care Visit [facility] [place] [address] [place] [address] Sandrita Young, DAG COATER, INJECTION MOLDING SUPERVISOR [address] [place] [address] Allergic reaction, initial encounter (Primary Dx) Discharge Disposition: Discharged to home or Selfcare Social History Tobacco Use Types Packs/Day Years Used Date Smoking Tobacco: Never Smokeless Tobacco: Never Tobacco Cessation:Counseling Given: Not Answered Comments Unknown Sex and Gender Information Value [...] Sign Reading Time Taken Comments Blood Pressure 124/60 06/12/2023 4:55 PM CDT Pulse 97 06/12/2023 4:55 PM CDT Temperature 36.5 ??C (97.7 ??F) 06/12/2023 4:55 PM CD T Respiratory Rate 18 06/12/2023 4:55 PM CDT Oxygen Saturation 99% 06/12/2023 4:55 PM CDT Inhaled Oxygen Concentration - - Weight - - Height - - Body Mass Index - - documented in this encounter Patient Instructions * Patient Instructions* Sandrita Young APRN, CNP - 06/12/2023 4:45 PM CDT Benadryl 50 mg by mouth every 4 hours as needed for itching Go to ER if have shortness of breath, swelling of face or hands, hives that become more numerous orlarger in size or for any other concerns Care as instructed on AVS If medication was prescribed it was sent to the pharmacy. Take all medication as prescribed. Do not skip a dose and take until completed. Follow up with PCP if the symptoms do not improve Go to the ER if symptoms become severe * Attachments The following attachments cannot be sent through Care Everywhere. * Hives [id number] (Canadian) documented in this encounter Progress Notes * Mary Recinos RN - 06/12/2023 4:45 PM CDT Liberty Alford complains of Hives This is a new problem. The current episode started today. The problem occurs rarely. The problem has been rapidly worsening. Associated symptoms include chest pain. Associated symptoms comments: Shortness of breath and dizziness and stumbled and fell to the ground. . Nothing aggravates the symptoms. Treatments tried: Taken Benadryl three times. The treatment provided no relief. Today's Review of Systems Cardiovascular: Positive for chest pain. * Sandrita Young APRN, CNP - 06/12/2023 4:45 PM CDT HPI: Liberty Alford is a 22 y.o. female in the prompt care today for hives. Symptoms started today about 8 am Severity of symptoms is rapidly worsening Associated symptoms include chest tightness, had SOB this morning Patient is currently taking over the counter benadryl PO for the symptoms. Smoker: No No pertinent Past, family, or social history was noted There is no problem list on file for this patient. ROS: Review of Systems Constitutional: Negative for chills and fever. HENT: Negative for sore throat and trouble swallowing. Respiratory: Positive for cough (rare) and chest tightness. Negative for shortness of breath and wheezing. Gastrointestinal: Positive for nausea. PE: BP 124/60 Pulse 97 Temp 97.7 ??F (36.5 ??C) (Temporal) Resp 18 SpO2 99% Physical Exam Vitals and nursing note reviewed. Constitutional: General: She is not in acute distress. Appearance: Normal appearance. She is normal weight. She is not ill-appearing. HENT: Head: Normocephalic and atraumatic. Cardiovascular: Rate and Rhythm: Normal rate. Pulmonary: Effort: Pulmonary effort is normal. No respiratory distress. Musculoskeletal: Cervical back: Normal range of motion and neck supple. Skin: General: Skin is warm and dry. Findings: Rash present. Rash is urticarial (sporatic over all of body). Neurological: Mental Status: She is alert and oriented to person, place, and time. ASSESSMENT/PLAN: 1. Allergic reaction, initial encounter - methylPREDNISolone acetate (DEPO-MEDROL) injection 60 mg - she has taken 2 doses of benadryl PO prior to coming to clinic - continue benadryl 50 mg PO every 4 hours as needed for itching AVS from today was printed, discussed with patient/family and given to patient/family Patient Instructions Benadryl 50 mg by mouth every 4 hours as needed for itching Go to ER if have shortness of breath, swelling of face or hands, hives that become more numerous orlarger in size or for any other concerns Care as instructed on AVS If medication was prescribed it was sent to the pharmacy. Take all medication as prescribed. Do not skip a dose and take until completed. Follow up with PCP if the symptoms do not improve Go to the ER if symptoms become severe Chief complaint and all history documented by ancillary staff were reviewed and verified, with additions or corrections, as appropriate. * Mary Recinos, RN - 06/12/2023 4:45 PM CDT Administered 60mg of Methylprednisolone; pt tolerated well. documented in this encounter Plan of Treatment Not on file documented as of this encounter Visit Diagnoses Diagnosis Allergic reaction, initial encounter- Primary documented in this encounter Administered Medications Inactive Administered Medications - up to 3 most recent administrations Medication Order MAR Action Action Date Dose Rate Site methylPREDNISolone acetate (DEPO-MEDROL) injection 60 mg 60 mg, Intramuscular, ONCE, 1 dose, On 06/12/23 at 1800Indications:Allergic reaction, initial encounter Given 06/12/2023 5:17 PM CDT 60 mg Right Ventrogluteal documented in this encounter Care Teams Billing Representative Relationship Specialty Start Date End Date Provider, Unknown UNKNOWN PCP - General 06/12/23 documented as of this encounter
--- OUTSIDE RECORDS SUMMARY | 2024-10-04 10:26 | XMS_ITS | Clinical Summary ---
Author Organization [facility] Address [address] [place] [phone] Phone Care Team Providers Care Elderly Sitter Name Role Phone Provider, Unknown Primary Care Provider Unavaila ble Allergies Active Allergy Reactions Criticality Noted Date Comments Wound Dressing Adhesive Rash 06/12/2023 Medications norethindrone-e thinyl estradiol (ORTHO-NOVUM 1-35 TAB, NORTREL 1-35 TAB) 1-35 MG-MCG Tablet Take 1 Tablet by mouth daily. Active buPROPion (WELLBUTRIN) 150 MG XL tablet Take 150 mg by mouth every morning. Active Trintellix 10 MG Tablet 06/02/2023 Active atomoxetine (STRATTERA) 40 MG Capsule Take 40 mg by mouth daily. 05/25/2023 Active buPROPion (WELLBUTRIN) 300 MG TABLET SR 24 HR XL tablet Take 300 mg by mouth daily. 03/16/2023 Active busPIRone (BUSPAR) 5 MG Tablet TAKE 1 TABLET BY MOUTH EVERY DAY AT BEDTIME 03/22/2023 Active Norethindrone, Contraceptive, 0.35 MG Tablet Take 1 Tablet by mouth daily. 03/18/2023 Active QUEtiapine (SEROquel) 25 MG Tablet TAKE 1 TABLET BY MOUTH EVERY DAY AT BEDTIME 05/25/2023 Active Active Problems No known active problems Immunizations Immunization Administration Dates Next Due Covid-19, Mrna, Lnp-s, Bival ent, Moderna, 50 Mcg or 25 mcg dose 10/15/2022 Social History Tobacco Use Types Packs/Day Years [...] - - Body Mass Index - - Plan of Treatment Health Maintenance Due Date Last Done Comments Hepatitis C Virus (HCV) Screening 2001 TdaP Immunization 2001 Human Papillomavirus (HPV) Immunization (1 - 3-dose series) 2016 Meningococcal B Immunization (1 of 2 - Standard) 2017 Hepatitis B Immunization (1 of 3 - 19+ 3-dose series) 2020 Pap Smear 2022 Influenza Immunization (#1) 2024 SARS-COV-2 Immunization ( season) 2024 10/15/2022, 06/24/2021, 06/03/2021 Respiratory Syncytial Virus (RSV) Immunization (Adult) (1 - 1-dose 75+ series) 2076 Meningococcal Immunization (ACWY) Aged Out No longer eligible b ased on patient's age to complete this topic Pneumococcal Immunization Combined Aged Out No longer eligible b ased on patient's age to complete this topic Rotavirus Immunization Aged Out No lo nger eligible based on patient's age to complete this topic Insurance [facility] MEDICAID [place] Care Teams Elderly Sitter Relationship Specialty Start Date End Date Provider, Unknown UNKNOWN PCP - General 06/12/23
== END 2024-09-27 15:49 | disposition home or self-care (01) ==
PROVIDERS: Emergency Provider Emergency Medicine; PCP Obstetrics & Gynecology Gynecology
DX: O21.0 Mild hyperemesis gravidarum (principal); Z3A.09 9 weeks gestation of pregnancy; Z20.822 Contact with and (suspected) exposure to COVID-19
CPT/HCPCS: 36415; 80053; 81001; 85025; 87637; 96361; 96374; 96375; 99284; J2405; J2765; J7030

== ENCOUNTER 2024-11-04 04:54 | Emergency (ER) | payer OTHER, MEDICAID, SELFPAY ==
--- OUTSIDE RECORDS SUMMARY | 2024-11-04 04:55 | XMS_ITS | Clinical Summary ---
Author Organization [facility] Address [facility] [facility] [place] [address] [place] [address] Care Team Providers Care Cloth Tearer Name Role Phone Farhana Alicia MD Primary [...] Comments Blood Pressure 127/76 11/11/2022 7:28 PM NETWORK ANNOUNCER Pulse 64 11/11/2022 7:28 PM NETWORK ANNOUNCER Temperature 36.6 ??C (97.8 ??F) 11/11/2022 7:28 PM CS T Respiratory Rate 18 11/11/2022 7:28 PM NETWORK ANNOUNCER Oxygen Saturation 100% 11/11/2022 7:28 PM NETWORK ANNOUNCER Inhaled Oxygen Concentration - - Weight 73.5 kg (162 lb) 11/11/2022 7:30 PM NETWORK ANNOUNCER Height 154.9 cm (5' 1 ) 11/11/2022 7:30 PM NETWORK ANNOUNCER Body Mass Index 30.61 11/11/2022 7:30 PM NETWORK ANNOUNCER Plan of Treatment Health Maintenance Due Date Last Done Comments Cervical Cancer Screening Pap Smear (Age 21 to 29) Every 3 Years 2001 Cervical Cancer Screening 2001 Annual Physical 2004 DTaP, Tdap and Td Vaccines (6 - Tdap) 2012 01/14/2007, 01/11/2003, 01/20/2002, Additional history exists Hepatitis C 2019 Meningococcal B Vaccine (2 of 2 - Bexsero SCDM 2-dose series) 12/23/2019 06/24/2019 Hepatitis B Vaccines (1 of 3 - 19+ 3-dose series) 2020 COVID-19 Vaccine ( - season) 2024 Influenza Adult (#1) 2024 08/02/2020 [...] patient's age to complete this topic Insurance [facility] Care Teams Cloth Tearer Relationship Specialty Start Date End Date Farhana Alicia MD [facility] [place] [address] PCP - General INTERNAL MEDICINE 12/16/20
--- OUTSIDE RECORDS SUMMARY | 2024-11-04 04:55 | XMS_ITS | Data Portability ---
Author Organization [place] [facility], Main Office Address [address] [place] [address] Assessment No assessment recorded. Plan of Treatment Reminders Order Date Submit Date Provider Last Modified By Organization Details Last Modified Time Details Appointments None recorded. Lab vitamin D, 25-hydroxy, total, serum [address], [address] [place], [address], 3 12:09:21 lipid panel, serum 2022 023 [facility], [address] [place], [address], 3 14:25:29 CMP, serum or plasma 2022 023 [facility], [address] [place], [address], 3 14:26:10 CBC w/ auto diff 2022 023 [facility], [address] [place], [address], 3 14:16:42 TSH + free T4, serum [address], [address] [place], [address], 3 14:27:40 vitamin D, 25-hydroxy, total, serum [email or web address] [place] [address], [address] [place], [address], 4 09:12:43 C-reactive protein, quantitativ e, serum or plasma 2022 023 [email or web address], [address] [place], [address], 4 09:13:01 ESR (erythrocyt e sedimentati on rate), blood 2022 023 [facility], [address] [place], [address], 4 09:10:01 rf (rheumatoid factor) + anti-ccp abs, serum 2022 023 [email or web address] 6 [facility], [address] [place], [address], 4 09:14:51 JANY (antinuclea r antibodies) screen, serum 2022 023 [email or web address] [address] [place] [address], [address] [place], [address], 4 09:14:17 lipid panel, serum [address], [address] [place], [address], 4 09:11:43 CMP, serum or plasma 2022 023 CANDICE [facility], [address] [place], [address], 3 16:58:26 CBC w/ auto diff 2022 023 [facility] [address] [place] [address], [address] [place], [address], 4 09:12:04 TSH + free T4, serum 2022 023 [email or web address] 6 [facility], [address], [place], [address], 4 09:12:22 Referral None recorded. Procedures None recorded. Surgeries None recorded. Imaging None recorded. Medication Orders Medrol (Ez) 4 mg tablets in a dose pack 2022 023 [id number], [address], [place], [place], [id number], 3 15:12:10 Zyrtec 10 mg tablet 2022 023 [facility][id number], [address], [place], [place], [id number], 3 15:12:09 Patient TargetsNo targets recorded. Patient InstructionsNo instructions recorded. Reason for Referral None Reported. Results Created Date Observation Date Name Description Value Unit Range Abnormal Flag Note LastModifiedBy Organization Detail LastModifiedTime 11/12/1911/12/2022 urina lysis , dipst ick Leukocytes (reference range: negative malachi/??l) Trace Not Available [facility] [address] [facility], [place], [address], 11/12/2022 15:36:48 11/12/1911/12/2022 urina lysis , dipst ick Nitrite (reference rage: negative mg/dl) negati ve Not Available [facility] [address] [facility], [place], [address], 11/12/2022 15:36:48 11/12/1911/12/2022 urina lysis , dipst ick Urobilinogen (reference range: 0.2-1 mg/dl) 0.2 Not Available [facility] [address] [place], [address], 11/12/2022 15:36:48 11/12/19 23 11/12/2022 urina lysis , dipst ick Protein (reference range: negative mg/dl) Negati ve Not Available [facility] [address] [facility], [place], [address], 11/12/2022 15:36:48 11/12/19 23 11/12/2022 urina lysis , dipst ick pH (reference range: 5-7) 6.0 Not Available [facility] Internal Med [facility] [address] [facility] [address], [place], [address], 11/12/2022 15:36:48 11/12/19 23 11/12/2022 urina lysis , dipst ick Blood (reference range: negative Ricardo/??l) Large Not Available [facility] [address] [facility], [place], [address], 11/12/2022 15:36:48 11/12/19 23 11/12/2022 urina lysis , dipst ick Specific Gully (reference range: 1.005-1.030) 1.030 Not Available [facility] Internal Med [facility] [address] [facility] [address], [place], [address], 11/12/2022 15:36:48 11/12/19 23 11/12/2022 urina lysis , dipst ick Ketone (reference range: negative mg/dl) Negati ve Not Available [facility] [address] [facility], [place], [address], 11/12/2022 15:36:48 11/12/19 23 11/12/2022 urina lysis , dipst ick Bilirubin (reference range: negative mg/dl) Negati ve Not Available [facility] [place] [facility] [address], [place], [address], 11/12/2022 15:36:48 11/12/19 23 11/12/2022 urina lysis , dipst ick Glucose (reference range: negative mg/dl) Negati ve Not Available [facility] [place] [facility] [address], [place], [address], 11/12/2022 15:36:48 11/12/19 23 11/12/2022 urina lysis , dipst ick Appearance Clear Not Available [facility] Internal Med [facility] [address] [facility] [address], [place], [address], 11/12/2022 15:36:48 11/12/19 23 11/12/2022 urina lysis , dipst ick Color Stanford Not Available [facility] Internal Med [facility] [address] [facility] [address], [place], [address], 11/12/2022 15:36:48 12/24/19 23 12/23/2022 CBC/C OMPLE TE BLD COUNT W/DIF F white blood cells 7.7 x10'3 /uL 4.2-10 .8 Not Available [facility] (Lab) [address], [place], [address], 12/23/2022 14:16:42 12/24/19 23 12/23/2022 CBC/C OMPLE TE BLD COUNT W/DIF F red blood cells 4.48 x10'6 /uL 3.80-5 .20 Not Available [facility] (Lab) [address], [place], [address], 12/23/2022 14:16:42 12/24/19 23 12/23/2022 CBC/C OMPLE TE BLD COUNT W/DIF F hemoglobin 13.4 g/dL 12.0-1 5.6 Not Available [facility] (Lab) [address] [place], [address], 12/23/2022 14:16:42 12/24/19 23 12/23/2022 CBC/C OMPLE TE BLD COUNT W/DIF F hematocrit 41.3 % 35.7-4 5.7 Not Available [facility] (Lab) [address] [place], [address], 12/23/2022 14:16:42 12/24/19 23 12/23/2022 CBC/C OMPLE TE BLD COUNT W/DIF F mean red cell volume 92.2 fL 82.0-9 9.0 Not Available [facility] (Lab) [address] [place], [address], 12/23/2022 14:16:42 12/24/19 23 12/23/2022 CBC/C OMPLE TE BLD COUNT W/DIF F mean red cell hemoglobin 29.9 pg 27.0-3 3.0 Not Available [facility] (Lab) [address] [place], [address], 12/23/2022 14:16:42 12/24/19 23 12/23/2022 CBC/C OMPLE TE BLD COUNT W/DIF F mean RBC HGB concentratio n 32.4 g/dL 31.0-3 6.0 Not Available [facility] (Lab) [address] [place], [address], 12/23/2022 14:16:42 12/24/19 23 12/23/2022 CBC/C OMPLE TE BLD COUNT W/DIF F red cell distribution width 12.6 % 11.8-1 5.5 Not Available [facility] (Lab) [address] [place], [address], 12/23/2022 14:16:42 12/24/19 23 12/23/2022 CBC/C OMPLE TE BLD COUNT W/DIF F platelets 352 x10'3 /uL 150-40 0 Not Available [facility] (Lab) [address] [place], [address], 12/23/2022 14:16:42 12/24/19 23 12/23/2022 CBC/C OMPLE TE BLD COUNT W/DIF F mean platelet volume 9.9 fL 9.0-12 .4 Not Available [facility] (Lab) [address] [place], [address], 12/23/2022 14:16:42 12/24/19 23 12/23/2022 CBC/C OMPLE TE BLD COUNT W/DIF F neutrophils 48.9 % 39.0-7 2.0 Not Available [facility] (Lab) [address] [place], [address], 12/23/2022 14:16:42 12/24/19 23 12/23/2022 CBC/C OMPLE TE BLD COUNT W/DIF F lymphocytes 40.6 % 16.0-4 7.0 Not Available [facility] (Lab) [address] [place], [address], 12/23/2022 14:16:42 12/24/19 23 12/23/2022 CBC/C OMPLE TE BLD COUNT W/DIF F monocytes 8.1 % 5.0-12 .0 Not Available [facility] (Lab) [address] [place], [address], 12/23/2022 14:16:42 12/24/19 23 12/23/2022 CBC/C OMPLE TE BLD COUNT W/DIF F eosinophils 1.8 % 1.0-7. 0 Not Available [facility] (Lab) [address] [place], [address], 12/23/2022 14:16:42 12/24/19 23 12/23/2022 CBC/C OMPLE TE BLD COUNT W/DIF F basophils 0.5 % 0.0-2. 0 Not Available [facility] (Lab) [address] [place], [address], 12/23/2022 14:16:42 12/24/19 23 12/23/2022 CBC/C OMPLE TE BLD COUNT W/DIF F immature granulocytes 0.1 % 0.00-0 .50 Not Available [facility] (Lab) [address] [place], [address], 12/23/2022 14:16:42 12/24/19 23 12/23/2022 CBC/C OMPLE TE BLD COUNT W/DIF F neutrophils, absolute count 3.75 x10'3 /uL 1.5-8. 0 Not Available [facility] (Lab) [address] [place], [address], 12/23/2022 14:16:42 12/24/19 23 12/23/2022 CBC/C OMPLE TE BLD COUNT W/DIF F lymphocytes, absolute count 3.12 x10'3 /uL 1.07-3 .43 Not Available [facility] (Lab) [address] [place], [address], 12/23/2022 14:16:42 12/24/19 23 12/23/2022 CBC/C OMPLE TE BLD COUNT W/DIF F monocytes, absolute count 0.62 x10'3 /uL 0.29-0 .99 Not Available [facility] (Lab) [address] [place], [address], 12/23/2022 14:16:42 12/24/19 23 12/23/2022 CBC/C OMPLE TE BLD COUNT W/DIF F eosinophils, absolute count 0.14 x10'3 /uL 0.02-0 .53 Not Available [facility] (Lab) [address] [place], [address], 12/23/2022 14:16:42 12/24/19 23 12/23/2022 CBC/C OMPLE TE BLD COUNT W/DIF F basophils, absolute count 0.04 x10'3 /uL 0.01-0 .08 Not Available [facility] (Lab) [address] [place], [address], 12/23/2022 14:16:42 12/24/19 23 12/23/2022 CBC/C OMPLE TE BLD COUNT W/DIF F immature granulocytes ,absolute 0.01 x10'3 /uL 0.00-0 .05 Not Available [facility] (Lab) [address] [place], [address], 12/23/2022 14:16:42 12/24/19 23 12/23/2022 CBC/C OMPLE TE BLD COUNT W/DIF F nucleated red blood cells 0.0 % -0 Not Available [facility] (Lab) [address] [place], [address], 12/23/2022 14:16:42 12/24/19 23 12/23/2022 CBC/C OMPLE TE BLD COUNT W/DIF F NRBC# 0.00 x10'3 /uL Not Available [facility] (Lab) [address] [place], [address], 12/23/2022 14:16:42 12/24/19 23 12/23/2022 LIPID PANEL cholesterol 213 mg/dL 140-19 9 high NIH CYNTHIA NSUS RECOM MENDA TION FOR GALLITO STERO L: ADULT CHILD LOW RISK: <200 <170 BORDE RLINE : <200- 239 ----- HIGH RISK: >240 >200 Not Available [facility] (Lab) [address] [place], [address], 12/23/2022 14:50:18 12/24/19 23 12/23/2022 LIPID PANEL triglyceride s 65 mg/dL 0-150 NIH CYNTHIA NSUS REPOR T RECOM MENDA TION FOR TRIGL YCERI SANDRA: ADULT CHILD LOW RISK: <150 ----- BODER LINE: 150-1 99 ----- HIGH RISK: >200 ----- Not Available [facility] (Lab) [address] [place], [address], 12/23/2022 14:50:18 12/24/19 23 12/23/2022 LIPID PANEL HDL cholesterol 120 mg/dL 40- Not Available [facility] (Lab) [address] [place], [address], 12/23/2022 14:50:18 12/24/19 23 12/23/2022 LIPID PANEL [...] WILL NOT BE REPOR GRAHAM. Not Available [facility] (Lab) [address] [place], [address], 12/23/2022 14:50:18 12/24/19 23 12/23/2022 COMPR EHENS EFRAIN METAB OLIC PANEL sodium 139 mmol/ L 137-14 5 Not Available [facility] (Lab) [address] [place], [address], 12/23/2022 14:26:10 12/24/19 23 12/23/2022 COMPR EHENS EFRAIN METAB OLIC PANEL potassium 4.3 mmol/ L 3.5-5. 1 Not Available [facility] (Lab) [address] [place], [address], 12/23/2022 14:26:10 12/24/19 23 12/23/2022 COMPR EHENS EFRAIN METAB OLIC PANEL chloride 105 mmol/ L 98-107 Not Available [facility] (Lab) [address] [place], [address], 12/23/2022 14:26:10 12/24/19 23 12/23/2022 COMPR EHENS EFRAIN METAB OLIC PANEL carbon dioxide 25 mmol/ L 22-30 Not Available [facility] (Lab) [address] [place], [address], 12/23/2022 14:26:10 12/24/19 23 12/23/2022 COMPR EHENS EFRAIN METAB OLIC PANEL anion gap 13.3 mmol/ L 14-22 low Not Available [facility] (Lab) [address] [place], [address], 12/23/2022 14:26:10 12/24/19 23 12/23/2022 COMPR EHENS EFRAIN METAB OLIC PANEL glucose 97 mg/dL 70-99 Not Available [facility] (Lab) [address] [place], [address], 12/23/2022 14:26:10 12/24/19 23 12/23/2022 COMPR EHENS EFRAIN METAB OLIC PANEL BUN 13 mg/dL 8-19 Not Available [facility] (Lab) [address] [place], [address], 12/23/2022 14:26:10 12/24/19 23 12/23/2022 COMPR EHENS EFRAIN METAB OLIC PANEL creatinine 0.94 mg/dL 0.66-1 .25 Not Available [facility] (Lab) [address] [place], [address], 12/23/2022 14:26:10 12/24/19 23 12/23/2022 COMPR EHENS EFRAIN METAB OLIC PANEL GFR >60 Refer ence Range : Gary ge GFR Healt hy Adult : >60 [...] calcu lator is avail able on the [facility] websi te: https ://estuardo w.carlitos bessy.o rg/pr ofess ional s/kdo qi/gf r_cal culat or Not Available [facility] (Lab) [address] [place], [address], 12/23/2022 14:26:10 12/24/19 23 12/23/2022 COMPR EHENS EFRAIN METAB OLIC PANEL alkaline phosphatase 65 U/L 38-126 Not Available [facility] (Lab) [address] [place], [address], 12/23/2022 14:26:10 12/24/19 23 12/23/2022 COMPR EHENS EFRAIN METAB OLIC PANEL alanine aminotransfe rase 22 U/L 0-35 Not Available [facility] (Lab) [address] [place], [address], 12/23/2022 14:26:10 12/24/19 23 12/23/2022 COMPR EHENS EFRAIN METAB OLIC PANEL aspartate aminotransfe rase 26 U/L 15-37 Not Available [facility] (Lab) [address] [place], [address], 12/23/2022 14:26:10 12/24/19 23 12/23/2022 COMPR EHENS EFRAIN METAB OLIC PANEL bilirubin, total 0.30 mg/dL 0.20-1 .30 Not Available [facility] (Lab) [address] [place], [address], 12/23/2022 14:26:10 12/24/19 23 12/23/2022 COMPR EHENS EFRAIN METAB OLIC PANEL calcium 9.6 mg/dL 8.4-10 .2 Not Available [facility] (Lab) [address] [place], [address], 12/23/2022 14:26:10 12/24/19 23 12/23/2022 COMPR EHENS EFRAIN METAB OLIC PANEL total protein 7.5 g/dL 6.3-8. 2 Not Available [facility] (Lab) [address] [place], [address], 12/23/2022 14:26:10 12/24/19 23 12/23/2022 COMPR EHENS EFRAIN METAB OLIC PANEL albumin 4.3 g/dL 3.4-5. 0 Not Available [facility] (Lab) [address] [place], [address], 12/23/2022 14:26:10 12/24/19 23 12/23/2022 COMPR EHENS EFRAIN METAB OLIC PANEL globulin 3.2 g/dL 2.6-4. 2 Not Available [facility] (Lab) [address] [place], [address], 12/23/2022 14:26:10 12/24/19 23 12/23/2022 COMPR EHENS EFRAIN METAB OLIC PANEL A/G ratio 1.3 ratio 1.0-2. 0 Not Available [facility] (Lab) [address] [place], [address], 12/23/2022 14:26:10 12/24/19 23 12/23/2022 T4 FREE free T4 1.20 NG/dL 0.78-2 .19 Not Available [facility] (Lab) [address] [place], [address], 12/23/2022 14:30:55 12/24/19 23 12/23/2022 TSH thyroid-stim ulating hormone 1.820 uIU/m L 0.465- 4.680 Not Available [facility] (Lab) [address] [place], [address], 12/23/2022 14:41:27 12/24/19 23 12/23/2022 VITAM IN D 25-HY DROXY [id number] 29.2 NG/mL 30-100 low Vitam in D Statu s: Defic ient: <20 ng/mL Insuf ficie nt: 20-29 ng/mL Suffi cient : 30-10 0 ng/mL Not Available [facility] (Lab) [address] [place], [address], 12/23/2022 14:48:15 02/03/20 23 02/02/2023 RAPID STREP A DNA strep A DNA, NICKI NEGATI VE negati ve Not Available [facility] (Lab) [address] [place], [address], 02/02/2023 15:58:20 02/03/20 23 02/02/2023 INFLU KETURAH A/B ANTIG EN RAPID flu A NEGATI VE negati ve Not Available [facility] (Lab) [address] [place], [address], 02/02/2023 15:58:46 02/03/20 23 02/02/2023 INFLU KETURAH [...] RT-PC R IS SUGGE STED. 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 [facility] Not Available 2022 18:05:07 12/09/19 24 12/09/2023 US, renal No observ ation record ed. [email or web address] [address], [place], [address], 06/13/2024 14:03:49 03/07/12/09/2023 US, abdom en, limit ed No observ ation record ed. [email or web address], [place], [address], 06/13/2024 14:06:57 07/25/20 24 07/25/2024 imagi ng/di agnos tic resul t No observ ation record ed. [facility] [address], [place], [address], 07/25/2024 19:46:38 09/21/20 24 09/21/2024 imagi ng/di agnos tic resul t No observ ation record ed. [facility] [address] [place], [address], 09/21/2024 14:43:45 Result Notes None recorded. Problems Name Problem SNOMED Code Status Onset Date Resolution Date Notes Provider Name and Address Organization Details Recorded Time Abdominal pain 46159391 Active 2022 Not Available [facility] [place] 3 02:29:46 Hyperlipidemi a 93797950 Active 2021 Not Available [facility] 3 02:29:46 COVID-19 804468376 Active 2021 Not Available [facility] 3 02:29:46 Liver enzymes level above reference range 430982157 Active 2022 Farhana hsieh MD [address], [facility] [address], [place], [address] , [employer] [facility] [employer] 3 13:01:38 Moderate recurrent major depression 16590624 Active 2022 Farhana hsieh MD [address], [facility] [address], [place], [address] , [employer] [facility] [employer] 3 13:02:12 Vitamin D deficiency 00342624 Active 2022 [place], [place] [employer] [facility] [employer] 3 14:20:50 Migraine 15875984 Active 2022 Farhana hsieh MD [address] [facility] [address], [place], [address] , [facility] [employer] [facility] [employer] [facility] 3 17:19:59 Upper respiratory infection 80016481 Active 2022 Hailee bradley [facility] [employer] [facility] 3 13:36:10 Eruption 303570947 Active 2022 Farhana hsieh MD [address] [facility], [facility] [address], [place], [address] , [facility] [employer] [facility] 3 15:09:44 Problem Notes None recorded. Procedures Surgical History Date Name Laterality Status Provider Name and Address Organization Details Recorded Time tonsillectomy completed Not Available [facility] 12/02/2022 02:27:10 extraction of wisdom tooth completed Not Available [facility] 12/02/2022 02:27:10 Imaging Results Imaging Date Name Status LastModified by Organiz ation Details LastModified Time 11/11/2022 US, pelvis, complete completed [facility] Information not available 01/04/2023 18:05:07 12/09/2023 US, renal completed [address], [address], 06/13/2024 14:03:49 12/09/2023 US, abdomen, limited completed [address], [address], 06/13/2024 14:06:57 07/25/2024 imaging/diagn ostic result active [address], [address], 07/25/2024 19:46:38 09/21/2024 imaging/diagn ostic result active [facility] [address] [place], [address], 09/21/2024 14:43:45 Procedure Notes None recorded. Medical Equipment None Reported. Allergies Allergen ID Allergen Name Allergen Category Reaction Reaction Severity Criticality Documentation Date Start Date Code Code System Note Provider Name and Address Organization Details Recorded Time 3149 adhesive environme nt,medica tion Not available Not available Not available 12/02/2022 42137 UNK Hector id (name brand ) adhes efrain not tape Not Available [facility] 3 02:33:18 Medications Name Sig Start Date [...] Not Available Not Available No t Available Whitney 0.25 mg-35 mcg tablet TAKE 1 TABLET [...] Date Recorded Body mass index (BMI) Body mass index (BMI) Body mass index (BMI) Body mass index (BMI) Body height Body height Body height Body height Oxygen saturation Oxygen saturation in Arterial blood by Pulse oximetry Oxygen saturation Oxygen saturation in Arterial blood by Pulse oximetry Oxygen saturation Oxygen saturation in Arterial blood by Pulse oximetry Pain severity - 0-10 verbal numeric rating [Score] - Reported Heart rate Heart rate Heart rate Heart rate Body temperature Body temperature Body temperature Body temperature Body weight Body weight Body weight Body weight Systolic blood pressure Diastolic blood pressure Systolic blood pressure Diastolic blood pressure Systolic blood pressure Diastolic blood pressure Systolic blood pressure Diastolic blood pressure Provider Name and Address Organization Details Last Updated DateTime 3 28.7 kg/m2 28.7 kg/m2 29.1 kg/m2 29.9 kg/m2 154.94 cm 154.94 cm 154.94 cm 154.94 cm 90 % 90 % 98 % 98 % 97 % 97 % 0 60 /min 86 /min 98 /min 78 /min 97.5 [degF] 96.7 [degF] 98.3 [degF] 97.7 [degF] 74269.0 4 g 88989.0 4 g 17569.2 2 g 46090.3 9 g 112 mm[Hg] 82 mm[Hg] 110 mm[Hg] 74 mm[Hg] 120 mm[Hg] 70 mm[Hg] 100 mm[Hg] 60 mm[Hg] Not Available [facility] 3 02:28:31 Date Recorded Body height Body mass index (BMI) Body weight Heart rate Oxygen saturation Oxygen saturation in Arterial blood by Pulse oximetry Body temperature Systolic blood pressure Diastolic blood pressure Provider Name and Address Organization Details Last Updated DateTime 3 154.94 cm 29.5 kg/m2 73221.4 1 g 88 /min 99 % 99 % 97.6 [degF] 124 mm[Hg] 70 mm[Hg] Angelina Navarro MA [employer] 3 09:58:38 Date Recorded Body height Body mass index (BMI) Body weight Body temperature Heart rate Systolic blood pressure Diastolic blood pressure Provider Name and Address Organization Details Last Updated DateTime 3 154.94 cm 28.5 kg/m2 22187.4 5 g 97.8 [degF] 90 /min 110 mm[Hg] 64 mm[Hg] TIBURCIO Menchaca [employer] 3 14:52:52 Social History Question Answer Notes LastModified by Organizat ion Details LastModified Time Tobacco Smoking Status Never Smoker Not Available [facility] 12/02/2022 02:25:15 Do You Have An Advance Directive? No [id number] Information not available 12/02/2022 What Is Your Level Of Alcohol Consumption? None [id number] Information not available 12/02/2022 What Is Your Level Of Caffeine Consumption? Moderate [id number] Information not available 12/02/2022 How Much Tobacco Do You Chew? None [id number] Information not available 12/02/2022 In The 14 Days Before Symptom Onset, Have You Had Close Contact With A Laboratory-confir med COVID-19 While That Case Was Ill? Yes Works At [employer] But Did Have PPE [id number] Information not available 12/02/2022 In The 14 Days Before Symptom Onset, Have You Had Close Contact With A Person Who Is Under Investigation For COVID-19 While That Person Was Ill? No [id number] Information not available 12/02/2022 What Type Of Diet Are You Following? REGULAR [id number] Information not available 12/02/2022 Which Illicit Or Recreational Drugs Have You Used? None MIGRATION.[id number] Information not available 12/02/2022 Do You Or Have You Ever Used E-cigarettes Or Vape? 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 No MIGRATION.41071 00399 Information not available 12/02/2022 Do You Have A Medical Power Of Company Dancer? No MIGRATION.89250 63307 Information not available 12/02/2022 What Was The Date Of Your Most Recent Tobacco Screening? 06/14/2023 [email or web address] Information not available 06/14/2023 Do You Or Have You Ever Used Smokeless Tobacco? Never Used Smokeless Tobacco MIGRATION.79295 57489 Information not available 12/02/2022 How Much Tobacco Do You Smoke? No MIGRATION.70118 56293 Information not available 12/02/2022 Do You Use Sunscreen Routinely? No MIGRATION.50619 40715 Information not available 12/02/2022 Has Tobacco Cessation Counseling Been Provided? No N/a MIGRATION.22416 92058 Information not available 12/02/2022 Have You Recently Traveled Abroad? No MIGRATION.54249 41161 Information not available 12/02/2022 Do You Or Have You Ever Used Any Other Forms Of Tobacco Or Nicotine? No MIGRATION.16336 41872 Information not available 12/02/2022 Sex: Unknown Functional Status Question Answer Note LastModified by Organizat ion Details LastModified Time What is your exercise level? Occasional [id number] Information not available 12/02/2022 Mental Status None recorded. Family History Relationship Description Onset Age of this Age Resolved Age Notes LastModified by Organization Details LastModified Time Mother Malignant tumor of breast MIGRATION.027 [id number] Not available 12/02/2022 02:27:13 Maternal Grandfather Hypertensive disorder MIGRATION.230 [id number] Not available 12/02/2022 02:27:13 Maternal Grandmother Hypertensive disorder MIGRATION.426 [id number] Not available 12/02/2022 02:27:13 Paternal Grandfather Hypertensive disorder MIGRATION.802 [id number] Not available 12/02/2022 02:27:13 Paternal Grandmother Hypertensive disorder MIGRATION.106 [id number] Not available 12/02/2022 02:27:13 Medical History Condition [...] mL dose, miller-sucrose 2 completed Not Available [facility] 12/02/2022 02:33:13 Influenza, split virus, trivalent, preservative 1 completed Not Available [facility] 12/02/2022 02:33:13 COVID-19, mRNA, LNP-S, PF, 30 mcg/0.3 mL dose 1 completed Not Available [facility] 12/02/2022 02:33:13 COVID-19, mRNA, LNP-S, PF, 30 mcg/0.3 mL dose 1 completed Not Available [facility] 12/02/2022 02:33:13 Influenza, split virus, quadrivalent, preservative 0 completed Not Available [facility] 12/02/2022 02:33:13 Past Encounters Encounter ID Performer Location Encounter Start Date Encounter Closed Date Diagnosis/Indication Diagnosis SNOMED-CT Code Diagnosis ICD10 Code Diagnosis Note [id number] S_G Internal Med [facility] 15 [address] [facility], [address] [place] [address] 12/13/2020 00:00:00 12/13/2020 20:34:06 [id number] _CANDICE_Philippe IGRATION_ DEFAULT_1 _1 , 12/16/2020 00:00:00 12/16/2020 18:25:22 [id number] S_G Internal Med [facility] [facility] , [facility] [place] [address] 12/23/2020 00:00:00 12/23/2020 14:18:04 [id number] [facility] General Surgery [address], [address] [place] [address] 12/24/2020 00:00:00 12/24/2020 13:26:33 [id number] [facility] Internal Med [place] [address] [facility] y , [place] [address] 03/19/2021 00:00:00 03/19/2021 17:54:06 [id number] [facility] Internal Med [place] [address] [place] [address] y , [place] [address] 04/21/2021 00:00:00 04/21/2021 17:21:43 [id number] [facility] Internal Med [place] [address], [address] [place] [address] 08/01/2021 00:00:00 08/01/2021 11:33:40 [id number] S[facility] Internal Med [place] [address] [place] [address] y , [place] [address] 10/20/2021 00:00:00 10/20/2021 18:04:46 [id number] [facility] Internal Med [place] [address] [place] [address] y , [place] [address] 01/19/2022 00:00:00 01/19/2022 15:40:18 [id number] [facility]G Internal Med [facility] [address], [address] [place] [address] 05/12/2022 00:00:00 06/03/2022 11:28:12 [id number] Farhana hsieh MD [facility] Internal Med [place] [address] [place] [address] y , [place] [address] 12/23/2022 09:43:39 12/23/2022 10:44:00 Screening - NAD 190832546 Z13.9 UTD on yearly flu shot as per her historyTda p on 06/22UTD on COVID 19 vaccineWWE : On Dr Wooten OB tomorrowRT C in 4 monthsDo labsER if worseShe did verbalize her understand ing of the above Liver enzy mes level above reference range [id number] R74.01 CT abd 12/16/2020 : Neg, liver normalLFTs 01/09/2022 : Neg Did not see GIGet labs Abdominal pain 13850726 R10.9 OV 09/02/2020 :Has noted some R sided lower abd pain, with palpationW as told that she has 'cysts on ovaries' by her OB Dr Knox an US abd/pelvis doneMay need to get a trans vag US alsoMay need CT abd/pelvis OV 09/23/2020 :S/p US pelvis: pelvis vasculatur e congestion Now will see her OB OV 12/23/2020 :Now has seen Dr Lola Burrell and has been started on OCsKeep apt with Dr BurrellS/p CT scan was negative 12/16/2020 Started on nexiumWill refer to G surgery OV 10/20/2021 :Does well nowD/c dicyclomin e OV 01/19/2022 :Does well OV 05/12/2022 :No complaints now OV 12/23/2022 :Does well now Hyperlipidemia 62422908 E78.5 On rosuvastat in 40mg dailyGet labs Moderate r ecurrent major depression 73999677 F33.[address] De La Cruz On bupropionO n buspirone Does well Not suicidal or homicidal Migraine 41483394 G43.90 9 On ubrelvyDoe s well Vitamin D deficiency 347 39759 E55.9 [id number] Farhana hsieh MD [facility] Internal [facility] [place] [address] [facility] [place] [address] 06/14/2023 14:41:32 06/14/2023 15:16:25 Screening - NAD 396152019 Z13.9 UTD on yearly flu shot as per her historyTda p on 06/22UTD on COVID 19 vaccineWWE : On Dr Wooten OB tomorrowRT C in 4 monthsDo labsER if worseShe did verbalize her understand ing of the above Liver enzy mes level above reference range 434652160 R74.01 CT abd 12/16/2020 : Neg, liver normalLFTs 01/09/2022 : Neg Did not see GIGet labs Hyperlipidemia 77305237 E78.5 On rosuvastat in 40mg dailyGet labs Moderate r ecurrent major depression 28378367 F33.[address] De La Cruz On atomoxetin Jaspreet bupropion 300mg dailyOn buspirone 5mg dailyOn quetiapine 25mg daily Does well Not suicidal or homicidal Migraine 13839725 G43.90 9 On ubrelvy Does well Vitamin D deficiency 347 86753 E55.9 Eruption [id number] R21 Will get on MDP and zyrtecAlso get labsER if symptoms worsen, she is agreeable to this plan of care Health Concerns Section Related Observation LastModified by Organization Detai ls LastModified Time None Recorded Concern Status LastModified by Organization Details LastModified Time None Recorded Advance Directives Directive N: Payers Encounter Date Sequence Insurance Name Policy Number Policy Salmeron Covered Member ID Salmeron Member ID Guarantor Name 12/23/2022 1 [facility] [id number] Kumar Baezbs [id number] [employer] [place] 06/14/2023 1 [facility] [id number] Kumar Paez [place] [id number] [employer] [place] Notes Date Note Type Note Provider [...] was referred hereHer prior PCP was her asbestos wire finisher Dr Durham denies any symptoms nowNo N/V [...] pain is better Farhana Alicia MD [address] [facility], [address], [place], [address], [facility] [employer] [place] 12/23/2022 12:36:28 06/14/2023 text/html OV 09/02/2020:He re to establish careReferred by her psychiatrist Dr De La Cruz as he had done labs and it was noted that her LFTs were elevatedPast Hx:Depression/Anxi etyReviewed social family and surgical historyShandrew has seen Dr De La Cruz and was given vibryd but she has had nausea with it and he was concerned about her LFTs so was referred hereHer prior PCP was her asbestos wire finisher Dr AhmadShe denies any symptoms nowNo N/V or diarrhea, no blood in urine or stoolNo fevers or chillsNo rashesNo joint painShe is not suicidal or homicidal no ideation or attemptsHere with her mother OV 09/23/2020:Here with her mother for her one month follow upSjaun feels well todayEloise did do the labs [...] have been exposed to something in the fci to cause this rashNo SOB, wheezing or chest pain or difficulty breathing or swallowing, no joint painNo recent labs Farhana Alicia MD [address] [facility], [facility] [address], [place], [address], [place] [facility] 09/06/2023 12:58:44 OBGyn Episode No OBEpisode recorded.
--- OUTSIDE RECORDS SUMMARY | 2024-11-04 04:55 | XMS_ITS | Clinical Summary ---
Author Organization [facility] Address [address] [place] [phone] Phone Care Team Providers Care Oncology Account Specialist Name Role Phone Provider, Unknown Primary Care [...] patient's age to complete this topic Insurance [facility] MEDICAID [place] Care Teams Oncology Account Specialist Relationship Specialty Start Date End Date Provider, Unknown UNKNOWN PCP - General 06/12/23
--- OUTSIDE RECORDS SUMMARY | 2024-11-04 04:56 | XMS_ITS | Referral Summary ---
Author Organization [facility] Address [address] [facility] [place] [address] Care Team Providers Care Bakery Deliverer Name Role Phone Joellen Kemp MD Primary Care Provider [phone] Source Comments [facility],non-owned Affiliates and Associated Physician Practices is amultiple site organization consisting of ambulatory clinics and hospital sitesin [place], [place], [place] and [place]. This disclosure is being madepursuant to the Care Everywhere program and may not contain all information available regarding this patient. Last updated 18.[facility] [employer] Allergies No known active allergies Medications * [...] AMPLIFIED PROBE (05/02/2018 11:55 AM CDT) Pathologist [facility] Chlamydia Amplified Probe Negative Negative 05/03/2018 11:02 AM CDT [facility] GC Amplified Probe Negative Negative 05/03/2018 11:02 AM CDT [facility] Urine URINE / Unknown Collection / Unknown 05/02/2018 11:55 AM CDT 05/02/2018 11:55 AM CDT Narrative [facility] - 05/03/2018 11:02 AM CDT Results based on detection/no detection of ribosomal RNA by amplified method. Anita Madison MD LAB - MICROBIOLOGY O RDERABLES [facility] [address] [place] [address], [facility] [phone] * HIV-1 HIV-2 ANTIBODY + HIV P24 AG PANEL (02/15/2018 10:34 AM CDT) Pathologist [facility] HIV1/2 Ab + P24 Ag Non Reactive Non Reactive 02/15/2018 12:04 PM CDT [facility] Blood BLOOD SPECIMEN / Unknown Lab Venipuncture / Unknown 02/15/2018 10:34 AM CDT 02/15/2018 10:45 AM CDT Narrative [facility] - 02/15/2018 12:04 PM CDT No Laboratory evidence of HIV infection. Yenny Stroud APRN-TOOL ROOM SUPERVISOR LAB - CHEMISTR Y ORDERABLES [facility] [address] [place] [address] * (ABNORMAL) HEPATITIS C ANTIBODY (02/15/2018 10:34 AM CDT) HCV Antibody Screen REACTIVE( A) Non Reactive 02/15/2018 1:35 PM CDT [facility] HCV S/C Ratio 1.58(H) 0.00 - 0.79 02/15/2018 1:35 PM CDT [facility] Blood BLOOD SPECIMEN / Unknown Lab Venipuncture / Unknown 02/15/2018 10:34 AM CDT 02/15/2018 10:45 AM CDT Narrative [facility] - 02/15/2018 1:35 PM CDT S/C ratio: ??A ehcqpf-oo-trxken ratio (s/c ratio) of 0.8 - >11.00 may represent false positive results.?? Reflex testing to Hepatitis C Virus RNA Quantitative, Real- Time PCR will be performed.?? See separate report. S/C ratio: ??A lganuu-gh-srmpjh ratio (s/c ratio) of 0.8 - >11.00 may represent false positive results.?? Reflex testing to Hepatitis C Virus RNA Quantitative, Real- Time PCR will be performed.?? See separate report. Yenny SLOAN LAB - CHEMISTR Y ORDERABLES [facility] [address] [place] [address] from Last 3 Months or Most Recently Relevant to Health Maintenance Administered Medications Care Teams Bakery Deliverer Relationship Specialty Start Date End Date Joellen Kemp MD [address] [place] [address] PCP - General Pediatrics 12/10/15
--- OUTSIDE RECORDS SUMMARY | 2024-11-04 04:56 | XMS_ITS | Patient Health Summary ---
Author Organization [facility] Address [address] [place] [address] Care Team Providers Care Tonger Name Role Phone Joellen Kemp MD Primary Care Provider [phone] Note from [facility],non-owned Affiliates and Associated Physician Practices is amultiple site organization consisting of ambulatory clinics and hospital sitesin [place], [place], [place] and [place]. This disclosure is being madepursuant to the Care Everywhere program and may not contain all information available regarding this patient. Last updated 18.[facility] Allergies No known active allergies Medications * [...] period is included. PPD 0 [facility] Other MISCELLANEOUS SAMPLE S / Unknown 04/02/2021 3:35 PM CDT Casi Tariq FLOOR MECHANIC-MR TEACHER LAB - POINT OF CARE ORDERABLES Performing Organization Address City/State/[facility] Co de Phone Number [facility] [address] [phone] * CT ABDOMEN PELVIS W CONTRAST (01/31/2021 [...] 10.5 10? 3 /uL 01/31/2021 1:11 AM [facility] RBC 4.74 3.90 - 5.00 10? 6 /uL 01/31/2021 1:11 AM [facility] Hemoglobin 13.6 12.0 - 15.5 g/dL 01/31/2021 1:11 AM [facility] Hematocrit 42.1 35.0 - 45.0 % 01/31/2021 1:11 AM [facility] MCV 88.8 81.0 - 97.0 fL 01/31/2021 1:11 AM [facility] MCH 28.7 28.0 - 34.0 pg 01/31/2021 1:11 AM [facility] MCHC 32.3 32.0 - 36.0 g/dL 01/31/2021 1:11 AM [facility] Platelet Count 320 150 - 400 10? 3 /uL 01/31/2021 1:11 AM [facility] RDW-SD 43.3 36.0 - 50.0 fL 01/31/2021 1:11 AM [facility] RDW-CV 13.2 11.2 - 14.8 % 01/31/2021 1:11 AM [facility] MPV 9.7 9.3 - 12.8 fL 01/31/2021 1:11 AM [facility] nRBC Absolute 0.00 0 10? 3 /uL 01/31/2021 1:11 AM [facility] nRBC Auto 0.0 0 /100 WBC 01/31/2021 1:11 AM [facility] Neutrophils % 63.5 35.0 - 70.0 % 01/31/2021 1:11 AM [facility] Lymphocytes % 26.6 19.7 - 55.1 % 01/31/2021 1:11 AM [facility] Monocytes % 8.7 3.0 - 15.0 % 01/31/2021 1:11 AM [facility] Eosinophils % 0.6 0.0 - 6.0 % 01/31/2021 1:11 AM [facility] Basophil % 0.4 0.0 - 1.5 % 01/31/2021 1:11 AM [facility] Neutrophils Absolute 6.9 1.6 - 7.0 10? 3 /uL 01/31/2021 1:11 AM [facility] Lymphocyte Absolute 2.9 0.8 - 2.9 10? 3 /uL 01/31/2021 1:11 AM [facility] Monocytes Absolute 0.95(H) 0.14 - 0.66 10? 3 /uL 01/31/2021 1:11 AM [facility] Eosinophils Absolute 0.06 0.00 - 0.45 10? 3 /uL 01/31/2021 1:11 AM [facility] Basophils Absolute 0.04 0.00 - 0.06 10? 3 /uL 01/31/2021 1:11 AM [facility] Immature Granulocytes % 0.2 0.0 - 1.0 % 01/31/2021 1:11 AM [facility] Blood BLOOD SPECIMEN / Unknown Venipuncture / Unknown 01/31/2021 12:59 AM CDT 01/31/2021 1:05 AM CDT Garrett Paulino MD LAB - HEMATOLOGY ORD ERABLES [facility] [address] [place] [address], [facility] [phone] * (ABNORMAL) COMPREHENSIVE METABOLIC PANEL (01/31/2021 12:59 AM CDT) BUN 9 7 - 26 mg/dL 01/31/2021 1:30 AM [facility] Creatinine 0.9 0.6 - 1.2 mg/dL 01/31/2021 1:30 AM [facility] Sodium 143 136 - 145 mmol/L 01/31/2021 1:30 AM [facility] Potassium 3.8 3.5 - 4.5 mmol/L 01/31/2021 1:30 AM [facility] Chloride 107 98 - 107 mmol/L 01/31/2021 1:30 AM [facility] CO2 23 22 - 29 mmol/L 01/31/2021 1:30 AM [facility] Glucose 98 70 - 115 mg/dL 01/31/2021 1:30 AM [facility] Calcium 9.1 8.4 - 10.2 mg/dL 01/31/2021 1:30 AM [facility] Protein Total 7.9 6.0 - 8.3 g/dL 01/31/2021 1:30 AM [facility] Albumin 3.9 3.4 - 5.0 g/dL 01/31/2021 1:30 AM [facility] Bilirubin Total 0.5 0.2 - 1.2 mg/dL 01/31/2021 1:30 AM [facility] Alkaline Phosphatase 63 40 - 150 Units/L 01/31/2021 1:30 AM [facility] ALT 22 0 - 55 Units/L 01/31/2021 1:30 AM [facility] AST 19 5 - 34 Units/L 01/31/2021 1:30 AM [facility] Anion Gap 17 8 - 18 01/31/2021 1:30 AM [facility] BUN/Creatinine Ratio 10 7 - 23 01/31/2021 1:30 AM [facility] Osmolality Calculated 295 270 - 300 mOsm/kg 01/31/2021 1:30 AM [facility] Albumin/Globulin Ratio 1.0(L) 1.1 - 2.3 01/31/2021 1:30 AM [facility] eGFR >60 >60 mL/min/1.7 3 m2 01/31/2021 1:30 AM [facility] Blood BLOOD SPECIMEN / Unknown Venipuncture / Unknown 01/31/2021 12:59 AM CDT 01/31/2021 1:05 AM CDT Garrett Paulino MD LAB - CHEMISTRY [place] [address] [address], [facility] [phone] * LIPASE BLOOD (01/31/2021 12:59 AM CDT) Lipase 17 8 - 78 Units/L 01/31/2021 1:26 AM CDT [facility] Blood BLOOD SPECIMEN / Unknown Venipuncture / Unknown 01/31/2021 12:59 AM CDT 01/31/2021 1:05 AM CDT Gwen Heath PA-C LAB - CHEMISTRY OR DERABLES Performing Organization Address City/[facility]/ZIP Co de Phone Number [address] [address], [facility] [phone] * (ABNORMAL) URINALYSIS W/MICROSCOPIC NO CULTURE (01/31/2021 12:45 AM CDT) Color UA Yellow Straw, Yellow, Colorless 01/31/2021 1:07 AM T [facility] Clarity UA Cloudy(A) Clear, Slt Cloudy 01/31/2021 1:07 AM T [facility] Specific [place] UA 1.012 1.005 - 1.030 01/31/2021 1:07 AM T [facility] pH UA 5.0 5.0 - 8.0 pH 01/31/2021 1:07 AM T [facility] Protein UA 2+(A) Negative mg/dL 01/31/2021 1:07 AM T [facility] Glucose UA Negative Negative mg/dL 01/31/2021 1:07 AM T [facility] Ketone UA Negative Negative mg/dL 01/31/2021 1:07 AM T [facility] Bilirubin UA Negative Negative mg/dL 01/31/2021 1:07 AM [facility] Blood UA 2+(A) Negative 01/31/2021 1:07 AM [facility] Nitrite UA Positive(A) Negative 01/31/2021 1:07 AM [facility] Leukocyte Esterase 3+(A) Negative 01/31/2021 1:07 AM [facility] Urobilinogen UA Negative Negative mg/dL 01/31/2021 1:07 AM [facility] RBC UA 51-100(A) None Seen, 0-2, 3-5 /HPF 01/31/2021 1:07 AM [facility] WBC UA >100(A) None Seen, 0-5 /HPF 01/31/2021 1:07 AM [facility] WBC Clumps Few(A) None /HPF 01/31/2021 1:07 AM [facility] Bacteria UA 2+(A) None, Trace /HPF 01/31/2021 1:07 AM [facility] Squamous Epithelial Cells UA 3-5(A) None Seen, 0-2 /HPF 01/31/2021 1:07 AM [facility] Mucus UA 1+ None, 1+ /LPF 01/31/2021 1:07 AM [facility] Urine URINE SPECIMEN OBTAINED BY CLEAN CATCH PROCEDURE / Unknown Collection / Unknown 01/31/2021 12:45 AM CDT 01/31/2021 12:48 AM CDT Narrative [facility] - 01/31/2021 1:07 AM CDT Gwen Heath PA-C LAB - URINALYSIS O RDERABLES [facility] [address] [place] [address], [facility] [phone] * HCG URINE QUALITATIVE (01/31/2021 12:45 AM CDT) Only the most recent of2 resultswithin the time period is included. Test Urine Negative Negative 01/31/2021 1:01 AM [facility] Urine URINE / Unknown Collection / Unknown 01/31/2021 12:45 AM CDT 01/31/2021 12:48 AM CDT Garrett Paulino MD LAB - URINALYSIS ORD ERABLES [facility] [place] [address] [place] [address], [facility] [phone] * CHLAMYDIA + GC AMPLIFIED PROBE (05/02/2018 11:55 AM CDT) Only the most recent of2 resultswithin the time period is included. [facility] Chlamydia Amplified Probe Negative Negative 05/03/2018 11:02 AM CDT [facility] GC Amplified Probe Negative Negative 05/03/2018 11:02 AM CDT [facility] Urine URINE / Unknown Collection / Unknown 05/02/2018 11:55 AM CDT 05/02/2018 11:55 AM CDT Narrative [facility] - 05/03/2018 11:02 AM CDT Results based on detection/no detection of ribosomal RNA by amplified method. Anita Madison MD LAB - MICROBIOLOGY O RDERABLES Performing Organization Address City/[facility]/ZIP Co de Phone Number [facility] [address] [place] [phone], [facility] [phone] * TSH REFLEX FREE T4 (05/02/2018 11:26 AM CDT) [facility] TSH 1.29 0.358 - 3.740 ulU/mL 05/02/2018 3:38 PM CDT [facility] Blood BLOOD SPECIMEN / Unknown Lab Venipuncture / Unknown 05/02/2018 11:26 AM CDT 05/02/2018 11:53 AM CDT Anita Madison MD LAB - CHEMISTRY [place] [facility] [address] [place] [address] * C-REACTIVE PROTEIN (05/02/2018 11:26 AM CDT) Only the most recent of2 resultswithin the time period is included. [facility] C-Reactive Protein 0.20 <=0.50 mg/dL 05/02/2018 12:24 PM CDT [facility] Blood BLOOD SPECIMEN / Unknown Lab Venipuncture / Unknown 05/02/2018 11:26 AM CDT 05/02/2018 11:53 AM CDT Anita Madison MD LAB - CHEMISTRY [place] [facility] [place] [address] * PROLACTIN (05/02/2018 11:26 AM CDT) [facility] Prolactin 5.94 ng/mL 05/03/2018 1:24 PM CDT [facility] Blood BLOOD SPECIMEN / Unknown Lab Venipuncture / Unknown 05/02/2018 11:26 AM CDT 05/02/2018 11:53 AM CDT Narrative [facility] - 05/03/2018 1:24 PM CDT Prolactin Reference Interval: ?Female Non: 2.80 - ??29.20 ??ng/mL ? Female : 9.70 - 208.50 ??ng/mL Female Postmenopausal: 1.80 - ??20.39 ??ng/mL ?Male: 2.10 - ??17.70 ??ng/mL Anita Madison MD LAB - CHEMISTRY [place] Performing Organization Address City/[facility]/ZIP Co de Phone Number [facility] [address] [place] [address] * HCG URINE QUALITATIVE - POCT (IP) INTERFACED (05/02/2018 11:17 AM CDT) [facility] HCG Qual Urine Negative Negative 05/02/2018 11:17 AM CDT [facility] Urine URINE / Unknown 05/02/2018 1 1:17 AM CDT 05/02/2018 11:17 AM CDT Anita Madison MD LAB - POINT OF CARE ORDERABLES Performing Organization Address City/[facility]/ZIP Co de Phone Number [facility] [address] [place] [address] * HCG URINE QUAL POCT NOTIFICATION (05/02/2018 10:54 AM CDT) Comment Notification Label Only - See Separate Report 05/02/2018 12:00 PM CDT [facility] Urine URINE / Unknown 05/02/2018 1 0:54 AM CDT 05/02/2018 10:54 AM CDT Anita Madison MD LAB - URINALYSIS ORD ERABLES Performing Organization Address [facility] Co de Phone Number [facility] [address] [place] [address] * US PELVIS W DOPPLER OVARIES (02/25/2018 [...] P24 AG PANEL (02/15/2018 10:34 AM CDT) [facility] HIV1/2 Ab + P24 Ag Non Reactive Non Reactive 02/15/2018 12:04 PM CDT [facility] Blood BLOOD SPECIMEN / Unknown Lab Venipuncture / Unknown 02/15/2018 10:34 AM CDT 02/15/2018 10:45 AM CDT Narrative [facility] - 02/15/2018 12:04 PM CDT No Laboratory evidence of HIV infection. Yenny Stroud APRN-MR TEACHER LAB - CHEMISTR Y ORDERABLES [facility] [address] [place] [address] * HEPATITIS C RNA QUANTITATIVE PCR (02/15/2018 10:34 AM CDT) [facility] Hepatitis C Virus Quantitation HCV Not Detected IU/mL 02/16/2018 8:11 PM CDT [facility] ([facility]) Test Information Comment 02/17/20 8:11 PM CDT [facility] ([facility]) Comment:The quantitative ran ge of this assay is 15 IU/mL to 100 million IU/mL. Blood BLOOD SPECIMEN / Unknown Lab Venipuncture / Unknown 02/15/2018 10:34 AM CDT 02/15/2018 12:01 PM CDT Narrative [facility] ([facility]) - 02/16/2018 8:11 PM CDT Performed at: ??01 - [facility] [address] ??[id number] [employer] Reading Teacher: Leroy Lew MD, Phone: ??[phone] Yenny Stroud APRN-MR TEACHER LAB - CHEMISTR Y ORDERABLES Performing Organization Address City/[facility]/ZIP Co de Phone Number [facility] ([facility]) [address] [place] [address] * RPR (02/15/2018 10:34 AM CDT) Pathologist [facility] RPR Non Reactive Non Reactive 02/16/2018 9:28 AM CDT [facility] Blood BLOOD SPECIMEN / Unknown Lab Venipuncture / Unknown 02/15/2018 10:34 AM CDT 02/15/2018 10:45 AM CDT Yenny Stroud APRN-MR TEACHER LAB - CHEMISTR Y ORDERABLES [facility] [address] [place] [address] * (ABNORMAL) HEPATITIS B PANEL (02/15/2018 10:34 AM CDT) HBsAb REACTIVE(A) Non Reactive 02/15/2018 12:12 PM CDT [facility] HBsAg Non Reactive Non Reactive 02/15/2018 12:12 PM CDT [facility] HBc Antibody IgM Non Reactive Non Reactive 02/15/2018 12:12 PM CDT [facility] Blood BLOOD SPECIMEN / Unknown Lab Venipuncture / Unknown 02/15/2018 10:34 AM CDT 02/15/2018 10:45 AM CDT [facility] LAB - CHEMISTR Y ORDERABLES Performing Organization Address [facility] de Phone Number [facility] [place] [address] * (ABNORMAL) HEPATITIS C ANTIBODY (02/15/2018 10:34 AM CDT) Pathologist [facility] HCV Antibody Screen REACTIVE( A) Non Reactive 02/15/2018 1:35 PM CDT [facility] HCV S/C Ratio 1.58(H) 0.00 - 0.79 02/15/2018 1:35 PM CDT [facility] Blood BLOOD SPECIMEN / Unknown Lab Venipuncture / Unknown 02/15/2018 10:34 AM CDT 02/15/2018 10:45 AM CDT Narrative [facility] - 02/15/2018 1:35 PM CDT S/C ratio: ??A fptrrb-zh-doxfhf ratio (s/c ratio) of 0.8 - >11.00 may represent false positive results.?? Reflex testing to Hepatitis C Virus RNA Quantitative, Real- Time PCR will be performed.?? See separate report. S/C ratio: ??A kgznjq-wz-kiuxqm ratio (s/c ratio) of 0.8 - >11.00 may represent false positive results.?? Reflex testing to Hepatitis C Virus RNA Quantitative, Real- Time PCR will be performed.?? See separate report. Yenny Mauricemalenarylan [facility] LAB - CHEMISTR Y ORDERABLES Performing Organization Address [facility] de Phone Number [facility] [address] [place] [address] * CHLAMYDIA + GC AMPLIFIED PROBE AMANDA (02/15/2018 9:59 AM CDT) [facility] Chlamydia Amplified Probe Negative Negative 02/16/2018 9:36 AM CDT [facility] GC Amplified Probe Negative Negative 02/16/2018 9:36 AM CDT [facility] Microbiology URINE / Unknown Collection / Unknown 02/15/2018 9:59 AM CDT 02/15/2018 10:50 AM CDT Narrative [facility] - 02/16/2018 9:36 AM CDT This test was developed and its performance characteristics determined by the [facility], [facility]. Female urine specimens tested by the [facility] have not been cleared or approved by [...] - MICROBIO LOGY ORDERABLES Performing Organization Address City/[facility]/ZIP Co de Phone Number [facility] [address] [place] [address], [facility] [phone] * TRICHOMONAS VAGINALIS AMPLIFIED PROBE (02/15/2018 9:59 AM CDT) Trichomonas vaginalis Amplified Probe Negative Negative 02/16/2018 10:39 AM CDT [facility] Microbiology ENTIRE VAGINA / Unknown Collection / Unknown 02/15/2018 9:59 AM CDT 02/15/2018 10:51 AM CDT Narrative [facility] - 02/16/2018 10:39 AM CDT Results based on detection/no detection of ribosomal RNA by amplified method. Yenny SLOAN LAB - MICROBIO LOGY ORDERABLES [facility] [address] [place] [address], [facility] [phone] * XR HIP 2+ VW RIGHT (01/18/2018 [...] Negative Negative 01/12/2018 1:11 PM CDT [facility] ([facility]) Comment: For detection of IgA and [...] CDT 01/10/2018 12:35 PM CDT Narrative [facility] ([facility]) - 01/12/2018 1:11 PM CDT Performed at: ??01 - [facility] [address] ??[id number] [employer] Reading Teacher: Leroy Lew MD, Phone: ??[phone] Anita Madison MD LAB - SEROLOGY ORDER STEPHANIE [facility] ([facility]) [address] [place] [address] * HCG BETA BLOOD QUANTITATIVE (01/10/2018 12:12 PM CDT) hCG Quantitative <1 mIU/mL 01/11/20 18 3:20 PM CDT [facility] Blood BLOOD SPECIMEN / Unknown Lab Venipuncture / Unknown 01/10/2018 12:12 PM CDT 01/10/2018 12:35 PM CDT Narrative [facility] - 01/10/2018 3:20 PM CDT [...] Madison MD LAB - CHEMISTRY [place] [facility] Organization Address City/State/ZIP Co de Phone Number [facility] [address] [place] [address] * URINALYSIS W/MICROSCOPIC REFLEX TO CULTURE (01/10/2018 11:03 AM T) Color UA Straw Straw, Yellow 01/10/2018 11:42 AM [facility] Clarity UA Clear Clear 01/10/2018 11:42 AM [facility] Glucose UA Negative Negative 01/10/2018 11:42 AM [facility] Bilirubin UA Negative Negative 01/10/2018 11:42 AM [facility] Ketone UA Negative Negative 01/10/2018 11:42 AM [facility] Specific [place] UA 1.008 1.005 - 1.030 01/10/2018 11:42 AM [facility] Blood UA Negative Negative 01/10/2018 11:42 AM [facility] pH UA 5.0 5.0 - 8.0 pH 01/10/2018 11:42 AM [facility] Protein UA Negative Negative 01/10/2018 11:42 AM [facility] Urobilinogen UA Negative Negative mg/dL 01/10/2018 11:42 AM [facility] Nitrite UA Negative Negative 01/10/2018 11:42 AM [facility] Leukocyte UA Negative Negative 01/10/2018 11:42 AM [facility] RBC UA None Seen 0-5, None Seen # /hpf 01/10/2018 11:42 AM [facility] WBC UA 0-5 0-5, None Seen # /hpf 01/10/2018 11:42 AM CDT [facility] Bacteria UA None Seen None Seen 01/10/2018 11:42 AM CDT [facility] Squamous Epithelial Cells 0-2 None Seen, 0-2, 3-5 /hpf 01/10/2018 11:42 AM CDT [facility] Reflex Status Culture not indicated 01/10/2018 11:42 AM CDT [facility] Urine URINE SPECIMEN OBTAINED BY CLEAN CATCH PROCEDURE / Unknown Collection / Unknown 01/10/2018 11:03 AM CDT 01/10/2018 11:19 AM CDT Narrative [facility] - 01/10/2018 11:42 AM CDT Anita Madison MD LAB - URINALYSIS ORD ERABLES Performing Organization Address City/State/[facility] Co de Phone Number [facility] [address] [place] [address] * MRI BRAIN NON CONTRAST (03/20/2016 10:54 AM CDT) Anatomical Region Laterality Modality Head Magnetic Resonan ce 03/20/2016 11:1 2 AM CDT Impressions 03/20/2016 11:55 AM CDT 1. Normal examination of the brain and tonto apache of [place] without findings to explain the [...] according to standard protocol. MRA of the knpxyd-qk-Kgbmkz was performed using a kxjw-jg-rygyhe technique without contrast. The sequences are distorted [...] according to standard protocol. MRA of the zqudyk-pk-Momtie was performed using a arvr-ui-mdyyam technique without contrast. The sequences are distorted [...] 1. Normal examination of the brain and tonto apache of [place] without findings to explain the [...] 1. Normal examination of the brain and tonto apache of [place] without findings to explain the [...] according to standard protocol. MRA of the raaqsu-ei-Tefwbq was performed using a eszl-ai-fxcxnz technique without contrast. The sequences are distorted [...] according to standard protocol. MRA of the werbvp-jo-Opmtqu was performed using a alnv-dw-gftmjg technique without contrast. The sequences are distorted [...] 1. Normal examination of the brain and tonto apache of [place] without findings to explain the [...] AM CDT) Result CASE NUMBER [id number] [facility] REPORT Comment: ORDERING PHYSICIAN [...] and interpreted by the attending (teaching) pathologist. [employer] ? KHUSHBU COOPER PATHOLOGIST ?Siva Wood M.D. ELECTRONICALLY ROGER Siva Wood MISCELLANEOUS SAMPLES / Unknown 06/22/2005 9:20 AM CDT 06/22/2005 10:55 AM CDT Historical Provider LAB - PATHOLOGY/C YTOLOGY ORDERABLES [facility] REPORT Care Teams Tonger Relationship Specialty Start Date End Date Joellen Kemp MD [address] [facility] [address] [place] [phone] PCP - General Pediatrics 12/10/15
--- OUTSIDE RECORDS SUMMARY | 2024-11-04 04:56 | XMS_ITS | Clinical Summary ---
Author Organization [facility] Address [address] [place] [address] Care Team Providers Care Animal Nurse Name Role Phone Joellen Kemp MD Primary Care Provider [phone] Source Comments [facility],non-owned Affiliates and Associated Physician Practices is amultiple site organization consisting of ambulatory clinics and hospital sitesin [place], [place], [place] and [place]. This disclosure is being madepursuant to the Care Everywhere program and may not contain all information available regarding this patient. Last updated 18.[facility] Allergies No known active allergies Medications * [...] HPV VACCINE (1 - 3-dose series) 2016 MENINGOCOCCAL (Group B) VACCINE (1 of 2 - Standard) 2017 CHLAMYDIA/GONORRHEA SCREENING 05/02/2019, 02/15/2018, 01/10/2018 DTAP/TDAP/TD VACCINES (1 - Tdap) 2020 HEPATITIS B VACCINE (1 of 3 - 19+ 3-dose series) 2020 COVID-19 VACCINE (1 - 2023-2 5 season) 2024 INFLUENZA VACCINE (#1) 2024 08/02/2020 DEPRESSION SCREENING 10/04/2024 ZOSTER VACCINE (1 of 2) 2051 HEPATITIS [...] Probe Negative Negative 05/03/2018 11:02 AM CDT [facility] GC Amplified Probe Negative Negative 05/03/2018 11:02 AM CDT [facility] Urine URINE / Unknown Collection / Unknown 05/02/2018 11:55 AM CDT 05/02/2018 11:55 AM CDT Narrative [facility] - 05/03/2018 11:02 AM CDT Results based on detection/no detection of ribosomal RNA by amplified method. Anita Madison MD LAB - MICROBIOLOGY O RDERABLES [facility] [address] [place] [address], [facility] [phone] * HIV-1 HIV-2 ANTIBODY + HIV P24 AG PANEL (02/15/2018 10:34 AM CDT) [facility] HIV1/2 Ab + P24 Ag Non Reactive Non Reactive 02/15/2018 12:04 PM CDT [facility] Blood BLOOD SPECIMEN / Unknown Lab Venipuncture / Unknown 02/15/2018 10:34 AM CDT 02/15/2018 10:45 AM CDT [facility] - 02/15/2018 12:04 PM CDT No Laboratory evidence of HIV infection. Yenny SLOAN LAB - CHEMISTR Y ORDERABLES Performing Organization Address City/[facility]/ZIP Co de Phone Number [facility] [address] [place] [address] * (ABNORMAL) HEPATITIS C ANTIBODY (02/15/2018 10:34 AM CDT) [facility] HCV Antibody Screen REACTIVE( A) Non Reactive 02/15/2018 1:35 PM CDT [facility] HCV S/C Ratio 1.58(H) 0.00 - 0.79 02/15/2018 1:35 PM CDT [facility] Blood BLOOD SPECIMEN / Unknown Lab Venipuncture / Unknown 02/15/2018 10:34 AM CDT 02/15/2018 10:45 AM CDT Narrative [facility] - 02/15/2018 1:35 PM CDT S/C ratio: ??A xbuqmh-td-lvrfdj ratio (s/c ratio) of 0.8 - >11.00 may represent false positive results.?? Reflex testing to Hepatitis C Virus RNA Quantitative, Real- Time PCR will be performed.?? See separate report. S/C ratio: ??A zuqygp-ln-utvdvo ratio (s/c ratio) of 0.8 - >11.00 may represent false positive results.?? Reflex testing to Hepatitis C Virus RNA Quantitative, Real- Time PCR will be performed.?? See separate report. Yenny Stroud APRN-USED CAR SALES SUPERVISOR LAB - CHEMISTR Y ORDERABLES [facility] [address] [place] [address] from Last 3 Months or Most Recently Relevant to Health Maintenance Care Teams Animal Nurse Relationship Specialty Start Date End Date Joellen Kemp MD [address] [facility] [address] [address] [place] [address] PCP - General Pediatrics 12/10/15
--- OUTSIDE RECORDS SUMMARY | 2024-11-04 05:16 | XMS_ITS | Clinical Summary ---
Author Organization [facility] Address [address] [place] [phone] Phone Care Team Providers Care Programmable Logic Controller Assembler Name Role Phone Provider, Unknown Primary Care [...] patient's age to complete this topic Insurance [facility] [place] Care Teams Programmable Logic Controller Assembler Relationship Specialty Start Date End Date Provider, Unknown UNKNOWN PCP - General 06/12/23
--- OUTSIDE RECORDS SUMMARY | 2024-11-04 05:16 | XMS_ITS | Clinical Summary ---
Author Organization [facility] Address [facility]ly [facility], [facility] [facility] [place] [address] [place] [address] Care Team Providers Care Pharmaceutical Representative Name Role Phone Farhana Alicia MD Primary [...] Comments Blood Pressure 127/76 11/11/2022 7:28 PM HEM INSPECTOR Pulse 64 11/11/2022 7:28 PM HEM INSPECTOR Temperature 36.6 ??C (97.8 ??F) 11/11/2022 7:28 PM CS T Respiratory Rate 18 11/11/2022 7:28 PM HEM INSPECTOR Oxygen Saturation 100% 11/11/2022 7:28 PM HEM INSPECTOR Inhaled Oxygen Concentration - - Weight 73.5 kg (162 lb) 11/11/2022 7:30 PM HEM INSPECTOR Height 154.9 cm (5' 1 ) 11/11/2022 7:30 PM HEM INSPECTOR Body Mass Index 30.61 11/11/2022 7:30 PM HEM INSPECTOR Plan of Treatment Health Maintenance Due Date [...] patient's age to complete this topic Insurance [facility] Care Teams Pharmaceutical Representative Relationship Specialty Start Date End Date Farhana Alicia MD [facility] [place] [address] PCP - General INTERNAL MEDICINE 12/16/20
--- OUTSIDE RECORDS SUMMARY | 2024-11-04 05:17 | XMS_ITS | Clinical Summary ---
Author Organization [facility] Address [address] [place] [address] Care Team Providers Care Braider Setter Name Role Phone Joellen Kemp MD Primary Care Provider [phone] Source Comments [facility] [employer],non-owned Affiliates and Associated Physician Practices is amultiple site organization consisting of ambulatory clinics and hospital sitesin [place], [place], [place] and [place]. This disclosure is being madepursuant to the Care Everywhere program and may not contain all information available regarding this patient. Last updated 18.[facility] [employer] Allergies No known active allergies Medications * [...] Probe Negative Negative 05/03/2018 11:02 AM CDT [facility] GC Amplified Probe Negative Negative 05/03/2018 11:02 AM CDT [facility] Urine URINE / Unknown Collection / Unknown 05/02/2018 11:55 AM CDT 05/02/2018 11:55 AM CDT Narrative [facility] - 05/03/2018 11:02 AM CDT Results based on detection/no detection of ribosomal RNA by amplified method. Anita Madison MD LAB - MICROBIOLOGY O RDERABLES [facility] [address] [place] [address], [facility] [phone] * HIV-1 HIV-2 ANTIBODY + HIV P24 AG PANEL (02/15/2018 10:34 AM CDT) [facility] HIV1/2 Ab + P24 Ag Non Reactive Non Reactive 02/15/2018 12:04 PM CDT [facility] Blood BLOOD SPECIMEN / Unknown Lab Venipuncture / Unknown 02/15/2018 10:34 AM CDT 02/15/2018 10:45 AM CDT [facility] - 02/15/2018 12:04 PM CDT No Laboratory evidence of HIV infection. Yenny SLOAN LAB - CHEMISTR Y ORDERABLES Performing Organization Address City/[facility]/ZIP Co de Phone Number [facility] [address] [place] [address] * (ABNORMAL) HEPATITIS C ANTIBODY (02/15/2018 10:34 AM CDT) [facility] HCV Antibody Screen REACTIVE( A) Non Reactive 02/15/2018 1:35 PM CDT [facility] HCV S/C Ratio 1.58(H) 0.00 - 0.79 02/15/2018 1:35 PM CDT [facility] Blood BLOOD SPECIMEN / Unknown Lab Venipuncture / Unknown 02/15/2018 10:34 AM CDT 02/15/2018 10:45 AM CDT Narrative [facility] - 02/15/2018 1:35 PM CDT S/C ratio: ??A yymlyd-gk-oqqcua ratio (s/c ratio) of 0.8 - >11.00 may represent false positive results.?? Reflex testing to Hepatitis C Virus RNA Quantitative, Real- Time PCR will be performed.?? See separate report. S/C ratio: ??A pkrbqp-dp-cmdqig ratio (s/c ratio) of 0.8 - >11.00 may represent false positive results.?? Reflex testing to Hepatitis C Virus RNA Quantitative, Real- Time PCR will be performed.?? See separate report. Yenny Stroud APRN-MATTING PRESS TENDER LAB - CHEMISTR Y ORDERABLES [facility] [address] [place] [address] from Last 3 Months or Most Recently Relevant to Health Maintenance Care Teams Braider Setter Relationship Specialty Start Date End Date Joellen Kemp MD [address] [facility] [address] [place] [address] PCP - General Pediatrics 12/10/15
--- OUTSIDE RECORDS SUMMARY | 2024-11-04 05:17 | XMS_ITS | Referral Summary ---
Author Organization [facility] Address [address] [place] [address] Care Team Providers Care Food Safety Officer Name Role Phone Joellen Kemp MD Primary Care Provider [phone] Source Comments [facility],non-owned Affiliates and Associated Physician Practices is amultiple site organization consisting of ambulatory clinics and hospital sitesin [place], [place], [place] and [place]. This disclosure is being madepursuant to the Care Everywhere program and may not contain all information available regarding this patient. Last updated 18.[facility] [employer] Allergies No known active allergies Medications * [...] AMPLIFIED PROBE (05/02/2018 11:55 AM CDT) Pathologist [facility] Chlamydia Amplified Probe Negative Negative 05/03/2018 11:[address] [facility] GC Amplified Probe Negative Negative 05/03/2018 11:[address] [facility] Urine URINE / Unknown Collection / Unknown 05/02/2018 11:55 AM CDT 05/02/2018 11:[address] [facility] - 05/03/2018 11:02 AM CDT Results based on detection/no detection of ribosomal RNA by amplified method. Anita Madison MD LAB - MICROBIOLOGY O RDERABLES [facility] [address] [place] [address], [facility] [phone] * HIV-1 HIV-2 ANTIBODY + HIV P24 AG PANEL (02/15/2018 10:34 AM CDT) Pathologist [facility] HIV1/2 Ab + P24 Ag Non Reactive Non Reactive 02/15/2018 12:04 PM CDT [facility] Blood BLOOD SPECIMEN / Unknown Lab Venipuncture / Unknown 02/15/2018 10:34 AM CDT 02/15/2018 10:45 AM CDT Narrative [facility] - 02/15/2018 12:04 PM CDT No Laboratory evidence of HIV infection. Yenny Stroud APRN-TREE MARKER LAB - CHEMISTR Y ORDERABLES [facility] [address] [place] [address] * (ABNORMAL) HEPATITIS C ANTIBODY (02/15/2018 10:34 AM CDT) HCV Antibody Screen REACTIVE( A) Non Reactive 02/15/2018 1:35 PM CDT [facility] HCV S/C Ratio 1.58(H) 0.00 - 0.79 02/15/2018 1:35 PM CDT [facility] Blood BLOOD SPECIMEN / Unknown Lab Venipuncture / Unknown 02/15/2018 10:34 AM CDT 02/15/2018 10:45 AM CDT Narrative [facility] - 02/15/2018 1:35 PM CDT S/C ratio: ??A ybxnqh-au-qbuqsm ratio (s/c ratio) of 0.8 - >11.00 may represent false positive results.?? Reflex testing to Hepatitis C Virus RNA Quantitative, Real- Time PCR will be performed.?? See separate report. S/C ratio: ??A xmbcgw-nr-gsqnmf ratio (s/c ratio) of 0.8 - >11.00 may represent false positive results.?? Reflex testing to Hepatitis C Virus RNA Quantitative, Real- Time PCR will be performed.?? See separate report. Yenny SLOAN LAB - CHEMISTR Y ORDERABLES [facility] [address] [place] [address] from Last 3 Months or Most Recently Relevant to Health Maintenance Administered Medications Care Teams Food Safety Officer Relationship Specialty Start Date End Date Joellen Kemp MD [address] [place] [address] PCP - General Pediatrics 12/10/15
--- OUTSIDE RECORDS SUMMARY | 2024-11-04 05:17 | XMS_ITS | Patient Health Summary ---
Author Organization [facility] Address [address] [place] [address] Care Team Providers Care Computer Systems Software Engineer Name Role Phone Joellen Kemp MD Primary Care Provider [phone] Note from [facility],non-owned Affiliates and Associated Physician Practices is amultiple site organization consisting of ambulatory clinics and hospital sitesin [place], [place], [place] and [place]. This disclosure is being madepursuant to the Care Everywhere program and may not contain all information available regarding this patient. Last updated 18.[facility] Allergies No known active allergies Medications [...] period is included. PPD 0 [facility] [place] Other MISCELLANEOUS SAMPLE S / Unknown 04/02/2021 3:[address] MESSENGER-RUNNER OUT LAB - POINT OF CARE ORDERABLES Performing Organization Address City/State/[facility] Co de Phone Number [facility] [address] [phone] * CT ABDOMEN PELVIS W CONTRAST (01/31/2021 [...] 10? 3 /uL 01/31/2021 1:11 AM [facility] RBC 4.74 3.90 - 5.00 10? 6 /uL 01/31/2021 1:11 AM [facility] Hemoglobin 13.6 12.0 - 15.5 g/dL 01/31/2021 1:11 AM [facility] Hematocrit 42.1 35.0 - 45.0 % 01/31/2021 1:11 AM [facility] MCV 88.8 81.0 - 97.0 fL 01/31/2021 1:11 AM [facility] MCH 28.7 28.0 - 34.0 pg 01/31/2021 1:11 AM [facility] MCHC 32.3 32.0 - 36.0 g/dL 01/31/2021 1:11 AM [facility] Platelet Count 320 150 - 400 10? 3 /uL 01/31/2021 1:11 AM [facility] RDW-SD 43.3 36.0 - 50.0 fL 01/31/2021 1:11 AM [facility] RDW-CV 13.2 11.2 - 14.8 % 01/31/2021 1:11 AM [facility] MPV 9.7 9.3 - 12.8 fL 01/31/2021 1:11 AM [facility] nRBC Absolute 0.00 0 10? 3 /uL 01/31/2021 1:11 AM [facility] nRBC Auto 0.0 0 /100 WBC 01/31/2021 1:11 AM [facility] Neutrophils % 63.5 35.0 - 70.0 % 01/31/2021 1:11 AM [facility] Lymphocytes % 26.6 19.7 - 55.1 % 01/31/2021 1:11 AM [facility] Monocytes % 8.7 3.0 - 15.0 % 01/31/2021 1:11 AM [facility] Eosinophils % 0.6 0.0 - 6.0 % 01/31/2021 1:11 AM [facility] Basophil % 0.4 0.0 - 1.5 % 01/31/2021 1:11 AM [facility] Neutrophils Absolute 6.9 1.6 - 7.0 10? 3 /uL 01/31/2021 1:11 AM [facility] Lymphocyte Absolute 2.9 0.8 - 2.9 10? 3 /uL 01/31/2021 1:11 AM [facility] Monocytes Absolute 0.95(H) 0.14 - 0.66 10? 3 /uL 01/31/2021 1:11 AM [facility] Eosinophils Absolute 0.06 0.00 - 0.45 10? 3 /uL 01/31/2021 1:11 AM [facility] Basophils Absolute 0.04 0.00 - 0.06 10? 3 /uL 01/31/2021 1:11 AM [facility] Immature Granulocytes % 0.2 0.0 - 1.0 % 01/31/2021 1:11 AM [facility] Blood BLOOD SPECIMEN / Unknown Venipuncture / Unknown 01/31/2021 12:59 AM CDT 01/31/2021 1:05 AM CDT Garrett Paulino MD LAB - HEMATOLOGY ORD ERABLES [facility] [address] [place] [address], [place] [phone] * (ABNORMAL) COMPREHENSIVE METABOLIC PANEL (01/31/2021 12:59 AM CDT) BUN 9 7 - 26 mg/dL 01/31/2021 1:30 AM [facility] Creatinine 0.9 0.6 - 1.2 mg/dL 01/31/2021 1:30 AM [facility] Sodium 143 136 - 145 mmol/L 01/31/2021 1:30 AM [facility] Potassium 3.8 3.5 - 4.5 mmol/L 01/31/2021 1:30 AM [facility] Chloride 107 98 - 107 mmol/L 01/31/2021 1:30 AM [facility] CO2 23 22 - 29 mmol/L 01/31/2021 1:30 AM [facility] Glucose 98 70 - 115 mg/dL 01/31/2021 1:30 AM [facility] Calcium 9.1 8.4 - 10.2 mg/dL 01/31/2021 1:30 AM [facility] Protein Total 7.9 6.0 - 8.3 g/dL 01/31/2021 1:30 AM [facility] Albumin 3.9 3.4 - 5.0 g/dL 01/31/2021 1:30 AM [facility] Bilirubin Total 0.5 0.2 - 1.2 mg/dL 01/31/2021 1:30 AM [facility] Alkaline Phosphatase 63 40 - 150 Units/L 01/31/2021 1:30 AM [facility] ALT 22 0 - 55 Units/L 01/31/2021 1:30 AM [facility] AST 19 5 - 34 Units/L 01/31/2021 1:30 AM [facility] Anion Gap 17 8 - 18 01/31/2021 1:30 AM [facility] BUN/Creatinine Ratio 10 7 - 23 01/31/2021 1:30 AM [facility] Osmolality Calculated 295 270 - 300 mOsm/kg 01/31/2021 1:30 AM [facility] Albumin/Globulin Ratio 1.0(L) 1.1 - 2.3 01/31/2021 1:30 AM [facility] eGFR >60 >60 mL/min/1.7 3 m2 01/31/2021 1:30 AM [facility] Blood BLOOD SPECIMEN / Unknown Venipuncture / Unknown 01/31/2021 12:59 AM CDT 01/31/2021 1:05 AM CDT Garrett Paulino MD LAB - CHEMISTRY [facility] [address] [address], [place] [phone] * LIPASE BLOOD (01/31/2021 12:59 AM CDT) Lipase 17 8 - 78 Units/L 01/31/2021 1:26 AM CDT [facility] Blood BLOOD SPECIMEN / Unknown Venipuncture / Unknown 01/31/2021 12:59 AM CDT 01/31/2021 1:05 AM CDT Gwen Heath PA-C LAB - CHEMISTRY OR DERABLES Performing Organization Address City/[facility]/ZIP Co de Phone Number [address] [address], [place] [phone] * (ABNORMAL) URINALYSIS W/MICROSCOPIC NO CULTURE (01/31/2021 12:45 AM CDT) Color UA Yellow Straw, Yellow, Colorless 01/31/2021 1:07 AM T [facility] Clarity UA Cloudy(A) Clear, Slt Cloudy 01/31/2021 1:07 AM T [facility] Specific [place] UA 1.012 1.005 - 1.030 01/31/2021 1:07 AM T [facility] pH UA 5.0 5.0 - 8.0 pH 01/31/2021 1:07 AM T [facility] Protein UA 2+(A) Negative mg/dL 01/31/2021 1:07 AM T [facility] Glucose UA Negative Negative mg/dL 01/31/2021 1:07 AM T [facility] Ketone UA Negative Negative mg/dL 01/31/2021 1:07 AM T [facility] Bilirubin UA Negative Negative mg/dL 01/31/2021 1:07 AM [facility] Blood UA 2+(A) Negative 01/31/2021 1:07 AM [facility] Nitrite UA Positive(A) Negative 01/31/2021 1:07 AM [facility] Leukocyte Esterase 3+(A) Negative 01/31/2021 1:07 AM [facility] Urobilinogen UA Negative Negative mg/dL 01/31/2021 1:07 AM [facility] RBC UA 51-100(A) None Seen, 0-2, 3-5 /HPF 01/31/2021 1:07 AM [facility] WBC UA >100(A) None Seen, 0-5 /HPF 01/31/2021 1:07 AM [facility] WBC Clumps Few(A) None /HPF 01/31/2021 1:07 AM [facility] Bacteria UA 2+(A) None, Trace /HPF 01/31/2021 1:07 AM [facility] Squamous Epithelial Cells UA 3-5(A) None Seen, 0-2 /HPF 01/31/2021 1:07 AM [facility] Mucus UA 1+ None, 1+ /LPF 01/31/2021 1:07 AM [facility] Urine URINE SPECIMEN OBTAINED BY CLEAN CATCH PROCEDURE / Unknown Collection / Unknown 01/31/2021 12:45 AM CDT 01/31/2021 12:48 AM CDT Narrative [facility] - 01/31/2021 1:07 AM CDT Gwen Heath PA-C LAB - URINALYSIS O RDERABLES [facility] [address] [place] [address], [place] [phone] * HCG URINE QUALITATIVE (01/31/2021 12:45 AM CDT) Only the most recent of2 resultswithin the time period is included. Test Urine Negative Negative 01/31/2021 1:01 AM [facility] Urine URINE / Unknown Collection / Unknown 01/31/2021 12:45 AM CDT 01/31/2021 12:48 AM CDT Garrett Paulino MD LAB - URINALYSIS ORD ERABLES [facility] [address] [address] [facility] [place] [address] [place] [address], [place] [phone] * CHLAMYDIA + GC AMPLIFIED PROBE (05/02/2018 11:55 AM CDT) Only the most recent of2 resultswithin the time period is included. [facility] Chlamydia Amplified Probe Negative Negative 05/03/2018 11:02 AM CDT [facility] GC Amplified Probe Negative Negative 05/03/2018 11:02 AM CDT [facility] Urine URINE / Unknown Collection / Unknown 05/02/2018 11:55 AM CDT 05/02/2018 11:55 AM CDT Narrative [facility] - 05/03/2018 11:02 AM CDT Results based on detection/no detection of ribosomal RNA by amplified method. Anita Madison MD LAB - MICROBIOLOGY O RDERABLES Performing Organization Address City/[facility]/ZIP Co de Phone Number [facility] [address] [place] [id number], [place] [phone] * TSH REFLEX FREE T4 (05/02/2018 11:26 AM CDT) [facility] TSH 1.29 0.358 - 3.740 ulU/mL 05/02/2018 3:38 PM CDT [facility] Blood BLOOD SPECIMEN / Unknown Lab Venipuncture / Unknown 05/02/2018 11:26 AM CDT 05/02/2018 11:53 AM CDT Anita Madison MD LAB - CHEMISTRY [place] [facility] [address] [place] [address] * C-REACTIVE PROTEIN (05/02/2018 11:26 AM CDT) Only the most recent of2 resultswithin the time period is included. [facility] C-Reactive Protein 0.20 <=0.50 mg/dL 05/02/2018 12:24 PM CDT [facility] Blood BLOOD SPECIMEN / Unknown Lab Venipuncture / Unknown 05/02/2018 11:26 AM CDT 05/02/2018 11:53 AM CDT Anita Madison MD LAB - CHEMISTRY [place] [facility] [place] [address] * PROLACTIN (05/02/2018 11:26 AM CDT) [facility] Prolactin 5.94 ng/mL 05/03/2018 1:24 PM CDT [facility] Blood BLOOD SPECIMEN / Unknown Lab Venipuncture / Unknown 05/02/2018 11:26 AM CDT 05/02/2018 11:53 AM CDT Narrative [facility] - 05/03/2018 1:24 PM CDT Prolactin Reference Interval: ?Female Non: 2.80 - ??29.20 ??ng/mL ? Female : 9.70 - 208.50 ??ng/mL Female Postmenopausal: 1.80 - ??20.39 ??ng/mL ?Male: 2.10 - ??17.70 ??ng/mL Anita Madison MD LAB - CHEMISTRY [place] Performing Organization Address City/[facility]/ZIP Co de Phone Number [facility] [address] [place] [address] * HCG URINE QUALITATIVE - POCT (IP) INTERFACED (05/02/2018 11:17 AM CDT) [facility] HCG Qual Urine Negative Negative 05/02/2018 11:17 AM CDT [facility] Urine URINE / Unknown 05/02/2018 1 1:17 AM CDT 05/02/2018 11:17 AM CDT Anita Madison MD LAB - POINT OF CARE ORDERABLES Performing Organization Address City/[facility]/ZIP Co de Phone Number [facility] [address] [place] [address] * HCG URINE QUAL POCT NOTIFICATION (05/02/2018 10:54 AM CDT) Comment Notification Label Only - See Separate Report 05/02/2018 12:00 PM CDT [facility] Urine URINE / Unknown 05/02/2018 1 0:54 AM CDT 05/02/2018 10:54 AM CDT Anita Madison MD LAB - URINALYSIS ORD ERABLES Performing Organization Address [facility] Co de Phone Number [facility] [address] [place] [address] * US PELVIS W DOPPLER OVARIES (02/25/2018 [...] P24 AG PANEL (02/15/2018 10:34 AM CDT) [facility] HIV1/2 Ab + P24 Ag Non Reactive Non Reactive 02/15/2018 12:04 PM CDT [facility] Blood BLOOD SPECIMEN / Unknown Lab Venipuncture / Unknown 02/15/2018 10:34 AM CDT 02/15/2018 10:45 AM CDT Narrative [facility] - 02/15/2018 12:04 PM CDT No Laboratory evidence of HIV infection. Yenny Stroud APRN-RUNNER OUT LAB - CHEMISTR Y ORDERABLES [facility] [address] [place] [address] * HEPATITIS C RNA QUANTITATIVE PCR (02/15/2018 10:34 AM CDT) [facility] Hepatitis C Virus Quantitation HCV Not Detected IU/mL 02/16/2018 8:11 PM CDT [facility] ([facility]) Test Information Comment 02/17/20 8:11 PM CDT [facility] ([facility]) Comment:The quantitative ran ge of this assay is 15 IU/mL to 100 million IU/mL. Blood BLOOD SPECIMEN / Unknown Lab Venipuncture / Unknown 02/15/2018 10:34 AM CDT 02/15/2018 12:01 PM CDT Narrative [facility] ([facility]) - 02/16/2018 8:11 PM CDT Performed at: ??01 - [facility] [address] ??[id number] Ribbon Hand: Leroy Lew MD, Phone: ??[phone] Yenny Stroud APRN-RUNNER OUT LAB - CHEMISTR Y ORDERABLES Performing Organization Address City/[facility]/ZIP Co de Phone Number [facility] ([facility]) [address] [place] [address] * RPR (02/15/2018 10:34 AM CDT) Pathologist [facility] RPR Non Reactive Non Reactive 02/16/2018 9:28 AM CDT [facility] Blood BLOOD SPECIMEN / Unknown Lab Venipuncture / Unknown 02/15/2018 10:34 AM CDT 02/15/2018 10:45 AM CDT Yenny Stroud APRN-RUNNER OUT LAB - CHEMISTR Y ORDERABLES [facility] [address] [place] [address] * (ABNORMAL) HEPATITIS B PANEL (02/15/2018 10:34 AM CDT) HBsAb REACTIVE(A) Non Reactive 02/15/2018 12:12 PM CDT [facility] HBsAg Non Reactive Non Reactive 02/15/2018 12:12 PM CDT [facility] HBc Antibody IgM Non Reactive Non Reactive 02/15/2018 12:12 PM CDT [facility] Blood BLOOD SPECIMEN / Unknown Lab Venipuncture / Unknown 02/15/2018 10:34 AM CDT 02/15/2018 10:45 AM CDT Yenny Mauricemagi [facility] LAB - CHEMISTR Y ORDERABLES Performing Organization Address [facility] de Phone Number [facility] [place] [address] * (ABNORMAL) HEPATITIS C ANTIBODY (02/15/2018 10:34 AM CDT) Pathologist [facility] HCV Antibody Screen REACTIVE( A) Non Reactive 02/15/2018 1:35 PM CDT [facility] HCV S/C Ratio 1.58(H) 0.00 - 0.79 02/15/2018 1:35 PM CDT [facility] Blood BLOOD SPECIMEN / Unknown Lab Venipuncture / Unknown 02/15/2018 10:34 AM CDT 02/15/2018 10:45 AM CDT Narrative [facility] - 02/15/2018 1:35 PM CDT S/C ratio: ??A qypmvo-wk-gsyesr ratio (s/c ratio) of 0.8 - >11.00 may represent false positive results.?? Reflex testing to Hepatitis C Virus RNA Quantitative, Real- Time PCR will be performed.?? See separate report. S/C ratio: ??A cjxpxs-ot-zxvvmz ratio (s/c ratio) of 0.8 - >11.00 may represent false positive results.?? Reflex testing to Hepatitis C Virus RNA Quantitative, Real- Time PCR will be performed.?? See separate report. Yenny Mauricemalenarylan [facility] LAB - CHEMISTR Y ORDERABLES Performing Organization Address [facility] de Phone Number [facility] [address] [place] [address] * CHLAMYDIA + GC AMPLIFIED PROBE AMANDA (02/15/2018 9:59 AM CDT) [facility] Chlamydia Amplified Probe Negative Negative 02/16/2018 9:36 AM CDT [facility] GC Amplified Probe Negative Negative 02/16/2018 9:36 AM CDT [facility] Microbiology URINE / Unknown Collection / Unknown 02/15/2018 9:59 AM CDT 02/15/2018 10:50 AM CDT Narrative [facility] - 02/16/2018 9:36 AM CDT This test was developed and its performance characteristics determined by the [facility], [facility]. Female urine specimens tested by the [facility] [place] have not been cleared or approved by [...] - MICROBIO LOGY ORDERABLES Performing Organization Address City/[facility]/ZIP Co de Phone Number [facility] [address] [place] [address], [place] [phone] * TRICHOMONAS VAGINALIS AMPLIFIED PROBE (02/15/2018 9:59 AM CDT) Trichomonas vaginalis Amplified Probe Negative Negative 02/16/2018 10:39 AM CDT [facility] Microbiology ENTIRE VAGINA / Unknown Collection / Unknown 02/15/2018 9:59 AM CDT 02/15/2018 10:51 AM CDT Narrative [facility] - 02/16/2018 10:39 AM CDT Results based on detection/no detection of ribosomal RNA by amplified method. Yenny SLOAN LAB - MICROBIO LOGY ORDERABLES [facility] [address] [place] [address], [place] [phone] * XR HIP 2+ VW RIGHT (01/18/2018 [...] Negative Negative 01/12/2018 1:11 PM CDT [facility] ([facility]) Comment: For detection of IgA [...] CDT 01/10/2018 12:35 PM CDT Narrative [facility] ([facility]) - 01/12/2018 1:11 PM CDT Performed at: ??01 - [facility] [address] ??[id number] Ribbon Hand: Leroy Lew MD, Phone: ??[phone] Anita Madison MD LAB - SEROLOGY ORDER STEPHANIE [facility] ([facility]) [address] [place] [address] * HCG BETA BLOOD QUANTITATIVE (01/10/2018 12:12 PM CDT) hCG Quantitative <1 mIU/mL 01/11/20 18 3:20 PM CDT [facility] Blood BLOOD SPECIMEN / Unknown Lab Venipuncture / Unknown 01/10/2018 12:12 PM CDT 01/10/2018 12:35 PM CDT Narrative [facility] - 01/10/2018 3:20 PM CDT ? [...] Madison MD LAB - CHEMISTRY [place] [facility] Organization Address City/State/ZIP Co de Phone Number [facility] [address] [place] [address] * URINALYSIS W/MICROSCOPIC REFLEX TO CULTURE (01/10/2018 11:03 AM T) Color UA Straw Straw, Yellow 01/10/2018 11:42 AM [facility] Clarity UA Clear Clear 01/10/2018 11:42 AM [facility] Glucose UA Negative Negative 01/10/2018 11:42 AM [facility] Bilirubin UA Negative Negative 01/10/2018 11:42 AM [facility] Ketone UA Negative Negative 01/10/2018 11:42 AM [facility] LAB[facility] Specific [place] UA 1.008 1.005 - 1.030 01/10/2018 11:42 AM [facility] Blood UA Negative Negative 01/10/2018 11:42 AM [facility] LAB[facility] pH UA 5.0 5.0 - 8.0 pH 01/10/2018 11:42 AM [facility] Protein UA Negative Negative 01/10/2018 11:42 AM [facility] Urobilinogen UA Negative Negative mg/dL 01/10/2018 11:42 AM [facility] Nitrite UA Negative Negative 01/10/2018 11:42 AM [facility] Leukocyte UA Negative Negative 01/10/2018 11:42 AM [facility] RBC UA None Seen 0-5, None Seen # /hpf 01/10/2018 11:42 AM [facility] WBC UA 0-5 0-5, None Seen # /hpf 01/10/2018 11:42 AM CDT [facility] Bacteria UA None Seen None Seen 01/10/2018 11:42 AM CDT [facility] Squamous Epithelial Cells 0-2 None Seen, 0-2, 3-5 /hpf 01/10/2018 11:42 AM CDT [facility] Reflex Status Culture not indicated 01/10/2018 11:42 AM CDT [facility] Urine URINE SPECIMEN OBTAINED BY CLEAN CATCH PROCEDURE / Unknown Collection / Unknown 01/10/2018 11:03 AM CDT 01/10/2018 11:19 AM CDT Narrative [facility] - 01/10/2018 11:42 AM CDT Anita Madison MD LAB - URINALYSIS ORD ERABLES Performing Organization Address City/State/[facility] Co de Phone Number [facility] [address] [place] [address] * MRI BRAIN NON CONTRAST (03/20/2016 10:54 AM CDT) Anatomical Region Laterality Modality Head Magnetic Resonan ce 03/20/2016 11:1 2 AM CDT Impressions 03/20/2016 11:55 AM CDT 1. Normal examination of the brain and wiyot of [place] without findings to explain the [...] according to standard protocol. MRA of the rignxh-ia-Gsijsc was performed using a kngj-wx-antogw technique without contrast. The sequences are distorted [...] according to standard protocol. MRA of the csstaq-by-Wfpurp was performed using a ilty-fr-mtvlym technique without contrast. The sequences are distorted [...] 1. Normal examination of the brain and wiyot of Abbott without findings to explain the [...] 1. Normal examination of the brain and wiyot of [place] without findings to explain the [...] according to standard protocol. MRA of the wchloa-nj-Iygvjk was performed using a ovzy-qo-lwsdwr technique without contrast. The sequences are distorted [...] according to standard protocol. MRA of the plrpya-hf-Pgqxuj was performed using a gnbj-ki-doalum technique without contrast. The sequences are distorted [...] 1. Normal examination of the brain and wiyot of Abbott without findings to explain the [...] AM CDT) Result CASE NUMBER [id number] [facility] REPORT Comment: ORDERING PHYSICIAN [...] and interpreted by the attending (teaching) pathologist. Fish Hatchery Manager ? KHUSHBU COOPER PATHOLOGIST ?Siva Wood M.D. ELECTRONICALLY ROGER Siva Wood MISCELLANEOUS SAMPLES / Unknown 06/22/2005 9:20 AM CDT 06/22/2005 10:55 AM CDT Historical Provider LAB - PATHOLOGY/C YTOLOGY ORDERABLES [facility] PATH REPORT Care Teams Computer Systems Software Engineer Relationship Specialty Start Date End Date Joellen Kemp MD [address] [facility] [address] [place] [phone] PCP - General Pediatrics 12/10/15
[2024-11-04 05:23] LABS: BEDSIDEPREGUCG Positive (Negative)
[2024-11-04 05:27] LABS: Basophils Percent Auto 0.3 % (0.2-1.2); Eosinophils Absolute Auto 0.1 K/mm3 (0-0.3); Eosinophils Percent Auto 0.8 % (0-4.4); Hematocrit 39.6 % (37.0-47.0); Hemoglobin 13.1 g/dL (12.0-15.0); Immature Granulocyte Absolute 0.05 K/mm3 (0.00-0.031); Immature Granulocyte Percent A 0.5 % (0-0.5); Lymphocytes Percent Auto 12.8 % (18.3-44.2); Mean Corpuscular HGB Conc 33.1 g/dl (32-36); Mean Corpuscular Hemoglobin 28.9 pg (26-34); Mean Corpuscular Volume 87.2 fl (80-100); Monocytes Absolute Auto 0.5 K/mm3 (0.1-0.6); Monocytes Percent Auto 4.4 % (2.6-8.5); Neutrophils Absolute Auto 8.9 K/mm3 (1.3-6.7); Neutrophils Percent Auto 81.2 % (45.5-73.1); Platelet Count Result 314 k/mm3 (150-375); Red Blood Count 4.54 M/mm3 (4.2-5.4); Red Cell Distribution Width 14.2 % (11.5-14.5)
[2024-11-04 05:35] LABS: Add Urine Microscopic? YES; Appearance Urine Cloudy (Clear); Bacteria Urine 2+ /hpf; Bilirubin Urine Negative (Negative); Blood Urine Negative (Negative); Color Urine Dark Yellow (Yellow); Glucose Urine UA Negative (Negative); Ketones Urine Trace mg/dL (Negative); Leukocyte Esterase Ur 1+ LEU/UL (Negative); Mucus Urine Present /lpf; Need Manual Microscopic Reviewed; Nitrate Urine Negative (Negative); Protein Urine 1+ mg/dL (Negative); Specific Grav Ur 1.037 (1.001-1.035); Squamous Epithelial Cell Urine Many /hpf (Few)
[2024-11-04] MEDS: SODIUM CHLORIDE 0.9% IV 1,000 ML 999 ML IV CONT (05:37)
[2024-11-04] MEDS: METOCLOPRAMIDE HCL INJ 10 MG/2 ML VIAL IV PUSH (05:37)
[2024-11-04] MEDS: SODIUM CHLORIDE 0.9% IV 50 ML 1000 ML (05:38)
[2024-11-04 05:39] VITALS: BP 99/62; PULSE 92; RESP 14; O2SAT 100
[2024-11-04 05:48] LABS: Alanine Aminotransferase 13 U/L (6-35); Albumin Level 3.9 g/dL (3.5-5.1); Alkaline Phosphatase 97 U/L (38-126); Anion Gap 12 mmol/L (4-12); Aspartate Amino Transferase 18 U/L (14-36); Bilirubin,Total 0.6 mg/dL (0.2-1.3); Blood Urea Nitrogen 13 mg/dL (7-17); Calcium 9.1 mg/dL (8.4-10.2); Carbon Dioxide 20 mmol/L (22-30); Chloride 104 mmol/L (98-107); Estimated CRCL calculation 118 ml/min; Estimated Glomerular Filt Rate > 60; Glucose 103 mg/dL (65-110); Lipase 48 U/L (23-300); Potassium 3.7 mmol/L (3.4-5.0); Sodium 136 mmol/L (137-145)
--- NOTE | 2024-11-04 06:09 | ED_ITS ---
HPI - General Adult General Chief complaint: Nausea/Vomiting/Diarrhea Stated complaint: N/V/D, Mine not working, 14 weeks Time Seen by Provider: 11/04/24 05:00 History of Present Illness HPI narrative: Patient is a 24-year-old female who presents ER with nausea vomiting. Ongoing over last day. Associated diarrhea. Mine is not helping her. No syncope. She works at a [employer] so she is around sick individuals. No sinus congestion or sore throat or productive cough. Denies urinary symptoms. Fourteen weeks . Known IUP. No vaginal bleeding. Related Data Home Medications ?Medication ?Instructions ?Recorded ?Confirmed ?Last Taken ?Type PNV 153-FA 400 mcg-om3 35 mg-dha 2 tablet PO DAILY 02/12/24 03/20/24 03/19/24 History 25 mg-epa 5 mg-fish oil chew tablet ( Gummies) calcium carbonate (Tums) 200 mg PO QID 02/12/24 03/20/24 03/19/24 History ferrous sulfate 325 mg (65 mg 325 mg PO DAILY 02/12/24 03/20/24 03/19/24 History iron) tablet Allergies Allergy/AdvReac Type Severity Reaction Status Date / Time adhesive tape Allergy Intermediate Rash Verified 09/27/24 14:08 nifedipine Allergy Rash Verified 09/27/24 14:08 Review of Systems 2 Review of Systems: All systems reviewed & are unremarkable except as noted in HPI and below Constitutional: Constitutional: Reports no additional constitutional complaints Cardiovascular: Cardiovascular: Reports no additional cardiovascular complaints Respiratory: Respiratory: Reports no additional respiratory complaints Gastrointestinal: Gastrointestinal: Reports no additional gastrointestinal complaints [facility] Past Medical History Medical History Anxiety Depression Hyperlipemia Tonsillectomy planned Vaginal discharge Vitamin B12 deficiency Vitamin D deficiency Surgical History Surgical History Hx of tonsillectomy [place] teeth extracted Family History Family History Mother Breast cancer Grandparent Hypertension Breast cancer Social History Social History Smoking status: Never smoker Alcohol intake: current Drinks per week: 5 Substance use: never Substance use type: does not use Do You Feel Safe in your Home?: Yes Lack of Transportation: No Lack of Food: Never True Current Housing: I Have Housing Concerned About Future Housing: No Difficulty Paying Gas/Electric Bills: No Difficulty Paying for Meds: No Currently Unemployed: No Education: Trade/Vocational Certificate Difficulty w/ Childcare or Family Care: No Living arrangements: with family Occupation/Education: occupation Additional occupation/education comments: [employer] Gender identity (if verbalized by the patient): Female Sexual Orientation (if Verbalized by the Patient): Straight or Heterosexual Spiritual care concerns: No Exam 2 Narrative: GENERAL: Well-appearing, well-nourished, and in no acute distress. HEAD: Normocephalic, atraumatic. ENT: Mucous membranes moist. CHEST: Clear to auscultation. No respiratory distress. HEART: Regular rate and rhythm. Normal peripheral pulses. ABDOMEN: Soft, nontender, nondistended. EXTREMITIES: Normal range of motion. No edema. SKIN: Warm, dry, no rash. NEURO: Alert and oriented x3. PSYCH: Normal mood and affect. Course Course Emergency Course: Resting comfortably. Appropriate for d/c home. Received IVF and reglan. Urine with contaminant. Vital Signs Vital signs: Vital Signs Pulse Rate 92 11/04/24 05:39 Respiratory Rate 14 11/04/24 05:39 Blood Pressure 99/62 L 11/04/24 05:39 Pulse Oximetry 100 11/04/24 05:39 Pulse Rate 92 11/04/24 05:39 Respiratory Rate 14 11/04/24 05:39 Blood Pressure 99/62 L 11/04/24 05:39 Pulse Oximetry 100 11/04/24 05:39 Medical Decision Making Vital Signs Vital Signs: Vital Signs Pulse Rate 92 11/04/24 05:39 Respiratory Rate 14 11/04/24 05:39 Blood Pressure 99/62 L 11/04/24 05:39 Pulse Oximetry 100 11/04/24 05:39 Pulse Rate 92 11/04/24 05:39 Respiratory Rate 14 11/04/24 05:39 Blood Pressure 99/62 L 11/04/24 05:39 Pulse Oximetry 100 11/04/24 05:39 Lab Data 11/04/24 05:09 11/04/24 05:09 Labs: Lab Results 11/04/24 11/04/24 Range/Units 05:09 05:21 WBC 11.0 H (4.5-10.0) K/mm3 RBC 4.54 (4.2-5.4) M/mm3 Hgb 13.1 (12.0-15.0) g/dL Hct 39.6 (37.0-47.0) % MCV 87.2 (80-100) fl MCH 28.9 (26-34) pg MCHC 33.1 (32-36) g/dl RDW 14.2 (11.5-14.5) % Plt Count 314 (150-375) k/mm3 MPV 10.0 (7.4-10.4) fl Immature Gran % (Auto) 0.5 (0-0.5) % Neut % (Auto) 81.2 H (45.5-73.1) % Lymph % (Auto) 12.8 L (18.3-44.2) % [place] % (Auto) 4.4 (2.6-8.5) % Eos % (Auto) 0.8 (0-4.4) % Baso % (Auto) 0.3 (0.2-1.2) % Lymph # (Auto) 1.40 (0.9-3.2) K/mm3 [place] # (Auto) 0.5 (0.1-0.6) K/mm3 Eos # (Auto) 0.1 (0-0.3) K/mm3 Baso # (Auto) 0.0 (0.0-0.1) K/mm3 Abs Immat Gran (auto) 0.05 H (0.00-0.031) K/mm3 Absolute Neuts (auto) 8.9 H (1.3-6.7) K/mm3 Absolute Nucleated RBC 0.000 (0.0-0.012) K/mm3 Nucleated RBC % 0.0 (0.0-0.2) % Sodium 136 L (137-145) mmol/L Potassium 3.7 (3.4-5.0) mmol/L Chloride 104 (98-107) mmol/L Carbon Dioxide 20 L (22-30) mmol/L Anion Gap 12 (4-12) mmol/L BUN 13 (7-17) mg/dL Creatinine 0.60 L (0.7-1.0) mg/dL Estim Creat Clear Calc 118 ml/min Estimated GFR > 60 (59 - ) Glucose 103 (65-110) mg/dL Calcium 9.1 (8.4-10.2) mg/dL Total Bilirubin 0.6 (0.2-1.3) mg/dL AST 18 (14-36) U/L ALT 13 (6-35) U/L Alkaline Phosphatase 97 (38-126) U/L Total Protein 7.0 (6.3-8.2) g/dL Albumin 3.9 (3.5-5.1) g/dL Lipase 48 (23-300) U/L Urine Color Dark yellow (Yellow) Urine Appearance Cloudy H (Clear) Urine pH 5.0 (5.0-9.0) Ur Specific [place] 1.037 H (1.001-1.035) Urine Protein 1+ H (Negative) mg/dL Urine Glucose (UA) Negative (Negative) mg/dL Urine Ketones Trace H (Negative) mg/dL Ur Blood (Man) Negative (Negative) Urine Nitrate Negative (Negative) Urine Bilirubin Negative (Negative) Urine Urobilinogen 1.0 (<2.0) mg/dL Add Ur Microanalysis Reviewed Leukocyte Esterase Rfl 1+ H (Negative) KIA/UL Urine RBC 6-10 H (0-2) /hpf Urine WBC 11-20 H (0-3) /hpf Ur Squamous Epith Cells Many H (Few) /hpf Urine Bacteria 2+ H /hpf Urine Casts 3-5 Urine Mucus Present /lpf POC Urine HCG, Qual Positive (Negative) Discharge Plan Discharge Clinical Impression: Gastroenteritis Patient Disposition: Home, Self-Care Condition: Stable Instructions: Gastroenteritis (ED) Additional Instructions: Please drink plenty of fluids at home. Return to the emergency department if you develop high fevers, have persistent severe abdominal pain, or have bloody stools or vomit, as these could be signs of a more serious medical emergency. Return to the emergency department if you are unable to keep down liquids because of severe nausea/vomiting. Patient Language: Latvian Prescriptions: New promethazine 12.5 mg tablet 12.5 mg PO TID PRN (Reason: nausea and vomiting) Qty: 14 0RF No Action ferrous sulfate 325 mg (65 mg iron) Tablet 325 mg PO DAILY calcium carbonate [Tums] 200 mg calcium (500 mg) Tablet,Chewable 200 mg PO QID Gummies 400 mcg-35 mg- 25 mg-5 mg Tablet,Chewable 2 tablet PO DAILY ondansetron 4 mg tablet,disintegrating 4 mg PO Q8H PRN (Reason: nausea and vomiting) Qty: 20 0RF Follow-up/Referrals: Anuradha Reese MD [Primary Care Provider] - 1 Week
[2024-11-04 06:37] VITALS: BP 114/62; PULSE 63; RESP 16; O2SAT 99
== END 2024-11-04 06:40 | disposition home or self-care (01) ==
PROVIDERS: Emergency Provider Emergency Medicine; PCP Obstetrics & Gynecology Gynecology
DX: O99.611 Diseases of the digestive system complicating pregnancy, first trimester (principal); K52.9 Noninfective gastroenteritis and colitis, unspecified; Z3A.14 14 weeks gestation of pregnancy
CPT/HCPCS: 36415; 80053; 81001; 81025; 83690; 85025; 96361; 96374; 99284; J2765; J7030

== ENCOUNTER 2024-12-01 10:15 | Outpatient (CLI) | payer OTHER, MEDICAID, SELFPAY | END 2024-12-01 10:16 | disposition home or self-care (01) | LOC: MICIMG 10:16 | PROVIDERS: PCP Obstetrics & Gynecology Gynecology; Visit Provider Obstetrics & Gynecology Gynecology | DX: Z36.9 Encounter for antenatal screening, unspecified (principal); O44.40 Low lying placenta NOS or without hemorrhage, unspecified trimester; Z3A.00 Weeks of gestation of pregnancy not specified | CPT/HCPCS: 76805 ==

== ENCOUNTER 2024-12-08 21:40 | Observation (INO) | payer OTHER, SELFPAY ==
[2024-12-08] VITALS (32 sets, daily range): BP systolic 78–114; BP diastolic 49–68; PULSE 68–179; O2SAT 95–100; BMI 34.1
--- OUTSIDE RECORDS SUMMARY | 2024-12-08 21:48 | XMS_ITS | Clinical Summary ---
Author Organization [facility] Address [address] [place] [phone] Phone Care Team Providers Care Sand Molder Name Role Phone Provider, Unknown Primary Care [...] 97 06/12/2023 4:55 PM CDT Temperature 36.5 C (97.7 F) 06/12/2023 4:55 PM CDT Respiratory Rate 18 06/12/2023 4:55 PM CDT [...] patient's age to complete this topic Insurance MEDICAID [place] Care Teams Sand Molder Relationship Specialty Start Date End Date Provider, Unknown UNKNOWN PCP - General 06/12/23
--- OUTSIDE RECORDS SUMMARY | 2024-12-08 21:48 | XMS_ITS | Data Portability ---
Author Organization [place] [employer], Main Office Address [address] [place] [address] Assessment No assessment recorded. Plan of Treatment Reminders Order Date Submit Date Provider Last Modified By Organization Details Last Modified Time Details Appointments None recorded. Lab vitamin D, 25-hydroxy, total, serum 2022 023 [email or web address] 6 [facility], [address] [place], [address], 4 09:12:43 C-reactive protein, quantitativ e, serum or plasma 2022 023 [email or web address] 6 [facility], [address] [place], [address], 4 09:13:01 ESR (erythrocyt e sedimentati on rate), blood 2022 023 [email or web address] 6 [facility], [address] [place], [address], 4 09:10:01 rf (rheumatoid factor) + anti-ccp abs, serum 2022 023 [email or web address] 6 [facility], [address] [place], [address], 4 09:14:51 JANY (antinuclea r antibodies) screen, serum 2022 023 [email or web address] 6 [facility], [address] [place], [address], 4 09:14:17 lipid panel, serum 2022 023 [email or web address] 6 [facility], [address] [place], [address], 4 09:11:43 CMP, serum or plasma 2022 023 [facility], [address] [place], [address], 3 16:58:26 CBC w/ auto diff 2022 023 [email or web address] 6 [facility], [address] [place], [address], 4 09:12:04 TSH + free T4, serum 2022 023 [email or web address] 6 [facility], [address] [place], [address], 4 09:12:22 vitamin D, 25-hydroxy, total, serum [email or web address], [address] [place], [address], 3 12:09:21 lipid panel, serum 2022 023 [facility], [address] [place], [address], 3 14:25:29 CMP, serum or plasma 2022 023 [facility], [address] [place], [address], 3 14:26:10 CBC w/ auto diff 2022 023 [facility], [address] [place], [address], 3 14:16:42 TSH + free T4, serum 2022 023 [email or web address] [facility], [address], [place], [address], 3 14:27:40 Referral None recorded. Procedures None recorded. Surgeries None recorded. Imaging None recorded. Medication Orders Medrol (Ez) 4 mg tablets in a dose pack 2022 023 [id number], [address], [place], [place], [id number], 3 15:12:10 Zyrtec 10 mg tablet 2022 023 [facility] #[id number], [address], [place], [place], [id number], 3 15:12:09 Patient TargetsNo targets recorded. Patient InstructionsNo instructions recorded. Reason for Referral None Reported. Results Created Date Observation Date Name Description Value Unit Range Abnormal Flag Note LastModifiedBy Organization Detail LastModifiedTime 11/12/19 23 11/12/2022 urina lysis , dipst ick Leukocytes (reference range: negative malachi/ l) Trace Not Available [facility] Internal Med [facility] [address] [facility] [address], [place], [address], 11/12/2022 15:36:48 11/12/1911/12/2022 urina lysis , dipst ick Nitrite (reference rage: negative mg/dl) negati ve Not Available Z_hrgmc_[facility] Internal Med [address] [facility] [address], [place], [address], 11/12/2022 15:36:48 11/12/1911/12/2022 urina lysis , dipst ick Urobilinogen (reference range: 0.2-1 mg/dl) 0.2 Not Available [facility] c[facility] Internal Med [facility] [address] [facility] [address], [place], [address], 11/12/2022 15:36:48 11/12/19 23 11/12/2022 urina lysis , dipst ick Protein (reference range: negative mg/dl) Negati ve Not Available Z_[facility] Internal [place] [address] [facility] [address], [place], [address], 11/12/2022 15:36:48 11/12/19 23 11/12/2022 urina lysis , dipst ick pH (reference range: 5-7) 6.0 Not Available Z_[facility] Internal [facility] [address] [facility] [address], [place], [address], 11/12/2022 15:36:48 11/12/19 23 11/12/2022 urina lysis , dipst ick Blood (reference range: negative Ricardo/ l) Large Not Available [facility] [address] [facility] [address], [place], [address], 11/12/2022 15:36:48 11/12/1911/12/2022 urina lysis , dipst ick Specific [place] (reference range: 1.005-1.030) 1.030 Not Available Z_[facility] Internal [facility] [address] [facility] [address], [place], [address], 11/12/2022 15:36:48 11/12/19 23 11/12/2022 urina lysis , dipst ick Ketone (reference range: negative mg/dl) Negati ve Not Available [facility] [address] [facility] [address], [place], [address], 11/12/2022 15:36:48 11/12/19 23 11/12/2022 urina lysis , dipst ick Bilirubin (reference range: negative mg/dl) Negati ve Not Available [facility] Internal Med [facility] [address], [place], [address], 11/12/2022 15:36:48 11/12/19 23 11/12/2022 urina lysis , dipst ick Glucose (reference range: negative mg/dl) Negati ve Not Available [facility] Internal Med [facility] [address], [place], [address], 11/12/2022 15:36:48 11/12/19 23 11/12/2022 urina lysis , dipst ick Appearance Clear Not Available Z_[facility] Internal Med [facility] [address] [facility] [address], [place], [address], 11/12/2022 15:36:48 11/12/1911/12/2022 urina lysis , dipst ick Color [place] Not Available Z_[facility] Internal Med [facility] [address] [facility] [address], [place], [address], 11/12/2022 15:36:48 12/24/19 23 12/23/2022 CBC/C OMPLE TE BLD COUNT W/DIF F white blood cells 7.7 x10'3 /uL 4.2-10 .8 Not Available [facility] (Lab) [address] [place], [address], 12/23/2022 14:16:42 12/24/19 23 12/23/2022 CBC/C OMPLE TE BLD COUNT W/DIF F red blood cells 4.48 x10'6 /uL 3.80-5 .20 Not Available [facility] (Lab) [address] [place], [address], 12/23/2022 14:16:42 12/24/19 23 12/23/2022 CBC/C OMPLE TE BLD COUNT W/DIF F hemoglobin 13.4 g/dL 12.0-1 5.6 Not Available [facility] (Lab) [address] [place], [address], 12/23/2022 14:16:42 12/24/19 23 12/23/2022 CBC/C OMPLE TE BLD COUNT W/DIF F hematocrit 41.3 % 35.7-4 5.7 Not Available [facility] (Lab) [address] [place], [address], 12/23/2022 14:16:42 12/24/19 23 12/23/2022 CBC/C OMPLE TE BLD COUNT W/DIF F mean red cell volume 92.2 fL 82.0-9 9.0 Not Available [facility] (Lab) [address] [place], [address], 12/23/2022 14:16:42 12/24/19 23 12/23/2022 CBC/C OMPLE TE BLD COUNT W/DIF F mean red cell hemoglobin 29.9 pg 27.0-3 3.0 Not Available [facility] (Lab) [address] [place], [address], 12/23/2022 14:16:42 12/24/19 23 12/23/2022 CBC/C OMPLE TE BLD COUNT W/DIF F mean RBC HGB concentratio n 32.4 g/dL 31.0-3 6.0 Not Available [facility] (Lab) [address] [place], [address], 12/23/2022 14:16:42 12/24/19 23 12/23/2022 CBC/C OMPLE TE BLD COUNT W/DIF F red cell distribution width 12.6 % 11.8-1 5.5 Not Available [facility] (Lab) [address] [place], [address], 12/23/2022 14:16:42 12/24/19 23 12/23/2022 CBC/C OMPLE TE BLD COUNT W/DIF F platelets 352 x10'3 /uL 150-40 0 Not Available [facility] (Lab) [address] [place], [address], 12/23/2022 14:16:42 12/24/19 23 12/23/2022 CBC/C OMPLE TE BLD COUNT W/DIF F mean platelet volume 9.9 fL 9.0-12 .4 Not Available [facility] (Lab) [address] [place], [address], 12/23/2022 14:16:42 12/24/19 23 12/23/2022 CBC/C OMPLE TE BLD COUNT W/DIF F neutrophils 48.9 % 39.0-7 2.0 Not Available [facility] (Lab) [address] [place], [address], 12/23/2022 14:16:42 12/24/19 23 12/23/2022 CBC/C OMPLE TE BLD COUNT W/DIF F lymphocytes 40.6 % 16.0-4 7.0 Not Available [facility] (Lab) [address] [place], [address], 12/23/2022 14:16:42 12/24/19 23 12/23/2022 CBC/C OMPLE TE BLD COUNT W/DIF F monocytes 8.1 % 5.0-12 .0 Not Available [facility] (Lab) [address] [place], [address], 12/23/2022 14:16:42 12/24/19 23 12/23/2022 CBC/C OMPLE TE BLD COUNT W/DIF F eosinophils 1.8 % 1.0-7. 0 Not Available [facility] (Lab) [address] [place], [address], 12/23/2022 14:16:42 12/24/19 23 12/23/2022 CBC/C OMPLE TE BLD COUNT W/DIF F basophils 0.5 % 0.0-2. 0 Not Available [facility] (Lab) [address] [place], [address], 12/23/2022 14:16:42 12/24/19 23 12/23/2022 CBC/C OMPLE TE BLD COUNT W/DIF F immature granulocytes 0.1 % 0.00-0 .50 Not Available [facility] (Lab) [address] [place], [address], 12/23/2022 14:16:42 12/24/19 23 12/23/2022 CBC/C OMPLE TE BLD COUNT W/DIF F neutrophils, absolute count 3.75 x10'3 /uL 1.5-8. 0 Not Available [facility] (Lab) [address] [place], [address], 12/23/2022 14:16:42 12/24/19 23 12/23/2022 CBC/C OMPLE TE BLD COUNT W/DIF F lymphocytes, absolute count 3.12 x10'3 /uL 1.07-3 .43 Not Available [facility] (Lab) [address] [place], [address], 12/23/2022 14:16:42 12/24/19 23 12/23/2022 CBC/C OMPLE TE BLD COUNT W/DIF F monocytes, absolute count 0.62 x10'3 /uL 0.29-0 .99 Not Available [facility] (Lab) [address] [place], [address], 12/23/2022 14:16:42 12/24/19 23 12/23/2022 CBC/C OMPLE TE BLD COUNT W/DIF F eosinophils, absolute count 0.14 x10'3 /uL 0.02-0 .53 Not Available [facility] (Lab) [address] [place], [address], 12/23/2022 14:16:42 12/24/19 23 12/23/2022 CBC/C OMPLE TE BLD COUNT W/DIF F basophils, absolute count 0.04 x10'3 /uL 0.01-0 .08 Not Available [facility] (Lab) [address] [place], [address], 12/23/2022 14:16:42 12/24/19 23 12/23/2022 CBC/C OMPLE TE BLD COUNT W/DIF F immature granulocytes ,absolute 0.01 x10'3 /uL 0.00-0 .05 Not Available [facility] (Lab) [address] [place], [address], 12/23/2022 14:16:42 12/24/19 23 12/23/2022 CBC/C OMPLE TE BLD COUNT W/DIF F nucleated red blood cells 0.0 % -0 Not Available [facility] (Lab) [address] [place], [address], 12/23/2022 14:16:42 12/24/19 23 12/23/2022 CBC/C OMPLE TE BLD COUNT W/DIF F NRBC# 0.00 x10'3 /uL Not Available [facility] (Lab) [address] [place], [address], 12/23/2022 14:16:42 12/24/19 23 12/23/2022 LIPID PANEL cholesterol 213 mg/dL 140-19 9 high NIH CYNTHIA NSUS RECOM MENDA TION FOR GALLITO STERO L: ADULT CHILD LOW RISK: <200 <170 BORDE RLINE : <200- 239 ----- HIGH RISK: >240 >200 Not Available [facility] (Lab) [address] [place], [address], 12/23/2022 14:50:18 12/24/19 23 12/23/2022 LIPID PANEL triglyceride s 65 mg/dL 0-150 NIH CYNTHIA NSUS REPOR T RECOM MENDA TION FOR TRIGL YCERI SANDRA: ADULT CHILD LOW RISK: <150 ----- BODER LINE: 150-1 99 ----- HIGH RISK: >200 ----- Not Available [facility] (Lab) [address] [place], [address], 12/23/2022 14:50:18 12/24/19 23 12/23/2022 LIPID PANEL HDL cholesterol 120 mg/dL 40- Not Available [facility] (Lab) [address] [place], [address], 12/23/2022 14:50:18 12/24/19 23 12/23/2022 LIPID PANEL [...] WILL NOT BE REPOR GRAHAM. Not Available [facility] (Lab) [address] [place], [address], 12/23/2022 14:50:18 12/24/19 23 12/23/2022 COMPR EHENS EFRAIN METAB OLIC PANEL sodium 139 mmol/ L 137-14 5 Not Available [facility] (Lab) [address] [place], [address], 12/23/2022 14:26:10 12/24/19 23 12/23/2022 COMPR EHENS EFRAIN METAB OLIC PANEL potassium 4.3 mmol/ L 3.5-5. 1 Not Available [facility] (Lab) [address] [place], [address], 12/23/2022 14:26:10 12/24/19 23 12/23/2022 COMPR EHENS EFRAIN METAB OLIC PANEL chloride 105 mmol/ L 98-107 Not Available [facility] (Lab) [address] [place], [address], 12/23/2022 14:26:10 12/24/19 23 12/23/2022 COMPR EHENS EFRAIN METAB OLIC PANEL carbon dioxide 25 mmol/ L 22-30 Not Available [facility] (Lab) [address] [place], [address], 12/23/2022 14:26:10 12/24/19 23 12/23/2022 COMPR EHENS EFRAIN METAB OLIC PANEL anion gap 13.3 mmol/ L 14-22 low Not Available [facility] (Lab) [address] [place], [address], 12/23/2022 14:26:10 12/24/19 23 12/23/2022 COMPR EHENS EFRAIN METAB OLIC PANEL glucose 97 mg/dL 70-99 Not Available [facility] (Lab) [address] [place], [address], 12/23/2022 14:26:10 12/24/19 23 12/23/2022 COMPR EHENS EFRAIN METAB OLIC PANEL BUN 13 mg/dL 8-19 Not Available [facility] (Lab) [address] [place], [address], 12/23/2022 14:26:10 12/24/19 23 12/23/2022 COMPR EHENS EFRAIN METAB OLIC PANEL creatinine 0.94 mg/dL 0.66-1 .25 Not Available [facility] (Lab) [address] [place], [address], 12/23/2022 14:26:10 12/24/19 23 12/23/2022 COMPR EHENS EFRAIN METAB OLIC PANEL GFR >60 Refer ence Range : [place] ge GFR Healt hy Adult : >60 [...] calcu lator is avail able on the [facility] websi te: https ://estuardo w.carlitos almendarez.o rg/pr ofess ional s/kdo qi/gf r_cal culat or Not Available [facility] (Lab) [address] [place], [address], 12/23/2022 14:26:10 12/24/19 23 12/23/2022 COMPR EHENS EFRAIN METAB OLIC PANEL alkaline phosphatase 65 U/L 38-126 Not Available [facility] (Lab) [address] [place], [address], 12/23/2022 14:26:10 12/24/19 23 12/23/2022 COMPR EHENS EFRAIN METAB OLIC PANEL alanine aminotransfe rase 22 U/L 0-35 Not Available [facility] (Lab) [address] [place], [address], 12/23/2022 14:26:10 12/24/19 23 12/23/2022 COMPR EHENS EFRAIN METAB OLIC PANEL aspartate aminotransfe rase 26 U/L 15-37 Not Available [facility] (Lab) [address] [place], [address], 12/23/2022 14:26:10 12/24/19 23 12/23/2022 COMPR EHENS EFRAIN METAB OLIC PANEL bilirubin, total 0.30 mg/dL 0.20-1 .30 Not Available [facility] (Lab) [address] [place], [address], 12/23/2022 14:26:10 12/24/19 23 12/23/2022 COMPR EHENS EFRAIN METAB OLIC PANEL calcium 9.6 mg/dL 8.4-10 .2 Not Available [facility] (Lab) [address] [place], [address], 12/23/2022 14:26:10 12/24/19 23 12/23/2022 COMPR EHENS EFRAIN METAB OLIC PANEL total protein 7.5 g/dL 6.3-8. 2 Not Available [facility] (Lab) [address] [place], [address], 12/23/2022 14:26:10 12/24/19 23 12/23/2022 COMPR EHENS EFRAIN METAB OLIC PANEL albumin 4.3 g/dL 3.4-5. 0 Not Available [facility] (Lab) [address] [place], [address], 12/23/2022 14:26:10 12/24/19 23 12/23/2022 COMPR EHENS EFRAIN METAB OLIC PANEL globulin 3.2 g/dL 2.6-4. 2 Not Available [facility] (Lab) [address] [place], [address], 12/23/2022 14:26:10 12/24/19 23 12/23/2022 COMPR EHENS EFRAIN METAB OLIC PANEL A/G ratio 1.3 ratio 1.0-2. 0 Not Available [facility] (Lab) [address] [place], [address], 12/23/2022 14:26:10 12/24/19 23 12/23/2022 T4 FREE free T4 1.20 NG/dL 0.78-2 .19 Not Available [facility] (Lab) [address] [place], [address], 12/23/2022 14:30:55 12/24/19 23 12/23/2022 TSH thyroid-stim ulating hormone 1.820 uIU/m L 0.465- 4.680 Not Available [facility] (Lab) [address] [place], [address], 12/23/2022 14:41:27 12/24/19 23 12/23/2022 VITAM IN D 25-HY DROXY [id number] 29.2 NG/mL 30-100 low Vitam in D Statu s: Defic ient: <20 ng/mL Insuf ficie nt: 20-29 ng/mL Suffi cient : 30-10 0 ng/mL Not Available [facility] (Lab) [address] [place], [address], 12/23/2022 14:48:15 02/03/20 23 02/02/2023 RAPID STREP A DNA strep A DNA, NICKI NEGATI VE negati ve Not Available [facility] (Lab) [address] [place], [address], 02/02/2023 15:58:20 02/03/20 23 02/02/2023 INFLU KETURAH A/B ANTIG EN RAPID flu A NEGATI VE negati ve Not Available [facility] (Lab) [address] [place], [address], 02/02/2023 15:58:46 02/03/20 23 02/02/2023 INFLU KETURAH [...] TESTI NG WITH RT-PC R IS SUGGE RANDALLD. Not Available [facility] (Lab) [address] [place], [address], 02/02/2023 15:58:46 02/03/20 23 02/02/2023 INFLU KETURAH A/B ANTIG EN RAPID valid QC POSITI VE Not Available [facility] (Lab) [address] [place], [address], 02/02/2023 15:58:46 02/03/20 23 02/02/2023 INFLU KETURAH A/B ANTIG EN RAPID lot # [id number] Not Available [facility] (Lab) [address] [place], [address], 02/02/2023 15:58:46 02/03/20 23 02/02/2023 INFLU KETURAH A/B ANTIG EN RAPID source MOLD SANDER SWAB Not Available [facility] (Lab) [address] [place], [address], 02/02/2023 15:58:46 02/03/20 23 02/02/2023 SARS- COV-2 [...] .gov/ medic al-de vices /bravo navir us-di sease -2018 -covi d-19- emerg ency- use-a uthor izati ons-m edica l-dev ices/ vitro -diag nosti cs-eu as# indiv idual -sero logic al Not Available [facility] (Lab) [address] [place], [address], 02/02/2023 17:28:54 02/03/20 23 02/02/2023 SARS- COV-2 (COVI D-19) ANTIG EN signal to cutoff ratio 0.16 0.00-0 .99 Not Available [facility] (Lab) [address] [place], [address], 02/02/2023 17:28:54 01/05/20 23 11/11/2022 US, pelvi s, compl ete No observ ation record ed. BARCODE Not Available 2022 18:05:07 12/09/19 24 12/09/2023 US, renal No observ ation record ed. [email or web address] [address], [place], [address], 06/13/2024 14:03:49 12/09/19 24 12/09/2023 US, abdom en, limit ed No observ ation record ed. [email or web address], [place], [address], 06/13/2024 14:06:57 07/25/20 24 07/25/2024 imagi ng/di agnos tic resul t No observ ation record ed. [facility] [address] [facility] [address], [place], [address], 07/25/2024 19:46:38 09/21/20 24 09/21/2024 imagi ng/di agnos tic resul t No observ ation record ed. [facility] [address] [facility] [place], [address], 09/21/2024 14:43:45 Result Notes None recorded. Problems Name Problem SNOMED Code Status Onset Date Resolution Date Notes Provider Name and Address Organization Details Recorded Time Abdominal pain 51969820 Active 2022 Not Available [facility] 3 02:29:46 Hyperlipidemi a 24558104 Active 2021 Not Available [facility] 3 02:29:46 COVID-19 386508378 Active 2021 Not Available [facility] 3 02:29:46 Liver enzymes level above reference range 917152618 Active 2022 Farhana hsieh MD [address], [facility] [address], [place], [address] , [employer] 3 13:01:38 Moderate recurrent major depression 39229233 Active 2022 Farhana hsieh MD [address], [facility] [address], [place], [address] , [employer] 3 13:02:12 Vitamin D deficiency 87909557 Active 2022 Hailee bradley, [employer] [facility] [employer] 3 14:20:50 Migraine 52027910 Active 2022 Farhana hsieh MD [address] [facility], [facility] [address], [place], [address] , [employer] 3 17:19:59 Upper respiratory infection 04062103 Active 2022 Hailee bradley, [employer] [facility] 3 13:36:10 Eruption 210392134 Active 2022 Farahna hsieh MD [address] [facility], [facility] [address], [place], [address] , [employer] 3 15:09:44 Problem Notes None recorded. Procedures Surgical History Date Name Laterality Status Provider Name and Address Organization Details Recorded Time tonsillectomy completed Not Available [facility] 12/02/2022 02:27:10 extraction of wisdom tooth completed Not Available [facility] 12/02/2022 02:27:10 Imaging Results Imaging Date Name Status LastModified by Organiz ation Details LastModified Time 11/11/2022 US, pelvis, complete completed BAR[facility] Information not available 01/04/2023 18:05:07 12/09/2023 US, renal completed [address], [address], 06/13/2024 14:03:49 12/09/2023 US, abdomen, limited completed [address], [address], 06/13/2024 14:06:57 07/25/2024 imaging/diagn ostic result active [address], [address], 07/25/2024 19:46:38 09/21/2024 imaging/diagn ostic result active [facility] [address] [place], [address], 09/21/2024 14:43:45 Procedure Notes None recorded. Medical Equipment None Reported. Allergies Allergen ID Allergen Name Allergen Category Reaction Reaction Severity Criticality Documentation Date Start Date Code Code System Note Provider Name and Address Organization Details Recorded Time 3149 adhesive environme nt,medica tion Not available Not available Not available 12/02/2022 [id number] UNK Hector id (name brand ) adhes efrain not tape Not Available [facility] 3 02:33:18 Medications Name Sig [...] active Not Available Not Available Not Available Fe 24 1 mg-20 mcg (24)/75 mg [...] numeric rating [Score] - Reported Heart rate Body temperature Body weight Systolic blood pressure Diastolic blood pressure Provider Name and Address Organization Details Last Updated DateTime 2 28.7 kg/m2 154.94 cm 90 % 90 % 0 60 /min 97.5 [degF] 68813.0 4 g 112 mm[Hg] 82 mm[Hg] Not Available [employer] 3 02:28:31 Date Recorded Body mass index (BMI) Body height Oxygen saturation Oxygen saturation in Arterial blood by Pulse oximetry Heart rate Body temperature Body weight Systolic blood pressure Diastolic blood pressure Provider Name and Address Organization Details Last Updated DateTime 2 28.7 kg/m2 154.94 cm 98 % 98 % 86 /min 96.7 [degF] 78290.0 4 g 110 mm[Hg] 74 mm[Hg] Not Available [facility] 3 02:28:31 Date Recorded Body mass index (BMI) Body height Oxygen saturation Oxygen saturation in Arterial blood by Pulse oximetry Heart rate Body temperature Body weight Systolic blood pressure Diastolic blood pressure Provider Name and Address Organization Details Last Updated DateTime 2 29.1 kg/m2 154.94 cm 97 % 97 % 98 /min 98.3 [degF] 90420.2 2 g 120 mm[Hg] 70 mm[Hg] Not Available [facility] 3 02:28:31 Date Recorded Body mass index (BMI) Body height Heart rate Body temperature Body weight Systolic blood pressure Diastolic blood pressure Provider Name and Address Organization Details Last Updated DateTime 3 29.9 kg/m2 154.94 cm 78 /min 97.7 [degF] 75011.3 9 g 100 mm[Hg] 60 mm[Hg] Not Available [facility] 3 02:28:31 Date Recorded Body height Body mass index (BMI) Body weight Heart rate Oxygen saturation Oxygen saturation in Arterial blood by Pulse oximetry Body temperature Systolic blood pressure Diastolic blood pressure Provider Name and Address Organization Details Last Updated DateTime 3 154.94 cm 29.5 kg/m2 82219.4 1 g 88 /min 99 % 99 % 97.6 [degF] 124 mm[Hg] 70 mm[Hg] Angelina Navarro MA [place] - [facility] 3 09:58:38 Date Recorded Body height Body mass index (BMI) Body weight Body temperature Heart rate Systolic blood pressure Diastolic blood pressure Provider Name and Address Organization Details Last Updated DateTime 3 154.94 cm 28.5 kg/m2 11156.4 5 g 97.8 [degF] 90 /min 110 mm[Hg] 64 mm[Hg] TIBURCIO [place] - [facility] 14:52:52 Social History Question Answer Notes LastModified by Organizat ion Details LastModified Time Tobacco Smoking Status Never Smoker Not Available [employer] 12/02/2022 02:25:15 Do You Have An Advance Directive? No [id number] Information not available 12/02/2022 What Is Your Level Of Alcohol Consumption? None [id number] Information not available 12/02/2022 What Is Your Level Of Caffeine Consumption? Moderate MIGRATION.57764 [id number] Information not available 12/02/2022 How Much Tobacco Do You Chew? None MIGRATION.04956 19586 Information not available 12/02/2022 In The 14 Days Before Symptom Onset, Have You Had Close Contact With A Laboratory-confir med COVID-19 While That Case Was Ill? 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 No MIGRATION.15939 48806 Information not available 12/02/2022 What Type Of Diet Are You Following? REGULAR MIGRATION.17057 76346 Information not available 12/02/2022 Which Illicit Or Recreational Drugs Have You Used? None MIGRATION.04006 69054 Information not available 12/02/2022 Do You Or Have You Ever Used E-cigarettes Or Vape? 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 No MIGRATION.96770 57627 Information not available 12/02/2022 Do You Have A Medical Power Of Zigzag Stitcher? No MIGRATION.66187 67985 Information not available 12/02/2022 What Was The Date Of Your Most Recent Tobacco Screening? 06/14/2023 [email or web address] Information not available 06/14/2023 Do You Or Have You Ever Used Smokeless Tobacco? Never Used Smokeless Tobacco MIGRATION.61120 03788 Information not available 12/02/2022 How Much Tobacco Do You Smoke? No MIGRATION.01740 37876 Information not available 12/02/2022 Do You Use Sunscreen Routinely? No MIGRATION.63587 52462 Information not available 12/02/2022 Has Tobacco Cessation Counseling Been Provided? No N/a MIGRATION.00947 07361 Information not available 12/02/2022 Have You Recently Traveled Abroad? No MIGRATION.78232 31810 Information not available 12/02/2022 Do You Or Have You Ever Used Any Other Forms Of Tobacco Or Nicotine? No MIGRATION.00888 85304 Information not available 12/02/2022 Sex: Unknown Functional Status Question Answer Note LastModified by Organizat ion Details LastModified Time What is your exercise level? Occasional MIGRATION.[id number] Information not available 12/02/2022 Mental Status None recorded. Family History Relationship Description Onset Age of this Age Resolved Age Notes LastModified by Organization Details LastModified Time Mother Malignant tumor of breast MIGRATION.[id number] Not available 12/02/2022 02:27:13 Maternal Grandfather Hypertensive disorder MIGRATION.459 [id number] Not available 12/02/2022 02:27:13 Maternal Grandmother Hypertensive disorder MIGRATION.368 [id number] Not available 12/02/2022 02:27:13 Paternal Grandfather Hypertensive disorder MIGRATION.721 [id number] Not available 12/02/2022 02:27:13 Paternal Grandmother Hypertensive disorder MIGRATION.498 [id number] Not available 12/02/2022 02:27:13 Medical History Condition Response NERVE DISEASE N BLINDNESS N RHEUMATIC FEVER N KIDNEY STONES N BLADDER PROBLEMS N OTHER # 1 N POLIO N LUNG DISEASE/DISORDER N RADIATION / CHEMOTHERAPY N COPD N Other # 2 N BLOOD DISEASES N SURGERY N EAR OR HEARING PROBLEMS N MUMPS N DEPRESSION (INCLUDING POST ) Y BOWEL PROBLEMS N STROKE/TIA N ULCERS N BENIGN PROSTATIC HYPERPLASIA [...] N CHRONIC PAIN SYNDROME N HYPOTHYROIDISM N CAROTID BLOCKAGE N CONSTIPATION N BACK / NECK PROBLEMS N ATHEROSCLEROSIS [...] mL dose, miller-sucrose 2 completed Not Available [facility] 12/02/2022 02:33:13 Influenza, split virus, trivalent, preservative 1 completed Not Available [facility] 12/02/2022 02:33:13 COVID-19, mRNA, LNP-S, PF, 30 mcg/0.3 mL dose 1 completed Not Available [facility] 12/02/2022 02:33:13 COVID-19, mRNA, LNP-S, PF, 30 mcg/0.3 mL dose 1 completed Not Available [facility] 12/02/2022 02:33:13 Influenza, split virus, quadrivalent, preservative 0 completed Not Available [facility] 12/02/2022 02:33:13 Past Encounters Encounter ID Performer Location Encounter Start Date Encounter Closed Date Diagnosis/Indication Diagnosis SNOMED-CT Code Diagnosis ICD10 Code Diagnosis Note [id number] [facility] Internal Med [place] [address] [facility], [address] [place] [address] 12/13/2020 00:00:00 12/13/2020 20:34:06 [id number] _ATHENA_M IGRATION_ DEFAULT_1 _1 , 12/16/2020 00:00:00 12/16/2020 18:25:22 [id number] [facility] Internal Med [place] [address] , [place] [address] 12/23/2020 00:00:00 12/23/2020 14:18:04 [id number] [facility] General Surgery [address] Mata, [address] [address] 12/24/2020 00:00:00 12/24/2020 13:26:33 [id number] [facility] Internal Med [place] [address] [place] [address] y , [place] [address] 03/19/2021 00:00:00 03/19/2021 17:54:06 [id number] [facility] Internal Med [place] [address] [place] [address] y , [place] [address] 04/21/2021 00:00:00 04/21/2021 17:21:43 [id number] [facility] Internal Med [facility] Sharon Mata, [facility] [address] [place] [address] 08/01/2021 00:00:00 08/01/2021 11:33:40 [id number] [facility] Internal Med [place] [address] [place] [address] y , [place] [address] 10/20/2021 00:00:00 10/20/2021 18:04:46 [id number] [facility] Internal Med [place] [address] [place] [address] y , [place] [address] 01/19/2022 00:00:00 01/19/2022 15:40:18 [id number] [facility] Internal Med [facility] [address]ata, [facility] [address] [place] [address] 05/12/2022 00:00:00 06/03/2022 11:28:12 [id number] Farhana hsieh MD [facility] [place] Internal Med [facility]le [address] [facility] [place] [address] 12/23/2022 09:43:39 12/23/2022 10:44:00 Screening - NAD 943439233 Z13.9 UTD on yearly flu shot as per her historyTda p on 06/22UTD on COVID 19 vaccineWWE : On Dr Wooten OB tomorrowRT C in 4 monthsDo labsER if worseShe did verbalize her understand ing of the above Liver enzy mes level above reference range 411240557 R74.01 CT abd 12/16/2020 : Neg, liver normalLFTs 01/09/2022 : Neg Did not see GIGet labs Abdominal pain 48183400 R10.9 OV 09/02/2020 :Has noted some R [...] now OV 12/23/2022 :Does well now Hyperlipidemia 43208501 E78.5 On rosuvastat in 40mg dailyGet labs Moderate r ecurrent major depression 96319875 F33.[address] De La Cruz On bupropionO n buspirone Does well Not suicidal or homicidal Migraine 07462476 G43.90 9 On ubrelvyDoe s well Vitamin D deficiency 347 85390 E55.9 [id number] Farhana hsieh MD [facility] Internal Med [place] [address] [facility] [place] [address] 06/14/2023 14:41:32 06/14/2023 15:16:25 Screening - NAD 324610118 Z13.9 UTD on yearly flu shot as per her historyTda p on 06/22UTD on COVID 19 vaccineWWE : On Dr Wooten OB tomorrowRT C in 4 monthsDo labsER if worseShe did verbalize her understand ing of the above Liver enzy mes level above reference range 829006386 R74.01 CT abd 12/16/2020 : Neg, liver normalLFTs 01/09/2022 : Neg Did not see GIGet labs Hyperlipidemia 15481084 E78.5 On rosuvastat in 40mg dailyGet labs Moderate r ecurrent major depression 99328827 F33.[address] De La Cruz On atomoxetin Jaspreet bupropion 300mg dailyOn buspirone 5mg dailyOn quetiapine 25mg daily Does well Not suicidal or homicidal Migraine 31915254 G43.90 9 On ubrelvy Does well Vitamin D deficiency 347 11510 E55.9 Eruption 191722443 R21 Will get on MDP and zyrtecAlso [...] Salmeron Member ID Guarantor Name 12/23/2022 1 [facility] [id number] Kumar Alford [id number] Liberty Alford 06/14/2023 1 [facility] [id number] Kumar Alford [id number] Libertythor Alford Notes Date Note Type Note [...] was referred hereHer prior PCP was her certified genetic counselor Dr Durham denies any symptoms nowNo N/V or diarrhea, no blood in urine or stoolNo fevers or chillsNo rashesNo joint painShe is not suicidal or homicidal no ideation or attemptsHere with her mother OV 09/23/2020:Here with her mother for her one month follow upShe feels well todayShandrew did do the labs and is now [...] abd pain is better Farhana Alicia MD [address] [place] [address], [address], [place], [address], [facility] [employer] 12/23/2022 12:36:28 06/14/2023 text/html OV 09/02/2020:He re [...] was referred hereHer prior PCP was her certified genetic counselor Dr Durham denies any symptoms nowNo N/V or diarrhea, no blood in urine or stoolNo fevers or chillsNo rashesNo joint painShe is not suicidal or homicidal no ideation or attemptsHere with her mother OV 09/23/2020:Here with her mother for her one month follow upShe feels well todayShandrew did do the labs and is now [...] have been exposed to something in the group home to cause this rashNo SOB, wheezing or chest pain or difficulty breathing or swallowing, no joint painNo recent labs Farhana Alicia MD [address] [facility], [facility] [address], [place], [address], [facility] [employer] [facility] 09/06/2023 12:58:44 OBGyn Episode No OBEpisode recorded.
--- OUTSIDE RECORDS SUMMARY | 2024-12-08 21:49 | XMS_ITS | Referral Summary ---
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 This disclosure is being madepursuant to the Care Everywhere program and may not contain all information available regarding this patient. Last updated 18.[facility] [employer] Allergies No known active allergies Medications * [...] 91 01/30/2021 7:51 PM CDT Temperature 37.7 C (99.9 F) 01/31/2021 1:09 AM CDT Respiratory Rate 20 01/30/2021 7:51 PM CDT [...] Negative Negative 05/03/2018 11:02 AM CDT [facility] GC Amplified Probe Negative Negative 05/03/2018 11:02 AM CDT [facility] Urine URINE / Unknown Collection / Unknown 05/02/2018 11:55 AM CDT 05/02/2018 11:55 AM CDT Narrative [facility] - 05/03/2018 11:02 AM CDT Results based on detection/no detection of ribosomal RNA by amplified method. Anita Madison MD LAB - MICROBIOLOGY O RDERABLES [facility] [address] [phone] * HIV-1 HIV-2 ANTIBODY + HIV P24 AG PANEL (02/15/2018 10:34 AM CDT) Pathologist [facility] HIV1/2 Ab + P24 Ag Non Reactive Non Reactive 02/15/2018 12:04 PM CDT [facility] Blood BLOOD SPECIMEN / Unknown Lab Venipuncture / Unknown 02/15/2018 10:34 AM CDT 02/15/2018 10:45 AM CDT Narrative [facility] - 02/15/2018 12:04 PM CDT No Laboratory evidence of HIV infection. Yenny Stroud APRN-[employer] TENDER LAB - CHEMISTR Y ORDERABLES [facility] [address] [place] [address] * (ABNORMAL) HEPATITIS C ANTIBODY (02/15/2018 10:34 AM CDT) HCV Antibody Screen REACTIVE( A) Non Reactive 02/15/2018 1:35 PM CDT [facility] HCV S/C Ratio 1.58(H) 0.00 - 0.79 02/15/2018 1:35 PM CDT [facility] Blood BLOOD SPECIMEN / Unknown Lab Venipuncture / Unknown 02/15/2018 10:34 AM CDT 02/15/2018 10:45 AM CDT Narrative [facility] - 02/15/2018 1:35 PM CDT S/C ratio: A swechj-tb-wssqbk ratio (s/c ratio) of 0.8 - >11.00 may represent false positive results. Reflex testing to Hepatitis C Virus RNA Quantitative, Real-Time PCR will be performed. See separate report. S/C ratio: A pddobm-hc-lyttdj ratio (s/c ratio) of 0.8 - >11.00 may represent false positive results. Reflex testing to Hepatitis C Virus RNA Quantitative, Real-Time PCR will be performed. See separate report. 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
--- OUTSIDE RECORDS SUMMARY | 2024-12-08 21:49 | XMS_ITS | Patient Health Summary ---
Author Organization [facility] Address [address] [place] [address] Care Team Providers Care Accounts Payable Analyst Name Role Phone Joellen Kemp MD Primary Care Provider [phone] Note from [facility],non-owned Affiliates and Associated Physician Practices is amultiple site organization consisting of ambulatory clinics and hospital sitesin [place], [place], [place]. This disclosure is being madepursuant to the Care Everywhere program and may not contain all information available regarding this patient. Last updated 18.[facility] Allergies No known active allergies Medications [...] period is included. PPD 0 [facility] LEXIESUMMIT Other MISCELLANEOUS SAMPLE S / Unknown 04/02/2021 3:35 PM CDT Casi Tariq ENGINEERING LIBRARIAN-TANK FARM OPERATOR LAB - POINT OF CARE ORDERABLES [facility] [address] [phone] * CT ABDOMEN PELVIS W CONTRAST (01/31/2021 [...] JUAN ROBLES on 01/31/2021 8:53 AM . Narrative 01/31/2021 8:53 [...] is included. WBC 10.9(H) 3.5 - 10.5 10 3/uL 01/31/2021 1:11 AM [facility] RBC 4.74 3.90 - 5.00 10 6/uL 01/31/2021 1:11 AM [facility] Hemoglobin 13.6 12.0 - 15.5 g/dL 01/31/2021 1:11 AM [facility] Hematocrit 42.1 35.0 - 45.0 % 01/31/2021 1:11 AM [facility] MCV 88.8 81.0 - 97.0 fL 01/31/2021 1:11 AM [facility] MCH 28.7 28.0 - 34.0 pg 01/31/2021 1:11 AM [facility] MCHC 32.3 32.0 - 36.0 g/dL 01/31/2021 1:11 AM [facility] Platelet Count 320 150 - 400 10 3/uL 01/31/2021 1:11 AM [facility] RDW-SD 43.3 36.0 - 50.0 fL 01/31/2021 1:11 AM [facility] RDW-CV 13.2 11.2 - 14.8 % 01/31/2021 1:11 AM [facility] MPV 9.7 9.3 - 12.8 fL 01/31/2021 1:11 AM [facility] nRBC Absolute 0.00 0 10 3/uL 01/31/2021 1:11 AM [facility] nRBC Auto 0.0 0 /100 WBC 01/31/2021 1:11 AM [facility] Neutrophils % 63.5 35.0 - 70.0 % 01/31/2021 1:11 AM [facility] Lymphocytes % 26.6 19.7 - 55.1 % 01/31/2021 1:11 AM [facility] Monocytes % 8.7 3.0 - 15.0 % 01/31/2021 1:11 AM [facility] Eosinophils % 0.6 0.0 - 6.0 % 01/31/2021 1:11 AM [facility] Basophil % 0.4 0.0 - 1.5 % 01/31/2021 1:11 AM [facility] Neutrophils Absolute 6.9 1.6 - 7.0 10 3/uL 01/31/2021 1:11 AM [facility] Lymphocyte Absolute 2.9 0.8 - 2.9 10 3/uL 01/31/2021 1:11 AM [facility] Monocytes Absolute 0.95(H) 0.14 - 0.66 10 3/uL 01/31/2021 1:11 AM [facility] Eosinophils Absolute 0.06 0.00 - 0.45 10 3/uL 01/31/2021 1:11 AM [facility] Basophils Absolute 0.04 0.00 - 0.06 10 3/uL 01/31/2021 1:11 AM [facility] Immature Granulocytes % 0.2 0.0 - 1.0 % 01/31/2021 1:11 AM [facility] Blood BLOOD SPECIMEN / Unknown Venipuncture / Unknown 01/31/2021 12:59 AM CDT 01/31/2021 1:05 AM CDT Garrett Paulino MD LAB - HEMATOLOGY ORD ERABLES [facility] [address] [place] [address], [facility] [phone] * (ABNORMAL) COMPREHENSIVE METABOLIC PANEL (01/31/2021 12:59 AM CDT) BUN 9 7 - 26 mg/dL 01/31/2021 1:30 AM [facility] Creatinine 0.9 0.6 - 1.2 mg/dL 01/31/2021 1:30 AM [facility] Sodium 143 136 - 145 mmol/L 01/31/2021 1:30 AM [facility] Potassium 3.8 3.5 - 4.5 mmol/L 01/31/2021 1:30 AM [facility] Chloride 107 98 - 107 mmol/L 01/31/2021 1:30 AM [facility] CO2 23 22 - 29 mmol/L 01/31/2021 1:30 AM [facility] Glucose 98 70 - 115 mg/dL 01/31/2021 1:30 AM [facility] Calcium 9.1 8.4 - 10.2 mg/dL 01/31/2021 1:30 AM [facility] Protein Total 7.9 6.0 - 8.3 g/dL 01/31/2021 1:30 AM [facility] Albumin 3.9 3.4 - 5.0 g/dL 01/31/2021 1:30 AM [facility] Bilirubin Total 0.5 0.2 - 1.2 mg/dL 01/31/2021 1:30 AM [facility] Alkaline Phosphatase 63 40 - 150 Units/L 01/31/2021 1:30 AM [facility] ALT 22 0 - 55 Units/L 01/31/2021 1:30 AM [facility] AST 19 5 - 34 Units/L 01/31/2021 1:30 AM [facility] Anion Gap 17 8 - 18 01/31/2021 1:30 AM [facility] BUN/Creatinine Ratio 10 7 - 23 01/31/2021 1:30 AM [facility] Osmolality Calculated 295 270 - 300 mOsm/kg 01/31/2021 1:30 AM [facility] Albumin/Globulin Ratio 1.0(L) 1.1 - 2.3 01/31/2021 1:30 AM [facility] eGFR >60 >60 mL/min/1.7 3 m2 01/31/2021 1:30 AM [facility] Blood BLOOD SPECIMEN / Unknown Venipuncture / Unknown 01/31/2021 12:59 AM CDT 01/31/2021 1:05 AM CDT Garrett Paulino MD LAB - CHEMISTRY [place] [address] [address], [facility] [phone] * LIPASE BLOOD (01/31/2021 12:59 AM CDT) Lipase 17 8 - 78 Units/L 01/31/2021 1:26 AM T [facility] Blood BLOOD SPECIMEN / Unknown Venipuncture / Unknown 01/31/2021 12:59 AM CDT 01/31/2021 1:05 AM CDT Gwen Heath PA-C LAB - CHEMISTRY OR DERABLES Performing Organization Address [facility] [place]/[facility]/ZIP Co de Phone Number [address] [address], [facility] [phone] * (ABNORMAL) URINALYSIS W/MICROSCOPIC NO CULTURE (01/31/2021 12:45 AM CDT) Color UA Yellow Straw, Yellow, Colorless 01/31/2021 1:07 AM T [facility] Clarity UA Cloudy(A) Clear, Slt Cloudy 01/31/2021 1:07 AM [facility] Specific Crawford UA 1.012 1.005 - 1.030 01/31/2021 1:07 AM [facility] pH UA 5.0 5.0 - 8.0 pH 01/31/2021 1:07 AM [facility] Protein UA 2+(A) Negative mg/dL 01/31/2021 1:07 AM [facility] Glucose UA Negative Negative mg/dL 01/31/2021 1:07 AM [facility] Ketone UA Negative Negative mg/dL 01/31/2021 1:07 AM [facility] Bilirubin UA Negative Negative mg/dL 01/31/2021 1:07 AM [facility] Blood UA 2+(A) Negative 01/31/2021 1:07 AM CDT [facility] Nitrite UA Positive(A) Negative 01/31/2021 1:07 AM T [facility] Leukocyte Esterase 3+(A) Negative 01/31/2021 1:07 AM T [facility] Urobilinogen UA Negative Negative mg/dL 01/31/2021 1:07 AM T [facility] RBC UA 51-100(A) None Seen, 0-2, 3-5 /HPF 01/31/2021 1:07 AM T [facility] WBC UA >100(A) None Seen, 0-5 /HPF 01/31/2021 1:07 AM T [facility] WBC Clumps Few(A) None /HPF 01/31/2021 1:07 AM T [facility] Bacteria UA 2+(A) None, Trace /HPF 01/31/2021 1:07 AM T [facility] Squamous Epithelial Cells UA 3-5(A) None Seen, 0-2 /HPF 01/31/2021 1:07 AM T [facility] Mucus UA 1+ None, 1+ /LPF 01/31/2021 1:07 AM [facility] Urine URINE SPECIMEN OBTAINED BY CLEAN CATCH PROCEDURE / Unknown Collection / Unknown 01/31/2021 12:45 AM CDT 01/31/2021 12:48 AM CDT Narrative [facility] - 01/31/2021 1:07 AM CDT Gwen Heath PA-C LAB - URINALYSIS O RDERABLES [facility] [address] [place] [address], [facility] [phone] * HCG URINE QUALITATIVE (01/31/2021 12:45 AM CDT) Only the most recent of2 resultswithin the time period is included. Test Urine Negative Negative 01/31/2021 1:01 AM CDT [facility] Urine URINE / Unknown Collection / Unknown 01/31/2021 12:45 AM CDT 01/31/2021 12:48 AM CDT Garrett Paulino MD LAB - URINALYSIS ORD ERABLES [place] [id number] [place] [address], [facility] [phone] * CHLAMYDIA + GC AMPLIFIED PROBE (05/02/2018 11:55 AM CDT) Only the most recent of2 resultswithin the time period is included. [facility] Chlamydia Amplified Probe Negative Negative 05/03/2018 11:02 AM CDT [facility] GC Amplified Probe Negative Negative 05/03/2018 11:02 AM CDT [facility] Urine URINE / Unknown Collection / Unknown 05/02/2018 11:55 AM CDT 05/02/2018 11:55 AM CDT Narrative [facility] - 05/03/2018 11:02 AM CDT Results based on detection/no detection of ribosomal RNA by amplified method. Anita Madison MD LAB - MICROBIOLOGY O RDERABLES Performing Organization Address City/[facility]/ZIP Co de Phone Number [facility] [address] [place] [address], [facility] [phone] * TSH REFLEX FREE T4 (05/02/2018 11:26 AM CDT) [facility] TSH 1.29 0.358 - 3.740 ulU/mL 05/02/2018 3:38 PM CDT [facility] Blood BLOOD SPECIMEN / Unknown Lab Venipuncture / Unknown 05/02/2018 11:26 AM CDT 05/02/2018 11:53 AM CDT Anita Madison MD LAB - CHEMISTRY [place] [facility] [address] [place] [address] * C-REACTIVE PROTEIN (05/02/2018 11:26 AM CDT) Only the most recent of2 resultswithin the time period is included. [facility] C-Reactive Protein 0.20 <=0.50 mg/dL 05/02/2018 12:24 PM CDT [facility] Blood BLOOD SPECIMEN / Unknown Lab Venipuncture / Unknown 05/02/2018 11:26 AM CDT 05/02/2018 11:53 AM CDT Anita Madison MD LAB - CHEMISTRY [place] Performing Organization Address City/[facility]/ZIP Co de Phone Number [facility] [address] [place] [address] * PROLACTIN (05/02/2018 11:26 AM CDT) Prolactin 5.94 ng/mL 05/03/2018 1:24 PM CDT [facility] Blood BLOOD SPECIMEN / Unknown Lab Venipuncture / Unknown 05/02/2018 11:26 AM CDT 05/02/2018 11:53 AM CDT Narrative [facility] - 05/03/2018 1:24 PM CDT Prolactin Reference Interval: Female Non: 2.80 - 29.20 ng/mL Female : 9.70 - 208.50 ng/mL Female Postmenopausal: 1.80 - 20.39 ng/mL Male: 2.10 - 17.70 ng/mL Anita Madison MD LAB - CHEMISTRY [place] Performing Organization Address City/[facility]/ZIP Co de Phone Number [facility] [address] [place] [address] * HCG URINE QUALITATIVE - POCT (IP) INTERFACED (05/02/2018 11:17 AM CDT) HCG Qual Urine Negative Negative 05/02/2018 11:17 AM CDT [facility] Urine URINE / Unknown 05/02/2018 1 1:17 AM CDT 05/02/2018 11:17 AM CDT Anita Madison MD LAB - POINT OF CARE ORDERABLES Performing Organization Address City/[facility]/ZIP Co de Phone Number [facility] [address] [place] [phone] * HCG URINE QUAL POCT NOTIFICATION (05/02/2018 10:54 AM CDT) Comment Notification Label Only - See Separate Report 05/02/2018 12:00 PM CDT [facility] Urine URINE / Unknown 05/02/2018 1 0:54 AM CDT 05/02/2018 10:54 AM CDT Anita Madison MD LAB - URINALYSIS ORD ERABLES [facility] [address] [facility] [place] [address] * US PELVIS W DOPPLER OVARIES (02/25/2018 [...] 2:42 PM Anita Madison MD US ORDERABLES * HIV-1 HIV-2 ANTIBODY + HIV P24 AG PANEL (02/15/2018 10:34 AM CDT) [facility] HIV1/2 Ab + P24 Ag Non Reactive Non Reactive 02/15/2018 12:04 PM CDT [facility] Blood BLOOD SPECIMEN / Unknown Lab Venipuncture / Unknown 02/15/2018 10:34 AM CDT 02/15/2018 10:45 AM CDT Narrative [facility] - 02/15/2018 12:04 PM CDT No Laboratory evidence of HIV infection. Yenny Stroud APRN-TANK FARM OPERATOR LAB - CHEMISTR Y ORDERABLES Performing Organization Address City/State/[facility] Co de Phone Number [facility] [address] [place] [phone] * HEPATITIS C RNA QUANTITATIVE PCR (02/15/2018 10:34 AM CDT) [facility] Hepatitis C Virus Quantitation HCV Not Detected IU/mL 02/16/2018 8:11 PM CDT [facility] ([facility]) Test Information Comment 02/17/20 8:11 PM CDT [facility] ([facility]) Comment:The quantitative ran ge of this assay is 15 IU/mL to 100 million IU/mL. Blood BLOOD SPECIMEN / Unknown Lab Venipuncture / Unknown 02/15/2018 10:34 AM CDT 02/15/2018 12:01 PM CDT Narrative [facility] ([facility]) - 02/16/2018 8:11 PM CDT Performed at: 01 - [facility] [id number] [place]: Leroy Lew MD, Phone: [phone] Yenny Stroud APRN-TANK FARM OPERATOR LAB - CHEMISTR Y ORDERABLES [facility] ([facility]) [address] [place] [address] * RPR (02/15/2018 10:34 AM CDT) RPR Non Reactive Non Reactive 02/16/2018 9:28 AM CDT [facility] Blood BLOOD SPECIMEN / Unknown Lab Venipuncture / Unknown 02/15/2018 10:34 AM CDT 02/15/2018 10:45 AM CDT Yenny Stroud APRN-TANK FARM OPERATOR LAB - CHEMISTR Y ORDERABLES [facility] [address] [place] [address] * (ABNORMAL) HEPATITIS B PANEL (02/15/2018 10:34 AM CDT) Pathologist [facility] HBsAb REACTIVE(A) Non Reactive 02/15/2018 12:12 PM CDT [facility] HBsAg Non Reactive Non Reactive 02/15/2018 12:12 PM CDT [facility] HBc Antibody IgM Non Reactive Non Reactive 02/15/2018 12:12 PM CDT [facility] Blood BLOOD SPECIMEN / Unknown Lab Venipuncture / Unknown 02/15/2018 10:34 AM CDT 02/15/2018 10:45 AM CDT Yenny Stroud APRN-TANK FARM OPERATOR LAB - CHEMISTR Y ORDERABLES [facility] [address] [place] [address] * (ABNORMAL) HEPATITIS C ANTIBODY (02/15/2018 10:34 AM CDT) [facility] HCV Antibody Screen REACTIVE( A) Non Reactive 02/15/2018 1:35 PM CDT [facility] HCV S/C Ratio 1.58(H) 0.00 - 0.79 02/15/2018 1:35 PM CDT [facility] Blood BLOOD SPECIMEN / Unknown Lab Venipuncture / Unknown 02/15/2018 10:34 AM CDT 02/15/2018 10:45 AM CDT Narrative [facility] - 02/15/2018 1:35 PM CDT S/C ratio: A gfadfb-mi-iljaym ratio (s/c ratio) of 0.8 - >11.00 may represent false positive results. Reflex testing to Hepatitis C Virus RNA Quantitative, Real-Time PCR will be performed. See separate report. S/C ratio: A rhwljr-oc-hjfffm ratio (s/c ratio) of 0.8 - >11.00 may represent false positive results. Reflex testing to Hepatitis C Virus RNA Quantitative, Real-Time PCR will be performed. See separate report. Yenny SNOWTANK FARM OPERATOR LAB - CHEMISTR Y ORDERABLES [facility] [address] [place] [address] * CHLAMYDIA + GC AMPLIFIED PROBE AMANDA (02/15/2018 9:59 AM CDT) [facility] Chlamydia Amplified Probe Negative Negative 02/16/2018 9:36 AM CDT [facility] GC Amplified Probe Negative Negative 02/16/2018 9:36 AM CDT [facility] Microbiology URINE / Unknown Collection / Unknown 02/15/2018 9:59 AM CDT 02/15/2018 10:50 AM CDT Narrative [facility] - 02/16/2018 9:36 AM CDT This test was developed and its performance characteristics determined by the [facility], [facility]. Female urine specimens tested by the [facility] have not been cleared or approved by the U.S. Food and Drug Administration (FDA). The laboratory is regulated under the Clinical Laboratory Improvement Amendments (CLIA) as qualified to perform high-complexity testing. This test is used for clinical purposes. It should not be regarded as investigational or for research. Results based on detection/no detection of ribosomal RNA by amplified method. Yenny Maximus STAPLES-[facility] LAB - MICROBIO LOGY ORDERABLES Performing Organization Address [facility] [place]/[facility] Co de Phone Number [facility] [address] [place] [address], [facility] [phone] * TRICHOMONAS VAGINALIS AMPLIFIED PROBE (02/15/2018 9:59 AM CDT) Trichomonas vaginalis Amplified Probe Negative Negative 02/16/2018 10:39 AM CDT [facility] Microbiology ENTIRE VAGINA / Unknown Collection / Unknown 02/15/2018 9:59 AM CDT 02/15/2018 10:51 AM CDT Narrative [facility] - 02/16/2018 10:39 AM CDT Results based on detection/no detection of ribosomal RNA by amplified method. Yennyjori Mauricemagi [facility] LAB - MICROBIO LOGY ORDERABLES Performing Organization Address [facility] [place]/[facility] Phone Number [facility] [address] [place] [address], [facility] [phone] * XR HIP 2+ VW RIGHT (01/18/2018 [...] provider. Scanned Document LAB - THERAPEUTIC DR UG MONITORING ORDERABLES * CELIAC DISEASE ANTIBODY COMBO (01/10/2018 12:12 PM CDT) Pathologist [facility] TTG/DGP Screen Negative Negative 01/12/2018 1:11 PM CDT [facility] ([facility]) Comment: For detection of IgA and IgG antibodies to deaminated gliadin-derived peptides (DGP) and human tissue transglutaminase (h-tTG) in human serum. The presence of these antibodies can be used in conjunction with clinical findings and other laboratory tests to aid in the diagnosis of IgA sufficient and IgA deficient celiac disease. Blood BLOOD SPECIMEN / Unknown Lab Venipuncture / Unknown 01/10/2018 12:12 PM CDT 01/10/2018 12:35 PM CDT Narrative [facility] ([facility]) - 01/12/2018 1:11 PM CDT Performed at: [address] [place] [id number] [place]: Leroy Lew MD, Phone: [phone] Anita Madison MD LAB - SEROLOGY ORDER [facility] ([facility]) [address] [place] [address] * HCG BETA BLOOD QUANTITATIVE (01/10/2018 12:12 PM CDT) Pathologist [facility] hCG Quantitative <1 mIU/mL 01/11/20 18 3:20 PM CDT [facility] Blood BLOOD SPECIMEN / Unknown Lab Venipuncture / Unknown 01/10/2018 12:12 PM CDT 01/10/2018 12:35 PM CDT Narrative [facility] - 01/10/2018 3:20 PM CDT hCG Reference Range, mIU/mL: Males 0-2.0 Non Females 0-6.0 Perimenopausal Females ages 41-55* 0-7.7 Postmenopausal Females age >55* 0-14 Females, Weeks after Last Menstrual Period 0.2-1 week 5-50 1 - 2 weeks 50-500 2 - 3 weeks 100-5000 3 - 4 weeks 500-10,000 4 - 5 weeks 1000-50,000 5 - 6 weeks 10,000-100,000 6 - 8 weeks 15,000-200,000 2 - 3 months 10,000-100,000 Trophoblastic Disease >100,000 *In higher than expected hCG in females > age 40, a serum FSH >20 IU/L makes unlikely. Anita Madison MD LAB - CHEMISTRY [place] [facility] Organization Address City/State/ZIP Co de Phone Number [facility] [address] [place] [address] * URINALYSIS W/MICROSCOPIC REFLEX TO CULTURE (01/10/2018 11:03 AM CDT) Color UA Straw Straw, Yellow 01/10/2018 11:42 AM [facility] Clarity UA Clear Clear 01/10/2018 11:42 AM [facility] Glucose UA Negative Negative 01/10/2018 11:42 AM T [facility] Bilirubin UA Negative Negative 01/10/2018 11:42 AM T [facility] Ketone UA Negative Negative 01/10/2018 11:42 AM T [facility] Specific Crawford UA 1.008 1.005 - 1.030 01/10/2018 11:42 AM T [facility] Blood UA Negative Negative 01/10/2018 11:42 AM [facility] pH UA 5.0 5.0 - 8.0 pH 01/10/2018 11:42 AM [facility] Protein UA Negative Negative 01/10/2018 11:42 AM [facility] Urobilinogen UA Negative Negative mg/dL 01/10/2018 11:42 AM CDT [facility] Nitrite UA Negative Negative 01/10/2018 11:42 AM CDT [facility] Leukocyte UA Negative Negative 01/10/2018 11:42 AM CDT [facility] RBC UA None Seen 0-5, None Seen # /hpf 01/10/2018 11:42 AM CDT [facility] WBC UA 0-5 0-5, None Seen # /hpf 01/10/2018 11:42 AM CDT [facility] Bacteria UA None Seen None Seen 01/10/2018 11:42 AM CDT [facility] Squamous Epithelial Cells 0-2 None Seen, 0-2, 3-5 /hpf 01/10/2018 11:42 AM CDT [facility] Reflex Status Culture not indicated 01/10/2018 11:42 AM CDT [facility] Urine URINE SPECIMEN OBTAINED BY CLEAN CATCH PROCEDURE / Unknown Collection / Unknown 01/10/2018 11:03 AM CDT 01/10/2018 11:19 AM CDT Narrative [facility] - 01/10/2018 11:42 AM CDT Anita Madison MD LAB - URINALYSIS ORD ERABLES Performing Organization Address City/State/[facility] Co de Phone Number [facility] [place] [phone] * MRI BRAIN NON CONTRAST (03/20/2016 10:54 AM CDT) Anatomical Region Laterality Modality Head Magnetic Resonan ce 03/20/2016 11:1 2 AM CDT Impressions 03/20/2016 11:55 AM CDT 1. Normal examination of the brain and nikolai of [place] without findings to explain the [...] according to standard protocol. MRA of the pqpgsx-ea-Vlhgvc was performed using a rmvn-ov-wmnbyk technique without contrast. The sequences are distorted [...] according to standard protocol. MRA of the ojxbxu-xc-Iuoarq was performed using a hfgw-zn-uwbcmf technique without contrast. The sequences are distorted [...] 1. Normal examination of the brain and nikolai of [place] without findings to explain the [...] 1. Normal examination of the brain and nikolai of [place] without findings to explain the [...] according to standard protocol. MRA of the tptigw-lj-Apttuy was performed using a opqz-ie-lfqenj technique without contrast. The sequences are distorted [...] according to standard protocol. MRA of the ghtlsg-id-Rxnnvx was performed using a fazq-eq-navgul technique without contrast. The sequences are distorted [...] 1. Normal examination of the brain and nikolai of [place] without findings to explain the [...] AM CDT) Result CASE NUMBER [id number] [facility] REPORT Comment: ORDERING PHYSICIAN CESILIA GRAJEDA SPECIMEN TYPE Tonsils CLINICAL HISTORY The patient is a 4-year-old girl with chronic tonsillitis. GROSS DESCRIPTION The specimen, labeled with the patient's name and tonsils, is received fresh for gross examination only and consists of two egg-shaped, pink- hairston tonsils measuring 2.3 x 1.2 x 1.2 cm and 2.4 x 1.5 x 0.8 cm, weighing approximately 7 grams combined. On cut surface the tonsils have a cerebriform, yellow-hairston appearance. No sections are taken. (CC/pg) GROSS DIAGNOSIS GROSS DIAGNOSIS TONSILS. This case has been personally reviewed and interpreted by the attending (teaching) pathologist. [employer] Cutter Operator [employer]OPER PATHOLOGIST Siva Wood M.D. ELECTRONICALLY ROGER Siva Wood MISCELLANEOUS SAMPLES / Unknown 06/22/2005 9:20 AM CDT 06/22/2005 10:55 AM CDT Historical Provider LAB - PATHOLOGY/C YTOLOGY ORDERABLES [facility] PATH REPORT Care Teams Accounts Payable Analyst Relationship Specialty Start Date End Date Joellen Kemp MD [id number] [facility] [address] [place] [address] PCP - General Pediatrics 12/10/15
--- OUTSIDE RECORDS SUMMARY | 2024-12-08 21:49 | XMS_ITS | Clinical Summary ---
Author Organization [facility] Address [address] [place] [address] Care Team Providers Care Special Crimes Investigator Name Role Phone Farhana Alicia MD Primary [...] Comments Blood Pressure 127/76 11/11/2022 7:28 PM MINE FOREMAN Pulse 64 11/11/2022 7:28 PM MINE FOREMAN Temperature 36.6 C (97.8 F) 11/11/2022 7:28 PM MINE FOREMAN Respiratory Rate 18 11/11/2022 7:28 PM MINE FOREMAN Oxygen Saturation 100% 11/11/2022 7:28 PM MINE FOREMAN Inhaled Oxygen Concentration - - Weight 73.5 kg (162 lb) 11/11/2022 7:30 PM MINE FOREMAN Height 154.9 cm (5' 1 ) 11/11/2022 7:30 PM MINE FOREMAN Body Mass Index 30.61 11/11/2022 7:30 PM MINE FOREMAN Plan of Treatment Health Maintenance Due Date [...] patient's age to complete this topic [facility] Care Teams Special Crimes Investigator Relationship Specialty Start Date End Date Farhana Alicia MD [address] [place] [address] PCP - General INTERNAL MEDICINE 12/16/20
--- OUTSIDE RECORDS SUMMARY | 2024-12-08 21:49 | XMS_ITS | Clinical Summary ---
Author Organization [facility] Address [address] [place] [address] Care Team Providers Care Records Management Specialist Name Role Phone Joellen Kemp MD Primary Care Provider [phone] Source Comments [facility],non-owned Affiliates and Associated Physician Practices is amultiple site organization consisting of ambulatory clinics and hospital sitesin [place], [place], [place] and [place]. This disclosure is being madepursuant to the Care Everywhere program and may not contain all information available regarding this patient. Last updated 18.[facility] Allergies No known active allergies Medications * [...] Probe Negative Negative 05/03/2018 11:02 AM CDT [facility] GC Amplified Probe Negative Negative 05/03/2018 11:02 AM CDT [facility] Urine URINE / Unknown Collection / Unknown 05/02/2018 11:55 AM CDT 05/02/2018 11:55 AM CDT Narrative [facility] - 05/03/2018 11:02 AM CDT Results based on detection/no detection of ribosomal RNA by amplified method. Anita Madison MD LAB - MICROBIOLOGY O RDERABLES [facility] [address] [place] [address], [facility] [phone] * HIV-1 HIV-2 ANTIBODY + HIV P24 AG PANEL (02/15/2018 10:34 AM CDT) [facility] HIV1/2 Ab + P24 Ag Non Reactive Non Reactive 02/15/2018 12:04 PM CDT [facility] Blood BLOOD SPECIMEN / Unknown Lab Venipuncture / Unknown 02/15/2018 10:34 AM CDT 02/15/2018 10:45 AM CDT [facility] - 02/15/2018 12:04 PM CDT No Laboratory evidence of HIV infection. Yenny SLOAN LAB - CHEMISTR Y ORDERABLES Performing Organization Address City/[facility]/ZIP Co de Phone Number [facility] [address] [place] [phone] * (ABNORMAL) HEPATITIS C ANTIBODY (02/15/2018 10:34 AM CDT) Pathologist [facility] HCV Antibody Screen REACTIVE( A) Non Reactive 02/15/2018 1:35 PM CDT [facility] HCV S/C Ratio 1.58(H) 0.00 - 0.79 02/15/2018 1:35 PM CDT [facility] Blood BLOOD SPECIMEN / Unknown Lab Venipuncture / Unknown 02/15/2018 10:34 AM CDT 02/15/2018 10:45 AM CDT Narrative [facility] - 02/15/2018 1:35 PM CDT S/C ratio: A tepjej-cb-jopmms ratio (s/c ratio) of 0.8 - >11.00 may represent false positive results. Reflex testing to Hepatitis C Virus RNA Quantitative, Real-Time PCR will be performed. See separate report. S/C ratio: A iwozuv-lv-yahsqr ratio (s/c ratio) of 0.8 - >11.00 may represent false positive results. Reflex testing to Hepatitis C Virus RNA Quantitative, Real-Time PCR will be performed. See separate report. Yenny Maximus STAPLES-MACHINE DESIGN ENGINEER LAB - CHEMISTR Y ORDERABLES [facility] [address] [facility] [place] [address] from Last 3 Months or Most Recently Relevant to Health Maintenance Care Teams Records Management Specialist Relationship Specialty Start Date End Date Joellen Kemp MD [address] [place] [address] PCP - General Pediatrics 12/10/15
--- NOTE | 2024-12-08 22:47 | OBADM ---
This patient, Liberty Alford, admitted to the OB room OB Post 112 for observation. Patient/family oriented to hospital policies and general routines including ID bracelet, bed and alarms, visiting hours, pain management, procedures, bathroom and other care routines, personal items, smoking policy, room service/diet, and visiting hours. Patient/Family are encouraged to report perceived risks to care and to ask questions if they do not understand what they are told or what they should do.
--- NOTE | 2024-12-08 22:50 | PC.NURSE ---
ROM Plus Negative
--- NOTE | 2024-12-08 23:42 | PC.NURSE ---
Dr. Stephane Gale notified of patient arrival to the Labor and Delivery Unit with complaints of sharp vaginal pain and pressure that started at 1830 this evening. MD notified that patient has a low lying placenta and has had spotting since Wednesday and has not become consistent or heavier since then. MD aware that a ROM Plus was preformed and was negative. FHTs were doppled and ranged from 140-150 bpm. New orders received to discharge the patient at this time.
[2024-12-09 00:01] VITALS: BP 107/64; PULSE 80; PULSE 82; O2SAT 99
[2024-12-09 00:06] VITALS: PULSE 75; O2SAT 98
[2024-12-09 00:11] VITALS: PULSE 76; O2SAT 96
== END 2024-12-09 00:18 | disposition home or self-care (01) ==
PROVIDERS: Admitting Provider Obstetrics & Gynecology Gynecology; PCP Obstetrics & Gynecology Gynecology; Visit Provider Obstetrics & Gynecology
DX: O47.02 False labor before 37 completed weeks of gestation, second trimester (principal); Z3A.19 19 weeks gestation of pregnancy
CPT/HCPCS: 84112; G0378; G0379

== ENCOUNTER 2025-09-06 18:59 | Emergency (ER) | payer OTHER, MEDICAID, SELFPAY ==
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
[2025-09-06 19:00] VITALS: BP 119/90; PULSE 109; RESP 22; TEMP 36.6; O2SAT 100
--- NOTE | 2025-09-06 19:05 | ECG_ITS ---
Test Date: 2025-09-06 19:09:10 Measurements Intervals [place] Rate: 115 P: 61 PA: 134 QRS: 82 QRSD: 98 T: -7 QT: 313 QTc: 434 Interpretive Statements SINUS TACHYCARDIA INCOMPLETE RIGHT BUNDLE BRANCH BLOCK MINIMAL Q WAVES- ANTEROLAT/INF LEADS BORDERLINE ST-T WAVE ABNORMALITY- ANTEROLAT/INF LEADS BASELINE ARTIFACT- I, II, III, V2 ABNORMAL ECG No previous ECG available for comparison Electronically Signed On 09-06-2025 19:42:58 GYROSCOPIC INSTRUMENT TESTER by Lalo Rojas D.O.
--- NOTE | 2025-09-06 19:25 | ECG_ITS ---
Test Date: 2025-09-06 19:31:18 Measurements Intervals [place] Rate: 109 P: 69 ID: 128 QRS: 86 QRSD: 102 T: 19 QT: 314 QTc: 424 Interpretive Statements SINUS TACHYCARDIA INCOMPLETE RIGHT BUNDLE BRANCH BLOCK ST-T WAVE ABNORMALITY IN ANTEROLAT/INF LEADS- CONSIDER ISCHEMIA BASELINE ARTIFACT- I, II, AVR, AVL ABNORMAL ECG Compared to ECG 09/06/2025 19:09:10 Possible ischemia now present Electronically Signed On 09-06-2025 19:45:[address] LIGHT INSPECTOR by Lalo Rojas D.O.
[2025-09-06 19:58] VITALS: BP 124/89; PULSE 110; RESP 20; TEMP 36.9; O2SAT 100
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
[2025-09-06] MEDS: IPRATROPIUM 0.5 MG/ALBUTEROL SULFATE 2.5 MG (BASE) AMPUL.NEB 3 ML INHALATION (20:23)
[2025-09-06 20:33] LABS: Alveolar/Arterial O2 Gradient 53.3 mmHg; Fractional Inspired Oxygen 40 %; HCO3 ABG 20.1 mEq/l (22.0-26.0); Oxygen Content ABG 19.0 %vol (16.0-22.0); Oxygen Saturation ABG 99.5 % (95.0-100.0); PCO2 ABG 27.7 mmHg (35.0-45.0); PO2 ABG 200.0 mmHg (80.0-100.0); PO2 FiO2 Ratio Arterial Blood 5.00 %
[2025-09-06 20:34] LABS: Liters per Minute 5.0 LPM; Modified Allen's Test Pass; Site Drawn RIGHT RADIAL
[2025-09-06 20:35] VITALS: PULSE 93; RESP 15
[2025-09-06 20:40] VITALS: PULSE 95; RESP 15
--- NOTE | 2025-09-06 22:58 | PC.NURSE ---
Okay to give Toradol IM per verbal order from EDP
[2025-09-06] MEDS: KETOROLAC 15 MG/ML VIAL (*BKC) IV PUSH (23:03)
--- NOTE | 2025-09-06 23:09 | ECG_ITS ---
Test Date: 2025-09-06 23:11:20 Measurements Intervals [place] Rate: 98 P: 61 CO: 136 QRS: 76 QRSD: 99 T: 19 QT: 363 QTc: 464 Interpretive Statements SINUS RHYTHM INCOMPLETE RIGHT BUNDLE BRANCH BLOCK BORDERLINE ST-T WAVE ABNORMALITY- DIFFUSE LEADS BASELINE ARTIFACT- I, III, AVR, AVL, AVF, V1-V6 BORDERLINE ECG Compared to ECG 09/06/2025 19:31:18 HEART RATE HAS DECREASED POSSIBLE ISCHEMIA NO LONGER PRESENT Electronically Signed On 09-07-2025 07:01:18 DIRECTOR OF MEDICAL REVIEW by Lalo Rojas D.O.
[2025-09-06 23:54] VITALS: O2SAT 100
[2025-09-06 23:55] VITALS: BP 115/81; PULSE 88; RESP 18; TEMP 36.7; O2SAT 100
== END 2025-09-06 23:56 | disposition home or self-care (01) ==
PROVIDERS: Emergency Provider Registered Nurse; PCP Obstetrics & Gynecology Gynecology
DX: T58.8X1A Toxic effect of carbon monoxide from other source, accidental (unintentional), initial encounter (principal); R07.89 Other chest pain; E28.2 Polycystic ovarian syndrome; N80.9 Endometriosis, unspecified; E78.5 Hyperlipidemia, unspecified; E53.8 Deficiency of other specified B group vitamins; E55.9 Vitamin D deficiency, unspecified; F32.A Depression, unspecified; F41.9 Anxiety disorder, unspecified; I45.10 Unspecified right bundle-branch block; R94.31 Abnormal electrocardiogram [ECG] [EKG]; R00.0 Tachycardia, unspecified
CPT/HCPCS: 36600; 71046; 82805; 85018; 93005; 94640; 99283; J1885; J7512